=== PATIENT | female | born 1970 | race African-American/Black ===

== ENCOUNTER 2020-10-09 08:19 | Emergency (ER) | payer OTHER, BC, SELFPAY ==
[2020-10-09 08:25] VITALS: BP 114/84; PULSE 90; RESP 16; TEMP 35.8; O2SAT 100
--- NOTE | 2020-10-09 08:58 | ED.GENADULT ---
HPI - General Adult General Chief complaint: Upper Respiratory Infection Stated complaint: sore throat Time Seen by Provider: 10/09/20 08:37 Source: patient and RN notes reviewed Mode of arrival: ambulatory Limitations: no limitations History of Present Illness HPI narrative: Patient presents today complaining of a 2-week history of sore throat. Sore throat is significantly worse when she wakes up in the morning, but improves throughout the day, especially after taking Tylenol. She does report some congestion in the mornings as well. Rates her pain in the morning 05/30, but is currently pain-free. States she does sleep with a, fan in my face. States she is unsure if it is dry in her home, but does not use a humidifier. Recently finished courses of amoxicillin and clindamycin after root canal. 4 days ago she tested negative for COVID-19. Denies any additional symptoms. Denies history of GERD. MD complaint: Sore throat Related Data Home Medications Medication Instructions Recorded Confirmed calcium carbonate-vitamin D3 cap PO 10/09/20 [Calcium With Vitamin D3] docosahexaenoic acid [Algal mg PO 10/09/20 [place]-3 DHA] ferrous sulfate [Gentle Iron (iron mg 10/09/20 sulfate)] mecobalamin (vitamin B12) 1,000 mcg SUBLINGUAL DAILY 10/09/20 10/09/20 multivitamin [Daily Multivitamin] tablet 10/09/20 paroxetine HCl mg PO 10/09/20 topiramate 10/09/20 Allergies Allergy/AdvReac Type Severity Reaction Status Date / Time meperidine Allergy Unknown HIVES Verified 10/09/20 08:33 metoclopramide Allergy Unknown RESTLESS Verified 10/09/20 08:33 LEGS morphine Allergy Unknown HIVES Verified 10/09/20 08:33 naproxen Allergy Unknown rash Verified 10/09/20 08:33 Review of Systems Review of Systems: Narrative: CONSTITUTIONAL: Denies body aches, fever, chills, or sweats. EYES: Denies visual changes, redness, or discharge. ENT: Denies rhinorrhea, or otalgia. + Sore throat, congestion CARDIOVASCULAR: Denies chest pain, palpitations, or edema. RESPIRATORY: Denies cough or dyspnea. GASTROINTESTINAL: Denies abdominal pain, nausea, vomiting, or diarrhea. GENITOURINARY: Denies dysuria or hematuria. SKIN: Denies rash, itching, or wounds. MUSCULOSKELETAL: Denies back pain, joint pain, or myalgia. NEUROLOGIC: Denies headache, numbness, tingling, or weakness. PSYCH: Denies depression or anxiety. [facility] Past Medical History Medical History (Updated 10/09/20 @ 09:07 by Denise Anne, [facility], ) Anxiety Chiari malformation Migraine Surgical History Surgical History (Updated 10/09/20 @ 09:07 by Denise Anne, [facility], ) H/O gastric bypass H/O: hysterectomy Comments At time of signature, I have reviewed and agree with nursing past medical, surgical, social and family history unless otherwise noted. Please see nursing chart for further information. There is no relevant family history pertinent to the presenting complaint Exam Narrative: Exam Narrative: GENERAL: Well-appearing, well-nourished, and in no acute distress. HEAD: Normocephalic, atraumatic. EYES: EOMI. No redness or drainage. Conjunctivae normal. ENT: Mucous membranes pink and moist. Nares clear. No rhinorrhea. TMs normal bilaterally. Throat normal with scant amount of clear postnasal drainage. Uvula midline. NECK: Normal AROM. Supple. No lymphadenopathy. CHEST: No respiratory distress. Clear to auscultation. HEART: Regular rate and rhythm. No murmur appreciated. Normal peripheral pulses. EXTREMITIES: Normal range of motion. No edema. SKIN: Warm, dry, no rash. Capillary refill normal. Normal skin turgor. NEURO: No focal deficits. Alert and oriented x3. Gait steady. PSYCH: Normal affect. No signs of depression or anxiety. Course Vital Signs Vital signs: Vital Signs Temperature 96.4 F L 10/09/20 08:25 Pulse Rate 90 10/09/20 08:25 Respiratory Rate 16 10/09/20 08:25 Blood Pressure 114/84 10/09/20 08:25 Pulse Oximetry 100
== END 2020-10-09 09:05 | disposition home or self-care (01) ==
PROVIDERS: Emergency Provider Nurse Practitioner
DX: J02.9 Acute pharyngitis, unspecified (principal); Z98.84 Bariatric surgery status; F41.9 Anxiety disorder, unspecified; Q07.00 Arnold-Chiari syndrome without spina bifida or hydrocephalus
CPT/HCPCS: 87081; 87880; 99213; G0463

== ENCOUNTER 2023-05-10 16:30 | Emergency (ER) | payer BC, SELFPAY ==
--- NOTE | 2023-05-10 16:37 | ED.CHESTPAIN ---
HPI - Chest Pain General Stated Complaint: Chest Pain Mode of arrival: ambulatory Limitations: no limitations Related Data Home Medications Medication Instructions Recorded Confirmed calcium carbonate-vitamin D3 500 1 cap PO DAILY 10/09/20 10/09/20 mg (1,250 mg)-50 unit capsule docosahexaenoic acid 200 mg 200 mg PO DAILY 10/09/20 10/09/20 capsule (Algal [place]-3 DHA) ferrous sulfate 325 mg (65 mg 65 mg PO DAILY 10/09/20 10/09/20 iron) tablet mecobalamin (vitamin B12) 1,000 1,000 mcg sublingual DAILY 10/09/20 10/09/20 mcg disintegrating tablet,sublingual multivitamin 1 tablet PO DAILY 10/09/20 10/09/20 paroxetine HCl 20 mg tablet 20 mg PO DAILY 10/09/20 10/09/20 topiramate 50 mg tablet 50 mg PO DAILY 10/09/20 10/09/20 galcanezumab-gnlm 120 mg/mL 120 mg subcut MONTHLY 04/20/22 subcutaneous pen injector (Emgality Pen) spironolactone 100 mg tablet 100 mg PO DAILY 04/20/22 (Aldactone) alprazolam 0.5 mg tablet mg 05/10/23 indomethacin 25 mg capsule mg 05/10/23 paroxetine HCl 30 mg tablet mg PO 05/10/23 rimegepant 75 mg disintegrating mg 05/10/23 tablet (Nurtec ODT) zolpidem 5 mg tablet mg 05/10/23 Allergies Allergy/AdvReac Type Severity Reaction Status Date / Time meperidine Allergy Unknown HIVES Verified 05/10/23 16:36 metoclopramide Allergy Unknown RESTLESS Verified 05/10/23 16:36 LEGS morphine Allergy Unknown HIVES Verified 05/10/23 16:36 naproxen Allergy Unknown rash Verified 05/10/23 16:36 Review of Systems Review of Systems: CONSTITUTIONAL: Denies malaise, chills, sweats, or fever. EYES: Denies visual changes, redness, or discharge. ENT: Denies rhinorrhea, congestion, sinus pain, otalgia or sore throat. CARDIOVASCULAR: Denies chest pain, palpitations, or edema. RESPIRATORY: Denies cough or dyspnea. GASTROINTESTINAL: Denies abdominal pain, nausea, vomiting, diarrhea, bloody, or mucous stools. GENITOURINARY: Denies dysuria or hematuria. SKIN: Denies rash or itching. MUSCULOSKELETAL: Denies back pain, joint pain, or myalgia. NEUROLOGIC: Denies numbness, weakness, or headache. PSYCHIATRIC: Denies anxiety or depression. All systems reviewed & are unremarkable except as noted in HPI and below PMFSH Past Medical History Medical History Anxiety Chiari malformation removal History of x 2 History of LEEP (loop electrosurgical excision procedure) of cervix complicating History of lipoma History of vaginal delivery x1 Migraine Surgical History Surgical History H/O gastric bypass H/O: hysterectomy History of section x1 History of laparoscopic adjustable gastric banding Family History Family History (Updated 04/20/22 @ 13:28 by Vandana Dominguez MA) Father Cancer of nasal cavities Sibling Depression Grandparent Ovarian cancer Lung cancer Hypertension Other Asthma Social History Social History Smoking status: Never smoker Comments At time of signature, agree with nursing past medical, surgical, social and family history. There is no relevant family history pertinent to the presenting complaint Exam Narrative: GENERAL: Well-appearing, well-nourished, and in no acute distress. HEAD: Normocephalic, atraumatic. EYES: PERRLA, sclera clear, and EOMI. No nystagmus. ENT: Nares clear, turbinates pink, no rhinorrhea or epistaxis. Mucous membranes moist. TM pearly falk with sharp light reflex bilaterally; no tragal tenderness. Oropharynx without erythema or lesions. Tonsils not enlarged and without exudate. NECK: Supple. No lymphadenopathy. No jugular venous distension, thyromegaly, or carotid bruits. Carotids were easily palpable bilaterally. CHEST: No respiratory distress. Clear to auscultation. No bony deformities, no asymmetry. Speaks in full sentences. HEART: Regular rate and rhythm. No murmur heard. Normal per
[2023-05-10 16:41] VITALS: BP 113/76; PULSE 71; RESP 16; TEMP 36.8; O2SAT 100
== END 2023-05-10 16:40 | disposition left against medical advice (07) ==
LOC: EXPCOLL 16:35
PROVIDERS: Emergency Provider Nurse Practitioner
DX: Z53.21 Procedure and treatment not carried out due to patient leaving prior to being seen by health care provider (principal)
CPT/HCPCS: 99199

== ENCOUNTER 2023-05-10 17:04 | Emergency (ER) | payer BC, SELFPAY ==
--- NOTE | ~2023-05-10 | XR_ITS ---
EXAMINATION: XR chest 2V Exam Date/Time: 05/10/2023 20:04 CDT HISTORY: palpitations Comparison: None. RESULT: Lines, tubes, and devices: Surgical clips over the GE junction. Lungs and pleura: Clear. Cardiomediastinal silhouette: Normal. Other: No acute osseous or upper abdominal finding. IMPRESSION: No acute cardiopulmonary process. Reviewed, dictated and finalized at location K.
--- NOTE | 2023-05-10 17:06 | ECG_ITS ---
Measurements Intervals [place] Rate: 65 P: 59 WV: 153 QRS: 33 QRSD: 88 T: 43 QT: 368 QTc: 383 Interpretive Statements SINUS RHYTHM POSSIBLE LEFT ATRIAL ENLARGEMENT [-0.1mV P WAVE IN V1/V2] NO PREVIOUS ECG AVAILABLE FOR COMPARISON Electronically Signed On 05-10-2023 18:27:15 CDT by oRopa Aguilar M.D.
[2023-05-10 17:10] VITALS: BP 123/84; PULSE 65; RESP 16; TEMP 36.4; O2SAT 100
--- NOTE | 2023-05-10 19:23 | PC.NURSE ---
Pt reports frequent palpitations for the past week. She denies chest pain or SOB. She denies feeling palpitations at this time. Skin warm and dry. Respiratory rate regular and non-labored. Lung sounds clear throughout.
--- NOTE | 2023-05-10 19:38 | ED.ARRPALP ---
HPI - Arrhythmia/Palpitations General Chief Complaint: Arrhythmia/Palpitations Stated Complaint: palpitations x 1 wee Time Seen by Provider: 05/10/23 19:23 Source: patient Mode of arrival: ambulatory Limitations: no limitations History of Present Illness HPI narrative: Patient is a 53-year-old female with a history of anxiety presenting to the emergency department for evaluation of intermittent palpitations. Patient reports that she has a longstanding history of palpitations that have occurred on a weekly basis for many years. She has never been seen by sausage stringer, primary care provider at last visit offered reassurance for them. Patient states that this week, palpitations have been daily, at times lasting for 20 to 30 seconds before resolving. No associated chest pain, dizziness, jaw pain, neck pain, diaphoresis, shortness of breath. No syncopal events. Patient denies palpitations currently. She denies any pleuritic chest pain, cough, hemoptysis. No history of coagulopathy. She denies lower extremity pain or swelling. She does not smoke. Patient does consume 3 to 4 cups of coffee daily. Reports limited water intake. Denies lightheadedness. No history of thyroid disorder. Patient denies drug use, recent medication changes or new medication use. Related Data Home Medications Medication Instructions Recorded Confirmed calcium carbonate-vitamin D3 500 1 cap PO DAILY 10/09/20 10/09/20 mg (1,250 mg)-50 unit capsule docosahexaenoic acid 200 mg 200 mg PO DAILY 10/09/20 10/09/20 capsule (Algal [place]-3 DHA) ferrous sulfate 325 mg (65 mg 65 mg PO DAILY 10/09/20 10/09/20 iron) tablet mecobalamin (vitamin B12) 1,000 1,000 mcg sublingual DAILY 10/09/20 10/09/20 mcg disintegrating tablet,sublingual multivitamin 1 tablet PO DAILY 10/09/20 10/09/20 paroxetine HCl 20 mg tablet 20 mg PO DAILY 10/09/20 10/09/20 topiramate 50 mg tablet 50 mg PO DAILY 10/09/20 10/09/20 galcanezumab-gnlm 120 mg/mL 120 mg subcut MONTHLY 04/20/22 subcutaneous pen injector (Emgality Pen) spironolactone 100 mg tablet 100 mg PO DAILY 04/20/22 (Aldactone) alprazolam 0.5 mg tablet mg 05/10/23 indomethacin 25 mg capsule mg 05/10/23 paroxetine HCl 30 mg tablet mg PO 05/10/23 rimegepant 75 mg disintegrating mg 05/10/23 tablet ([facility] ODT) zolpidem 5 mg tablet mg 05/10/23 Allergies Allergy/AdvReac Type Severity Reaction Status Date / Time meperidine Allergy Unknown HIVES Verified 05/10/23 16:36 metoclopramide Allergy Unknown RESTLESS Verified 05/10/23 16:36 LEGS morphine Allergy Unknown HIVES Verified 05/10/23 16:36 naproxen Allergy Unknown rash Verified 05/10/23 16:36 Review of Systems Review of Systems: CONSTITUTIONAL: Denies fever, chills, or sweats. EYES: Denies visual changes, redness, or discharge. ENT: Denies rhinorrhea, congestion, sore throat, or otalgia. CARDIOVASCULAR: Denies chest pain, reports intermittent palpitations, denies edema RESPIRATORY: Denies cough or dyspnea. GASTROINTESTINAL: Denies abdominal pain, nausea, vomiting, or diarrhea. GENITOURINARY: Denies dysuria or hematuria. SKIN: Denies rash or itching. MUSCULOSKELETAL: Denies back pain, joint pain, or myalgia. NEUROLOGIC: Denies headache, numbness, or weakness. PSYCHIATRIC: Reports history of anxiety PMFSH Past Medical History Medical History (Updated 05/10/23 @ 20:54 by Dena Plasencia MD) Anxiety Chiari malformation removal History of x 2 History of LEEP (loop electrosurgical excision procedure) of cervix complicating History of lipoma History of vaginal delivery x1 Migraine Palpitations Surgical History Surgical History H/O gastric bypass H/O: hysterectomy History of section x1 History of laparoscopic adjustable gastric banding Family History Family History Father Cancer of nasal
[2023-05-10 19:49] VITALS: BP 111/70; PULSE 70; RESP 16; O2SAT 99
[2023-05-10 20:24] LABS: Basophils Percent Auto 0.6 % (0.2-1.2); Eosinophils Percent Auto 0.8 % (0-4.4); Hematocrit 39.6 % (37.0-47.0); Hemoglobin 12.3 g/dL (12.0-15.0); Immature Granulocyte Absolute 0.02 K/mm3 (0.00-0.031); Immature Granulocyte Percent A 0.4 % (0-0.5); Lymphocytes Absolute Auto 1.63 K/mm3 (0.9-3.2); Lymphocytes Percent Auto 31.8 % (18.3-44.2); Mean Corpuscular HGB Conc 31.1 g/dl (32-36); Mean Corpuscular Hemoglobin 28.5 pg (26-34); Mean Corpuscular Volume 91.7 fl (80-100); Mean Platelet Volume 8.8 fl (7.4-10.4); Monocytes Absolute Auto 0.4 K/mm3 (0.1-0.6); Monocytes Percent Auto 7.6 % (2.6-8.5); Neutrophils Percent Auto 58.8 % (45.5-73.1); Platelet Count Result 301 k/mm3 (150-375); Red Blood Count 4.32 M/mm3 (4.2-5.4); Red Cell Distribution Width 13.9 % (11.5-14.5); White Blood Count 5.1 K/mm3 (4.5-10.0)
[2023-05-10 20:34] LABS: Anion Gap 4 mmol/L (8-16); Blood Urea Nitrogen 12 mg/dL (7-17); Calcium 8.8 mg/dL (8.4-10.2); Carbon Dioxide 29 mmol/L (22-30); Chloride 108 mmol/L (98-107); Estimated Glomerular Filt Rate > 60; Glucose 68 mg/dL (65-110); Potassium 3.6 mmol/L (3.4-5.0); Sodium 141 mmol/L (137-145)
[2023-05-10 20:46] LABS: Troponin I < 0.012 ng/mL (0.000-0.034)
[2023-05-10 21:15] VITALS: BP 116/70; PULSE 70; RESP 18; O2SAT 98
== END 2023-05-10 21:16 | disposition home or self-care (01) ==
PROVIDERS: Emergency Provider Emergency Medicine
DX: R00.2 Palpitations (principal); F41.9 Anxiety disorder, unspecified; Z98.84 Bariatric surgery status; Z90.710 Acquired absence of both cervix and uterus; R94.31 Abnormal electrocardiogram [ECG] [EKG]
CPT/HCPCS: 36415; 71046; 80048; 84484; 85025; 93005; 99284

== ENCOUNTER 2024-02-01 11:53 | Emergency (ER) | payer BC, SELFPAY ==
[2024-02-01 12:03] VITALS: BP 144/92; PULSE 103; RESP 18; TEMP 37.1; O2SAT 100
--- NOTE | 2024-02-01 12:05 | ED.GENADULT ---
HPI - General Adult General Chief complaint: Anxiety Stated complaint: Bodyaches and Tremors Source: patient, RN notes reviewed and old records reviewed Mode of arrival: ambulatory Limitations: no limitations History of Present Illness HPI narrative: 53-year-old female presents to [facility] with complaints shaking all over and feeling cold for approximately 1 to 1-1/2 hours. Patient states symptom started while drinking coffee. Patient states his normal coffee drinker. Patient states has little myalgia at this time and feels she cannot get warm. Patient denies any other symptoms. Related Data Home Medications Medication Instructions Recorded Confirmed alprazolam 0.5 mg tablet 0.5 mg PO TID PRN Anxiety 02/01/24 02/01/24 estradiol 4 mcg vaginal insert 4 mcg vaginal DIRECTED 02/01/24 02/01/24 (Imvexxy Maintenance Pack) famotidine 40 mg tablet 40 mg PO DIRECTED 02/01/24 02/01/24 levocetirizine 5 mg tablet 5 mg PO DIRECTED 02/01/24 02/01/24 montelukast 10 mg tablet 10 mg PO DAILY 02/01/24 02/01/24 temazepam 15 mg capsule 15 mg PO DIRECTED 02/01/24 02/01/24 topiramate 50 mg tablet 50 mg PO DAILY 02/01/24 02/01/24 venlafaxine 75 mg capsule,extended 75 mg PO DAILY 02/01/24 02/01/24 release 24 hr Allergies Allergy/AdvReac Type Severity Reaction Status Date / Time meperidine Allergy Hives Verified 02/01/24 12:13 metoclopramide Allergy Other Verified 02/01/24 12:13 morphine Allergy Hives Verified 02/01/24 12:13 naproxen Allergy Rash Verified 02/01/24 12:13 Review of Systems Constitutional: Constitutional: Reports no additional constitutional complaints, Reports body ache(s), Reports chills, Denies fatigue, Denies fever(s) and Denies headache(s) Eyes: Eyes: Reports no additional eye complaints and Denies blurry vision ENT: Reports system reviewed and no additional complaints, except as documented, Denies vertigo, Denies dizziness, Denies ear discharge, Denies otalgia, Denies facial pain, Denies headache(s), Denies nasal congestion, Denies nasal discharge, Denies sinus pain, Denies sinus pressure and Denies sore throat Cardiovascular: Cardiovascular: Reports no additional cardiovascular complaints, Denies chest pain, Denies chest pain at rest, Denies rapid heart rate and Denies dyspnea Respiratory: Respiratory: Reports no additional respiratory complaints, Denies chest congestion, Denies cough, Denies pain on inspiration, Denies pain with cough and Denies dyspnea Gastrointestinal: Gastrointestinal: Denies abdominal pain, Denies diarrhea, Denies nausea and Denies vomiting Integumentary/Breasts: Skin/Breast: Denies rash Neurologic: Reports system reviewed and no additional complaints, except as documented, Denies vertigo, Denies dizziness and Denies headache(s) Endocrine: Endocrine: Denies fatigue PMFSH Comments At the time of my signature, I reviewed and agree with the nursing past medical, surgical, social, and family history. There is no relevant family history pertinent to the patient complaint. Exam Const: General: cooperative, healthy appearing, no acute distress and well nourished Nutritional Appearance: well nourished Orientation/consciousness: patient oriented x3 Limitations: no limitations HENMT: Head: normal to inspection and normocephalic Ears: external ears normal, TM's normal bilaterally, EAC's normal and mastoids normal Face/Nose/Sinus: Normal nasal mucous membranes and turbinates present and normal facial exam Face and sinus: normal facial exam Mouth: Yes Normal oral and palatal mucosa present, Yes oropharynx normal and Yes moist mucous membranes Throat: posterior oropharynx normal, tonsils normal, uvula midline, normal tonsils, no peritonsillar masses and no uvular edema Eyes: General: appearance normal, both eyes and all related structures Sclera: sclerae normal Pupils: Equal, round and reactive pupils present Resp: Effort & Inspection: normal respiratory effort, able to speak in c
== END 2024-02-01 12:33 | disposition home or self-care (01) ==
PROVIDERS: Emergency Provider Registered Nurse
DX: R68.83 Chills (without fever) (principal); R25.9 Unspecified abnormal involuntary movements; Z20.822 Contact with and (suspected) exposure to COVID-19; F41.9 Anxiety disorder, unspecified; Z98.84 Bariatric surgery status
CPT/HCPCS: 87426; 87804; 99213; G0463

== ENCOUNTER 2024-02-16 17:40 | Emergency (ER) | payer BC, SELFPAY ==
--- NOTE | ~2024-02-16 | XR_ITS ---
EXAMINATION: XR chest 2V Exam Date/Time: 02/16/2024 18:10 CDT HISTORY: CP, RIGHT arm heaviness, fatigue X 2 WEEKS Comparison: 05/10/2023. RESULT: Lines, tubes, and devices: Surgical clips over the GE junction. Lungs and pleura: Clear. Cardiomediastinal silhouette: Stable. Other: No acute osseous or upper abdominal finding. IMPRESSION: No acute cardiopulmonary process. Reviewed, dictated and finalized at location K.
[2024-02-16 17:43] VITALS: BP 139/81; PULSE 90; RESP 20; TEMP 36.7; O2SAT 100
--- NOTE | 2024-02-16 17:43 | ECG_ITS ---
Measurements Intervals [place] Rate: 79 P: 71 VT: 146 QRS: 48 QRSD: 84 T: 59 QT: 345 QTc: 397 Interpretive Statements SINUS RHYTHM POSSIBLE LEFT ATRIAL ENLARGEMENT RSR' IN V1 OR V2, PROBABLY NORMAL VARIANT BORDERLINE T WAVE ABNORMALITY- ANTERIOR LEADS BORDERLINE ECG COMPARED TO ECG 05/10/2023 17:09:19 NO SIGNIFICANT CHANGES Electronically Signed On 02-16-2024 20:18:30 CDT by Jake Hernandez D.O.
--- NOTE | 2024-02-16 18:04 | ED.CHESTPAIN ---
HPI - Chest Pain General Chief Complaint: Chest Pain <Sonia Jorge PA-C - Last Filed: 02/16/24 18:08> Stated Complaint: chest pain <Sonia Jorge PA-C - Last Filed: 02/16/24 18:08> Time Seen by Provider: 02/16/24 19:47 <Sonia Jorge PA-C - Last Filed: 02/16/24 18:08> Focused HPI: 53 y/o F with history of anxiety, Chiari malformation, reported hyperlipidemia presents to the Emergency department for pain to her right anterior chest wall that she describes as burning and needlestick like for 2 weeks. patient states this pain is intermittent. Denies aggravating or alleviating factors. She reports of feeling palpitations for while. States she is having pain in her left shoulder that she describes as heaviness. Patient states she does not feel like the left shoulder pain in the chest pain are related. She endorses lightheadedness out denies loss of consciousness. Denies dyspnea, fevers, body aches, cough. States she does not smoke. Reports maternal family hx of cardiac disease. GENERAL: Well-appearing, well-nourished, and in no acute distress. HEAD: Normocephalic, atraumatic. CHEST: Clear to auscultation. ?No respiratory distress. HEART: Regular rate and rhythm.? NEURO: ?Alert and oriented x3. Patient screened in triage and initial orders placed.? ?Additional care and disposition to be based upon?diagnostic testing and treatment. <Sonia Jorge PA-C - Last Filed: 02/16/24 18:08> History of Present Illness HPI narrative: A 53-year-old female presenting to the emergency department for evaluation of intermittent right-sided chest pain. Patient reports chest pain is very short lasting, only lasts just a few seconds and has been occurring a few times during the day over the last few days. Patient denies any prior history of coronary artery disease and denies any prior history of PE or DVT. Patient states the pain stays in her right chest but does not radiate. Patient denies any associated shortness of breath. Patient is on a vaginal hormone replacement. <Jairo Montalvo MD - Last Filed: 02/17/24 13:17> Related Data Home Medications: Home Medications Medication Instructions Recorded Confirmed calcium carbonate-vitamin D3 500 1 cap PO DAILY 10/09/20 12/05/23 mg (1,250 mg)-50 unit capsule docosahexaenoic acid 200 mg 200 mg PO DAILY 10/09/20 12/05/23 capsule (Algal [place]-3 DHA) ferrous sulfate 325 mg (65 mg 65 mg PO DAILY 10/09/20 12/05/23 iron) tablet multivitamin 1 tablet PO DAILY 10/09/20 12/05/23 topiramate 50 mg tablet 50 mg PO DAILY 10/09/20 12/05/23 alprazolam 0.5 mg tablet 0.5 mg PO DAILY 05/10/23 12/05/23 indomethacin 25 mg capsule 25 mg PO DAILY 05/10/23 12/05/23 rimegepant 75 mg disintegrating 75 mg PO DAILY 05/10/23 12/05/23 tablet (Nurtec ODT) zolpidem 5 mg tablet 5 mg PO HS 05/10/23 12/05/23 cetirizine 10 mg capsule (Zyrtec) 10 mg PO DAILY PRN Allergy Symptoms 10/06/23 12/05/23 famotidine 20 mg tablet (Pepcid) 20 mg PO DAILY 10/06/23 12/05/23 montelukast 4 mg chewable tablet 4 mg PO DAILY 10/06/23 12/05/23 (Singulair) venlafaxine 75 mg tablet 75 mg PO DAILY 10/06/23 12/05/23 alprazolam 0.5 mg tablet 0.5 mg PO TID PRN Anxiety 02/01/24 02/01/24 estradiol 4 mcg vaginal insert 4 mcg vaginal DIRECTED 02/01/24 02/01/24 (Imvexxy Maintenance Pack) famotidine 40 mg tablet 40 mg PO DIRECTED 02/01/24 02/01/24 levocetirizine 5 mg tablet 5 mg PO DIRECTED 02/01/24 02/01/24 montelukast 10 mg tablet 10 mg PO DAILY 02/01/24 02/01/24 temazepam 15 mg capsule 15 mg PO DIRECTED 02/01/24 02/01/24 topiramate 50 mg tablet 50 mg PO DAILY 02/01/24 02/01/24 venlafaxine 75 mg capsule,extended 75 mg PO DAILY 02/01/24 02/01/24 release 24 hr <Sonia Jorge PA-C - Last Filed: 02/16/24 18:08> Allergies/Adverse Reactions: Allergies Allergy/AdvReac Type Severity Reaction Status Date / Time meperidine Allergy Unknown HIVES Verified 02/16/24 19:43 metoclopra
[2024-02-16 18:13] LABS: Basophils Absolute Auto 0.1 K/mm3 (0.0-0.1); Basophils Percent Auto 0.7 % (0.2-1.2); Eosinophils Absolute Auto 0.1 K/mm3 (0-0.3); Eosinophils Percent Auto 0.8 % (0-4.4); Hematocrit 41.1 % (37.0-47.0); Immature Granulocyte Absolute 0.02 K/mm3 (0.00-0.031); Immature Granulocyte Percent A 0.3 % (0-0.5); Lymphocytes Percent Auto 23.7 % (18.3-44.2); Mean Corpuscular HGB Conc 31.6 g/dl (32-36); Mean Corpuscular Hemoglobin 28.5 pg (26-34); Mean Corpuscular Volume 90.1 fl (80-100); Mean Platelet Volume 9.2 fl (7.4-10.4); Monocytes Absolute Auto 0.4 K/mm3 (0.1-0.6); Monocytes Percent Auto 5.4 % (2.6-8.5); Neutrophils Absolute Auto 5.3 K/mm3 (1.3-6.7); Neutrophils Percent Auto 69.1 % (45.5-73.1); Platelet Count Result 345 k/mm3 (150-375); Red Blood Count 4.56 M/mm3 (4.2-5.4); White Blood Count 7.6 K/mm3 (4.5-10.0)
[2024-02-16 18:24] LABS: Alanine Aminotransferase 32 U/L (6-35); Albumin Level 4.2 g/dL (3.5-5.1); Alkaline Phosphatase 75 U/L (38-126); Anion Gap 4 mmol/L (4-12); Aspartate Amino Transferase 30 U/L (14-36); Bilirubin,Total 0.3 mg/dL (0.2-1.3); Blood Urea Nitrogen 11 mg/dL (7-17); Calcium 9.2 mg/dL (8.4-10.2); Carbon Dioxide 27 mmol/L (22-30); Chloride 110 mmol/L (98-107); Estimated Glomerular Filt Rate > 60; Glucose 62 mg/dL (65-110); Lipase 54 U/L (23-300); Potassium 3.8 mmol/L (3.4-5.0); Prothrombin Time 13.1 Seconds (11.1-14.7); Sodium 141 mmol/L (137-145)
[2024-02-16 18:25] LABS: Partial Thromboplastin Time 31.6 Seconds (22.3-36.8)
[2024-02-16 18:36] LABS: Troponin I < 0.012 ng/mL (0.000-0.034)
[2024-02-16 19:46] VITALS: BP 121/81; PULSE 72; RESP 16; O2SAT 100
[2024-02-16 19:47] VITALS: O2SAT 100
[2024-02-16 20:30] LABS: D Dimer < 0.27 ug/mL (<0.48)
--- NOTE | 2024-02-16 21:04 | ECG_ITS ---
Measurements Intervals [place] Rate: 68 P: 53 WV: 156 QRS: 24 QRSD: 85 T: 33 QT: 373 QTc: 398 Interpretive Statements SINUS RHYTHM NORMAL ECG COMPARED TO ECG 02/16/2024 17:48:08 NO SIGNIFICANT CHANGES Electronically Signed On 02-17-2024 6:24:15 CDT by Jake Hernandez D.O.
[2024-02-16 21:42] LABS: Troponin I < 0.012 ng/mL (0.000-0.034)
== END 2024-02-16 21:58 | disposition home or self-care (01) ==
PROVIDERS: Emergency Provider Emergency Medicine
DX: R07.89 Other chest pain (principal); F41.9 Anxiety disorder, unspecified; Z98.84 Bariatric surgery status; Z90.710 Acquired absence of both cervix and uterus; R94.31 Abnormal electrocardiogram [ECG] [EKG]
CPT/HCPCS: 36415; 71046; 80053; 83690; 84484; 85025; 85380; 85610; 85730; 93005; 99284

== ENCOUNTER 2025-03-02 15:14 | Emergency (ER) | payer BC, SELFPAY ==
[2025-03-02 15:16] VITALS: BP 129/69; PULSE 103; RESP 14; TEMP 36.5; O2SAT 100
--- OUTSIDE RECORDS SUMMARY | 2025-03-02 15:17 | XMS_ITS ---
Author Organization [facility] Address [address] [place] [address] Care Team Providers Care Program Technician Name Role Phone Hedy Calderon Primary Care Provider Fermin Sparks Unavailable [phone] REASON FOR VISIT Episdoes of hives and swelling in the setting of NSAIDs ingestion and exposure to opioids; Now withnew onset of hives staring August 24. On daily Xyzal, Pepcid, and Singulair with benefit. Still with persistent Medications Medication SIG (Take, Route, Frequency, Duration) Notes Start Date End Date Status MONTELUKAST 10 mg 1 tab(s) orally once a day for 90 days Active FAMOTIDINE 40 mg 1 tab(s) orally twice a day for 90 days Active CETIRIZINE 10 mg 1 tab(s) orally twice a day for 90 days Active FAMOTIDINE 40 mg 1 tab(s) orally twice a day for 90 days Active LEVOCETIRIZINE DIHYDROCHLORIDE 5 mg 1 tab(s) orally once a day (in the evening) for 90 days 03/05/2024 Active SPIRONOLACTONE 50 mg 1 tab(s) orally for 30 day(s) Not-Taking ZYRTEC 10mg 1 tablet PO QD Not -Taking MONTELUKAST 10 mg 1 tab(s) orally once a day for 30 days Active ALPRAZOLAM 0.5 mg TAKE 1 TABLET BY MOUTH THREE TIMES A DAY NEEDED for 20 Days Active PAXIL 30 mg 1 tab(s) orally once a day for 30 day(s) Not-Taking IMVEXXY MAINTENANCE PACK 4 mcg INSERT 1 TABLET VAGINALLY 2 TIMES PER WEEK for 28 Days Active TEMAZEPAM 15 mg for 30 Days Ac tive VENLAFAXINE HYDROCHLORIDE ER 75 mg 1 cap(s) orally once a day for 30 day(s) 11/28/2023 Active MONTELUKAST 10 mg 1 tab(s) orally once a day for 90 days Active TOPAMAX 50 mg 1 tab(s) orally 2 times a day for 30 day(s) Active VITAMIN D3 125 mcg 1 cap(s) orally once a day for 30 day(s) takes 1000IU daily Active MULTIVITAMIN Multiple Vitamins 1 cap(s) orally once a day for 30 day(s) Active CALCIUM/FERROUS FUMARATE/VITAMIN D 500/400mg one tablet daily Active MONTELUKAST 10 mg 1 tab(s) orally once a day for 90 days Active OMEGA-3 1000 mg 1 cap(s) orally once a day for 30 day(s) takes 500mg once a day Active FAMOTIDINE 40 mg 1 tab(s) orally twice a day for 90 days Active CETIRIZINE 10 mg 1 tab(s) orally twice a day for 90 days Active Encounters Encounter Location Date Provider Diagnosis [facility] [address] [address] 03/26/2024 Fermin García Other urticaria L50. 8 ; Adverse effect of other nonsteroidal anti-inflammatory drugs [NSAID], subsequent encounter T39.395D and Localized swelling, mass and lump, head R22.0 Assessments Encounter Date Diagnosis (ICD Code) Assessment Notes Treatment Notes Treatment Clinical Notes Section Notes 03/26/2024 Other urticaria (ICD-10 - L50.8) History, presentation, pictures, and timeframe of symptoms > 6 weeks c/w chronic idiopathic urticaria. Currently on daiy Xyzal, Pepcid and Singulair without breakthrough. Intructed to increase Zyrtec and Pepcid to BID has she continues to have persisit pruritis desite lack of neha hives. SHe did recently have bloodwork with PCP so will check her CBC and LFTs. Otherwise will undergo CIu work-up to asses for other aspects of this. Consdier trial of doxepin to asses for neurogenic aspect. If breakthrough continues despite this treatment, consider Xolair. Return in 1 month for E&M. Avoid NSAIDs 03/26/2024 Adverse effect of other nonsteroidal anti-inflammator y drugs [NSAID], subsequent encounter (ICD-10 - T39.395D) Noted hives and swelling in response to exposure to Demerol/Morphine as well as Aleve. Specifically with hives and facial swelling occurring after exposure. Seen in ED but denies treatment with epinephrine. No other sustemic symptoms. Since then has used Ibuprofen sporadically without issue. History and presentation is not c/w NSAID allergy given she has used since then without reaction. That said, both NSAIDs and opioids are known to cause direct mast cell degranulation, a phenomena where histamine is released without the need for an IgE-mediated process occurring leading to a pseudoallergic reaction. Regardless I would advise absolute avoidance of NSAIDS and opioids - preferring Ultran, Celebrex, or Acetaminophen 03/26/2024 Localized swelling, mass and lump, head (ICD-10 - R22.0) Noted swelling after ingestion on NSAIDS. No occurance since then 03/26/2024 Other Plan Of Treatment Medication Medication Name Sig Start Date Stop Date Notes MONTELUKAST 10 mg 1 tab(s) orally once a day for 90 days FAMOTIDINE 40 mg 1 tab(s) orally twice a day for 90 days CETIRIZINE 10 mg 1 tab(s) orally twice a day for 90 days Treatment Notes Assessment Notes Other urticaria History, presentatio n, pictures, and timeframe of symptoms > 6 weeks c/w chronic idiopathic urticaria. Currently on daiy Xyzal, Pepcid and Singulair without breakthrough. Intructed to increase Zyrtec and Pepcid to BID has she continues to have persisit pruritis desite lack of neha hives. SHe did recently have bloodwork with PCP so will check her CBC and LFTs. Otherwise will undergo CIu work-up to asses for other aspects of this. Consdier trial of doxepin to asses for neurogenic aspect. If breakthrough continues despite this treatment, consider Xolair. Return in 1 month for E&M. Avoid NSAIDs Adverse effect of other nons teroidal anti-inflammatory drugs [NSAID], subsequent encounter Noted hives and swelling in response to exposure to Demerol/Morphine as well as Aleve. Specifically with hives and facial swelling occurring after exposure. Seen in ED but denies treatment with epinephrine. No other sustemic symptoms. Since then has used Ibuprofen sporadically without issue. History and presentation is not c/w NSAID allergy given she has used since then without reaction. That said, both NSAIDs and opioids are known to cause direct mast cell degranulation, a phenomena where histamine is released without the need for an IgE-mediated process occurring leading to a pseudoallergic reaction. Regardless I would advise absolute avoidance of NSAIDS and opioids - preferring Ultran, Celebrex, or Acetaminophen Localized swelling, mass and lump, head Noted swelling after ingestion on NSAIDS. No occurance since then Next Appt Details Follow Up: 4 Months, Reason: Evaluation and Management,Laboratory Review Progress Notes * Amira KELSEYB:[birth year] (54 yo F)Acc No.[id number]:03/26/2024 Progress Notes Patient: Dawna ANTHONY Provider: Sb García PA-C :1970 A ge:54 Y S ex:Female Date:03/26/2024 Address:[address] [place], [place] [id number] Pcp:Hedy Calderon Subjective: * Chief Complaints: * 1 . Episdoes of hives and swelling in the setting of NSAIDs ingestion and exposure to opioids; Now with new onset of hives staring August 24. On daily Xyzal, Pepcid, and Singulair with benefit. Still with persistent. * HPI: * Introduction: I had the pleasure of seeing Brendan Kelsey, a 53 y/o AA female with history of anxiety and CIU r eturning for interval evaluation and management. She is alone for today's visit. She reports in 2000 she was drawing up Demerol and morphine. Noted a rash occurring to her hand and her eyelid. 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 Has taken ibuprofen in the past without issue. That said she did take Aleve in 2005 with increased itching diffusely about 20 minutes later. No other systemic symptoms. That evening she awoke with diffuse facial swelling and hives. Went to ED where she was swollen for a week or 2. No epinephrine given. Noted outbreak of hives since August 24. Took Benadryl with some benefit. The next morning she was still having hives. Started taking Benadryl regularly. Went to Urgent care where she was medrol dose pack with initial benefit for a couple of days. She went out of time with continued worsening of rash. Occuring to the arms and stomach. Talked to telemed provider and started on Montelukast along with AM Claritin and Zyrtec. Now on daily Xyzal, Pepcid, and Singulair w ith clear improvement though continues to have persistent itching. No neha hives occuring. No itnerval swelling. N o clear correlation with foods or medicaiton . No relation to heat or pressure. She has chronic neck and back pain. Has had Ibuprofen since then without issue. Today, she reports no fevers, chills, night sweats or other constitutional symptoms. * ROS: A LLERGY: Positive p er the HPI and history, otherwise unremarkable.? S PECIAL SENSES: Positve for n one. l oss of hearing Y es. r inging in ears Y es. d ry eyes Y es. C ONSTITUTIONAL: fatigue Y es. n ight sweats Y es. P ositive for?none. E NT: hearing loss Y es. r inging in ears Y es. P ositive p er the HPI and history, otherwise unremarkable. R ESPIRATORY: Positive p er the HPI and history, otherwise unremakable.? O PHTHALMOLOGY: diminished vision Y es. P ositive for p er the HPI and history, otherwise unremarkable. r edness Y es. E NDOCRINOLOGY: fatigue Y es. s leep disturbance Y es. c old intolerance Y es. P ositive for n one. C ARDIOLOGY: palpitations Y es. d izziness Y es. P ositive for n one. G ASTROENTEROLOGY: abdominal pain Y es. c onstipation Y es. i ndigestion Y es. h emorrhoids Y es. P ositive for n one. U ROLOGY: Positive for n one. D ERMATOLOGY: dry or sensitive skin Y es. a cne Y es. P ositive for p er the HPI and history, otherwise unremakable. N EUROLOGY: headache Y es. i nsomnia Y es. m griffin loss?Yes. P ositive for n one. H EMATOLOGY/LYMPH: Positive for n one. M USCULOSKELETAL: joint swelling Y es. j oint pain Y es. o steoporosis Y es. P ositive for n one. P SYCHOLOGY: sleep disturbances Y es. a nxiety Y es. P ositive for n one. F EMALE REPRODUCTIVE: Are you ? N o. A ll other review of systems per the HPI and history, otherwise unremarkable. * Medical History: * Medications: T aking CETIRIZINE 10 mg tablet 1 tab(s) orally twice a day , Taking FAMOTIDINE 40 mg tablet 1 tab(s) orally twice a day , Taking MONTELUKAST 10 mg tablet 1 tab(s) orally once a day , Taking CALCIUM/FERROUS FUMARATE/VITAMIN D , Notes to Pharmacist: 500/400mg one tablet daily, Taking MULTIVITAMIN Multiple Vitamins capsule 1 cap(s) orally once a day , Taking VITAMIN D3 125 mcg capsule 1 cap(s) orally once a day , Notes to Pharmacist: takes 1000IU daily, Taking OMEGA-3 1000 mg capsule 1 cap(s) orally once a day , Notes to Pharmacist: takes 500mg once a day, Taking TOPAMAX 50 mg tablet 1 tab(s) orally 2 times a day , Taking MONTELUKAST 10 mg tablet 1 tab(s) orally once a day , Taking VENLAFAXINE HYDROCHLORIDE ER 75 mg capsule, extended release 1 cap(s) orally once a day , Taking TEMAZEPAM 15 mg capsule , Taking IMVEXXY MAINTENANCE PACK 4 mcg insert INSERT 1 TABLET VAGINALLY 2 TIMES PER WEEK , Taking ALPRAZOLAM 0.5 mg tablet TAKE 1 TABLET BY MOUTH THREE TIMES A DAY NEEDED , Taking MONTELUKAST 10 mg tablet 1 tab(s) orally once a day , Taking LEVOCETIRIZINE DIHYDROCHLORIDE 5 mg tablet 1 tab(s) orally once a day (in the evening) , Taking FAMOTIDINE 40 mg tablet 1 tab(s) orally twice a day , Not-Taking/PRN ZYRTEC 10mg tablet 1 tablet PO QD , Not-Taking/PRN SPIRONOLACTONE 50 mg tablet 1 tab(s) orally , Not-Taking/PRN PAXIL 30 mg tablet 1 tab(s) orally once a day Objective: * Vitals: * Examination: G eneral examination: General appearance: p leasant, well-developed, well-nourished , female, in no apparent distress. HEENT: p upils equal, round, and reactive to light and accommodation, conjunctiva are normal bilaterally, no tenderness to palpation of the sinuses, TM's without evidence of acute infection, turbinates 2+ swollen and pale inferiorly bilaterally, clear rhinorrhea is present, no polyps noted, no septal perforation, posterior oropharynx is normal, no erythema on pharyngeal wall, no exudates, no tongue swelling, and uvula is midline. Oral cavity: n ormal, no lesions. Neck, thyroid : s upple, non-tender, no anterior cervical lymphadenopathy. Breasts : n ot performed. Heart: R RR, S1-S2, no murmurs, no rubs, no gallops. Lungs: c lear to auscultation and percussion in all lung singh, no wheezes or crackles. Abdomen: s oft, NT/ND, normal active bowel sounds. Neurologic exam: u nremarkable. Skin: n ormal, no rash, dermatographism, urticaria, angioedema. Peripheral pulses: n ormal (2+) bilaterally. Back: n ormal. Extremities: n ormal ROM, no clubbing, no cyanosis, no edema. Genitalia: n ot performed. Assessment: * Assessment: 1. O ther urticaria - L50.8 (Primary) 2 . A dverse effect of other nonsteroidal anti-inflammatory drugs [NSAID], subsequent encounter - T39.395D 3 . L ocalized swelling, mass and lump, head - R22.0 Plan: * Treatment: 2. A dverse effect of other nonsteroidal anti-inflammatory drugs [NSAID], subsequent encounter Notes: Noted hives and swelling in response to exposure to Demerol/Morphine as well as Aleve. Specifically with hives and facial swelling occurring after exposure. Seen in ED but denies treatment with epinephrine. No other sustemic symptoms. Since then has used Ibuprofen sporadically without issue. History and presentation is not c/w NSAID allergy given she has used since then without reaction. That said, both NSAIDs and opioids are known to cause direct mast cell degranulation, a phenomena where histamine is released without the need for an IgE-mediated process occurring leading to a pseudoallergic reaction. Regardless I would advise absolute avoidance of NSAIDS and opioids - preferring Ultran, Celebrex, or Acetaminophen 3. L ocalized swelling, mass and lump, head Notes: Noted swelling after ingestion on NSAIDS. No occurance since then * Procedure Codes: G 8427 DOC MEDS VERIFIED W/PT OR RE * Preventive Medicine: Counseling: M edication instruction: W atch for side effects of prescribed medications, Nasal steroid/antihistamine instruction: avoid septum. E ducation: G ENERAL EDUCATION: Our staff spent an additional 30 minutes in direct contact with the patient educating them on their current diagnoses and proper treatment and prevention of symptoms and the proper use of medications, Avoid opioid-containing analgesics, Avoid excessive alcohol use, Avoid NSAIDs (non-steroidal anti-inflammatories) - list provided. P atient education material sent to portal? Y es C are goal follow up plan Above Normal BMI Follow-up E xercise promotion: strength training * Follow Up: 4 Months (Reason: Evaluation and Management,Laboratory Review) * Billing Information: * Visit Code: 22782 Office Visit, Est Pt., Level 4. Modifiers: 25 * Procedure Codes: G8427 DOC MEDS VERIFIED W/PT OR RE. * Electronic signature of Castillo García PA-C on 03/02/2025 at 03:16 PM CDT Sign off status: Pending * Provider: Sb García PA-C Date: 0 03/26/2024 Generated for Ajit izaguirre/Emily/Vicki on: 0 03/02/2025 03:16 PM CDT History and Physical Notes * HPI (History of Present Illness) Category Sub-Category Detail Notes Category Not es *Introduction I had the pleasure o f seeing Dawna Kelsey, a 53 y/o AA female with history of anxiety and CIU returning for interval evaluation and management. She is alone for today's visit. She reports in 2000 she was drawing up Demerol and morphine. Noted a rash occurring to her hand and her eyelid. 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 Has taken ibuprofen in the past without issue. That said she did take Aleve in 2005 with increased itching diffusely about 20 minutes later. No other systemic symptoms. That evening she awoke with diffuse facial swelling and hives. Went to ED where she was swollen for a week or 2. No epinephrine given. Noted outbreak of hives since August 24. Took Benadryl with some benefit. The next morning she was still having hives. Started taking Benadryl regularly. Went to Urgent care where she was medrol dose pack with initial benefit for a couple of days. She went out of time with continued worsening of rash. Occuring to the arms and stomach. Talked to telemed provider and started on Montelukast along with AM Claritin and Zyrtec. Now on daily Xyzal, Pepcid, and Singulair with clear improvement though continues to have persistent itching. No neha hives occuring. No itnerval swelling. No clear correlation with foods or medicaiton . No relation to heat or pressure. She has chronic neck and back pain. Has had Ibuprofen since then without issue. Today, she reports no fevers, chills, night sweats or other constitutional symptoms Examination Category Sub-Category Detail Notes Category Not es General examination HEENT: pupils equal , round, and reactive to light and accommodation, conjunctiva are normal bilaterally, no tenderness to palpation of the sinuses, TM's without evidence of acute infection, turbinates 2+ swollen and pale inferiorly bilaterally, clear rhinorrhea is present, no polyps noted, no septal perforation, posterior oropharynx is normal, no erythema on pharyngeal wall, no exudates, no tongue swelling, and uvula is midline Neck, thyroid : supple, non-tender, no anterior cervical lymphadenopathy Heart: RRR, S1-S2, no murmu rs, no rubs, no gallops Lungs: clear to auscultatio n and percussion in all lung singh, no wheezes or crackles Abdomen: soft, NT/ND, normal active bowel sounds Extremities: normal ROM, no clubb ing, no cyanosis, no edema General appearance: pleasant, well-devel oped, well-nourished , female, in no apparent distress Skin: normal, no rash, liz matographism, urticaria, angioedema Neurologic exam: unremarkable Oral cavity: normal, no lesions Breasts : not performed Peripheral pulses: normal (2+) bilatera lly Back: normal Genitalia: not performed
--- OUTSIDE RECORDS SUMMARY | 2025-03-02 15:17 | XMS_ITS | Clinical Summary ---
Author Organization [facility] Address [address] [place] [address] Phone Care Team Providers Care Bullet Maker Name Role Phone Unavailable Unavailable Unavailable Reason for Visit and Chief Complaint gynecologic annual exam - The Chief Complaint is: Annual Problems Includes: Problems addressed during this encounter and other active Problems All Visits Onset Date Resolved Date Provider Condition S tatus Diabetes Mellitus 10/27/2015 ROSA QUINONES NP-BC Active Last Documented On 10/27/2015 3:03PM ; [facility] Note: Type II Hypertension Systemic 10/27/2015 ROSA BLACKBURN NP-BC Active Last Documented On 5 3:03PM ; [facility] Migraine Headache 06/19/2013 ARPIT SNEED MD A ctive Last Documented On 3 11:34AM ; [facility] 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 A ctive Last Documented On 0 8:26AM ; [facility] Plan of Treatment - Follow-up visit 1 year or as needed - Last Documented On 10/10/2019 1:05PM ; [facility] - Clinical summary provided to patient - Last Documented On 10/10/2019 1:05PM ; [facility] Instructions to patient Instructions for patient : B reast Self Exam discussed Last Documented On 9 12:52PM ; [facility] Education and Decision Aids were provided during visit for: Patient Education: Daily pradeep cium and vitamin D Last Documented On 9 12:52PM ; [facility] Patient Education: weight be aring exercise Last Documented On 9 12:52PM ; [facility] Assessments Includes: Assessments from this encounter Findings - NORMAL FEMALE EXAM - Last Documented On 10/10/2019 1:05PM ; [facility] - Screening Malig. Neoplasm Rectum - Last Documented On 10/10/2019 1:05PM ; [facility] Instructions Includes: Instructions from this encounter Instructions to patient Instructions for patient : B reast Self Exam discussed Last Documented On 9 12:52PM ; [facility] Education and Decision Aids were provided during visit for: Patient Education: Daily pradeep cium and vitamin D Last Documented On 9 12:52PM ; [facility] Patient Education: weight be aring exercise Last Documented On 9 12:52PM ; [facility] Medical Equipment - Implanted Devices Includes: Current Devices No Medical Equipment Recorded Medications Includes: Medications discussed during this encounter and other current Medications Discontinued / Stopped on this date ROSA BLACKBURN WHNP-BC on 08/30/2018 Diflucan 150MG Oral Tablet Provider: Liam BLACKBURN WHNP-BC Diagnosis: Last Documented On 9 12:53PM By DANICA SALGADO ; [facility] Current Medications (continue as prescribed) Biotin 1000MCG Oral Tablet 05/09/2017 Provider: Diagnosis: Last Documented On 05/09/2017 1:27PM By DANICA SALGADO ; [facility] Iron 325 (65 Fe)MG Oral Tablet 05/09/2017 Provid er: Diagnosis: Last Documented On 05/09/2017 1:27PM By DANICA SALGADO ; [facility] Fish Oil 1000MG Oral Capsule, conventional 017 Provider: Diagnosis: Last Documented On 05/09/2017 1:27PM By DANICA SALGADO ; [facility] Topiramate 50 MG Tablet 07/13/2016 Provider: Diagnosis: Last Documented On 07/13/2016 2:36PM By LANDON BOBBY ; [facility] B Complex-B12 Tablet 07/13/2016 Provider: Diagnosis: Last Documented On 07/13/2016 2:36PM By LANDON BOBBY ; [facility] Vitron-C 65-125 MG Tablet 07/13/2016 Provider: Diagnosis: Last Documented On 07/13/2016 2:36PM By LANDON BOBBY ; [facility] MiraLax Powder 07/04/2015 Provider: Diagnosis: 17 grams bid Last Documented On 07/04/2015 11:00AM By JAMES ROMERO RN ; [facility] Effexor XR 75 MG OR CP24 06/25/2014 Provider: Diagnosis: Last Documented On 4 11:31AM By YUE SALGADO ; [facility] Vitamin D3 400 UNIT OR CAPS 06/25/2014 Provider: Diagnosis: Last Documented On 4 11:32AM By YUE SALGADO ; [facility] Botox 100 UNIT IJ SOLR 06/25/2014 Provider: Diagnosis: for headaches Last Documented On 4 11:50AM By MALINI CORONA LPN ; [facility] Indomethacin 25 MG OR CAPS 06/19/2013 Provider: Diagnosis: Last Documented On 06/19/2013 11:33AM By ANDREEA IGLESIAS ; [facility] Past Medications on file Estrace 0.1MG/GM Vaginal Cream 06/06/2017 - 09/04/2017 Provider: ROSA ADAN NP-BC Diagnosis: as directed - /2 applicator full pv at hs 3x/we ek Last Documented On 7 9:42AM By ROSA CHRISTIAN-BC ; [facility] Medications Administered Includes: Administered Medications from this encounter No Administered Medications Recorded Vital Signs Includes: Vital Signs from this encounter Vital Name 10/10/2019 12:49P Blood Pressure Sitting L 120/68 BP Cuff Size Regular Height (in) 58 Weight (lb) 112 Body Mass Index (kg/m2) 23.4 Body Surface Area (m2) 1.4 Last Documented: On 10/10/2019 12:50P M ; [facility] Results Includes: Results discussed during this encounter No Results Recorded For Specified Dates History of Present Illness Includes: History of Present Illness from this encounter GITA KELSEY is a 49 year old female. - Allergy list reviewed - Medication list reviewed - PRIMARY CARE PROVIDER : Dr Calderon - Medication reconciliation performed Social History Description Last Updated Alcohol use occ 10/10/2019 Last Documented On 9 1:05PM ; [facility] In monogamous relationship 10/10/2019 Last Documented On 9 1:05PM ; [facility] Non-smoker 10/10/2019 Last Documented On 9 1:05PM ; [facility] Not using drugs 10/10/2019 Last Documented On 9 1:05PM ; [facility] Sexually active with 1 partners in the l ast year 10/10/2019 Last Documented On 9 1:05PM ; [facility] Smoking status : Never smoker 10/10/2019 Last Documented On 9 1:05PM ; [facility] Age of 1st intercourse was was 15 2010 Last Documented On 9 12:46PM ; [facility] Procedures and Surgical History Includes: Procedures from this encounter Procedures Code Diagnosis Performing Provider Service L ocation Service Date low fat diet Last Documented On 9 12:52PM ; [facility] fecal occult blood test was negative 57387 Last Documented On 9 12:52PM ; [facility] Surgical History Last Updated History of hysterectomy 07/19/2017 Last Documented On 9 12:46PM ; [facility] Surgical / procedural history 06/2015 lap gastric bypass 07/13/2016 Last Documented On 9 12:46PM ; [facility] History of tubal ligation 06/25/2014 Last Documented On 9 12:46PM ; [facility] History of vaginal hysterectomy 06/19/20 13 Last Documented On 9 12:46PM ; [facility] History of surgical laparosc opic gastric restrictive procedure by adjustable gastric band 03/11/2011 Last Documented On 9 12:46PM ; [facility] Medical History Includes: Medical History addressed during this encounter Description Last Updated Sexually active 10/10/2019 Last Documented On 9 1:05PM ; [facility] History of complete colonoscopy 2015 Dr Clara almontet in 10 years 10/10/2019 Last Documented On 9 1:05PM ; [facility] History of Pap smear done 05/09/201709/22 Last Documented On 9 1:05PM ; [facility] History of screening mammogram was perfo rmed 10/02/2018 10/10/2019 Last Documented On 9 1:05PM ; [facility] Result: normal 10/10/2019 Last Documented On 9 1:05PM ; [facility] Aborta 2 07/19/2017 Last Documented On 9 12:46PM ; [facility] 2 07/19/2017 Last Documented On 9 12:46PM ; [facility] Para 2 07/19/2017 Last Documented On 9 12:46PM ; [facility] Status post tubal ligation 07/19/2017 Last Documented On 9 12:46PM ; [facility] History of asthma outgrew 05/09/2017 Last Documented On 9 12:46PM ; [facility] History of type 2 diabetes mellitus pt n o longer takes rx for it 10/27/2015 Last Documented On 9 12:46PM ; [facility] TL 03/18/2010 Last Documented On 9 12:46PM ; [facility] 2 elective (s) 03/18/2010 Last Documented On 9 12:46PM ; [facility] Anemia 03/18/2010 Last Documented On 9 12:46PM ; [facility] Asthma 03/18/2010 Last Documented On 9 12:46PM ; [facility] High cholesterol 03/18/2010 Last Documented On 9 12:46PM ; [facility] Family History Includes: Family History addressed during this encounter Description Last Updated Maternal grandmother's history of family history of heart disease mgm 10/10/2019 Last Documented On 9 1:05PM ; [facility] Maternal grandmother's history of hypert ension mgm,father 10/10/2019 Last Documented On 9 1:05PM ; [facility] Maternal grandmother's history of pure h ypercholesterolemia mgm 10/10/2019 Last Documented On 9 1:05PM ; [facility] Spouse name: Scooter 06/25/2014 Last Documented On 9 12:46PM ; [facility] Family history of Cancer 03/18/2010 Last Documented On 9 12:46PM ; [facility] Family history of thyroid disease (GM) 0 03/18/2010 Last Documented On 9 12:46PM ; [facility] Family medical history of Anemia 010 Last Documented On 9 12:46PM ; [facility] Family medical history of high blood pre ssure (GM, F) 03/18/2010 Last Documented On 9 12:46PM ; [facility] Family medical history of High Cholester ol (GM) 03/18/2010 Last Documented On 9 12:46PM ; [facility] Review of Systems Includes: Review of Systems from this encounter Gastrointestinal: No pelvic pain. Genitourinary: No postmenopausal bleeding. No vaginal discharge. Mental Status Includes: Mental Status from this encounter No Mental Status Recorded Functional Status Includes: Functional Status from this encounter No Functional Status Recorded Physical Exam Includes: Physical Exam from this encounter Allergies Includes: Active Allergies Substance Type Reaction Onset Date Resolved Date Statu s Reglan Allergy 03/18/2010 Active Last Documented On 9 12:53PM ; [facility] Morphine Sulfate Allergy 03/18/2010 Ac tive Last Documented On 9 12:53PM ; [facility] metroNIDAZOLE Allergy 06/14/2012 Activ e Last Documented On 9 12:53PM ; [facility] Note: HEADACHE Demerol Allergy 03/18/2010 Active Last Documented On 9 12:53PM ; [facility] Aleve Allergy 03/18/2010 Active Last Documented On 9 12:53PM ; [facility] Encounters Encounter Provider Location Date Check-In Time Check-Out Time Diagnosis DISPLAY FABRICATOR EXAM ROSA BLACKBURN [facility] 9 12:42PM 1:07PM Screening [place]. Neoplasm Rectum,Normal Female Exam Clinical Notes Includes: Clinical Notes from this encounter No Clinical Notes Recorded
--- OUTSIDE RECORDS SUMMARY | 2025-03-02 15:17 | XMS_ITS | Clinical Summary ---
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 WOMAN EXAM Problems Includes: Problems addressed during this encounter and other active Problems All Visits Onset Date Resolved Date Provider Condition S tatus Diabetes Mellitus 10/27/2015 ROSA QUINONES NP-BC Active Last Documented On 10/27/2015 3:03PM ; [facility] Note: Type II Hypertension Systemic 10/27/2015 ROSA BLACKBURN NP-BC Active Last Documented On 5 3:03PM ; [facility] Migraine Headache 06/19/2013 ARPIT SNEED MD A ctive Last Documented On 3 11:34AM ; [facility] 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 A ctive Last Documented On 0 8:26AM ; [facility] Plan of Treatment No Plan of Treatment Recorded Assessments Includes: Assessments from this encounter No Assessments Recorded Medical Equipment - Implanted Devices Includes: Current Devices No Medical Equipment Recorded Medications Includes: Medications discussed during this encounter and other current Medications Current Medications (continue as prescribed) Biotin 1000MCG Oral Tablet 05/09/2017 Provider: Diagnosis: Last Documented On 05/09/2017 1:27PM By DANICA SALGADO ; [facility] Iron 325 (65 Fe)MG Oral Tablet 05/09/2017 Provid er: Diagnosis: Last Documented On 05/09/2017 1:27PM By DANICA SALGADO ; [facility] Fish Oil 1000MG Oral Capsule, conventional 017 Provider: Diagnosis: Last Documented On 05/09/2017 1:27PM By DANICA SALGADO ; [facility] Topiramate 50 MG Tablet 07/13/2016 Provider: Diagnosis: Last Documented On 07/13/2016 2:36PM By LANDON BOBBY ; [facility] B Complex-B12 Tablet 07/13/2016 Provider: Diagnosis: Last Documented On 07/13/2016 2:36PM By LANDON BOBBY ; [facility] Vitron-C 65-125 MG Tablet 07/13/2016 Provider: Diagnosis: Last Documented On 07/13/2016 2:36PM By LANDON BOBBY ; [facility] MiraLax Powder 07/04/2015 Provider: Diagnosis: 17 grams bid Last Documented On 07/04/2015 11:00AM By JAMES ROMERO RN ; [facility] Effexor XR 75 MG OR CP24 06/25/2014 Provider: Diagnosis: Last Documented On 4 11:31AM By YUE SALGADO ; [facility] Vitamin D3 400 UNIT OR CAPS 06/25/2014 Provider: Diagnosis: Last Documented On 4 11:32AM By YUE SALGADO ; [facility] Botox 100 UNIT IJ SOLR 06/25/2014 Provider: Diagnosis: for headaches Last Documented On 4 11:50AM By MALINI CORONA LPN ; [facility] Indomethacin 25 MG OR CAPS 06/19/2013 Provider: Diagnosis: Last Documented On 06/19/2013 11:33AM By ANDREEA IGLESIAS ; [facility] Medications Administered Includes: Administered Medications from this encounter No Administered Medications Recorded Results Includes: Results discussed during this encounter No Results Recorded For Specified Dates History of Present Illness Includes: History of Present Illness from this encounter No History of Present Illness Recorded Social History No Social History Recorded - Smoking Status Unknown Medical History Includes: Medical History addressed during this encounter No Medical History Recorded Family History Includes: Family History addressed during this encounter No Family History Recorded Review of Systems Includes: Review of Systems from this encounter No Review of Systems Recorded Mental Status Includes: Mental Status from this encounter No Mental Status Recorded Functional Status Includes: Functional Status from this encounter No Functional Status Recorded Physical Exam Includes: Physical Exam from this encounter No Physical Exam Recorded Allergies Includes: Active Allergies Substance Type Reaction Onset Date Resolved Date Statu s Reglan Allergy 03/18/2010 Active Last Documented On 9 12:53PM ; [facility] Morphine Sulfate Allergy 03/18/2010 Ac tive Last Documented On 9 12:53PM ; [facility] metroNIDAZOLE Allergy 06/14/2012 Activ e Last Documented On 9 12:53PM ; [facility] Note: HEADACHE Demerol Allergy 03/18/2010 Active Last Documented On 9 12:53PM ; [facility] Aleve Allergy 03/18/2010 Active Last Documented On 9 12:53PM ; [facility] Clinical Notes Includes: Clinical Notes from this encounter No Clinical Notes Recorded
--- OUTSIDE RECORDS SUMMARY | 2025-03-02 15:17 | XMS_ITS ---
Author Organization [facility] Address [address] [address] [place] [address] Care Team Providers Care Svp Group Director Name Role Phone Kvng TUCKER, Hedy Primary Care Provider Carmen Veras [phone] REASON FOR VISIT 4 month f/u pain Encounters Encounter Location Date Provider Diagnosis [facility] [address] [facility] [address] [place] [address] 10/31/2024 Carmen Chan Plan Of Treatment No Information Progress Notes * Jero KELSEY MDOB:1969 (54 yo F)Acc No.[id number]:10/31/2024 Progress Notes Patient: Jero ANTHONY Provider: Sully CHAN MD :1970 A ge:54 Y S ex:Female Date:10/31/2024 Address:[address] [place] [address] Pcp:Hedy Calderon MD Subjective: * Chief Complaints: * 1 . 4 month f/u pain. * Medical History: Objective: * Vitals: Assessment: Plan: * Treatment: * Procedure Codes: N OSHW No Show Charge * Billing Information: * Visit Code: * Procedure Codes: NOSHW No Show Charge. * CUTTER MACHINE Sign off status: Completed true * Provider: Sully CHAN MD Date: 1 01/01/2024 Generated for Printi ng/Faxing/eTransmitting on: 0 03/02/2025 03:17 PM CDT
--- OUTSIDE RECORDS SUMMARY | 2025-03-02 15:17 | XMS_ITS ---
Author Organization [facility] Address [address] [place] [address] Care Team Providers Care Rate Supervisor Name Role Phone Kvng TUCKER, Hedy Primary Care Provider Mann ChanDeeg Unavailable [phone] Allergies Allergen (clinical drug ingredient) Drug/Non Drug Allergy documented on EMR Reaction Allergy Type Onset Date Status meperidine Meperidine HCl Unknown Drug Allergy 11/02/2019 Active metoclopramide Metoclopramide HCl Unknown Drug Allergy Active naproxen Naproxen Unknown Drug Allergy 11/02/2019 Active morphine Morphine Unknown Drug Allergy 11/02/2019 Active REASON FOR VISIT yd,labs,cc, yd,f/u,cc, joint pain Medications Medication SIG (Take, Route, Frequency, Duration) Notes Start Date End Date Status Vitamin D3 1000 UNIT Oral *Pick strength-form from [employer] for eRX* Active [place]-3 1000 mg daily oral *[facility]* Active Ondansetron HCl 8 MG Oral Active MiraLax 17 GM take 1 packet (17 gram) mixed with 8 oz. water, juice, soda, coffee or tea by oral route once daily Oral 1 Active Singulair 10 MG 1 tablet Orally Once a day for 30 day(s) Active ZyrTEC 10 MG 1/2 tablet Orally Once a day for 30 day(s) Active Famotidine 40 MG as directed Orally Active Venlafaxine HCl 75 MG 1 tablet with food Orally Once a day for 30 day(s) Active Vitamin R92-Yznax Acid 500-400 MCG Oral Active Gabapentin 600 MG 1 tablet Orally twice a day for 30 days 06/25/2024 Active ALPRAZolam 0.5 MG Oral Ac tive Indomethacin 25 MG take 1 capsule (25 mg) by oral route 2 times per day with food Oral 2 Active Topamax 25 MG take 1 tablet (25 mg) by oral route once daily at bedtime Oral 1 Active Encounters Encounter Location Date Provider Diagnosis [facility] [address] [place] [address] 06/25/2024 Carmen Chan Multiple joint pain M25.50 ; Muscle cramps R25.2 and Elevated CK R74.8 Assessments Encounter Date Diagnosis (ICD Code) Assessment Notes Treatment Notes Treatment Clinical Notes Section Notes 06/25/2024 Multiple joint pain (ICD-10 - M25.50) labs normal, re-try gabapentin 600mg bid, return in 4 months 06/25/2024 Muscle cramps (ICD-10 - R25.2) labs normal, re-try gabapentin 600mg bid, return in 4 months 06/25/2024 Elevated CK (ICD-10 - R74.8) labs normal, re-try gabapentin 600mg bid, return in 4 months Plan Of Treatment Medication Medication Name Sig Start Date Stop Date Notes Gabapentin 600 MG 1 tablet Orally twice a day for 30 days 06/25/2024 Next Appt Details Follow Up: 4 Months, Reason: Progress Notes * Jero KELSEY MDOB:1969 (54 yo F)Acc No.[id number]:06/25/2024 Patient: Della Jero WOOD Analilia Provider: Sully CHAN MD :1970 A ge:54 Y S ex:Female Date:06/25/2024 Address:[address] [place] [address] Pcp:Hedy Calderon MD Subjective: * Chief Complaints: * Y d,labs,ccYd,f/u,ccJoint pain * HPI: G eneral Follow up: Synchronous video/audio telecommunication with [facility] Patient has agreed to telehealth visit and is aware insurance will be billed for this visit Location: patient at home, physician in office neck and thighs feel weak sometimes, has had cramps in the back, hips, shoulders, hands and toes hurting. back hurting, received PT, saw cook helper juice for hives, walks sometimes, takes indocin 25mg as needed for migraines 06/01/2024, CRP normal, ESR normal, CK 81, myomarker panel 3 (-) 02/27/2024, CMP nornmal, UA normal, CBC nornal, RF (-), RACHAEL (-), TSH normal 12/08/2022, CK 590, RF (-),ESR and CRP normal. CBC and CMP normal 11/15/2019 CK 84 baclofen caused brain fog, stopped taking it, on Topamax for headaches, neck and mid back hurting, uses TENS unit, certain activities make it worse. stopped Cymbalta, it had caused headaches, failed acupuncture, lidocaine patch and flector patches did not help much. She has a history of gastric bypass and cannot take NSAIDs. Flexeril, tizanidine, and gabapentin did not help. lyrica caused cognitive dysfunction, weight gain, confusion and headaches saw Dr. Alva and Dr. Trejo. Trigger point injections helped temporarily. serologies (-), HLA-B27 was negative per patient. On 08/23/2018, cervical spine MRI: minimal to mild disc bulging and mild facet arthritis. On 05/29/2019, MRI of thoracic spine: mild multi-level facet arthropathy, minimal to mild foraminal stenosis. On 12/20/2018, Xrays of cervical spine, thoracic spine, lumbar spine and SI joints: normal. hx of gastric bypass in 2014. * ROS: G eneral / Constitutional: Patient denies c hange in appetite, chills, fatigue, fever, weight loss, weakness. C omments S HPI for details. M usculoskeletal: Comments [facility] for details. S kin: Comments [facility] for details . N eurologic: Patient denies d izziness, gait abnormality, headache, tingling / numbness . * Medical History: * Surgical History: T ubal ligation; 8252-22-08Ddmo; 9342-20-80Hzbdcdtvirrx; 9285-87-02Khc band; 2019-11-02 section; 2019-11-02 * Hospitalization/Major Diagno stic Procedure: * Family History: M igrated Family History: Bone Cancer , Diabetes , Heart Disease , Hypertension , Ovarian cancer , Prostate Cancer . * Social History: M igrated Social History: M igrated Social History: :: 2 Children , Exercise :: Walks :: note : 08/11/2020 - walks 30mins daily, Marital Status :: , Substance Use :: Alcohol,socially :: note : 05/05/2020 - wine 2 times per month, Substance Use :: Tobacco :: Never. * Medications: T akingVenlafaxine HCl 75 MG Tablet 1 tablet with food Orally Once a day Famotidine 40 MG Tablet as directed Orally ZyrTEC 10 MG Tablet Chewable 1/2 tablet Orally Once a day Singulair 10 MG Tablet 1 tablet Orally Once a day MiraLax 17 GM Packet take 1 packet (17 gram) mixed with 8 oz. water, juice, soda, coffee or tea by oral route once daily Oral 1 Ondansetron HCl 8 MG Tablet Oral [place]-3 1000 mg capsule,delayed release(DR/EC) daily oral , Notes to Pharmacist: *Pick strength-form from [facility] for eRX*Vitamin D3 1000 UNIT Powder Oral , Notes to Pharmacist: *Pick strength- form from [facility] for eRX*Topamax 25 MG Tablet take 1 tablet (25 mg) by oral route once daily at bedtime Oral 1 Indomethacin 25 MG Capsule take 1 capsule (25 mg) by oral route 2 times per day with food Oral 2 ALPRAZolam 0.5 MG Tablet Oral Vitamin D71-Tqibz Acid 500-400 MCG Tablet Oral Taking Venlafaxine HCl 75 MG Tablet 1 tablet with food Orally Once a day Taking Famotidine 40 MG Tablet as directed Orally Taking ZyrTEC 10 MG Tablet Chewable 1/2 tablet Orally Once a day Taking Singulair 10 MG Tablet 1 tablet Orally Once a day Taking MiraLax 17 GM Packet take 1 packet (17 gram) mixed with 8 oz. water, juice, soda, coffee or tea by oral route once daily Oral 1 Taking Ondansetron HCl 8 MG Tablet Oral Taking [place]-3 1000 mg capsule,delayed release(DR/EC) daily oral , Notes to Pharmacist: *[facility]*Taking Vitamin D3 1000 UNIT Powder Oral , Notes to Pharmacist: *Pick strength-form from [facility] for eRX*Taking Topamax 25 MG Tablet take 1 tablet (25 mg) by oral route once daily at bedtime Oral 1 Taking Indomethacin 25 MG Capsule take 1 capsule (25 mg) by oral route 2 times per day with food Oral 2 Taking ALPRAZolam 0.5 MG Tablet Oral Taking Vitamin Y72-Nhlkj Acid 500-400 MCG Tablet Oral * Allergies: M eperidine HCl: Allergy - Onset Date 11/02/2019Metoclopramide HCl: Allergy - Onset Date 11/02/2019Naproxen: Allergy - Onset Date 11/02/2019Morphine: Allergy - Onset Date 11/02/2019no[Allergies Verified] Objective: * Vitals: * Examination: G eneral Examination: General appearance: a lert, well-nourished and in no acute distress. Head: n ormocephalic, atraumatic. Eyes: n ormal. Skin: n o rash. Lungs: r espiratory effort normal. P sychiatry: Affect / mood: n ormal affect, normal mood. ? N eurology: s peech normal. Assessment: * Assessment: 1. M ultiple joint pain - M25.50 (Primary) 2 . M uscle cramps - R25.2 ? 3 . E levated CK - R74.8 labs normal, re-try gabapent in 600mg bid, return in 4 months Plan: * Treatment: * Procedure Codes: * Follow Up: 4 Months * Billing Information: * Visit Code: 95993 Office Visit, Est Pt., Level 4. Modifiers: 95 * Procedure Codes: * Sign off status: Completed true * Provider: Sully CHAN MD Date: 0 06/25/2024 Generated for Ajit izaguirre/Emily/eTransmitting on: 0 03/02/2025 03:17 PM CDT History and Physical Notes * HPI (History of Present Illness) Category Sub-Category Detail Notes Category Not es General Follow up Synchronous video/audio telecommunication with [facility] Patient has agreed to telehealth visit and is aware insurance will be billed for this visit Location: patient at home, physician in office neck and thighs feel weak sometimes, has had cramps in the back, hips, shoulders, hands and toes hurting. back hurting, received PT, saw cook helper juice for hives, walks sometimes, takes indocin 25mg as needed for migraines 06/01/2024, CRP normal, ESR normal, CK 81, myomarker panel 3 (-) 02/27/2024, CMP nornmal, UA normal, CBC nornal, RF (-), RACHAEL (-), TSH normal 12/08/2022, CK 590, RF (-),ESR and CRP normal. CBC and CMP normal 11/15/2019 CK 84 baclofen caused brain fog, stopped taking it, on Topamax for headaches, neck and mid back hurting, uses TENS unit, certain activities make it worse. stopped Cymbalta, it had caused headaches, failed acupuncture, lidocaine patch and flector patches did not help much. She has a history of gastric bypass and cannot take NSAIDs. Flexeril, tizanidine, and gabapentin did not help. lyrica caused cognitive dysfunction, weight gain, confusion and headaches saw Dr. Alva and Dr. Trejo. Trigger point injections helped temporarily. serologies (-), HLA-B27 was negative per patient. On 08/23/2018, cervical spine MRI: minimal to mild disc bulging and mild facet arthritis. On 05/29/2019, MRI of thoracic spine: mild multi-level facet arthropathy, minimal to mild foraminal stenosis. On 12/20/2018, Xrays of cervical spine, thoracic spine, lumbar spine and SI joints: normal. hx of gastric bypass in 2014 Examination Category Sub-Category Detail Notes Category Not es Neurology speech normal Psychiatry Affect / mood: normal affect, normal mood General Examination General appearance: alert, w ell-nourished and in no acute distress Head: normocephalic, atrau matic Eyes: normal Lungs: respiratory effort n ormal Skin: no rash
--- OUTSIDE RECORDS SUMMARY | 2025-03-02 15:17 | XMS_ITS ---
Author Organization [facility] Address [address] [place] [address] Care Team Providers Care Histotechnologist Name Role Phone Hedy Calderon Primary Care Provider UnavailFermin Tovar Unavailable [phone] [employer]Z-Migration, Provider Unavailable Unavailab le Allergies Allergen (clinical drug ingredient) Drug/Non Drug Allergy documented on EMR Reaction Allergy Type Onset Date Status DEMORAL (uncoded) hives Allergy Ac tive naproxen Naproxen Hives Drug Allergy Active morphine Morphine hives Drug Allergy Active REASON FOR VISIT [facility] [place] Conversion Encounter Medications Medication SIG (Take, Route, Frequency, Duration) Notes Start Date End Date Status Cetirizine HCl 10 MG 1 tab(s) orally twice a day for 90 days Active Famotidine 40 MG 1 tab(s) orally twice a day for 90 days Active Montelukast Sodium 10 MG 1 tab(s) orally once a day for 90 days Active Famotidine 40 MG 1 tab(s) orally twice a day for 90 days Active Paxil 30 MG 1 tab(s) orally once a day for 30 day(s) Not-Taking Temazepam 15 MG for 30 Days Ac tive Venlafaxine HCl ER 75 MG 1 cap(s) orally once a day for 30 day(s) 11/28/2023 Active ALPRAZolam 0.5 MG TAKE 1 TABLET BY MOUTH THREE TIMES A DAY NEEDED for 20 Days Active Imvexxy Maintenance Pack 4 MCG INSERT 1 TABLET VAGINALLY 2 TIMES PER WEEK for 28 Days Active Spironolactone 50 MG 1 tab(s) orally for 30 day(s) Not-Taking [place]-3 1000 MG 1 cap(s) orally once a day for 30 day(s) takes 500mg once a day Active Vitamin D3 125 MCG 1 CAP(S) ORALLY ONCE A DAY for 30 DAY(S) takes 1000IU daily *Please review and pick correct strength-formulat ion from [employer] options. If intended option is not shown, discontinue and re-order from Quick Search* Active Montelukast Sodium 10 MG 1 tab(s) orally once a day for 90 days Active Topamax 50 MG 1 tab(s) orally 2 times a day for 30 day(s) Active ZyrTEC Allergy 10 MG 1 tablet PO QD Not-Taking Levocetirizine Dihydrochloride 5 MG 1 tab(s) orally once a day (in the evening) for 90 days 03/05/2024 Active CALCIUM/FERROUS FUMARATE/VITAMIN D 500/400mg one tablet daily *Please review for potential replacement for e-prescription and drug interaction check* Active Montelukast Sodium 10 MG 1 tab(s) orally once a day for 30 days Active Multivitamin MULTIPLE VITAMINS 1 CAP(S) ORALLY ONCE A DAY for 30 DAY(S) *Please review and pick correct strength-formulat ion from [employer] options. If intended option is not shown, discontinue and re-order from Quick Search* Active Encounters Encounter Location Date Provider Diagnosis [address] [address] 05/05/2024 Provider Janie Other urticaria L50.8 Assessments Encounter Date Diagnosis (ICD Code) Assessment Notes Treatment Notes Treatment Clinical Notes Section Notes 05/05/2024 Other urticaria (ICD-10 - L50.8) Plan Of Treatment Medication Medication Name Sig Start Date Stop Date Notes Cetirizine HCl 10 MG 1 tab(s) orally twi ce a day for 90 days Montelukast Sodium 10 MG 1 tab(s) orally once a day for 90 days Famotidine 40 MG 1 tab(s) orally twic e a day for 90 days Levocetirizine Dihydrochlori de 5 MG 1 tab(s) orally once a day (in the evening) for 90 days 03/05/2024 Progress Notes * Bettye KELSEY:[birth year] (54 yo F)Acc No.[id number]:05/05/2024 Patient: Dawna ANTHONY Provider: Katheryn Nevarez :1970 A ge:54 Y S ex:Female Date:05/05/2024 Address:[address] [place], [place] [id number] Pcp:Hedy Calderon Subjective: * Chief Complaints: * [facility] . [facility] * Medical History: * Medications: T aking Montelukast Sodium 10 MG Tablet 1 tab(s) orally once a day , Taking Cetirizine HCl 10 MG Tablet 1 tab(s) orally twice a day , Taking Famotidine 40 MG Tablet 1 tab(s) orally twice a day , Taking Montelukast Sodium 10 MG Tablet 1 tab(s) orally once a day , Taking CALCIUM/FERROUS FUMARATE/VITAMIN D , Notes to Pharmacist: 500/400mg one tablet daily *Please review for potential replacement for e-prescription and drug interaction check*, Taking Multivitamin MULTIPLE VITAMINS CAPSULE 1 CAP(S) ORALLY ONCE A DAY , Notes to Pharmacist: *Please review and pick correct strength-formulation from [facility] [employer] options. If intended option is not shown, discontinue and re-order from Quick Search*, Taking Vitamin D3 125 MCG CAPSULE 1 CAP(S) ORALLY ONCE A DAY , Notes to Pharmacist: takes 1000IU daily *Please review and pick correct strength-formulation from [facility] [employer] options. If intended option is not shown, discontinue and re-order from Quick Search*, Taking [place]-3 1000 MG Capsule 1 cap(s) orally once a day , Notes to Pharmacist: takes 500mg once a day, Taking Topamax 50 MG Tablet 1 tab(s) orally 2 times a day , Taking Montelukast Sodium 10 MG Tablet 1 tab(s) orally once a day , Taking Venlafaxine HCl ER 75 MG Capsule Extended Release 24 Hour 1 cap(s) orally once a day , Taking Temazepam 15 MG Capsule , Taking Imvexxy Maintenance Pack 4 MCG Insert INSERT 1 TABLET VAGINALLY 2 TIMES PER WEEK , Taking ALPRAZolam 0.5 MG Tablet TAKE 1 TABLET BY MOUTH THREE TIMES A DAY NEEDED , Taking Montelukast Sodium 10 MG Tablet 1 tab(s) orally once a day , Taking Famotidine 40 MG Tablet 1 tab(s) orally twice a day , Not-Taking/PRN ZyrTEC Allergy 10 MG Tablet 1 tablet PO QD , Not-Taking/PRN ZyrTEC Allergy 10 MG Tablet 1 tablet PO QD , Not-Taking/PRN Spironolactone 50 MG Tablet 1 tab(s) orally , Not-Taking/PRN Paxil 30 MG Tablet 1 tab(s) orally once a day * Allergies: M orphine: hives, DEMORAL: hives, Naproxen: Hives. Objective: * Vitals: Assessment: * Assessment: 1. O ther urticaria - L50.8 (Primary) Plan: * Treatment: 2. O thers Refill Levocetirizine Dihydrochloride Tablet, 5 MG, 1 tab(s), orally, once a day (in the evening), 90 days, 90, Refills 1. * Billing Information: * Visit Code: * Procedure Codes: * Electronic signature of Sachin KHANNA-Migration on 03/02/2025 at 03:17 PM CDT Sign off status: Pending * Provider: Katheryn dolan Migration Date: 0 05/05/2024 Generated for Ajit izaguirre/Emily/Vicki on: 03/02/2025 03:17 PM CDT
--- OUTSIDE RECORDS SUMMARY | 2025-03-02 15:17 | XMS_ITS | Referral Summary ---
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 Name Role Phone Hedy Calderon MD Primary Care Provid er LeviDestinee nguyen MD Unavailable [phone] Encounters Date Type Department Care Team Description 02/27/2025 4:00 PM CDT Telemedicine [facility] General Neurology [address] [facility] 6th Floor [address] [place] [address] Shanta Negro MD PhD Migraine without aura, intractable, without status migrainosus (Primary Dx); Chronic insomnia 01/15/2025 8:30 AM DEXTRINE MIXER Office Visit [facility] at [address] [phone] Radha Lynn NP Abrasion of left cornea, subsequent encounter (Primary Dx) 01/03/2025 1:30 PM DEXTRINE MIXER Office Visit [facility] Diabetes and Nutrition Services [address] [facility] Medical Office Building 4, [address] [place] [address] Barb Bae PA Encounter for weight management (Primary Dx); Gastroesophageal reflux disease without esophagitis; Primary hypertension; 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 35.9 in adult 12/31/2024 11:03 AM DEXTRINE MIXER - 12/31/2024 11:59 PM DEXTRINE MIXER Hospital Encounter [facility] Imaging and Radiology [address] [place] [address] Dense breast tissue; Family history of breast cancer Discharge Disposition: Discharge to home or self care 12/13/2024 9:41 AM DEXTRINE MIXER - 12/13/2024 11:59 PM DEXTRINE MIXER Hospital Encounter [facility] [address] [place] [phone] Discharge Disposition: Discharge to home or self care 12/13/2024 Telephone [facility] Diabetes and Nutrition Services [address] [place] [address] Medical Office Building [address], [address] [place] [phone] Keila Lao, INFANT CHILDCARE PROVIDER Side Effects 12/13/2024 9:45 AM DEXTRINE MIXER Office Visit [facility] Orthopedics and Sports Medicine at [address] [phone] Hugo Bishop MD Arthritis of left hip (Primary Dx); Trochanteric bursitis of left hip; BMI 29.0-29.9,adult 12/11/2024 Telephone [facility] at [address] [phone] Hedy Calderon MD Medical Question/Miscellaneou s 12/05/2024 11:15 AM DEXTRINE MIXER Lab [address] [address] Encounter for weight management; Metabolic syndrome; Dietary counseling; Exercise counseling; Overweight (BMI 25.0-29.9) 12/05/2024 10:20 AM DEXTRINE MIXER - 12/05/2024 11:59 PM DEXTRINE MIXER Hospital Encounter [facility] ` [address] [place] [phone] Encounter for weight management; Metabolic syndrome; Dietary counseling; Exercise counseling; Overweight (BMI 25.0-29.9) Discharge Disposition: Discharge to home or self care 12/04/2024 9:40 AM DEXTRINE MIXER Office Visit [facility] Diabetes and Nutrition Services [address] [place] [address] Medical Office Building [address], [address] [place] [phone] Flakita Mckeon MD Encounter for weight management (Primary Dx); Metabolic syndrome; Dietary counseling; Exercise counseling; Overweight (BMI 25.0-29.9); BMI 29.0-29.9,adult; Vitamin D deficiency; Gastroesophageal reflux disease without esophagitis; Mixed hyperlipidemia from Last 3 Months Allergies Active Allergy Reactions Criticality Noted Date Comments Meperidine Blisters Reaction: BLISTERS, , Metoclopramide Other (See comments) Reaction: OTHER REACTION, , Morphine Blisters,Palpitations Reaction: BLISTERS, Reaction: Altered Heart Rate, , Naproxen Hives,Other (See comments) Reaction: Hives, , , Reaction: Hives, , , Medications multivitamin tabletIndications: Vitamin Deficiency Prevention Take by mouth. Active cholecalciferol (VITAMIN D-3) 2000 unit capsule Active polyethylene glycol (MIRALAX) 17 gram/dose powder MIX 17GRAMS IN 8 OUNCES OF FLUID AND TAKE EVERY DAY 510 g 1 1 Active ondansetron ODT (ZOFRAN-ODT) 8 mg disintegrating tablet Dissolve one tab under tongue every 8 hours as needed for nausea 90 tablet 1 2 Active ferrous sulfate ER 324 mg (65 mg iron) EC tablet 5 Active levocetirizine (XYZAL) 5 mg tablet 3 Active famotidine (PEPCID) 40 mg tablet Take 1 tablet (40 mg total) by mouth 2 (two) times a day 4 Active cyanocobalamin/fol ic acid (vitamin S31-jzypa acid) 500-400 mcg tablet Oral A ctive omega 4-dhu-mjo-fish oil 1,000 mg (250 mg-750 mg)/5 mL liquid daily Active topiramate (TOPAMAX) 50 mg tablet TAKE 1 TABLET BY MOUTH TWICE A DAY 180 tablet 3 4 Active temazepam (RESTORIL) 15 mg capsule TAKE 1 CAPSULE BY MOUTH EVERY DAY AT BEDTIME NEEDED FOR INSOMNIA 30 capsule 2 4 Active metFORMIN XR (GLUCOPHAGE XR) 500 mg 24 hr tablet Take 1 tablet (500 mg total) by mouth daily with breakfast 90 tablet 1 4 09/27/20 25 Active ALPRAZolam (XANAX) 0.5 mg tablet TAKE 1 TABLET BY MOUTH THREE TIMES A DAY NEEDED 60 tablet 2 5 Active gabapentin (NEURONTIN) 600 mg tablet Take 1 tablet (600 mg total) by mouth 2 (two) times a day 180 tablet 1 5 Active venlafaxine XR (EFFEXOR-XR) 75 mg 24 hr capsule TAKE 1 CAPSULE BY MOUTH EVERY DAY 90 capsule 1 5 Active indomethacin (INDOCIN) 25 mg capsule TAKE 1 CAPSULE (25MG) BY MOUTH 3 TIMES DAILY WITH FOOD NEEDED 90 capsule 5 Active phentermine 15 mg capsule Take 1 capsule (15 mg total) by mouth 2 (two) times a day 60 capsule 2 5 Active rosuvastatin (CRESTOR) 5 mg tablet TAKE 1 TABLET BY MOUTH EVERY DAY 90 tablet 1 5 Active erythromycin (ILOTYCIN) ophthalmic ointment Apply to left eye 4 (four) times a day 5 Active Active Problems Problem Noted Date Diagnosed Date Idiopathic urticaria 02/27/2025 Encounter for weight management 01/03/2025 Assessment & Plan (01/03/2025 1:42 PM DEXTRINE MIXER): Rx INDIVIDUALIZED FIRST LINE THERAPY PHYSICAL ACTIVITY: AEROBIC: Cardio: 36 minutes daily, Goal: 250min/week. DEEP RELAXATION EXERCISES: 1) Imagine Clarity keshawn 2) Head Space keshawn SLEEP: Good sleep hygiene discussed WATER: 1) Water: 80ounces/day 2) No soft drinks 3) No Juice 4) No Milk 5) Avoid alcoholic beverages 6) May have : Flavored tea (no artificial sweeteners or sugar) 7) May have: Green tea 8) May have: Coffee (maximum 1-2 cups of caffeinated per day, the rest decaf) FOOD/ NUTRITION: 1) Intervention: Personalized low glycemic foods Smaller Portion size Stop eating before you get full 2) Avoid: Eating out Added Salt Added Sugar, Dessert Processed food Ultra- Processed food PHARMACOTHERAPY: STOP Lomaira START Phentermine 15 mg by mouth twice daily (around 9 am and 2 pm) 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 35.9 in adult 01/03/2025 Assessment & Plan (01/03/2025 12:35 PM DEXTRINE MIXER): Patient's initial BMI was 35; this has improved to 29 through medical and surgicale management Trochanteric bursitis of left hip 12/13/2024 Assessment & Plan (12/13/2024 10:32 AM DEXTRINE MIXER): The patient has [id number]-[id number] arthritis of the hip joint With trochanteric bursitis. She has more advanced arthritis of the SI joint in her hip joint itself and currently has a functional range of motion. Her primary problem with her symptom pattern is likely to be the associated bursitis. After reviewing the treatment options the patient elected undergo a cortisone injection today due the severity of her symptoms. She tolerated the procedure well. Metabolic syndrome 12/04/2024 BMI 29.0-29.9,adult 12/04/2024 Assessment & Plan (12/13/2024 10:33 AM DEXTRINE MIXER): The patient is current weight provides with a BMI over 29. The increasing weight may be a factor in the development of her symptomatology associated with her arthritis. Would recommend lifestyle changes to foster weight reduction such as a graduated low-impact exercise program in conjunction with proper dieting. Vitamin D deficiency 12/04/2024 Gastroesophageal reflux disease without esophagi tis 12/04/2024 Assessment & Plan (01/03/2025 12:35 PM DEXTRINE MIXER): Continue current weight loss plan as outlined in note. Discuss low acid diet and use of antacid medications if necessary. A weight reduction of 10-15% body weight can result in improved symptom severity and frequency. Simi COX, Allyson TA, Nicci C, et al. Nutritional considerations with antiobesity medications. Obesity ([place]). 2023; 1-19. doi:[email or web address] Mixed hyperlipidemia 12/04/2024 Chronic constipation 05/18/2024 Assessment & Plan (05/20/2024 7:12 AM CDT): Chronic constipation and external hemorrhoids, difficult to wipe clean. No hematochezia or melena. Takes miralax daily and every other day takes stool softener as well, has BM every day to every other day with straining and a dropping/falling pressure in her lower abdomen Tried fiber before had bad bloating Mother with bowel resection from possible cancer No smoking, ETOH or illicit drug use Colonoscopy from 2013 showed rectosigmoid polyp Labs reviewed from 06/2023 showed normal CMP, CBC, elevated total cholesterol and LDL, normal TSH Plan Schedule colonoscopy with 2 day prep Schedule anorectal manometry study to assess for pelvic floor dysfunction Continue daily Miralax and can add dulcolax as needed High fiber diet for a goal of 25-30 g of total daily fiber intake Increase daily hydration to maintain at least 64 oz of water intake Gentle massage of the abdomen Find a regular bowel routine that include: -Going to bathroom around same time every day, ideally after a meal -Keep your back straight, lean forward and rest your forearms on your knees. Keep knees higher than hips by using a stepstool to keep legs elevated and apart -Keep your mouth slightly open and breathe out. Do not hold your breath. Personal history of colonic polyps 05/18/2024 Arthritis of left hip 12/22/2023 Assessment & Plan (12/22/2023 1:41 PM DEXTRINE MIXER): Radiographically the patient has mild arthritis of both of her hips and clinically has a component of recurring trochanteric bursitis. She is already changed her mattress and would have therapy working on conditioning to help stabilize the hip girdle and improve her walking mechanics. This may reduce stress on her hips. If she has more consistent pain or radiating pains developed with sensory deficits bowel or bladder continence changes further workup the back would be indicated. Arthritis of right hip 12/22/2023 Assessment & Plan (12/22/2023 1:41 PM DEXTRINE MIXER): Patient has a component of trochanteric bursitis in both of her hips. Therapy was prescribed. She may find Voltaren gel helpful. Long-term she should avoid weight gain. She has a slight limb length inequality but not enough to warrant the use of she lifts. Exercise counseling 06/22/2023 Assessment & Plan (06/01/2024 8:51 AM CDT): -Will complete disability forms Assessment & Plan (06/22/2023 12:11 PM CDT): -Will complete disability forms COVID-19 10/28/2020 Cervical strain 12/24/2019 Assessment & Plan (12/24/2019 11:33 AM DEXTRINE MIXER): Assessment Cervical strain. Plan Recommended treatment is acceptance of her condition. I do not feel that any surgical treatment would significantly alter her outcome, nor do I feel any further conservative treatment would provide her any symptomatic relief. She has already had physical therapy and injections. She only has minimal cervical spine pathology. I would related her cervical and mid-back pain to having a temporary exacerbation of her pre-existing cervical and thoracic spine problems. I do not feel that she requires any further treatment as it relates to the July 05, 2019 injury. Strain of thoracic spine 12/24/2019 Assessment & Plan (12/24/2019 11:34 AM DEXTRINE MIXER): See plan for cervical spine. Panic disorder without agoraphobia 05/03/2017 HEIDI (generalized anxiety disorder) 05/03/2017 Assessment & Plan (06/01/2024 8:50 AM CDT): Chronic, Stable -Continue Xanax -Continue following with Psych Assessment & Plan (05/01/2024 10:27 AM CDT): Chronic, Stable -Continue Xanax -Continue following with Psych Assessment & Plan (06/22/2023 12:11 PM CDT): Chronic, Stable -Continue Xanax -Continue following with Psych Depressive disorder 05/03/2017 Assessment & Plan (06/01/2024 8:50 AM CDT): Chronic, Stable -Continue Effexor -Consider Therapy -Continue following with Psych Assessment & Plan (05/01/2024 10:28 AM CDT): Chronic, Stable -Continue Effexor -Consider Therapy(provided recommendation) -Continue following with Psych Assessment & Plan (06/22/2023 12:10 PM CDT): Chronic, Stable -Continue Effexor -Continue following with Psych Panic attack 09/28/2016 Overview (02/25/2017): Panic attacks Hypertension 04/23/2015 Overview (02/25/2017): Hypertension Assessment & Plan (01/03/2025 12:35 PM DEXTRINE MIXER): Continue current weight loss plan as outlined in note. Weight loss of 5-10% of total body weight can result in improved systolic and diastolic blood pressure. Simi BROOKE, Allyson TA, Nicci Wheeler, et al. Nutritional considerations with antiobesity medications. Obesity ([place]). 2023; 1-19. doi:[email or web address] Insomnia 04/06/2014 Overview (02/25/2017): Insomnia Assessment & Plan (06/22/2023 11:47 AM CDT): Chronic, Stable -Continue following with Psychiatry Migraine 04/06/2014 Overview (02/25/2017): Migraine Acquired absence of both cervix and uterus 06/19 Overview (07/18/2023): Note: S/P TVH Migraine headache 06/19/2013 Intractable chronic migraine without aura and without status migrainosus 03/07/2013 Assessment & Plan (05/01/2024 10:27 AM CDT): Chronic, Stable -Continue Topamax -Continue following with Neurology Assessment & Plan (06/22/2023 12:09 PM CDT): Chronic, Stable -Continue Topamax -Continue following with Neurology Tension headache 03/07/2013 Methicillin resistant Staphylococcus aureus infe ction 01/29/2013 Overview (02/25/2017): MRSA (methicillin resistant Staphylococcus aureus) Arthralgia 01/29/2013 Overview (02/25/2017): Joint pain Assessment & Plan (06/01/2024 8:51 AM CDT): Chronic, Worsening -Continue following with Rheumatology Assessment & Plan (05/01/2024 10:25 AM CDT): Chronic, Worsening -Follow up with Rheumatology Arnold-Chiari malformation, type I 10/24/2012 Anxiety 03/18/2010 Resolved Problems Problem Noted Date Diagnosed Date Resolved Date Cephalalgia 03/16/2017 06/21/2018 Diabetes mellitus type 2 in obese 09/28/2016 06/21/2018 Overview (02/25/2017): Diabetes mellitus type 2 in obese Diabetes mellitus 07/22/2015 06/21/2018 Headache 01/02/2013 06/21/2018 Overview (02/25/2017): Headache Immunizations Immunization Administration Dates Next Due Influenza, Quadrivalent, Spl it, Intramuscular 09/21/2016 Influenza, Quadrivalent, Spl it, Preservative Free, Intramuscular 09/04/2024,10/20/2021,09/17/2020,09/12 Influenza, Trivalent, IM (MDV) 11/24/2015,2012,08/19/2011 Influenza, Trivalent, Preser vative Free, Intramuscular 09/04/2024 Influenza, Unspecified 09/09/2023(Deferr ed: Patient Refused),09/05/2018 Tdap 09/21/2016,11/24/2015 ZOSTER Recombinant 04/22/2022 Social History Tobacco Use Types Packs/Day Years Used Date Smoking Tobacco: Never Smokeless Tobacco: Never Tobacco Cessation:Counseling Given: No Alcohol Use Standard Drinks/Week Comments Yes 0 (1 standard drink = 0.6 oz pur e alcohol) AUDIT-C Answer Date Recorded Q1: How often do you have a drink containing alcohol? Never 01/03/2025 Q2: How many drinks containi ng alcohol do you have on a typical day when you are drinking? Patient does not drink Frequency of Binge Drinking Not on file 12/22 PHQ-2 Answer Date Recorded PHQ-2 Total Score (If total score is 3 or more points, staff should administer the PHQ-9) 0 09/27/2024 Personal Safety Answer Date Recorded Have you ever been in or are you currently in a harmful physical or emotional relationship or is someone making you feel afraid or unsafe? 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 Not on file Not on file Last Filed Vital Signs Vital Sign Reading Time Taken Comments Blood Pressure 124/82 01/15/2025 8:35 AM DEXTRINE MIXER Pulse 85 01/15/2025 8:35 AM DEXTRINE MIXER Temperature 36.8 C (98.3 F) 01/15/2025 8:35 AM DEXTRINE MIXER Respiratory Rate 18 01/15/2025 8:35 AM DEXTRINE MIXER Oxygen Saturation 98% 01/15/2025 8:35 AM DEXTRINE MIXER Inhaled Oxygen Concentration - - Weight 62.7 kg (138 lb 4.8 oz) 01/15/2025 8:35 A M DEXTRINE MIXER Height 147.3 cm (4' 9.99 ) 01/15/2025 8:35 AM CS T Body Mass Index 28.91 01/15/2025 8:35 AM DEXTRINE MIXER Plan of Treatment Not on file Procedures Procedure Name Priority Date/Time Associated Diagnosis Comments MRI BREAST BILATERAL W WO CONTRAST Schedule Routine, Read Routine (OP Routine) 12/31/2024 12:32 PM DEXTRINE MIXER Dense breast tissue Family history of breast cancer XR HIP LEFT W PELVIS 2 OR 3 VIEWS Schedule Routine, Read Routine (OP Routine) 12/13/2024 9:58 AM DEXTRINE MIXER Arthritis of left hip [place] ARTHROCENTESIS ASPIR&/INJ MAJOR JT/BURSA W/O US Routine 12/13/2024 9:45 AM DEXTRINE MIXER Trochanteric bursitis of left hip BLOOD MISC TO CONVERSE Routine 12/05/2024 11 :45 AM DEXTRINE MIXER PROTIME-INR Routine 12/05/2024 11:45 AM DEXTRINE MIXER Encounter for weight management Metabolic syndrome Dietary counseling Exercise counseling Overweight (BMI 25.0-29.9) CBC WITHOUT DIFFERENTIAL Routine 12/05/2024 11:45 AM DEXTRINE MIXER Encounter for weight management Metabolic syndrome Dietary counseling Exercise counseling Overweight (BMI 25.0-29.9) EGFR Routine 12/05/2024 11:44 AM DEXTRINE MIXER Encounter for weight management Metabolic syndrome Dietary counseling Exercise counseling Overweight (BMI 25.0-29.9) GAMMA GT Routine 12/05/2024 11:44 AM DEXTRINE MIXER Encounter for weight management Metabolic syndrome Dietary counseling Exercise counseling Overweight (BMI 25.0-29.9) T3, FREE Routine 12/05/2024 11:44 AM DEXTRINE MIXER Encounter for weight management Metabolic syndrome Dietary counseling Exercise counseling Overweight (BMI 25.0-29.9) VITAMIN B12 Routine 12/05/2024 11:44 AM DEXTRINE MIXER Encounter for weight management Metabolic syndrome Dietary counseling Exercise counseling Overweight (BMI 25.0-29.9) LIPID PANEL Routine 12/05/2024 11:44 AM DEXTRINE MIXER Encounter for weight management Metabolic syndrome Dietary counseling Exercise counseling Overweight (BMI 25.0-29.9) IRON PROFILE W/ IBC Routine 12/05/2024 1 1:44 AM DEXTRINE MIXER Encounter for weight management Metabolic syndrome Dietary counseling Exercise counseling Overweight (BMI 25.0-29.9) FOLATE Routine 12/05/2024 11:44 AM DEXTRINE MIXER Encounter for weight management Metabolic syndrome Dietary counseling Exercise counseling Overweight (BMI 25.0-29.9) FERRITIN Routine 12/05/2024 11:44 AM DEXTRINE MIXER Encounter for weight management Metabolic syndrome Dietary counseling Exercise counseling Overweight (BMI 25.0-29.9) COMPREHENSIVE METABOLIC PANEL Routine 12/05/2024 11:44 AM DEXTRINE MIXER Encounter for weight management Metabolic syndrome Dietary counseling Exercise counseling Overweight (BMI 25.0-29.9) URIC ACID Routine 12/05/2024 11:44 AM DEXTRINE MIXER Encounter for weight management Metabolic syndrome Dietary counseling Exercise counseling Overweight (BMI 25.0-29.9) LIPASE Routine 12/05/2024 11:44 AM DEXTRINE MIXER Encounter for weight management Metabolic syndrome Dietary counseling Exercise counseling Overweight (BMI 25.0-29.9) AMYLASE Routine 12/05/2024 11:44 AM DEXTRINE MIXER Encounter for weight management Metabolic syndrome Dietary counseling Exercise counseling Overweight (BMI 25.0-29.9) TSH Routine 12/05/2024 11:44 AM DEXTRINE MIXER Encounter for weight management Metabolic syndrome Dietary counseling Exercise counseling Overweight (BMI 25.0-29.9) T4, FREE Routine 12/05/2024 11:44 AM DEXTRINE MIXER Encounter for weight management Metabolic syndrome Dietary counseling Exercise counseling Overweight (BMI 25.0-29.9) PHOSPHORUS Routine 12/05/2024 11:05 AM DEXTRINE MIXER Encounter for weight management Metabolic syndrome Dietary counseling Exercise counseling Overweight (BMI 25.0-29.9) MAGNESIUM Routine 12/05/2024 11:05 AM DEXTRINE MIXER Encounter for weight management Metabolic syndrome Dietary counseling Exercise counseling Overweight (BMI 25.0-29.9) CRP, HIGH SENSITIVITY Routine 12/05/2024 11:05 AM DEXTRINE MIXER Encounter for weight management Metabolic syndrome Dietary counseling Exercise counseling Overweight (BMI 25.0-29.9) INSULIN, TOTAL Routine 12/05/2024 11:05 AM DEXTRINE MIXER Encounter for weight management Metabolic syndrome Dietary counseling Exercise counseling Overweight (BMI 25.0-29.9) PTH Routine 12/05/2024 11:05 AM DEXTRINE MIXER Encounter for weight management Metabolic syndrome Dietary counseling Exercise counseling Overweight (BMI 25.0-29.9) VITAMIN D 25 HYDROXY Routine 12/05/2024 11:04 AM DEXTRINE MIXER Encounter for weight management Metabolic syndrome Dietary counseling Exercise counseling Overweight (BMI 25.0-29.9) HEMOGLOBIN A1C Routine 12/05/2024 11:04 AM DEXTRINE MIXER Encounter for weight management Metabolic syndrome Dietary counseling Exercise counseling Overweight (BMI 25.0-29.9) ALBUMIN CREATININE RATIO, URINE Routine 12/05/2024 11:04 AM DEXTRINE MIXER Encounter for weight management Metabolic syndrome Dietary counseling Exercise counseling Overweight (BMI 25.0-29.9) VITAMIN E Routine 12/05/2024 11:04 AM DEXTRINE MIXER Encounter for weight management Metabolic syndrome Dietary counseling Exercise counseling Overweight (BMI 25.0-29.9) VITAMIN A Routine 12/05/2024 11:04 AM DEXTRINE MIXER Encounter for weight management Metabolic syndrome Dietary counseling Exercise counseling Overweight (BMI 25.0-29.9) ZINC Routine 12/05/2024 11:04 AM DEXTRINE MIXER Encounter for weight management Metabolic syndrome Dietary counseling Exercise counseling Overweight (BMI 25.0-29.9) VITAMIN B6 Routine 12/05/2024 11:04 AM DEXTRINE MIXER Encounter for weight management Metabolic syndrome Dietary counseling Exercise counseling Overweight (BMI 25.0-29.9) COPPER, SERUM Routine 12/05/2024 11:04 AM DEXTRINE MIXER Encounter for weight management Metabolic syndrome Dietary counseling Exercise counseling Overweight (BMI 25.0-29.9) VITAMIN B1 Routine 12/05/2024 11:04 AM DEXTRINE MIXER Encounter for weight management Metabolic syndrome Dietary counseling Exercise counseling Overweight (BMI 25.0-29.9) URINALYSIS AND REFLEX TO MICROSCOPIC AND CULTURE Routine 12/05/2024 11:04 AM DEXTRINE MIXER Encounter for weight management Metabolic syndrome Dietary counseling Exercise counseling Overweight (BMI 25.0-29.9) US LIVER Schedule Routine, Read Routine (OP Routine) 12/05/2024 10:50 AM DEXTRINE MIXER Encounter for weight management Metabolic syndrome Dietary counseling Exercise counseling Overweight (BMI 25.0-29.9) ECG 12-LEAD Routine 12/04/2024 9:44 AM DEXTRINE MIXER Encounter for weight management SCREENING MAMMOGRAM BILATERAL W JAD Schedule Routine, Read Routine (OP Routine) 11/06/2024 10:01 AM DEXTRINE MIXER Encounter for screening for malignant neoplasm of breast, unspecified screening modality COLONOSCOPY 08/03/2024 9:31 AM CDT from Last 3 Months or Most Recently Relevant to Health Maintenance Results * MRI Breast Bilateral W WO Contrast (12/31/2024 12:32 PM DEXTRINE MIXER) Anatomical Region Laterality Modality Breast Bilateral Magnetic Resonan ce 12/31/2024 1:53 PM DEXTRINE MIXER Impressions 12/31/2024 2:58 PM DEXTRINE MIXER No MR evidence of malignancy in either breast. OVERALL FINAL ASSESSMENT: BI-RADS Category 1: Negative. RECOMMENDATION: Annual screening mammography, with screening breast MRI if clinically indicated, are recommended. Dictated by: Brad Love M.D. The radiology attending physician has personally reviewed this study, and had reviewed and/or edited this written report and agrees with it. Electronically signed by: Vazquez Gonzales MD Narrative 12/31/2024 2:58 PM DEXTRINE MIXER EXAMINATION: 1. MRI EXAMINATION OF THE BREASTS WITH AND WITHOUT CONTRAST 2. 3D POST PROCESSING ON A DEDICATED 3D WORKSTATION HISTORY: 54-year-old woman with dense breasts and family history of breast cancer. TECHNIQUE: MRI examination of the breasts per breast tumor protocol with and without gadolinium contrast. A dedicated breast imaging coil was used. The images were transferred to a breast CAD system for 3D post processing and contrast kinetics analysis. CONTRAST: Gadoterate meglumine, 12 ml COMPARISON: Prior exams which date back to 07/10/2012, the most recent on 11/06/2024. No prior breast MRI. BREAST COMPOSITION: Heterogeneous fibroglandular tissue BACKGROUND PARENCHYMAL ENHANCEMENT: Mild FINDINGS: There is no suspicious enhancing mass or non-mass enhancement in either breast. No abnormally enlarged lymph nodes are identified in the visualized portions of either axilla. us Alize Benito NP IMG MRI PROCEDURES Ana Maria iglesias Result * XR Hip Left W Pelvis Min 2 To 3 Views (12/13/2024 9:58 AM DEXTRINE MIXER) Anatomical Region Laterality Modality Lower Extremities, Hip, Pelvis Left C omputed Radiography Narrative 12/13/2024 10:35 AM DEXTRINE MIXER AP pelvis lateral views of the left hip reveal joint space narrowing with osteophyte formation of the left hip joint with more pronounced joint space narrowing sclerosis of the SI joint us Hugo Bishop MD IMG XR PROCEDURES Final Res ult * KS ARTHROCENTESIS ASPIR&/INJ MAJOR JT/BURSA W/O US (12/13/2024 9:45 AM DEXTRINE MIXER) Narrative Hugo Bishop MD - 12/13/2024 9:45 AM DEXTRINE MIXER Hugo Bishop MD 12/13/2024 10:36 AM Large Joint (Hip, Knee, Shoulder) Injection: L greater trochanteric bursa Performed by: Hugo Bishop MD Authorized by: Hugo Bishop MD Large Joint Injection/Aspiration: Consent Given by: Patient Site marked: the procedure site was marked Verbal consent obtained: Yes Supporting Documentation: Indications: Pain Procedure Details: Location: Hip Site: L greater trochanteric bursa Prep: patient was prepped and draped in usual sterile fashion Approach: Lateral Medications: 4 mL lidocaine 10 mg/mL (1 %); 40 mg methylPREDNISolone acetate 40 mg/mL Patient tolerance: Patient tolerated the procedure well with no immediate complications Hugo Bisohp MD IN CLINIC/BEDSIDE ORDERABLE S Final Result * BLOOD MISC TO CONVERSE (12/05/2024 11:45 AM DEXTRINE MIXER) Test name, chem [facility] [place] [facility] Misc See Footnote JEAN CLAUDE MAYO Comment: Test Result Flag Unit RefValue Selenium, B 185 ng/mL 150-241 ADDITIONAL INFORMATION This test was developed and its performance characteristics determined by [facility] in a manner consistent with CLIA requirements. This test has not been cleared or approved by the U.S. Food and Drug Administration. Test Performed by: [facility] - [facility] [address] [place] [address] Boiler Operator: Eb Bazzi Ph.D.; CLIA# [id number] Blood 12/05/2024 11:4 5 AM DEXTRINE MIXER 12/05/2024 1:53 PM DEXTRINE MIXER Narrative JEAN CLAUDE MAYO - 12/10/2024 12:32 PM DEXTRINE MIXER SELENIUM Hedy Calderon MD LAB BLOOD ORDERABLES Final Result Performing Organization Address [facility] de Phone Number JEAN CLAUDE [address] [address] [place] [address] [place] [facility] * Protime-INR (12/05/2024 11:45 AM DEXTRINE MIXER) PT 11.7 9.7 - 13.0 sec INR 1.08 0.90 - 1.20 JEAN CLAUDE Comment: Interpretive data Oral anticoagulant therapeutic ranges: Venous thromboembolism prophylaxis or treatment: 2.0-3.0 CARDIOLOGY Standard range: 2.0-3.0 High-intensity range: 2.5-3.5 Refer to indication-specific guidelines for appropriate target ranges for prosthetic heart valve replacement. Current interpretive data was last revised on 2019. Blood 12/05/2024 11:4 5 AM DEXTRINE MIXER 12/05/2024 11:45 AM DEXTRINE MIXER Flakita Mckeon MD LAB BLOOD ORDERABLES Final Res ult Performing Organization Address [facility] Co de Phone Number JEAN CLAUDE [address] [address] [place] [address] * (ABNORMAL) CBC without differential (12/05/2024 11:45 AM DEXTRINE MIXER) WBC 4.8 3.8 - 9.9 K/cumm Hgb 11.9 11.9 - 15.5 g/dL [facility] Hct 38.2 35.6 - 45.5 % [facility] Plt 315 150 - 400 K/cumm [facility] MPV 9.3 9.1 - 12.3 fL [facility] RBC 4.19 3.90 - 5.20 M/cumm [facility] MCV 91.2 81.3 - 96.4 fL [facility] MCH 28.4 27.1 - 33.3 pg [facility] MCHC 31.2(L) 32.3 - 35.7 g/dL [facility] RDW CV 14.6 11.1 - 14.9 % [facility] RDW SD 48.8(H) 35.7 - 48.1 fL [facility] NRBC abs 0.00 0.00 - 0.01 K/cumm [facility] Blood 12/05/2024 11:4 5 AM DEXTRINE MIXER 12/05/2024 11:45 AM DEXTRINE MIXER us Flakita Mckeon MD LAB BLOOD ORDERABLES Final Res ult [facility] [address] Department [place] [address] * eGFR (12/05/2024 11:44 AM DEXTRINE MIXER) eGFR >90 >=60 mL/min/1. 73 m2 Comment: Interpretive Data Reference Interval Normal >/= 90 mL/min/1.73m2 Mildly decreased* 60 - 89 mL/min/1.73m2 Mildly to moderately decreased 45 - 59 mL/min/1.73m2 Moderately to severely decreased 30 - 44 mL/min/1.73m2 Severely decreased 15 - 29 mL/min/1.73m2 Kidney Failure < 15 mL/min/1.73m2 *Relative to young adult level Estimated glomerular filtration rate is determined by the 2020 CKD-EPI equation recommended by the National Kidney Foundation (A Unifying Approach to GFR Estimation: Recommendations of the NKF-ASK Task Force on Reassessing the Inclusion of Race in Diagnosing Kidney Disease, JASN 2020). The CKD-EPI equation should not be used for patients with unstable renal function and has not been validated in children and those over 70. Current interpretive data was last reviewed 2021. Blood 12/05/2024 11:4 4 AM DEXTRINE MIXER 12/05/2024 11:44 AM DEXTRINE MIXER Flakita Mckeon MD LAB BLOOD ORDERABLES Final Res ult Performing Organization Address [facility] de Phone Number JEAN CLAUDE [address] [address] [facility] [employer] [place] [address] * (ABNORMAL) Iron profile w/ IBC (12/05/2024 11:44 AM DEXTRINE MIXER) Iron 65 35 - 145 mcg/dL Comment:Testing performed by : [place], [address] TIBC 248(L) 250 - 400 mcg/dL JEAN CLAUDE Comment:Testing performed by : [place], [address] Transferrin saturation 26 20 - 50 % [facility] Comment:Testing performed by : [place], [address] Blood 12/05/2024 11:4 4 AM DEXTRINE MIXER 12/05/2024 11:44 AM DEXTRINE MIXER Flakita Mckeon MD LAB BLOOD ORDERABLES Final Res ult Performing Organization Address [facility] de Phone Number JEAN CLAUDE MAYO [address] [address] [facility] [employer] [place] [address] * Uric acid (12/05/2024 11:44 AM DEXTRINE MIXER) Uric acid 3.0 2.5 - 7.0 mg/dL Blood 12/05/2024 11:4 4 AM DEXTRINE MIXER 12/05/2024 11:44 AM DEXTRINE MIXER Flakita Mckeon MD LAB BLOOD ORDERABLES Final Res ult Performing Organization Address [facility] de Phone Number JEAN CLAUDE MAYO [address] [address] [facility] [employer] [place] [address] * T3, free (12/05/2024 11:44 AM DEXTRINE MIXER) Free T3 3.0 2.0 - 4.4 pg/mL Comment:Testing performed by : [facility], [address] [facility], [place]., [address] Blood 12/05/2024 11:4 4 AM DEXTRINE MIXER 12/05/2024 4:35 PM DEXTRINE MIXER us Flakita Mckeon MD LAB BLOOD ORDERABLES Final Res ult Performing Organization Address City/[facility]/ZIP Co de Phone Number JEAN CLAUDE [address] [address] [facility] [employer] [place] [address] * TSH (12/05/2024 11:44 AM DEXTRINE MIXER) Thyroid Stimulating Hormone 0.73 0.30 - 4.20 mcIUnit/mL Blood 12/05/2024 11:4 4 AM DEXTRINE MIXER 12/05/2024 11:44 AM DEXTRINE MIXER us Flakita Mckeon MD LAB BLOOD ORDERABLES Final Res ult Performing Organization Address [facility] Co de Phone Number JEAN CLAUDE [address] [address] Department [employer] [place] [address] * (ABNORMAL) T4, free (12/05/2024 11:44 AM DEXTRINE MIXER) Free T4 0.86(L) 0.90 - 1.70 ng/dL Blood 12/05/2024 11:4 4 AM DEXTRINE MIXER 12/05/2024 11:44 AM DEXTRINE MIXER us Flakita Mkceon MD LAB BLOOD ORDERABLES Final Res ult Performing Organization Address City/[facility]/[place] [address] [address] Department of [employer] [place] [address] * Lipase (12/05/2024 11:44 AM DEXTRINE MIXER) Lipase 20 10 - 99 Units/L Blood 12/05/2024 11:4 4 AM DEXTRINE MIXER 12/05/2024 11:44 AM DEXTRINE MIXER Flakita Mckeon MD LAB BLOOD ORDERABLES Final Res ult STARR[facility] MAYO [address] [address] Department of [employer] [place] [address] * Gamma GT (12/05/2024 11:44 AM DEXTRINE MIXER) GGT 16 5 - 35 Units/L Comment:Testing performed by : [facility], [facility], [place], [address] Blood 12/05/2024 11:4 4 AM DEXTRINE MIXER 12/05/2024 11:44 AM DEXTRINE MIXER Flakita Mckeon MD LAB BLOOD ORDERABLES Final Res ult Performing Organization Address [facility] Co de Phone Number JEAN CLAUDE GAEL [address] [address] [place] [address] * Folate (12/05/2024 11:44 AM DEXTRINE MIXER) Folic acid 19.3 >=5.0 ng/mL Comment:Hemolysis present. R esults may be affected. Blood 12/05/2024 11:4 4 AM DEXTRINE MIXER 12/05/2024 11:44 AM DEXTRINE MIXER Flakita Mckeon MD LAB BLOOD ORDERABLES Final Res ult ST[facility] MAYO [address] [address] Department [employer] [place] [address] * Ferritin (12/05/2024 11:44 AM DEXTRINE MIXER) Ferritin 148 15 - 150 ng/mL Blood 12/05/2024 11:4 4 AM DEXTRINE MIXER 12/05/2024 11:44 AM DEXTRINE MIXER us Flakita Mckeon MD LAB BLOOD ORDERABLES Final Res ult Performing Organization Address [facility] Co de Phone Number [facility] [address] [address] [facility] [employer] [place] [address] * Vitamin B12 (12/05/2024 11:44 AM DEXTRINE MIXER) Vitamin B12 993 230 - 1,250 pg/mL Blood 12/05/2024 11:4 4 AM DEXTRINE MIXER 12/05/2024 11:44 AM DEXTRINE MIXER Flakita Mckeon MD LAB BLOOD ORDERABLES Final Res ult Performing Organization Address [facility] Phone Number [facility] [address] [address] [facility] [employer] [place] [address] * Amylase (12/05/2024 11:44 AM DEXTRINE MIXER) Amylase 45 30 - 99 Units/L Blood 12/05/2024 11:4 4 AM DEXTRINE MIXER 12/05/2024 11:44 AM DEXTRINE MIXER Flakita Mckeon MD LAB BLOOD ORDERABLES Final Res ult Performing Organization Address [facility] Phone Number [facility] [address] [address] [facility] [employer] [place] [address] * Lipid panel (12/05/2024 11:44 AM DEXTRINE MIXER) Cholesterol 174 30 - 199 mg/dL Comment: Interpretive Data Ages < or = 19 years Acceptable: <170 mg/dL Borderline high: 170-199 mg/dL High: >or= 200 mg/dL Ages > or = 20 years Desirable: <200 mg/dL Borderline high: 200-239 mg/dL High: >or= 240 mg/dL Literature References: 1. Expert Panel on Integrated Guidelines for Cardiovascular Health and Risk Reduction in Children and Adolescents. Pediatrics 2011;128:S213 2. NCEP Expert Panel. Circulation 2004;110:227 Current Interpretive Data was last revised on 2018. Triglycerides 54 <=149 mg/dL JEAN CLAUDE Comment: Interpretive Data Ages < or = 9 years Acceptable: <75 mg/dL Borderline high: 75-99 mg/dL High: >or= 100 mg/dL Ages 10 to 20 years Acceptable: <90 mg/dL Borderline high: 90-129 mg/dL High: >or= 130 mg/dL Ages > or = 20 years Desirable: <150 mg/dL Borderline high: 150-199 mg/dL High: 200-499 mg/dL Very high: >or= 499 mg/dL Literature References: 1. Expert Panel on Integrated Guidelines for Cardiovascular Health and Risk Reduction in Children and Adolescents. Pediatrics 2011;128:S213 2. NCEP Expert Panel. Circulation 2004;110:227 Current Interpretive Data was last revised on 2018. HDL 75 >=40 mg/dL JEAN CLAUDE Comment: Interpretive Data Ages < or = 19 years Acceptable: >45 mg/dL Borderline low: 40-45 mg/dL Low: <40 mg/dL Ages > or = 20 years Desirable: >or= 60 mg/dL Low: <40 mg/dL Literature References: 1. Expert Panel on Integrated Guidelines for Cardiovascular Health and Risk Reduction in Children and Adolescents. Pediatrics 2011;128:S213 2. NCEP Expert Panel. Circulation 2004;110:227 Current Interpretive Data was last revised on 2018. LDL, calculated 88 <=129 mg/dL JEAN CLAUDE Comment: Interpretive Data Ages < or = 19 years Acceptable: <110 mg/dL Borderline high: 110-129 mg/dL High: >or= 130 mg/dL Ages > or = 20 years Optimal: <100 mg/dL Near optimal: 100-129 mg/dL Borderline high: 130-159 mg/dL High: >160 mg/dL Calculated using the Nicolas LDL-C estimating equation. This equation was implemented on 2024. Prior to this date LDL-C was estimated using the Friedewald equation. Literature References: 1. Expert Panel on Integrated Guidelines for Cardiovascular Health and Risk Reduction in Children and Adolescents. Pediatrics 2011;128:S213 2. NCEP Expert Panel. Circulation 2004;110:227 3. Nicolas Billingsley et al. JACQUIE Cardiol. 2020 March 21;5(5):540-548. doi: 10.1001/jamacardio.2020.0013 Current Interpretive Data was last revised on 2024. Non-HDL Cholesterol 99 mg/dL [facility] Comment: Interpretive Data Ages < or = 19 years Acceptable: <120 mg/dL Borderline high: 120-144 mg/dL High: >145 mg/dL Ages > or = 20 years When triglycerides are >200 mg/dL, Non-HDL cholesterol is a secondary target of therapy with treatment goals that are 30 mg/dL greater than the LDL cholesterol target. Literature References: 1. Expert Panel on Integrated Guidelines for Cardiovascular Health and Risk Reduction in Children and Adolescents. Pediatrics 2011;128:S213 2. NCEP Expert Panel. Circulation 2004;110:227 Current Interpretive Data was last revised on 2018. Chol/HDL ratio 2 [facility] Blood 12/05/2024 11:4 4 AM DEXTRINE MIXER 12/05/2024 11:44 AM DEXTRINE MIXER us Flakita Mckeon MD LAB BLOOD ORDERABLES Final Res ult [facility] [address] [address] Department of Laboratories [place] [id number] * Comprehensive metabolic panel (12/05/2024 11:44 AM DEXTRINE MIXER) Sodium 140 135 - 145 mmol/L Potassium, pl 4.0 3.3 - 4.9 mmol/L [facility] Chloride 106 97 - 110 mmol/L [facility] CO2 23 22 - 32 mmol/L [facility] Anion gap 11 2 - 15 mmol/L [facility] BUN 9 6 - 25 mg/dL [facility] Creatinine 0.61 0.60 - 1.10 mg/dL [facility] Glucose 94 70 - 199 mg/dL [facility] Comment: Interpretive Data Fasting glucose >/= 126 mg/dl is diagnostic for diabetes. Fasting is defined as no caloric intake for at least 8 hours. Fasting glucose between 100 mg/dl to 125 mg/dl is diagnostic of prediabetes. In a patient with classic symptoms of hyperglycemia or hyperglycemic crisis, a random glucose >/= 200 mg/dl is diagnostic for diabetes. In the absence of unequivocal hyperglycemia, results should be confirmed by repeat testing. The classification and Diagnosis of Diabetes Diabetes Care 2021; 46: S19-S40. Current interpretive data was last revised 2022. Calcium 9.1 8.5 - 10.3 mg/dL [facility] Bilirubin, total 0.3 0.1 - 1.2 mg/dL [facility] Protein, pl 7.6 6.5 - 8.5 g/dL [facility] Albumin 4.2 3.5 - 5.0 g/dL [facility] Alk phos 79 40 - 130 Units/L [facility] ALT 33 7 - 45 Units/L [facility] AST 25 10 - 45 Units/L [facility] Blood 12/05/2024 11:4 4 AM DEXTRINE MIXER 12/05/2024 11:44 AM DEXTRINE MIXER Flakita Mckeon MD LAB BLOOD ORDERABLES Final Res ult Performing Organization Address [facility]/ZIP Co de Phone Number JEAN CLAUDE MAYO [address] [address] [place] [address] * Insulin, total (12/05/2024 11:05 AM DEXTRINE MIXER) Pathologist [facility] [place] Insulin 5.0 2.6 - 25.0 mcIUnit/mL Comment:Testing performed by : [facility], [address] [place]., [address] Blood 12/05/2024 11:0 5 AM DEXTRINE MIXER 12/05/2024 4:09 PM DEXTRINE MIXER Flakita Mckeon MD LAB BLOOD ORDERABLES Final Res ult [facility] [address] [address] [place] [address] * CRP (cardiac risk) (12/05/2024 11:05 AM DEXTRINE MIXER) hsCRP <0.50 mg/L Comment: Repeated and Verified Interpretive data Adult only - values greater than or equal to 10 mg/L are consistent with infection or inflammation. Individuals with evidence of active infection, systemic inflammatory processes, or trauma should not be tested until these conditions have abated. When using HS CRP to assess cardiovascular risk, two measurements should be taken, two weeks apart (averaging results). The CDC/AHA recommended the following HS CRP cut off points (tertiles) for CVD assessment. Adult low risk <1.0 mg/L Average risk 1.0 - 3.0 mg/L High Risk >3.0 mg/L Current interpretive data was last revised on 2018. Testing performed by: [facility], [address] [place]., [address] Blood 12/05/2024 11:0 5 AM DEXTRINE MIXER 12/05/2024 4:09 PM DEXTRINE MIXER Flakita Mckeon MD LAB BLOOD ORDERABLES Final Res ult Performing Organization Address [facility] Co de Phone Number JEAN CLAUDE GAEL [address] [address] [place] [address] * Phosphorus (12/05/2024 11:05 AM DEXTRINE MIXER) Phosphorus, pl 3.2 2.3 - 4.5 mg/dL Blood 12/05/2024 11:0 5 AM DEXTRINE MIXER 12/05/2024 11:38 AM DEXTRINE MIXER Flakita Mckeon MD LAB BLOOD ORDERABLES Final Res ult Performing Organization Address [facility] Co de Phone Number JEAN CLAUDE GAEL [address] [address] [place] [address] * PTH (12/05/2024 11:05 AM DEXTRINE MIXER) PTH 64 15 - 65 pg/mL Blood 12/05/2024 11:0 5 AM DEXTRINE MIXER 12/05/2024 11:38 AM DEXTRINE MIXER Flakita Mckeon MD LAB BLOOD ORDERABLES Final Res ult Performing Organization Address City/[facility]/ZIP Co de Phone Number JEAN CLAUDE MAYO [address] [address] Department of [employer] [place] [address] * Magnesium (12/05/2024 11:05 AM DEXTRINE MIXER) Magnesium 2.1 1.4 - 2.5 mg/dL Blood 12/05/2024 11:0 5 AM DEXTRINE MIXER 12/05/2024 11:38 AM DEXTRINE MIXER Flakita Mckeon MD LAB BLOOD ORDERABLES Final Res ult Performing Organization Address [facility] [place] [address] [address] Department [place] [address] * Urinalysis reflex to microscopic and culture Urine (12/05/2024 11:04 AM DEXTRINE MIXER) Color, ur Yellow Yellow Clarity, ur Clear Clear [facility] Specific gravity, ur 1.010 1.003 - 1.030 [facility] pH, urine 7.5 [facility] Comment: Interpretive Data U rine pH is affected by diet, medications, systemic acid-base disturbances, and renal tubular function. pH may affect urinary stone formation. For example, urine pH below 6.0 may help reduce the tendency for calcium phosphate stones and pH greater than 6.0 may reduce the tendency for uric acid stone formation. Source: [facility] [employer] Current Interpretive Data was last revised on 2017 Protein, ur ql Negative Negative [facility] Glucose, ur ql Negative Negative [facility] Ketones, ur Negative Negative [facility] Bilirubin, ur Negative Negative [facility] Blood, ur Negative Negative [facility] Urobilinogen, ur <2.0 <2.0 mg/dL [facility] Nitrite, ur Negative Negative [facility] Leukocyte esterase, ur Negative Negative [facility] UA reflex comment Reflex conditions for microscopic UA and culture not met. [facility] Urine 12/05/2024 11:0 4 AM DEXTRINE MIXER 12/05/2024 11:45 AM DEXTRINE MIXER Flakita Mckeon MD LAB MICROBIOLOGY - GENERAL ORD ERABLES Final Result Performing Organization Address City/[facility]/ZIP Co de Phone Number JEAN CLAUDE MAYO [address] [address] Department [place] [address] * Copper, serum (12/05/2024 11:04 AM DEXTRINE MIXER) Copper 107 77 - 206 mcg/dL [place] Comment: ADDITIONAL INFORMATION This test was developed and its performance characteristics determined by [facility] in a manner consistent with CLIA requirements. This test has not been cleared or approved by the U.S. Food and Drug Administration. Test Performed by: [facility] - [facility] [address] [place] [address] Boiler Operator: Eb Bazzi Ph.D.; CLIA# [id number] Blood 12/05/2024 11:0 4 AM DEXTRINE MIXER 12/05/2024 11:43 AM DEXTRINE MIXER Flakita Mckeon MD LAB BLOOD ORDERABLES Final Res ult Performing Organization Address [facility] de Phone Number JEAN CLAUDE GAEL [address] [address] [place] [address] [facility] * Albumin Creatinine Ratio, Urine (12/05/2024 11:04 AM DEXTRINE MIXER) Albumin Ur <12.0 mg/L Comment: Interpretive Data No reference range established. Current interpretive data was last revised 2019. Creatinine Ur 47.7 mg/dL [facility] Comment: Interpretive Data No reference range established. Current interpretive data was last revised 2019. Albumin Creatinine Ratio, Ur <25 1 - 29 mg/g JEAN CLAUDE Urine 12/05/2024 11:0 4 AM DEXTRINE MIXER 12/05/2024 11:45 AM DEXTRINE MIXER Flakita Mckeon MD LAB URINE ORDERABLES Final Res ult Performing Organization Address [facility] Co de Phone Number JEAN CLAUDE MAYO [address] [address] [facility] [place] [address] * Zinc (12/05/2024 11:04 AM DEXTRINE MIXER) Zinc 66 60 - 106 mcg/dL [facility] Comment: ADDITIONAL INFORMATION This test was developed and its performance characteristics determined by [facility] in a manner consistent with CLIA requirements. This test has not been cleared or approved by the U.S. Food and Drug Administration. Test Performed by: [facility] [place] [address] Boiler Operator: Eb Bazzi Ph.D.; CLIA# [id number] Blood 12/05/2024 11:0 4 AM DEXTRINE MIXER 12/05/2024 11:41 AM DEXTRINE MIXER Flakita Mckeon MD LAB BLOOD ORDERABLES Final Res ult Performing Organization Address [facility] Phone Number JEAN CLAUDE [address] [address] Department [place] [address] [facility] * Vitamin A (12/05/2024 11:04 AM DEXTRINE MIXER) Pathologist [facility] [place] Vitamin A 57.6 32.5 - 78.0 mcg/dL [facility] Comment: ADDITIONAL INFORMATION This test was developed and its performance characteristics determined by [facility] in a manner consistent with CLIA requirements. This test has not been cleared or approved by the U.S. Food and Drug Administration. Test Performed by: [facility] - [address] [address] Boiler Operator: Eb Bazzi Ph.D.; CLIA# [id number] Blood 12/05/2024 11:0 4 AM DEXTRINE MIXER 12/05/2024 11:41 AM DEXTRINE MIXER us Flakita Mckeon MD LAB BLOOD ORDERABLES Final Res ult Performing Organization Address [facility] Co de Phone Number JEAN CLAUDE MAYO [address] [address] [place] [address] [facility] * Vitamin D 25 hydroxy (12/05/2024 11:04 AM DEXTRINE MIXER) Vitamin D 25-OH 70 30 - 80 ng/mL Blood 12/05/2024 11:0 4 AM DEXTRINE MIXER 12/05/2024 11:41 AM DEXTRINE MIXER Flakita Mckeon MD LAB BLOOD ORDERABLES Final Res ult Performing Organization Address [facility] de Phone Number JEAN CLAUDE MAYO [address] [address] [facility] [employer] [place] [address] * Vitamin E (12/05/2024 11:04 AM DEXTRINE MIXER) Pathologist [facility] [place] Tocopherol (Vit E) 12.1 5.5 - 17.0 mg/L [facility] Comment: ADDITIONAL INFORMATION This test was developed and its performance characteristics determined by [facility] in a manner consistent with CLIA requirements. This test has not been cleared or approved by the U.S. Food and Drug Administration. Test Performed by: [facility] [place] [address] Boiler Operator: Eb Bazzi Ph.D.; CLIA# [id number] Blood 12/05/2024 11:0 4 AM DEXTRINE MIXER 12/05/2024 1:58 PM DEXTRINE MIXER Flakita Mckeon MD LAB BLOOD ORDERABLES Final Res ult Performing Organization Address [facility] Co de Phone Number JEAN CLAUDE MAYO [address] [address] [facility] [place] [address] [place] * Vitamin B1 (12/05/2024 11:04 AM DEXTRINE MIXER) Pathologist [facility] [place] Thiamine (Vit B1) 134 70 - 180 nmol/L [facility] Comment: ADDITIONAL INFORMATION This test was developed and its performance characteristics determined by [facility] in a manner consistent with CLIA requirements. This test has not been cleared or approved by the U.S. Food and Drug Administration. Test Performed by: [facility] [place] [address] Boiler Operator: Eb Bazzi Ph.D.; CLIA# [id number] Blood 12/05/2024 11:0 4 AM DEXTRINE MIXER 12/05/2024 11:41 AM DEXTRINE MIXER Flakita Mckeon MD LAB BLOOD ORDERABLES Final Res ult Performing Organization Address [facility] de Phone Number JEAN CLAUDE MAYO [address] [address] [place] [address] [facility] * Vitamin B6 (12/05/2024 11:04 AM DEXTRINE MIXER) Pyridoxal phosphate (Vit B6) 43 5 - 50 mcg/L [facility] Comment: ADDITIONAL INFORMATION This test was developed and its performance characteristics determined by [facility] in a manner consistent with CLIA requirements. This test has not been cleared or approved by the U.S. Food and Drug Administration. Test Performed by: [facility] [place] [address] Boiler Operator: Eb Bazzi Ph.D.; CLIA# [id number] Blood 12/05/2024 11:0 4 AM DEXTRINE MIXER 12/05/2024 11:40 AM DEXTRINE MIXER us Flakita Mckeon MD LAB BLOOD ORDERABLES Final Res ult Performing Organization Address [facility] de Phone Number JEAN CLAUDE MAYO [address] [address] [place] [address] [place] [facility] * (ABNORMAL) Hemoglobin A1c (12/05/2024 11:04 AM DEXTRINE MIXER) Hgb A1C 6.1(H) 4.0 - 5.6 % Comment:Testing performed by : [facility], [address] [place]., [address] Estimated Average Glucose 128 mg/dL JEAN CLAUDE MAYO Comment: The ADA recommends reporting an estimated Average Glucose (eAG) with all Hemoglobin A1c results using the equation derived from a study of 507 normal and diabetic adults. Minority populations were underrepresented and children were not included. (Diabetes Care 2020; 43(S1): S66-S76). The eAG is not equivalent to a fasting glucose. Testing performed by: [facility], [address] [place]., [address] Blood 12/05/2024 11:0 4 AM DEXTRINE MIXER 12/05/2024 11:39 AM DEXTRINE MIXER us Flakita Mckeon MD LAB BLOOD ORDERABLES Final Res ult JEAN CLAUDE MAYO [address] [address] [place] [address] * US Liver (12/05/2024 10:50 AM DEXTRINE MIXER) Anatomical Region Laterality Modality Abdomen N/A Ultrasound 12/05/2024 11:2 7 AM DEXTRINE MIXER Impressions 12/05/2024 11:27 AM DEXTRINE MIXER 1. Small amount of sludge in the gallbladder. 2. The liver and bile ducts appear normal. 3. No evidence of ascites. Electronically signed by: Jaya Hatch M.D. Narrative 12/05/2024 11:27 AM DEXTRINE MIXER EXAM: US LIVER DATE: 12/05/2024 10:30 AM CLINICAL HISTORY: Encounter for weight management. Fatty liver. COMPARISON: None FINDINGS: The gallbladder is well visualized. There is a small amount of sludge in the gallbladder. No evidence of gallstones or gallbladder wall thickening. The liver appears normal in size and echogenicity. No evidence of intrahepatic bile duct dilatation. The common bile duct is normal and measures 2 mm in diameter. Color Doppler imaging of the portal vein shows normal blood flow. The pancreas is not visualized due to overlying bowel gas. The right kidney is normal in size and echogenicity. The right kidney measures 9.3 cm in bipolar length. No evidence of hydronephrosis. The abdominal aorta and inferior vena cava are unremarkable. No evidence of ascites. Procedure Note Jaya Hatch MD - 12/05/2024 EXAM: US LIVER DATE: 12/05/2024 10:30 AM CLINICAL HISTORY: Encounter for weight management. Fatty liver. COMPARISON: None FINDINGS: The gallbladder is well visualized. There is a small amount of sludge in the gallbladder. No evidence of gallstones or gallbladder wall thickening. The liver appears normal in size and echogenicity. No evidence of intrahepatic bile duct dilatation. The common bile duct is normal and measures 2 mm in diameter. Color Doppler imaging of the portal vein shows normal blood flow. The pancreas is not visualized due to overlying bowel gas. The right kidney is normal in size and echogenicity. The right kidney measures 9.3 cm in bipolar length. No evidence of hydronephrosis. The abdominal aorta and inferior vena cava are unremarkable. No evidence of ascites. IMPRESSION: 1. Small amount of sludge in the gallbladder. 2. The liver and bile ducts appear normal. 3. No evidence of ascites. Electronically signed by: Jaya Hatch M.D. Flakita Mckeon MD IMG US PROCEDURES Final Result * ECG 12 lead (12/04/2024 9:44 AM DEXTRINE MIXER) Flakita Mckeon MD ECG ORDERABLES Final Result * Screening Mammogram Bilateral W Jad (11/06/2024 10:01 AM DEXTRINE MIXER) Anatomical Region Laterality Modality Breast Bilateral Mammography 11/06/2024 10:4 0 AM DEXTRINE MIXER Impressions 11/06/2024 10:40 AM DEXTRINE MIXER No evidence of malignancy in either breast. FINAL ASSESSMENT: BI-RADS Category 1: Negative. RECOMMENDATION: 1. Annual screening mammography is recommended. 2. Consider breast MRI for supplemental screening given reported strong family history of breast cancer. Electronically signed by: SEBASTIAN MCKINNEY MD Narrative 11/06/2024 10:40 AM DEXTRINE MIXER EXAMINATION: BILATERAL SCREENING MAMMOGRAM COMPARISON: All prior mammograms dating back to 2014. TECHNIQUE: Full-field 2D and digital breast tomosynthesis (DBT) images were obtained. CAD was utilized. BREAST PARENCHYMAL COMPOSITION: The breasts are heterogenously dense, which may obscure small masses. FINDINGS: There is no suspicious mass, calcification, or distortion in either breast. Hedy Calderon MD IMG MAMMO PROCEDURES Final Result * Colonoscopy (08/03/2024 9:31 AM CDT) Anatomical Region Laterality Modality Other Narrative Procedure Note Jerry Jones MD - 08/03/2024 9:31 AM CDT [facility] Patient Name: Dawna Kelsey Procedure Date: 08/03/2024 9:31 AM Date of : 1970 Admit Type: Outpatient Age: 54 Gender: Female Attending MD: Jerry Jones M.D. Room: [facility] 3 Note Status: Finalized Patient Profile: This is a 54 year old female history of gastric bypass, HTN, asthma, diabetes, and chronic constipation here for colonoscopy for colon polyp surveillance. Last colonoscopy from 2013 showed rectosigmoid polyp. Family history with mother with bowel obstruction from possible cancer. Procedure: Colonoscopy Indications: High risk colon cancer surveillance: Personalhistory of colonic polyps, Last colonoscopy: October2014 Referring MD: Hedy Calderon M.D. Providers: Jerry Jones M.D. Impression: - One 4 mm polyp in the cecum, removed with a cold snare. Resected and retrieved. - One 2 mm polyp at the ileocecal valve, removedwith a jumbo cold forceps. Resected and retrieved. - External and internal hemorrhoids. - Melanosis in the colon. Recommendation: - Patient has a contact number available for emergencies. The signs and symptoms of potential delayed complications were discussed with thepatient. Return to normal activities tomorrow. Written discharge instructions were provided to thepatient. - Discharge patient to home (with escort). - Resume previous diet. - Continue present medications. - Await pathology results. - Repeat colonoscopy for surveillance based on pathology results. - Return to GI clinic as previously scheduled. Medicines: Monitored Anesthesia Care Complications: No immediate complications. Estimated Blood Loss: Estimated blood loss was minimal. Procedure: Pre-Anesthesia Assessment: - Prior to the procedure, a History and Physicalwas performed, and patient medications and allergieswere reviewed. The patient is competent. The risks and benefits of the procedure and the sedation optionsand risks were discussed with the patient. Allquestions were answered and informed consent was obtained. Patient identification and proposed procedure were verified by the physician, the assistant elementary teacher and the assistant technician in the endoscopy suite. Mental Status Examination: alert and oriented. Prophylactic Antibiotics: The patient does not requireprophylactic antibiotics. Prior Anticoagulants: The patient has taken no anticoagulant or antiplatelet agents.After reviewing the risks and benefits, the patient was deemed in satisfactory condition to undergo the procedure. The anesthesia plan was to use monitored anesthesia care (MAC). Immediately prior to administration of medications, the patient was re-assessed for adequacy to receive sedatives. The heart rate, respiratory rate, oxygen saturations, blood pressure, adequacy of pulmonary ventilation,and response to care were monitored throughout the procedure. The physical status of the patient was re-assessed after the procedure. The benefits, risks and alternatives of theprocedure and sedation were discussed and informed consentwas obtained. All questions were answered. Please referto the signed informed consent document in the medical record. The bowel preparation used was Miralax via extended prep with split dose instruction. Thebowel preparation used was bisacodyl tablets via extended prep with split dose instruction. The scope waspassed under direct vision. The Pediatric Colonoscope PCF-[id number] was introduced through the anus and advanced to the the cecum, identified by appendiceal orifice and ileocecal valve. The colonoscopy was performed without difficulty. The patient tolerated the procedure well. The qualityof the bowel preparation was adequate. Bowel prep was administered using a split dose. Findings: The perianal and digital rectal examinations were normal. A 4 mm polyp was found in the cecum. The polyp was flat. The polypwas removed with a cold snare. Resection and retrieval were complete. A 2 mm polyp was found in the ileocecal valve. The polyp was flat.The polyp was removed with a jumbo cold forceps. Resection and retrieval were complete. External and internal hemorrhoids were found during retroflexion. A diffuse area of moderate melanosis was found from rectum totransverse colon. Jerry Jones M.D. 08/03/2024 11:48:29 AM Number of Addenda: 0 Note Initiated On: 08/03/2024 9:31 AM Procedure Code(s): --- Professional --- 02652, Colonoscopy, flexible; with removal of tumor(s), polyp(s), or other lesion(s) by snare technique 53518, 59, Colonoscopy, flexible; with biopsy, single or multiple --- Technical --- 21101, Colonoscopy, flexible; with removal of tumor(s), polyp(s), or other lesion(s) by snare technique 15528, 59, Colonoscopy, flexible; with biopsy, single or multiple Diagnosis Code(s): --- Professional --- Z86.010, Personal history of colonic polyps D12.0, Benign neoplasm of cecum K64.8, Other hemorrhoids --- Technical --- Z86.010, Personal history of colonic polyps D12.0, Benign neoplasm of cecum K64.8, Other hemorrhoids CPT copyright 2020 [employer]. All rights reserved. The codes documented in this report are preliminary and upon flatwork assembler reviewmay be revised to meet current compliance requirements. Recognized by the [employer] for promoting quality in endoscopy Jerry Jones MD ENDOSCOPY PROCEDURES Final Resul t from Last 3 Months or Most Recently Relevant to Health Maintenance [place]IC Advance Directives For more information, please contact: [phone] * Full Code (Latest Code Status on File) Date Activated Date Inactivated Comments 08/03/2024 9:56 AM 08/03/2024 4:29 PM * Full Code Date Activated Date Inactivated Comments 08/03/2024 9:56 AM 08/03/2024 9:56 AM Care Teams Sheep Farm Worker Relationship Specialty Start Date End Date Hedy Calderon MD [facility] [address] [address] PCP - General 02/18/17 Destinee Sims MD [address] [place] [address] Surgeon Medical Oncology 11/09/24
--- OUTSIDE RECORDS SUMMARY | 2025-03-02 15:17 | XMS_ITS | Clinical Summary ---
Author Organization [facility] Address [address] [place] [address] Care Team Providers Care Forensic Investigator Name Role Phone Hedy Calderon MD Primary Care Provid er LeviDestinee MD Unavailable [phone] Allergies Active Allergy Reactions Criticality Noted Date [...] day 4 Active cyanocobalamin/fol ic acid (vitamin [id number]-[id number] acid) 500-400 mcg tablet Oral A ctive omega 8-gbh-eui-fish oil 1,000 mg (250 mg-750 mg)/5 mL [...] 01/03/2025 Assessment & Plan (01/03/2025 1:42 PM DIRECTOR OF RESERVATIONS): Rx INDIVIDUALIZED FIRST LINE THERAPY PHYSICAL ACTIVITY: [...] 01/03/2025 Assessment & Plan (01/03/2025 12:35 PM DIRECTOR OF RESERVATIONS): Patient's initial BMI was 35; this has improved to 29 through medical and surgicale management Trochanteric bursitis of left hip 12/13/2024 Assessment & Plan (12/13/2024 10:32 AM DIRECTOR OF RESERVATIONS): The patient has bofr-tz-iajhotfx arthritis of the hip joint With trochanteric [...] 12/04/2024 Assessment & Plan (12/13/2024 10:33 AM DIRECTOR OF RESERVATIONS): The patient is current weight provides with [...] 12/04/2024 Assessment & Plan (01/03/2025 12:35 PM DIRECTOR OF RESERVATIONS): Continue current weight loss plan as outlined in note. Discuss low acid diet and use of antacid medications if necessary. A weight reduction of 10-15% body weight can result in improved symptom severity and frequency. Simi BROOKE, Allyson TA, Nicci C, et al. Nutritional considerations with antiobesity medications. Obesity ([place]). 2023; 1-19. doi:[email or web address] Mixed hyperlipidemia 12/04/2024 Chronic constipation 05/18/2024 Assessment [...] 12/22/2023 Assessment & Plan (12/22/2023 1:41 PM DIRECTOR OF RESERVATIONS): Radiographically the patient has mild arthritis of [...] 12/22/2023 Assessment & Plan (12/22/2023 1:41 PM DIRECTOR OF RESERVATIONS): Patient has a component of trochanteric bursitis [...] 12/24/2019 Assessment & Plan (12/24/2019 11:33 AM DIRECTOR OF RESERVATIONS): Assessment Cervical strain. Plan Recommended treatment is [...] 12/24/2019 Assessment & Plan (12/24/2019 11:34 AM DIRECTOR OF RESERVATIONS): See plan for cervical spine. Panic disorder [...] Hypertension Assessment & Plan (01/03/2025 12:35 PM DIRECTOR OF RESERVATIONS): Continue current weight loss plan as outlined in note. Weight loss of 5-10% of total body weight can result in improved systolic and diastolic blood pressure. Simi COX, Allyson TA, Nicci C, et al. Nutritional considerations with antiobesity medications. Obesity ([place]). 2023; 1-19. doi:[email or web address] Insomnia 04/06/2014 Overview (02/25/2017): Insomnia Assessment & [...] 06/21/2018 Headache 01/02/2013 06/21/2018 Overview (02/25/2017): Headache Encounters Date Type Department Care Team Description 02/27/2025 4:00 PM CDT Telemedicine [facility] General Neurology [address] [facility] 6th [address] [place] [address] Shanta Negro MD PhD Migraine without aura, intractable, without status migrainosus (Primary Dx); Chronic insomnia 01/15/2025 8:30 AM DIRECTOR OF RESERVATIONS Office Visit 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 Medical Group Orthopedics and Sports Medicine at [address] [address] Hugo Bishop MD Arthritis of left hip (Primary Dx); Trochanteric bursitis of left hip; BMI 29.0-29.9,adult 12/13/2024 9:41 AM DIRECTOR OF RESERVATIONS - 12/13/2024 11:59 PM DIRECTOR OF RESERVATIONS Hospital En[facility] [address] [place] [phone] Discharge Disposition: Discharge to home or self care 12/13/2024 Telephone [facility] Diabetes and Nutrition Services [address] [place] [address] Medical Office Building [address], [address] [place] [phone] Keila Lao, MANAGER OF TAX Side Effects 12/11/[address] [facility] Medical Group at [address] [place] [address] [place] [address] Hedy Calderon MD Medical Question/Miscellaneabel s 12/05/2024 11:15 AM DIRECTOR OF RESERVATIONS Lab [address] [address] Encounter for weight management; Metabolic syndrome; Dietary counseling; Exercise counseling; Overweight (BMI 25.0-29.9) 12/05/2024 10:20 AM DIRECTOR OF RESERVATIONS - 12/05/2024 11:59 PM DIRECTOR OF RESERVATIONS Hospital Encounter [facility] [address] [place] [address] Encounter for weight management; Metabolic syndrome; Dietary counseling; Exercise counseling; Overweight (BMI 25.0-29.9) Discharge Disposition: Discharge to home or self care 12/04/2024 9:40 AM DIRECTOR OF RESERVATIONS Office Visit [facility] Diabetes and Nutrition Services [address] [facility] Medical Office [address], [address] [place] [address] Flakita Mckeon MD Encounter for weight management (Primary Dx); Metabolic syndrome; Dietary counseling; Exercise counseling; Overweight (BMI 25.0-29.9); BMI 29.0-29.9,adult; Vitamin D deficiency; Gastroesophageal reflux disease without esophagitis; Mixed hyperlipidemia from Last 3 Months Immunizations Immunization Administration Dates Next Due Influenza, Quadrivalent, Spl it, Intramuscular 09/21/2016 Influenza, Quadrivalent, Spl it, Preservative Free, Intramuscular 09/04/2024,10/20/2021,09/17/2020,09/12 Influenza, Trivalent, IM (MDV) 11/24/2015,2012,08/19/2011 Influenza, Trivalent, Preser vative Free, Intramuscular 09/04/2024 Influenza, Unspecified 09/09/2023(Deferr ed: Patient Refused),09/05/2018 Tdap 09/21/2016,11/24/2015 ZOSTER Recombinant 04/22/2022 Surgical History Surgery Date Site/Laterality Comments TOTAL ABDOMINAL HYSTERECTOMY Hysterectomy, total LAPAROSCOPIC GASTRIC BANDING Lap Band OTHER SURGICAL HISTORY Excision of right lower quadrant abdominal wall mass 08/2014 SECTION OTHER SURGICAL HISTORY Lapband RADICAL HYSTERECTOMY Hysterectomy, radical OOPHORECTOMY BARIATRIC SURGERY SECTION 11/18/1990 COLONOSCOPY 10/21/2014 - 11/20/2014 First Medical History Medical History Date Comments Hx Other Medical HIGH Migraine Anxiety disorder Anxiety Constipation Constipation Hx Other Medical Lap band Hx Other Medical C section Hx Other Medical Bilateral tubal ligation Hx Other Medical LEEP Arthritis Arthritis Hx Other Medical Elise malformat ion type 1 Hx Other Medical psychological p roblems Anxiety Adiposity Obesity Hypertension Hypertension History of diabetes mellitus res olved with wt loss Diabetes mellitus (HCC) Migraines GERD (gastroesophageal reflux disease) Asthma Childhood Family History Medical History Relation Name Comments Prostate cancer Brother 1 Cancer, pros morales; Hypertension Brother 2 Dorynell Hypertension; Cancer Father Collin Hypertension Father Collin Hypertension; Prostate cancer Father Collin Cancer, pros morales; Breast cancer Father's Sister Bone cancer Maternal Grandfather Cancer, bone; Alzheimer's disease Maternal Grandmother Porsha Arthritis Maternal Grandmother Porsha Diabetes Maternal Grandmother Porsha Diabete s mellitus; Heart disease Maternal Grandmother Porsha Heart disease; Arthritis Mother Leslie Colon polyps Mother Leslie Hypertension Mother Leslie Cancer Other 1 Family history of Cancer -; Hypertension Other 2 Family history of Hypertension; Other Other 3 Family history of Mental Illness -anxiety; Ovarian cancer Neg Hx Pancreatic cancer Neg Hx Relation Name Status Comments Brother 1 Brother 2 Dorynell Father Collin Father's Sister Maternal Grandfather Maternal Grandmother Porsha Mother Leslie Other 1 Other 2 Other 3 Paternal Grandmother Social History Tobacco Use Types Packs/Day Years [...] on file Legal Sex Female 1:07 AM DIRECTOR OF RESERVATIONS Gender Identity Female 03/22/2020 1:35 PM CDT Sexual Orientation Straight 03/22/2020 1: 35 PM CDT 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 Not on file Not on file Obstetrics History Para Term AB IAB SAB Ectopic Multiple Livin g Live Births 3 2 2 Date Outcome GA Total Labor Labor/2nd/3rd Weight Sex Type Anes PTL Kaleigh A1 A5 Name Clin Term Term Last Filed Vital Signs Vital Sign Reading Time Taken Comments Blood Pressure 124/82 01/15/2025 8:35 AM DIRECTOR OF RESERVATIONS Pulse 85 01/15/2025 8:35 AM DIRECTOR OF RESERVATIONS Temperature 36.8 C (98.3 F) 01/15/2025 8:35 AM DIRECTOR OF RESERVATIONS Respiratory Rate 18 01/15/2025 8:35 AM DIRECTOR OF RESERVATIONS Oxygen Saturation 98% 01/15/2025 8:35 AM DIRECTOR OF RESERVATIONS Inhaled Oxygen Concentration - - Weight 62.7 kg (138 lb 4.8 oz) 01/15/2025 8:35 A M DIRECTOR OF RESERVATIONS Height 147.3 cm (4' 9.99 ) 01/15/2025 8:35 AM CS T Body Mass Index 28.91 01/15/2025 8:35 AM DIRECTOR OF RESERVATIONS Plan of Treatment Health Maintenance Due Date Last Done Comments Hepatitis C Screening 1972 Hepatitis B Screening 1990 Zoster Vaccine (2 of 2) 06/17/2022 04/22/2022 Regular Well Visit/Exam 18-64 09/04/2025 09/04/2024, 09/04/2024, 04/22/2022, Additional history exists Covid-19 Vaccine ( season) 2025 03/07/2021, 02/14/2021 Postponed from 07/22/2024 (Patient declined, but will receive in the future) Depression Screening 09/27/2025 09/27/2024, 09/04/2024, 06/22/2023, Additional history exists Breast Cancer Screening-Mammogram 11/06/2025 11/06/2024, 07/16/2023, 03/09/2022, Additional history exists DTaP/Tdap/Td Vaccine (3 - Td or Tdap) 09/21/2026 09/21/2016, 11/24/2015 Colon Cancer Screening-Colonoscopy 08/03/2034 08/03/2024, 11/06/2014, 11/06/2014 Influenza Vaccine Completed 09/04/2024, , 10/20/2021, Additional history exists Pneumococcal vaccine <65 Aged Out No longer eligible based on patient's age to complete this topic Procedures Procedure Name Priority Date/Time Associated Diagnosis Comments MRI BREAST BILATERAL W WO CONTRAST Schedule Routine, Read Routine (OP Routine) 12/31/2024 12:32 PM DIRECTOR OF RESERVATIONS Dense breast tissue Family history of breast cancer XR HIP LEFT W PELVIS 2 OR 3 VIEWS Schedule Routine, Read Routine (OP Routine) 12/13/2024 9:58 AM DIRECTOR OF RESERVATIONS Arthritis of left hip LA ARTHROCENTESIS ASPIR&/INJ MAJOR JT/BURSA W/O US Routine 12/13/2024 9:45 AM DIRECTOR OF RESERVATIONS Trochanteric bursitis of left hip BLOOD MISC TO SHERMAN Routine 12/05/2024 11 :45 AM DIRECTOR OF RESERVATIONS PROTIME-INR Routine 12/05/2024 11:45 AM DIRECTOR OF RESERVATIONS Encounter for weight management Metabolic syndrome Dietary counseling Exercise counseling Overweight (BMI 25.0-29.9) CBC WITHOUT DIFFERENTIAL Routine 12/05/2024 11:45 AM DIRECTOR OF RESERVATIONS Encounter for weight management Metabolic syndrome Dietary counseling Exercise counseling Overweight (BMI 25.0-29.9) EGFR Routine 12/05/2024 11:44 AM DIRECTOR OF RESERVATIONS Encounter for weight management Metabolic syndrome Dietary counseling Exercise counseling Overweight (BMI 25.0-29.9) GAMMA GT Routine 12/05/2024 11:44 AM DIRECTOR OF RESERVATIONS Encounter for weight management Metabolic syndrome Dietary counseling Exercise counseling Overweight (BMI 25.0-29.9) T3, FREE Routine 12/05/2024 11:44 AM DIRECTOR OF RESERVATIONS Encounter for weight management Metabolic syndrome Dietary counseling Exercise counseling Overweight (BMI 25.0-29.9) VITAMIN B12 Routine 12/05/2024 11:44 AM DIRECTOR OF RESERVATIONS Encounter for weight management Metabolic syndrome Dietary counseling Exercise counseling Overweight (BMI 25.0-29.9) LIPID PANEL Routine 12/05/2024 11:44 AM DIRECTOR OF RESERVATIONS Encounter for weight management Metabolic syndrome Dietary counseling Exercise counseling Overweight (BMI 25.0-29.9) IRON PROFILE W/ IBC Routine 12/05/2024 1 1:44 AM DIRECTOR OF RESERVATIONS Encounter for weight management Metabolic syndrome Dietary counseling Exercise counseling Overweight (BMI 25.0-29.9) FOLATE Routine 12/05/2024 11:44 AM DIRECTOR OF RESERVATIONS Encounter for weight management Metabolic syndrome Dietary counseling Exercise counseling Overweight (BMI 25.0-29.9) FERRITIN Routine 12/05/2024 11:44 AM DIRECTOR OF RESERVATIONS Encounter for weight management Metabolic syndrome Dietary counseling Exercise counseling Overweight (BMI 25.0-29.9) COMPREHENSIVE METABOLIC PANEL Routine 12/05/2024 11:44 AM DIRECTOR OF RESERVATIONS Encounter for weight management Metabolic syndrome Dietary counseling Exercise counseling Overweight (BMI 25.0-29.9) URIC ACID Routine 12/05/2024 11:44 AM DIRECTOR OF RESERVATIONS Encounter for weight management Metabolic syndrome Dietary counseling Exercise counseling Overweight (BMI 25.0-29.9) LIPASE Routine 12/05/2024 11:44 AM DIRECTOR OF RESERVATIONS Encounter for weight management Metabolic syndrome Dietary counseling Exercise counseling Overweight (BMI 25.0-29.9) AMYLASE Routine 12/05/2024 11:44 AM DIRECTOR OF RESERVATIONS Encounter for weight management Metabolic syndrome Dietary counseling Exercise counseling Overweight (BMI 25.0-29.9) TSH Routine 12/05/2024 11:44 AM DIRECTOR OF RESERVATIONS Encounter for weight management Metabolic syndrome Dietary counseling Exercise counseling Overweight (BMI 25.0-29.9) T4, FREE Routine 12/05/2024 11:44 AM DIRECTOR OF RESERVATIONS Encounter for weight management Metabolic syndrome Dietary counseling Exercise counseling Overweight (BMI 25.0-29.9) PHOSPHORUS Routine 12/05/2024 11:05 AM DIRECTOR OF RESERVATIONS Encounter for weight management Metabolic syndrome Dietary counseling Exercise counseling Overweight (BMI 25.0-29.9) MAGNESIUM Routine 12/05/2024 11:05 AM DIRECTOR OF RESERVATIONS Encounter for weight management Metabolic syndrome Dietary counseling Exercise counseling Overweight (BMI 25.0-29.9) CRP, HIGH SENSITIVITY Routine 12/05/2024 11:05 AM DIRECTOR OF RESERVATIONS Encounter for weight management Metabolic syndrome Dietary counseling Exercise counseling Overweight (BMI 25.0-29.9) INSULIN, TOTAL Routine 12/05/2024 11:05 AM DIRECTOR OF RESERVATIONS Encounter for weight management Metabolic syndrome Dietary counseling Exercise counseling Overweight (BMI 25.0-29.9) PTH Routine 12/05/2024 11:05 AM DIRECTOR OF RESERVATIONS Encounter for weight management Metabolic syndrome Dietary counseling Exercise counseling Overweight (BMI 25.0-29.9) VITAMIN D 25 HYDROXY Routine 12/05/2024 11:04 AM DIRECTOR OF RESERVATIONS Encounter for weight management Metabolic syndrome Dietary counseling Exercise counseling Overweight (BMI 25.0-29.9) HEMOGLOBIN A1C Routine 12/05/2024 11:04 AM DIRECTOR OF RESERVATIONS Encounter for weight management Metabolic syndrome Dietary counseling Exercise counseling Overweight (BMI 25.0-29.9) ALBUMIN CREATININE RATIO, URINE Routine 12/05/2024 11:04 AM DIRECTOR OF RESERVATIONS Encounter for weight management Metabolic syndrome Dietary counseling Exercise counseling Overweight (BMI 25.0-29.9) VITAMIN E Routine 12/05/2024 11:04 AM DIRECTOR OF RESERVATIONS Encounter for weight management Metabolic syndrome Dietary counseling Exercise counseling Overweight (BMI 25.0-29.9) VITAMIN A Routine 12/05/2024 11:04 AM DIRECTOR OF RESERVATIONS Encounter for weight management Metabolic syndrome Dietary counseling Exercise counseling Overweight (BMI 25.0-29.9) ZINC Routine 12/05/2024 11:04 AM DIRECTOR OF RESERVATIONS Encounter for weight management Metabolic syndrome Dietary counseling Exercise counseling Overweight (BMI 25.0-29.9) VITAMIN B6 Routine 12/05/2024 11:04 AM DIRECTOR OF RESERVATIONS Encounter for weight management Metabolic syndrome Dietary counseling Exercise counseling Overweight (BMI 25.0-29.9) COPPER, SERUM Routine 12/05/2024 11:04 AM DIRECTOR OF RESERVATIONS Encounter for weight management Metabolic syndrome Dietary counseling Exercise counseling Overweight (BMI 25.0-29.9) VITAMIN B1 Routine 12/05/2024 11:04 AM DIRECTOR OF RESERVATIONS Encounter for weight management Metabolic syndrome Dietary counseling Exercise counseling Overweight (BMI 25.0-29.9) URINALYSIS AND REFLEX TO MICROSCOPIC AND CULTURE Routine 12/05/2024 11:04 AM DIRECTOR OF RESERVATIONS Encounter for weight management Metabolic syndrome Dietary counseling Exercise counseling Overweight (BMI 25.0-29.9) US LIVER Schedule Routine, Read Routine (OP Routine) 12/05/2024 10:50 AM DIRECTOR OF RESERVATIONS Encounter for weight management Metabolic syndrome Dietary counseling Exercise counseling Overweight (BMI 25.0-29.9) ECG 12-LEAD Routine 12/04/2024 9:44 AM DIRECTOR OF RESERVATIONS Encounter for weight management SCREENING MAMMOGRAM BILATERAL W JAD Schedule Routine, Read Routine (OP Routine) 11/06/2024 10:01 AM DIRECTOR OF RESERVATIONS Encounter for screening for malignant neoplasm of breast, unspecified screening modality COLONOSCOPY 08/03/2024 9:31 AM CDT from Last 3 Months or Most Recently Relevant to Health Maintenance Results * MRI Breast Bilateral W WO Contrast (12/31/2024 12:32 PM DIRECTOR OF RESERVATIONS) Anatomical Region Laterality Modality Breast Bilateral Magnetic Resonan ce 12/31/2024 1:53 PM DIRECTOR OF RESERVATIONS Impressions 12/31/2024 2:58 PM DIRECTOR OF RESERVATIONS No MR evidence of malignancy in either [...] Vazquez Gonzales MD Narrative 12/31/2024 2:58 PM DIRECTOR OF RESERVATIONS EXAMINATION: 1. MRI EXAMINATION OF THE BREASTS [...] portions of either axilla. us Alize Benito EMPLOYMENT TRAINER IMG MRI PROCEDURES Ana Maria l Result * XR Hip Left W Pelvis Min 2 To 3 Views (12/13/2024 9:58 AM DIRECTOR OF RESERVATIONS) Anatomical Region Laterality Modality Lower Extremities, Hip, Pelvis Left C omputed Radiography Narrative 12/13/2024 10:35 AM DIRECTOR OF RESERVATIONS AP pelvis lateral views of the left hip reveal joint space narrowing with osteophyte formation of the left hip joint with more pronounced joint space narrowing sclerosis of the SI joint us Hugo Bishop MD IMG XR PROCEDURES Final Res ult * LA ARTHROCENTESIS ASPIR&/INJ MAJOR JT/BURSA W/O US (12/13/2024 9:45 AM DIRECTOR OF RESERVATIONS) Narrative Hugo Bishop MD - 12/13/2024 9:45 AM DIRECTOR OF RESERVATIONS Hugo Bishop MD 12/13/2024 10:36 AM Large [...] the procedure well with no immediate complications us Hugo Bishop MD IN CLINIC/BEDSIDE ORDERABLE S Final Result * BLOOD MISC TO SHERMAN (12/05/2024 11:45 AM DIRECTOR OF RESERVATIONS) Test name, chem SE[facility] ref Lab Misc See Footnote JEAN CLAUDE MAYO Comment: Test Result Flag Unit RefValue Selenium, B 185 ng/mL 150-241 ADDITIONAL INFORMATION This test was developed and its performance characteristics determined by [facility] in a manner consistent with CLIA requirements. This test has not been cleared or approved by the U.S. Food and Drug Administration. Test Performed by: [facility] [place] [address] [employer] Supervisor: Eb Bazzi Ph.D.; CLIA# [id number] Blood 12/05/2024 11:4 5 AM DIRECTOR OF RESERVATIONS 12/05/2024 1:53 PM DIRECTOR OF RESERVATIONS Narrative JEAN CLAUDE MAYO - 12/10/2024 12:32 PM DIRECTOR OF RESERVATIONS SELENIUM us Hedy Calderon MD LAB BLOOD ORDERABLES Final Result JEAN CLAUDE MAYO [address] Department [place] [address] [facility] ref Lab * Protime-INR (12/05/2024 11:45 AM DIRECTOR OF RESERVATIONS) PT 11.7 9.7 - 13.0 sec INR 1.08 0.90 - 1.20 JEAN CLAUDE MAYO Comment: Interpretive data Oral anticoagulant therapeutic ranges: Venous thromboembolism prophylaxis or treatment: 2.0-3.0 CARDIOLOGY Standard range: 2.0-3.0 High-intensity range: 2.5-3.5 Refer to indication-specific guidelines for appropriate target ranges for prosthetic heart valve replacement. Current interpretive data was last revised on 2019. Blood 12/05/2024 11:4 5 AM DIRECTOR OF RESERVATIONS 12/05/2024 11:45 AM DIRECTOR OF RESERVATIONS Flakita Mckeon MD LAB BLOOD ORDERABLES Final Res ult Performing Organization Address [facility] Co de Phone Number JEAN CLAUDE MAYO [address] [place] [address] * (ABNORMAL) CBC without differential (12/05/2024 11:45 AM DIRECTOR OF RESERVATIONS) WBC 4.8 3.8 - 9.9 K/cumm Hgb 11.9 11.9 - 15.5 g/dL [facility] Hct 38.2 35.6 - 45.5 % [facility] Plt 315 150 - 400 K/cumm [facility] MPV 9.3 9.1 - 12.3 fL [facility] RBC 4.19 3.90 - 5.20 M/cumm [facility] MCV 91.2 81.3 - 96.4 fL [facility] MCH 28.4 27.1 - 33.3 pg [facility] MCHC 31.2(L) 32.3 - 35.7 g/dL [facility] RDW CV 14.6 11.1 - 14.9 % [facility] RDW SD 48.8(H) 35.7 - 48.1 fL [facility] NRBC abs 0.00 0.00 - 0.01 K/cumm [facility] Blood 12/05/2024 11:4 5 AM DIRECTOR OF RESERVATIONS 12/05/2024 11:45 AM DIRECTOR OF RESERVATIONS Flakita Mckeon MD LAB BLOOD ORDERABLES Final Res ult Performing Organization Address City/[facility] Co de Phone Number JEAN CLAUDE MAYO [address] [place] [address] * eGFR (12/05/2024 11:44 AM DIRECTOR OF RESERVATIONS) eGFR >90 >=60 mL/min/1. 73 m2 Comment: [...] reviewed 2021. Blood 12/05/2024 11:4 4 AM DIRECTOR OF RESERVATIONS 12/05/2024 11:44 AM DIRECTOR OF RESERVATIONS us Flakita Mckeon MD LAB BLOOD ORDERABLES Final Res ult JEAN CLAUDE [address] [place] [address] * (ABNORMAL) Iron profile w/ IBC (12/05/2024 11:44 AM DIRECTOR OF RESERVATIONS) Iron 65 35 - 145 mcg/dL Comment:Testing performed by : [place], [address] TIBC 248(L) 250 - 400 mcg/dL JEAN CLAUDE Comment:Testing performed by : [place], [address] Transferrin saturation 26 20 - 50 % JEAN CLAUDE Comment:Testing performed by : [place], [address] Blood 12/05/2024 11:4 4 AM DIRECTOR OF RESERVATIONS 12/05/2024 11:44 AM DIRECTOR OF RESERVATIONS us Flakita Mckeon MD LAB BLOOD ORDERABLES Final Res ult Performing Organization Address [facility] Co de Phone Number JEAN CLAUDE MAYO [address] [address] [facility] [place] [address] * Uric acid (12/05/2024 11:44 AM DIRECTOR OF RESERVATIONS) Uric acid 3.0 2.5 - 7.0 mg/dL Blood 12/05/2024 11:4 4 AM DIRECTOR OF RESERVATIONS 12/05/2024 11:44 AM DIRECTOR OF RESERVATIONS us Flakita Mckeon MD LAB BLOOD ORDERABLES Final Res ult Performing Organization Address [facility] de Phone Number JEAN CLAUDE MAYO [address] [address] Department [employer] [place] [address] * T3, free (12/05/2024 11:44 AM DIRECTOR OF RESERVATIONS) Free T3 3.0 2.0 - 4.4 pg/mL Comment:Testing performed by : [facility], [address] [place]., [address] Blood 12/05/2024 11:4 4 AM DIRECTOR OF RESERVATIONS 12/05/2024 4:35 PM DIRECTOR OF RESERVATIONS us Flakita Mckeon MD LAB BLOOD ORDERABLES Final Res ult Performing Organization Address [facility] Co de Phone Number JEAN CLAUDE [address] [address] Department of [employer] [place] [address] * TSH (12/05/2024 11:44 AM DIRECTOR OF RESERVATIONS) Thyroid Stimulating Hormone 0.73 0.30 - 4.20 mcIUnit/mL Blood 12/05/2024 11:4 4 AM DIRECTOR OF RESERVATIONS 12/05/2024 11:44 AM DIRECTOR OF RESERVATIONS us Flakita Mckeon MD LAB BLOOD ORDERABLES Final Res ult Performing Organization Address [facility] Co de Phone Number JEAN CLAUDE MAYO [address] [address] [facility] [employer] [place] [address] * (ABNORMAL) T4, free (12/05/2024 11:44 AM DIRECTOR OF RESERVATIONS) Free T4 0.86(L) 0.90 - 1.70 ng/dL Blood 12/05/2024 11:4 4 AM DIRECTOR OF RESERVATIONS 12/05/2024 11:44 AM DIRECTOR OF RESERVATIONS Flakita cMkeon MD LAB BLOOD ORDERABLES Final Res ult Performing Organization Address [facility] Co de Phone Number JEAN CLAUDE MAYO [address] [address] [employer] [place] [address] * Lipase (12/05/2024 11:44 AM DIRECTOR OF RESERVATIONS) Lipase 20 10 - 99 Units/L Blood 12/05/2024 11:4 4 AM DIRECTOR OF RESERVATIONS 12/05/2024 11:44 AM DIRECTOR OF RESERVATIONS Flakita Mckeon MD LAB BLOOD ORDERABLES Final Res ult Performing Organization Address [facility] Co de Phone Number STARRMERYL MAYO [address] [address] Department [employer] [place] [address] * Gamma GT (12/05/2024 11:44 AM DIRECTOR OF RESERVATIONS) GGT 16 5 - 35 Units/L Comment:Testing performed by : [facility], [address] [facility], [place], [address] Blood 12/05/2024 11:4 4 AM DIRECTOR OF RESERVATIONS 12/05/2024 11:44 AM DIRECTOR OF RESERVATIONS us Flakita Mckeon MD LAB BLOOD ORDERABLES Final Res ult Performing Organization Address [facility] Co de Phone Number JEAN CLAUDE [address] [address] [employer] [place] [address] * Folate (12/05/2024 11:44 AM DIRECTOR OF RESERVATIONS) Folic acid 19.3 >=5.0 ng/mL Comment:Hemolysis present. R esults may be affected. Blood 12/05/2024 11:4 4 AM DIRECTOR OF RESERVATIONS 12/05/2024 11:44 AM DIRECTOR OF RESERVATIONS Flakita Mckeon MD LAB BLOOD ORDERABLES Final Res ult Performing Organization Address [facility] Co de Phone Number [facility] [address] [address] [facility] [place] [address] * Ferritin (12/05/2024 11:44 AM DIRECTOR OF RESERVATIONS) Pathologist [facility] Ferritin 148 15 - 150 ng/mL Blood 12/05/2024 11:4 4 AM DIRECTOR OF RESERVATIONS 12/05/2024 11:44 AM DIRECTOR OF RESERVATIONS Flakita Mckeon MD LAB BLOOD ORDERABLES Final Res ult Performing Organization Address [facility] de Phone Number [facility] [address] [address] [facility] [employer] [place] [address] * Vitamin B12 (12/05/2024 11:44 AM DIRECTOR OF RESERVATIONS) Pathologist [facility] Vitamin B12 993 230 - 1,250 pg/mL Blood 12/05/2024 11:4 4 AM DIRECTOR OF RESERVATIONS 12/05/2024 11:44 AM DIRECTOR OF RESERVATIONS Flakita Mckeon MD LAB BLOOD ORDERABLES Final Res ult Performing Organization Address [facility] de Phone Number [facility] [address] [address] [facility] [employer] [place] [address] * Amylase (12/05/2024 11:44 AM DIRECTOR OF RESERVATIONS) Amylase 45 30 - 99 Units/L Blood 12/05/2024 11:4 4 AM DIRECTOR OF RESERVATIONS 12/05/2024 11:44 AM DIRECTOR OF RESERVATIONS us Flakita Mckeon MD LAB BLOOD ORDERABLES Final Res ult JEAN CLAUDE [address] [address] [place] [address] * Lipid panel (12/05/2024 11:44 AM DIRECTOR OF RESERVATIONS) Cholesterol 174 30 - 199 mg/dL Comment: [...] 2018. Triglycerides 54 <=149 mg/dL JEAN CLAUDE MAYO Comment: Interpretive Data Ages < or = [...] 2018. HDL 75 >=40 mg/dL JEAN CLAUDE MAYO Comment: Interpretive Data Ages < or = [...] LDL, calculated 88 <=129 mg/dL JEAN CLAUDE MAYO Comment: Interpretive Data Ages < or = [...] 3. Nicolas Billingsley et al. JACQUIE Cardiol. 2019March 21;5(5):540-548. doi: 10.1001/[email or web address].2020.0013 Current Interpretive Data was last revised on 2024. Non-HDL Cholesterol 99 mg/dL JEAN CLAUDE MAYO Comment: Interpretive Data Ages < or = [...] last revised on 2018. Chol/HDL ratio 2 JEAN CLAUDE MAYO Blood 12/05/2024 11:4 4 AM DIRECTOR OF RESERVATIONS 12/05/2024 11:44 AM DIRECTOR OF RESERVATIONS us Flakita Mckeon MD LAB BLOOD ORDERABLES Final Res ult JEAN CLAUDE [address] [address] [place] [address] * Comprehensive metabolic panel (12/05/2024 11:44 AM DIRECTOR OF RESERVATIONS) Sodium 140 135 - 145 mmol/L Potassium, pl 4.0 3.3 - 4.9 mmol/L [facility] Chloride 106 97 - 110 mmol/L [facility] CO2 23 22 - 32 mmol/L [facility] Anion gap 11 2 - 15 mmol/L [facility] BUN 9 6 - 25 mg/dL [facility] Creatinine 0.61 0.60 - 1.10 mg/dL [facility] Glucose 94 70 - 199 mg/dL [facility] Comment: Interpretive Data Fasting glucose >/= 126 [...] [facility] Blood 12/05/2024 11:4 4 AM DIRECTOR OF RESERVATIONS 12/05/2024 11:44 AM DIRECTOR OF RESERVATIONS us Flakita Mckeon MD LAB BLOOD ORDERABLES Final Res ult JEAN CLAUDE MAYO [address] [address] [place] [address] * Insulin, total (12/05/2024 11:05 AM DIRECTOR OF RESERVATIONS) Insulin 5.0 2.6 - 25.0 mcIUnit/mL Comment:Testing performed by : [facility], [address] [facility], [place]., [address] Blood 12/05/2024 11:0 5 AM DIRECTOR OF RESERVATIONS 12/05/2024 4:09 PM DIRECTOR OF RESERVATIONS Flakita Mckeon MD LAB BLOOD ORDERABLES Final Res ult Performing Organization Address City/[facility] Co de Phone Number JEAN CLAUDE MAYO [address] [address] [address] * CRP (cardiac risk) (12/05/2024 11:05 AM DIRECTOR OF RESERVATIONS) hsCRP <0.50 mg/L Comment: Repeated and Verified [...] revised on 2018. Testing performed by: [facility], [address] [facility], [place]., [address] Blood 12/05/2024 11:0 5 AM DIRECTOR OF RESERVATIONS 12/05/2024 4:09 PM DIRECTOR OF RESERVATIONS us Flakita Mckeon MD LAB BLOOD ORDERABLES Final Res ult Performing Organization Address City/[facility]/ZIP Co de Phone Number JEAN CLAUDE MAYO [address] [address] [address] * Phosphorus (12/05/2024 11:05 AM DIRECTOR OF RESERVATIONS) Phosphorus, pl 3.2 2.3 - 4.5 mg/dL Blood 12/05/2024 11:0 5 AM DIRECTOR OF RESERVATIONS 12/05/2024 11:38 AM DIRECTOR OF RESERVATIONS Flakita Mckeon MD LAB BLOOD ORDERABLES Final Res ult Performing Organization Address [facility] Co de Phone Number JEAN CLAUDE MAYO [address] [address] [facility] [employer] [place] [address] * PTH (12/05/2024 11:05 AM DIRECTOR OF RESERVATIONS) PTH 64 15 - 65 pg/mL Blood 12/05/2024 11:0 5 AM DIRECTOR OF RESERVATIONS 12/05/2024 11:38 AM DIRECTOR OF RESERVATIONS Flakita Mckeon MD LAB BLOOD ORDERABLES Final Res ult Performing Organization Address [facility] de Phone Number STARRMERYL [address] [address] [facility] [employer] [place] [address] * Magnesium (12/05/2024 11:05 AM DIRECTOR OF RESERVATIONS) Magnesium 2.1 1.4 - 2.5 mg/dL Blood 12/05/2024 11:0 5 AM DIRECTOR OF RESERVATIONS 12/05/2024 11:38 AM DIRECTOR OF RESERVATIONS Flakita Mckeon MD LAB BLOOD ORDERABLES Final Res ult Performing Organization Address [facility] de Phone Number STARRMERYL [address] [address] [facility] [employer] [place] [address] * Urinalysis reflex to microscopic and culture Urine (12/05/2024 11:04 AM DIRECTOR OF RESERVATIONS) Color, ur Yellow Yellow Clarity, ur Clear Clear [facility] Specific gravity, ur 1.010 1.003 - 1.030 [facility] pH, urine 7.5 [facility] Comment: Interpretive Data U rine pH is affected by diet, medications, systemic acid-base disturbances, and renal tubular function. pH may affect urinary stone formation. For example, urine pH below 6.0 may help reduce the tendency for calcium phosphate stones and pH greater than 6.0 may reduce the tendency for uric acid stone formation. Source: [facility] Current Interpretive Data was last revised on [...] microscopic UA and culture not met. [facility]ER Urine 12/05/2024 11:0 4 AM DIRECTOR OF RESERVATIONS 12/05/2024 11:45 AM DIRECTOR OF RESERVATIONS Flakita Mckeon MD LAB MICROBIOLOGY - GENERAL ORD ERABLES Final Result Performing Organization Address [facility] Co de Phone Number JEAN CLAUDE GAEL [address] [address] [address] * Copper, serum (12/05/2024 11:04 AM DIRECTOR OF RESERVATIONS) Copper 107 77 - 206 mcg/dL [facility] Comment: ADDITIONAL INFORMATION This test was developed and its performance characteristics determined by [facility] in a manner consistent with CLIA requirements. This test has not been cleared or approved by the U.S. Food and Drug Administration. Test Performed by: [facility] - [address] [address] [employer] Supervisor: Eb Bazzi Ph.D.; CLIA# [id number] Blood 12/05/2024 11:0 4 AM DIRECTOR OF RESERVATIONS 12/05/2024 11:43 AM DIRECTOR OF RESERVATIONS Flakita Mckeon MD LAB BLOOD ORDERABLES Final Res ult Performing Organization Address [facility] Co de Phone Number STARRMERYL [address] [address] Department [employer] [place], [place] [id number] [facility] * Albumin Creatinine Ratio, Urine (12/05/2024 11:04 AM DIRECTOR OF RESERVATIONS) [facility] Albumin Ur <12.0 mg/L Comment: Interpretive Data No reference range established. Current interpretive data was last revised 2019. Creatinine Ur 47.7 mg/dL [facility] Comment: Interpretive Data No reference range established. Current interpretive data was last revised 2019. Albumin Creatinine Ratio, Ur <25 1 - 29 mg/g [facility] Urine 12/05/2024 11:0 4 AM DIRECTOR OF RESERVATIONS 12/05/2024 11:45 AM DIRECTOR OF RESERVATIONS Flakita Mckeon MD LAB URINE ORDERABLES Final Res ult Performing Organization Address [facility] de Phone Number [facility] [address] [address] [address] * Zinc (12/05/2024 11:04 AM DIRECTOR OF RESERVATIONS) [facility] Zinc 66 60 - 106 mcg/dL [facility] ref [facility] Comment: ADDITIONAL INFORMATION This test was developed and its performance characteristics determined by [facility] in a manner consistent with CLIA requirements. This test has not been cleared or approved by the U.S. Food and Drug Administration. Test Performed by: [facility] [place] [address] [employer] Supervisor: Eb Bazzi Ph.D.; CLIA# [id number] Blood 12/05/2024 11:0 4 AM DIRECTOR OF RESERVATIONS 12/05/2024 11:41 AM DIRECTOR OF RESERVATIONS Flakita Mckeon MD LAB BLOOD ORDERABLES Final Res ult Performing Organization Address [facility] de Phone Number JEAN CLAUDE [address] [address] [facility] [address] [facility] * Vitamin A (12/05/2024 11:04 AM DIRECTOR OF RESERVATIONS) Vitamin A 57.6 32.5 - 78.0 mcg/dL [facility] Comment: ADDITIONAL INFORMATION This test was developed and its performance characteristics determined by [facility] in a manner consistent with CLIA requirements. This test has not been cleared or approved by the U.S. Food and Drug Administration. Test Performed by: [facility] - [address] [address] [employer] Supervisor: Eb Bazzi Ph.D.; CLIA# [id number] Blood 12/05/2024 11:0 4 AM DIRECTOR OF RESERVATIONS 12/05/2024 11:41 AM DIRECTOR OF RESERVATIONS Flakita Mckeon MD LAB BLOOD ORDERABLES Final Res ult Performing Organization Address [facility] de Phone Number JEAN CLAUDE [address] [address] [employer] [place], [place] [id number] [facility] * Vitamin D 25 hydroxy (12/05/2024 11:04 AM DIRECTOR OF RESERVATIONS) Pathologist [facility] Vitamin D 25-OH 70 30 - 80 ng/mL Blood 12/05/2024 11:0 4 AM DIRECTOR OF RESERVATIONS 12/05/2024 11:41 AM DIRECTOR OF RESERVATIONS Flakita Mckeon MD LAB BLOOD ORDERABLES Final Res ult Performing Organization Address [facility] [place] [address] [address] [facility] [place] [address] * Vitamin E (12/05/2024 11:04 AM DIRECTOR OF RESERVATIONS) Pathologist [facility] Tocopherol (Vit E) 12.1 5.5 - 17.0 mg/L [facility] Comment: ADDITIONAL INFORMATION This test was developed and its performance characteristics determined by [facility] in a manner consistent with CLIA requirements. This test has not been cleared or approved by the U.S. Food and Drug Administration. Test Performed by: [facility] [place] [address] [employer] Supervisor: Eb Bazzi Ph.D.; CLIA# [id number] Blood 12/05/2024 11:0 4 AM DIRECTOR OF RESERVATIONS 12/05/2024 1:58 PM DIRECTOR OF RESERVATIONS Flakita Mckoen MD LAB BLOOD ORDERABLES Final Res ult Performing Organization Address [facility] Co de Phone Number JEAN CLAUDE MAYO [address] [address] [place] [address] [facility] ref [facility] * Vitamin B1 (12/05/2024 11:04 AM DIRECTOR OF RESERVATIONS) Thiamine (Vit B1) 134 70 - 180 nmol/L [facility] Comment: ADDITIONAL INFORMATION This test was developed and its performance characteristics determined by [facility] in a manner consistent with CLIA requirements. This test has not been cleared or approved by the U.S. Food and Drug Administration. Test Performed by: [facility] [place] [address] [employer] Supervisor: Eb Bazzi Ph.D.; CLIA# [id number] Blood 12/05/2024 11:0 4 AM DIRECTOR OF RESERVATIONS 12/05/2024 11:41 AM DIRECTOR OF RESERVATIONS Flakita Mckeon MD LAB BLOOD ORDERABLES Final Res ult Performing Organization Address [facility] Co de Phone Number STARRMERYL MAYO [address] [address] [place] [address] [facility] ref [facility] * Vitamin B6 (12/05/2024 11:04 AM DIRECTOR OF RESERVATIONS) Pyridoxal phosphate (Vit B6) 43 5 - 50 mcg/L [facility] Comment: ADDITIONAL INFORMATION This test was developed and its performance characteristics determined by [facility] in a manner consistent with CLIA requirements. This test has not been cleared or approved by the U.S. Food and Drug Administration. Test Performed by: [facility] [address] [place] [address] [employer] Supervisor: Eb Bazzi Ph.D.; CLIA# [id number] Blood 12/05/2024 11:0 4 AM DIRECTOR OF RESERVATIONS 12/05/2024 11:40 AM DIRECTOR OF RESERVATIONS Flakita Mckeon MD LAB BLOOD ORDERABLES Final Res ult Performing Organization Address City/[facility] Co de Phone Number JEAN CLAUDE MAYO [address] [place] [address] [facility] ref [facility] * (ABNORMAL) Hemoglobin A1c (12/05/2024 11:04 AM DIRECTOR OF RESERVATIONS) Pathologist [facility] Hgb A1C 6.1(H) 4.0 - 5.6 % Comment:Testing performed by : [facility], [address] [place]., [address] Estimated Average Glucose 128 mg/dL JEAN CLAUDE MAYO Comment: The ADA recommends reporting an estimated Average Glucose (eAG) with all Hemoglobin A1c results using the equation derived from a study of 507 normal and diabetic adults. Minority populations were underrepresented and children were not included. (Diabetes Care 2020; 43(S1): S66-S76). The eAG is not equivalent to a fasting glucose. Testing performed by: [facility], [address] [place]., [address] Blood 12/05/2024 11:0 4 AM DIRECTOR OF RESERVATIONS 12/05/2024 11:39 AM DIRECTOR OF RESERVATIONS Flakita Mckeon MD LAB BLOOD ORDERABLES Final Res ult Performing Organization Address City/[facility]/ZIP Co de Phone Number JEAN CLAUDE MAYO [address] [address] [place] [address] [phone] * US Liver (12/05/2024 10:50 AM DIRECTOR OF RESERVATIONS) Anatomical Region Laterality Modality Abdomen N/A Ultrasound 12/05/2024 11:2 7 AM DIRECTOR OF RESERVATIONS Impressions 12/05/2024 11:27 AM DIRECTOR OF RESERVATIONS 1. Small amount of sludge in the gallbladder. 2. The liver and bile ducts appear normal. 3. No evidence of ascites. Electronically signed by: Jaya Hatch M.D. Narrative 12/05/2024 11:27 AM DIRECTOR OF RESERVATIONS EXAM: US LIVER DATE: 12/05/2024 10:30 AM [...] ascites. Electronically signed by: Jaya Hatch M.D. Result [facility] Flakita Mckeon MD [facility] US PROCEDURES Final Result * ECG 12 lead (12/04/2024 9:44 AM DIRECTOR OF RESERVATIONS) Result [facility] Flakita Mckeon MD ECG ORDERABLES Final Result * Screening Mammogram Bilateral W Jad (11/06/2024 10:01 AM DIRECTOR OF RESERVATIONS) Anatomical Region Laterality Modality Breast Bilateral Mammography 11/06/2024 10:4 0 AM DIRECTOR OF RESERVATIONS Impressions 11/06/2024 10:40 AM DIRECTOR OF RESERVATIONS No evidence of malignancy in either breast. FINAL ASSESSMENT: BI-RADS Category 1: Negative. RECOMMENDATION: 1. Annual screening mammography is recommended. 2. Consider breast MRI for supplemental screening given reported strong family history of breast cancer. Electronically signed by: SEBASTIAN MCKINNEY MD Narrative 11/06/2024 10:40 AM DIRECTOR OF RESERVATIONS EXAMINATION: BILATERAL SCREENING MAMMOGRAM COMPARISON: All prior mammograms dating back to 2014. TECHNIQUE: Full-field 2D and digital breast tomosynthesis (DBT) images were obtained. CAD was utilized. BREAST PARENCHYMAL COMPOSITION: The breasts are heterogenously dense, which may obscure small masses. FINDINGS: There is no suspicious mass, calcification, or distortion in either breast. Result [facility] Hedy Calderon MD [facility] MAMMO PROCEDURES Final Result * Colonoscopy (08/03/2024 9:31 AM CDT) Anatomical Region Laterality Modality Other Narrative Procedure Note Jerry Jones MD - 08/03/2024 9:31 AM CDT [facility] Patient Name: Dawna Kelsey Procedure Date: 08/03/2024 9:31 AM Date of : 1970 Admit Type: Outpatient Age: 54 Gender: Female Attending MD: Jerry Jones M.D. Room: [facility] ENDOSCOPY ROOM 3 Note Status: Finalized Patient [...] procedure were verified by the physician, the stonehand and the scrub technician in the endoscopy suite. Mental Status [...] under direct vision. The Pediatric Colonoscope [id number] was introduced through the anus and advanced [...] 9:31 AM Procedure Code(s): --- Professional --- 17300, Colonoscopy, flexible; with removal of tumor(s), polyp(s), or other lesion(s) by snare technique 76264, 59, Colonoscopy, flexible; with biopsy, single or multiple --- Technical --- 29825, Colonoscopy, flexible; with removal of tumor(s), polyp(s), or other lesion(s) by snare technique 48637, 59, Colonoscopy, flexible; with biopsy, single or multiple Diagnosis Code(s): --- Professional --- Z86.010, Personal history of colonic polyps D12.0, Benign neoplasm of cecum K64.8, Other hemorrhoids --- Technical --- Z86.010, Personal history of colonic polyps D12.0, Benign neoplasm of cecum K64.8, Other hemorrhoids CPT copyright 2020 [employer]. All rights reserved. The codes documented in this report are preliminary and upon icd 9 coder reviewmay be revised to meet current compliance requirements. Recognized by the [employer] [employer] for promoting quality in endoscopy Jerry Jones MD ENDOSCOPY PROCEDURES Final Resul t from Last 3 Months or Most Recently Relevant to Health Maintenance Insurance [facility] BLUE [place]ESS [place] Member Subscriber Plan / Payer (Ef fective 2014-Present) Name:Dawna Kelsey Relation to Subscriber:Spouse Name:SCOOTER KELSEY Date of :1969 (Home) Address: [address] [place] [address] [place] [address] Payer ID:[id number] (NAIC) Type: OTHER Address: [place] [id number] [place] [facility] WORKERS COMPENSATION GENERIC Advance Directives For more information, please contact: [phone] * Full Code (Latest Code Status on File) Date Activated Date Inactivated Comments 08/03/2024 9:56 AM 08/03/2024 4:29 PM * Full Code Date Activated Date Inactivated Comments 08/03/2024 9:56 AM 08/03/2024 9:56 AM Care Teams Forensic Investigator Relationship Specialty Start Date End Date Hedy Calderon MD [address] [facility] [address] [place] [address] PCP - General 02/18/17 LeviDestinee nguyen MD [address] [place] [address] Surgeon Medical Oncology 11/09/24
--- OUTSIDE RECORDS SUMMARY | 2025-03-02 15:17 | XMS_ITS | Patient Health Record ---
Author Organization [facility] Address [address] [facility] [address] [place] [address] Care Team Providers Care Customer Care Team Coach Name Role Phone Kvng TUCKER, Hedy Primary Care Provider Mann AntunezDeeg Unavailable [phone] Allergies Allergen (clinical drug ingredient) Drug/Non Drug Allergy documented on EMR Reaction Allergy Type Onset Date Status meperidine Meperidine HCl Unknown Drug Allergy 11/02/2019 Active metoclopramide Metoclopramide HCl Unknown Drug Allergy Active naproxen Naproxen Unknown Drug Allergy 11/02/2019 Active morphine Morphine Unknown Drug Allergy 11/02/2019 Active Reason For Referral No Information Medications Medication SIG (Take, Route, Frequency, Duration) Notes Start Date End Date Status ALPRAZolam 0.5 MG Oral Ac tive Indomethacin 25 MG take 1 capsule (25 mg) by oral route 2 times per day with food Oral 2 Active Topamax 25 MG take 1 tablet (25 mg) by oral route once daily at bedtime Oral 1 Active Vitamin D3 1000 UNIT Oral *Pick strength-form from [employer] for eRX* Active ZyrTEC 10 MG 1/2 tablet Orally Once a day for 30 day(s) Active Famotidine 40 MG as directed Orally Active Venlafaxine HCl 75 MG 1 tablet with food Orally Once a day for 30 day(s) Active Vitamin W95-Bsehz Acid 500-400 MCG Oral Active [place]-3 1000 mg daily oral *Pick strength-form from [employer] for eRX* Active Gabapentin 600 MG 1 tablet Orally twice a day for 30 days 06/25/2024 Active Ondansetron HCl 8 MG Oral Active MiraLax 17 GM take 1 packet (17 gram) mixed with 8 oz. water, juice, soda, coffee or tea by oral route once daily Oral 1 Active Singulair 10 MG 1 tablet Orally Once a day for 30 day(s) Active Vital Signs Heart Rate 80 /min 05/31/2024 Temperature 98.0 degrees Fahrenheit 05/31/2024 Blood pressure diastolic 70 mm Hg 05/31/2024 Oximetry 96 % 05/31/2024 Height 58 in 05/31/2024 Blood pressure systolic 110 mm Hg 05/31/2024 Weight 125.3 lbs 05/31/2024 BMI 26.18 kg/m2 05/31/2024 Encounters Encounter Location Date Provider Diagnosis [facility] [address] [place] [address] 05/31/2024 Carmen Tulio Multiple joint pain M25.50 ; Muscle cramps R25.2 and Elevated CK R74.8 [facility] [address] [place] [address] 06/25/2024 Carmen Tulio Multiple joint pain M25.50 ; Muscle cramps R25.2 and Elevated CK R74.8 [facility] [address] [place] [address] 10/31/2024 Carmen Tulio [facility] [address] [facility] [address] [place] [address] 06/21/2024 Carmen Tulio Assessments Encounter Date Diagnosis (ICD Code) Assessment Notes Treatment Notes Treatment Clinical Notes Section Notes 05/31/2024 Multiple joint pain (ICD-10 - M25.50) joints still aching, has muscle cramps, no muscle weakness, order additional labs 05/31/2024 Muscle cramps (ICD-10 - R25.2) joints still aching, has muscle cramps, no muscle weakness, order additional labs 06/25/2024 Multiple joint pain (ICD-10 - M25.50) labs normal, re-try gabapentin 600mg bid, return in 4 months 05/31/2024 Elevated CK (ICD-10 - R74.8) joints still aching, has muscle cramps, no muscle weakness, order additional labs 06/25/2024 Muscle cramps (ICD-10 - R25.2) labs normal, re-try gabapentin 600mg bid, return in 4 months 06/25/2024 Elevated CK (ICD-10 - R74.8) labs normal, re-try gabapentin 600mg bid, return in 4 months Plan Of Treatment Pending Test Test Name Order Date Anti-CCP (Cyclic Citrullinated Peptide A b) 05/31/2024 C Reactive Protein 05/31/2024 Creatine Kinase 05/31/2024 MyoMarker Panel 3 05/31/2024 Sed Rate 05/31/2024 SSA Ab 05/31/2024 SSB Ab 05/31/2024 Insurance Providers Payer Name Payer Address Payer Phone Subscriber Number Group Number Insured Name Patient Relationship to Insured Coverage Start Date Coverage End Date [employer] [address] [place] [address] [id number] Jero Hankins Self - patient is the insured [employer] [address] [place] [address] [id number] Jero Hankins Self - patient is the insured 0 [employer] [place] [address] [place] [address] [id number] Jero Hankins Self - patient is the insured [employer] [address] [place], [place] [id number] Jero Hankins Self - patient is the insured 0 Medical (General) History Medical History History ICD Code Anxiety; Chiari I malformation; Diabetes; Hypertension; Migraine; Surgical History Surgery Date(Month/Year) Tubal ligation; 2019-11-02 Leep; 2019-11-02 Hysterectomy; 2019-11-02 Lap band; 2019-11-02 C section; 2019-11-02
--- OUTSIDE RECORDS SUMMARY | 2025-03-02 15:17 | XMS_ITS ---
Author Organization [facility] Address [address] [facility] [address] [place] [address] Care Team Providers Care Consulting Engineer Name Role Phone Kvng TUCKER, [facility] Primary Care Provider Carmen Veras [phone] REASON FOR VISIT tele Encounters Encounter Location Date Provider Diagnosis [facility] [address] [facility] [address] [place] [address] 06/21/2024 Carmen Antunez Plan Of Treatment No Information Progress Notes * Jero KELSEY MDOB:1969 (54 yo F)Acc No.[id number]:06/21/2024 Patient: Della Jero WOOD :1970 A ge:54 Y S ex:Female Address:[address] [place] [address] * true * Date: Generated for Roshnii dmitriy/Emily/eTransmitting on: 0 03/02/2025 03:17 PM CDT
--- OUTSIDE RECORDS SUMMARY | 2025-03-02 15:17 | XMS_ITS | Clinical Summary ---
Author Organization [facility] Address [address] [place] [address] Phone Care Team Providers Care Tower Equipment Repairer Name Role Phone Hedy Calderon MD Primary Care Provid er Allergies Active Allergy Reactions Criticality Noted Date Comments Naproxen Unknown 09/20/2016 Meperidine Unknown 09/20/2016 Morphine Unknown 09/20/2016 Metoclopramide Hcl Unknown 09/20/2016 Medications venlafaxine (EFFEXOR XR) 75 MG CAPSULE SR 24 HR Take 75 mg by mouth daily. Active cyanocobalamin 1000 MCG Tablet Take 1,000 mcg by mouth daily. Active Calcium Citrate-Vitamin D (CALCIUM + D PO) Take by mouth. Activ e BIOTIN FORTE PO Take by mouth. Active IRON PO Take by mouth. Activ e [place]-3 Fatty Acids (OMEGA 3 PO) Take by mouth. Activ e Probiotic Product (PROBIOTIC COLON SUPPORT PO) Take by mouth. Activ e Polyethylene Glycol 3350 (MIRALAX PO) Take by mouth. Ac tive Onabotulinumtox Isaac (BOTOX IJ) by Injection route. Active acetaminophen (TYLENOL) 325 MG Tablet Take by mouth. Activ e ALPRAZolam (XANAX) 0.5 MG Tablet 3 8 Active butalbital-acet aminophen-caffe ine (FIORICET, ESGIC) 50-325-40 MG Tablet Take by mouth. 2 Active escitalopram (LEXAPRO) 20 MG Tablet Take by mouth. Activ e ESTRACE VAGINAL 0.1 MG/GM Cream INSERT SS APL VAGINALLY HS 3 TIMES PER WK 2 7 Active gabapentin (NEURONTIN) 300 MG Capsule Take by mouth. Acti ve ibuprofen (MOTRIN) 800 MG Tablet take 1 tablet by oral route 2 times every day with food 6 Active Multiple Vitamin (MULTI-VITAMINS ) Tablet Take by mouth. Activ e ondansetron (ZOFRAN-ODT) 8 MG TABLET DISPERSIBLE 7 Active SUMAtriptan Succinate (SUMAVEL DOSEPRO) 6 MG/0.5ML Solution Jet-injector inject 0.5 milliliter by subcutaneous route once; may be repeated 1 hour after the first dose if headache pain returns or increases in severity; do not exceed 2 doses within 24 hours 4 Active Suvorexant 15 MG Tablet Take by mouth. Activ e tiZANidine (ZANAFLEX) 4 MG Tablet take 1 tablet by oral route everyday at bedtime 6 Active Topiramate 50 MG Tablet 8 Active Family History Medical History Relation Name Comments Prostate Cancer Brother Prostate Cancer Father Relation Name Status Comments Brother Father Social History Tobacco Use Types Packs/Day Years Used Date Smoking Tobacco: Never Smokeless Tobacco: Never Alcohol Use Standard Drinks/Week Comments No 0 (1 standard drink = 0.6 oz pur e alcohol) Sexually Active Control Partners Comments Yes Male Comments No Sex and Gender Information Value Date Recorded Sex Assigned at Not on file Legal Sex Female 12:22 AM CDT Gender Identity Not on file Sexual Orientation Not on file Last Filed Vital Signs Vital Sign Reading Time Taken Comments Blood Pressure 104/80 04/03/2018 8:40 AM CDT Pulse 86 04/03/2018 8:40 AM CDT Temperature 36.6 C (97.9 F) 04/22/2017 10:21 AM CDT Respiratory Rate 14 04/03/2018 8:40 AM CDT Oxygen Saturation 94% 04/03/2018 8:40 AM CDT Inhaled Oxygen Concentration - - Weight 53.1 kg (117 lb) 04/03/2018 8:40 AM CDT Height 147.3 cm (4' 10 ) 04/03/2018 8:40 AM CDT Body Mass Index 24.45 04/03/2018 8:40 AM CDT Plan of Treatment Health Maintenance Due Date Last Done Comments Hepatitis C Virus (HCV) Screening 1970 Hepatitis B Immunization (1 of 3 - 19+ 3-dose series) 1991 Colonoscopy 2017 Colorectal Cancer Screening 2017 Cologuard 2022 Immunochemical Fecal Occult Blood 2022 Pneumococcal Immunization (50+ years) (1 of 1 - PCV) 2022 Zoster Immunization (1 of 2) 2022 Influenza Immunization (#1) 07/22/202409/23, 09/17/2020, 09/12/2019, Additional history exists SARS-COV-2 Immunization ( season) 2024 03/07/2021, 02/14/2021 Respiratory Syncytial Virus (RSV) Immunization (Adult) (1 - 1-dose 75+ series) 2047 DTaP/Tdap/Td Immunization Discontinued 09/21/2016, 02/2016 TdaP Immunization Completed 09/21/2016, 11/24/2015 Discussion re Starting/Frequency of Mammograms Discontinued 03/09/2022, 02/23/2021, 01/07/2020 Mammogram Discontinued 03/09/2022, 03/2021, 01/07/2020 Meningococcal Immunization (ACWY) Aged Out No longer eligible based on patient's age to complete this topic Rotavirus Immunization Aged Out No lo nger eligible based on patient's age to complete this topic Procedures Procedure Name Priority Date/Time Associated Diagnosis Comments JODIE SCREENING BILATERAL DIGITAL W CAD W JULIANA Routine 03/09/2022 5:00 PM CDT Encounter for screening mammogram for malignant neoplasm of breast from Last 3 Months or Most Recently Relevant to Health Maintenance Results * JODIE SCREENING BILATERAL DIGITAL W CAD W JULIANA (03/09/2022 5:00 PM CDT) Anatomical Region Laterality Modality breast Bilateral Mammography 03/09/2022 5:04 PM CDT Narrative 03/11/2022 5:01 PM CDT - JODIE SCREENING BILATERAL DIGITAL W CAD W JULIANA BILATERAL DIGITAL SCREENING MAMMOGRAM 3D/2D WITH CAD WITH MEDIOLATERAL OBLIQUE CRANIOCAUDAL: 03/09/2022 The study was acquired using digital technology and interpreted from soft copy. Current study was also evaluated with ICAD version 7.2. 2D digital mammographic views, as well as 3D digital tomosynthesis were performed in the CC and MLO projections. CLINICAL: Routine screening. Patient has no complaints. No personal history of cancer. No family history of breast cancer. COMPARISONS: Comparison is made to exams dated: 02/23/2021, 01/07/2020 [facility], and 10/02/2018 [facility]. BREAST TISSUE:The tissue of both breasts is heterogeneously dense. This may lower the sensitivity of mammography. FINDINGS: No significant masses, calcifications, or other findings are seen in either breast. There has been no significant interval change. IMPRESSION: BI-RAD 1 NEGATIVE There is no mammographic evidence of malignancy. A 1 year screening mammogram is recommended. A letter will be sent to the patient with these results. The patient will be entered into a reminder system with a target due date of 1 year for her next screening exam. Electronically signed by: Gus kaplan/rachele:03/11/2022 15:09:30 Furnace Firer(s): RT Kodi(R)(M), [facility] letter sent: Normal Exam Reading location: [facility] BI-RADS: 1 Negative Procedure Note Gus Shane MD - 03/11/2022 - JODIE SCREENING BILATERAL DIGITAL W CAD W JULIANA BILATERAL DIGITAL SCREENING MAMMOGRAM 3D/2D WITH CAD WITH MEDIOLATERAL OBLIQUE CRANIOCAUDAL: 03/09/2022 The study was acquired using digital technology and interpreted from soft copy. Current study was also evaluated with ICAD version 7.2. 2D digital mammographic views, as well as 3D digital tomosynthesis were performed in the CC and MLO projections. CLINICAL: Routine screening. Patient has no complaints. No personal history of cancer. No family history of breast cancer. COMPARISONS: Comparison is made to exams dated: 02/23/2021, 01/07/2020 [facility], and 10/02/2018 [facility]. BREAST TISSUE:The tissue of both breasts is heterogeneously dense. This may lower the sensitivity of mammography. FINDINGS: No significant masses, calcifications, or other findings are seen in either breast. There has been no significant interval change. IMPRESSION: BI-RAD 1 NEGATIVE There is no mammographic evidence of malignancy. A 1 year screening mammogram is recommended. A letter will be sent to the patient with these results. The patient will be entered into a reminder system with a target due date of 1 year for her next screening exam. Electronically signed by: Gus kaplan/rachele:03/11/2022 15:09:30 Furnace Firer(s): RT Kodi(R)(M), [facility] letter sent: Normal Exam Reading location: [facility] BI-RADS: 1 Negative Hedy Calderon MD IMG MAMMO ORDERABLES Final Result from Last 3 Months or Most Recently Relevant to Health Maintenance Insurance [employer] * Guarantor: [id number] Account Type Relation to Patient Date of Phone Billing Address Workers Comp Self [address] [place] [address] [employer] Care Teams Tower Equipment Repairer Relationship Specialty Start Date End Date Hedy Calderon MD [address] [facility] [address] [place] [address] PCP - General 09/20/16
--- OUTSIDE RECORDS SUMMARY | 2025-03-02 15:17 | XMS_ITS | Patient Health Record ---
Author Organization [facility] Address [address] [place] [address] Care Team Providers Care Lead Instructor/Flight Attendant Name Role Phone Hedy Calderon Primary Care Provider Unavaila Fermin Sosa Unavailable [phone] ZZ-Migration, Provider Unavailable Unavailab le Allergies Allergen (clinical drug ingredient) Drug/Non Drug Allergy documented on EMR Reaction Allergy Type Onset Date Status DEMORAL (uncoded) hives Allergy Ac tive naproxen Naproxen Hives Drug Allergy Active morphine Morphine hives Drug Allergy Active Reason For Referral No Information Medications Medication SIG (Take, Route, Frequency, Duration) Notes Start Date End Date Status SPIRONOLACTONE 50 mg 1 tab(s) orally for 30 day(s) Not-Taking ZYRTEC 10mg 1 tablet PO QD Not -Taking Montelukast Sodium 10 MG 1 tab(s) orally once a day for 30 days Active MONTELUKAST 10 mg 1 tab(s) orally once a day for 30 days Active ALPRAZOLAM 0.5 mg TAKE 1 TABLET BY MOUTH THREE TIMES A DAY NEEDED for 20 Days Active IMVEXXY MAINTENANCE PACK 4 mcg INSERT 1 TABLET VAGINALLY 2 TIMES PER WEEK for 28 Days Active TEMAZEPAM 15 mg for 30 Days Ac tive VENLAFAXINE HYDROCHLORIDE ER 75 mg 1 cap(s) orally once a day for 30 day(s) 11/28/2023 Active Cetirizine HCl 10 MG 1 tab(s) orally twice a day for 90 days Active Famotidine 40 MG TAKE 1 TABLET BY MOUTH TWICE A DAY for 90 Active MONTELUKAST 10 mg 1 tab(s) orally once a day for 90 days Active TOPAMAX 50 mg 1 tab(s) orally 2 times a day for 30 day(s) Active [place]-3 1000 mg 1 cap(s) orally once a day for 30 day(s) takes 500mg once a day Active CALCIUM/FERROUS FUMARATE/VITAMIN D 500/400mg one tablet daily *Please review for potential replacement for e-prescription and drug interaction check* Active ZyrTEC Allergy 10 MG 1 tablet PO QD Not-Taking Paxil 30 MG 1 tab(s) orally once a day for 30 day(s) Not-Taking Multivitamin MULTIPLE VITAMINS 1 CAP(S) ORALLY ONCE A DAY for 30 DAY(S) *Please review and pick correct strength-formulat ion from [employer] options. If intended option is not shown, discontinue and re-order from Quick Search* Active Spironolactone 50 MG 1 tab(s) orally for 30 day(s) Not-Taking VITAMIN D3 125 mcg 1 cap(s) orally once a day for 30 day(s) takes 1000IU daily Active MULTIVITAMIN Multiple Vitamins 1 cap(s) orally once a day for 30 day(s) Active MONTELUKAST 10 mg 1 tab(s) orally once a day for 30 days Active MONTELUKAST 10 mg 1 tab(s) orally once a day for 90 days Active ZYRTEC 10mg 1 tablet PO QD Not -Taking FAMOTIDINE 40 mg 1 tab(s) orally twice a day for 90 days Active [place]-3 1000 MG 1 cap(s) orally once a day for 30 day(s) takes 500mg once a day Active CETIRIZINE 10 mg 1 tab(s) orally twice a day for 90 days Active Vitamin D3 125 MCG 1 CAP(S) ORALLY ONCE A DAY for 30 DAY(S) takes 1000IU daily *Please review and pick correct strength-formulat ion from [employer] options. If intended option is not shown, discontinue and re-order from Quick Search* Active MONTELUKAST 10 mg 1 tab(s) orally once a day for 90 days Active FAMOTIDINE 40 mg 1 tab(s) orally twice a day for 90 days Active Topamax 50 MG 1 tab(s) orally 2 times a day for 30 day(s) Active Levocetirizine Dihydrochloride 5 MG 1 tab(s) orally once a day (in the evening) for 90 days 03/05/2024 Active LEVOCETIRIZINE DIHYDROCHLORIDE 5 mg 1 tab(s) orally once a day (in the evening) for 90 days 03/05/2024 Active CETIRIZINE 10 mg 1 tab(s) orally twice a day for 90 days Active Temazepam 15 MG for 30 Days Ac tive FAMOTIDINE 40 mg 1 tab(s) orally twice a day for 90 days Active Venlafaxine HCl ER 75 MG 1 cap(s) orally once a day for 30 day(s) 11/28/2023 Active ALPRAZolam 0.5 MG TAKE 1 TABLET BY MOUTH THREE TIMES A DAY NEEDED for 20 Days Active PAXIL 30 mg 1 tab(s) orally once a day for 30 day(s) Not-Taking Imvexxy Maintenance Pack 4 MCG INSERT 1 TABLET VAGINALLY 2 TIMES PER WEEK for 28 Days Active Social History Tobacco Use: Social History Observation Description Date Details (start date - stop date) Never Smoker NA - NA Smoking Smart Form: Question Answer Notes Are you a: never smoker Problems Problem Type SNOMED Code ICD Code Onset Dates Problem Status W/U Status Risk Notes Problem Non-steroidal anti-inflammat ory drug adverse reaction (809656324) Adverse effect of other nonsteroidal anti-inflammatory drugs [NSAID], initial encounter (T39.395A) Active confirmed Problem Urticaria (838198974) Other urticaria (L50.8) Active confirmed Problem Swelling of head (915684067) Localized swelling, mass and lump, head (R22.0) Active confirmed Encounters Encounter Location Date Provider Diagnosis [facility] [place] [address] [place] [address] 05/05/2024 Provider ZRufus-Migration Other urticaria L50.8 [facility] [place] [address] [place] [address] 03/05/2024 Fermin O[place] [address] [place] [address] 04/30/2024 Fermin García Assessments Encounter Date Diagnosis (ICD Code) Assessment Notes Treatment Notes Treatment Clinical Notes Section Notes 05/05/2024 Other urticaria (ICD-10 - L50.8) 03/26/2024 Other Plan Of Treatment No Information Insurance Providers Payer Name Payer Address Payer Phone Subscriber Number Group Number Insured Name Patient Relationship to Insured Coverage Start Date Coverage End Date [facility] [address] [place] [address] [phone] [id number] sania Hankins Spouse - patient is the spouse of the insured Medical (General) History Medical History History ICD Code anxiety Acne Migraines Other urticaria L50.8 Localized swelling, mass and lump, head R22.0 Adverse effect of other nons teroidal anti-inflammatory drugs [NSAID], subsequent encounter T39.395D Adverse effect of other nons teroidal anti-inflammatory drugs [NSAID], initial encounter T39.395A Other Urticaria L50.8 Surgical History Surgery Date(Month/Year) Gastric bypass 07/26/2015 Hysterectomy 09/01/2015 Hospitalization History Reason Date(Month/Year) Hysterectomy 09/01/2015 Gastric Biopsy 07/26/2015
--- OUTSIDE RECORDS SUMMARY | 2025-03-02 15:18 | XMS_ITS ---
Author Organization [facility] Address [address] [place] [address] Care Team Providers Care Hot Tar Roofer Name Role Phone Hedy Calderon Primary Care Provider Fermin Sparks [phone] REASON FOR VISIT Refills Medications Medication SIG (Take, Route, Frequency, Duration) Notes Start Date End Date Status LEVOCETIRIZINE DIHYDROCHLORIDE 5 mg 1 tab(s) orally once a day (in the evening) for 90 days 03/05/2024 Active Encounters Encounter Location Date Provider Diagnosis [address] [address] 04/30/2024 Fermin García Plan Of Treatment Medication Medication Name Sig Start Date Stop Date Notes LEVOCETIRIZINE DIHYDROCHLORI DE 5 mg 1 tab(s) orally once a day (in the evening) for 90 days 03/05/2024 Progress Notes * Amira KELSEYB:[birth year] (54 yo F)Acc No.[id number]:04/30/2024 Patient: Della WOOD Dawna :1970 A ge:54 Y S ex:Female Address:[address], [place] [address] * Refills Refill Levocetirizine Dihydrochloride tablet, 5 mg, orally, 90, 1 tab(s), once a day (in the evening), 90 days, Refills=1 * true * Date: Generated for Ajit izaguirre/Emily/Vicki on: 0 03/02/2025 03:18 PM CDT
--- OUTSIDE RECORDS SUMMARY | 2025-03-02 15:18 | XMS_ITS ---
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 Name Role Phone Unavailable Unavailable Unavailable Problems Includes: Active, inactive, and resolved Problems All Visits Onset Date Resolved Date Provider Condition S tatus Diabetes Mellitus 10/27/2015 ROSA A RUBI QUINONES [facility]NP-BC Active Last Documented On 10/27/2015 3:03PM ; [facility] Note: Type II Hypertension Systemic 10/27/2015 ROSA A ALEXEY WHNP-BC Active Last Documented On 5 3:03PM ; [facility] Migraine Headache 06/19/2013 ARPIT SNEED MD A ctive Last Documented On 3 11:34AM ; [facility] 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 A ctive Last Documented On 0 8:26AM ; [facility] Plan of Treatment Findings Encounter Date Ordered Clinical summary pro vided to patient YOKE PRESSER EXAM with ROSA BLACKBURN [facility]NP-BC 10/10/2019 Last Documented On 9 1:05PM ; [facility] Ordered follow-up visit 1 ye ar or as needed YOKE PRESSER EXAM with ROSA BLACKBURN [facility]NP-[facility] 10/10/2019 Last Documented On 9 1:05PM ; [facility] Ordered follow-up visit 1 ye ar or as needed YOKE PRESSER EXAM with ROSA BLACKBURN [facility] 08/30/2018 Last Documented On 8 3:23PM ; [facility] Ordered Clinical summary pro vided to patient 2 WK CK-UP with ROSA BLACKBURN [facility] 05/26/2017 Last Documented On 7 2:26PM ; [facility] Ordered Clinical summary pro vided to patient PROBLEM VISIT with ROSA BLACKBURN [facility] 05/09/2017 Last Documented On 7 1:42PM ; [facility] affirm culture and u/s to ev aluate for posterior fibroid anteflexing uterus which can be causing her dypareunia. If patient has posterior large fibroid pt will consider UFE, vs. myomectomy vs. hysterectomy YOKE PRESSER EXAM with MARYBETH HOLLIDAY M.D. 03/07/2012 Last Documented On 2 3:02PM ; [facility] Instructions to patient Instructions for patient : B reast Self Exam discussed Last Documented On 9 12:52PM ; [facility] Instructions for patient : B reast Self Exam discussed Last Documented On 8 3:06PM ; [facility] Instructions for patient : K eep the area around the vulva dry. Allow the area to have exposure to air. Avoid irritants such as fabric softeners and perfumed soaps.~ Last Documented On 8 3:08PM ; [facility] Advised d/c scented bath pro ducts Last Documented On 8 3:08PM ; [facility] Instructions for patient : B reast Self Exam discussed Last Documented On 7 2:40PM ; [facility] Instructions for patient : t he patient was instructed in the use and possible side effects of the medication prescribed. She is to maintain good hydration via p.o. fluids. We also discussed possible triggers for UTI and preventive measures Last Documented On 7 2:13PM ; [facility] Patient to call if fever or back pain Last Documented On 7 2:13PM ; [facility] Instructed to decrease carbo nation and caffeine Last Documented On 7 2:13PM ; [facility] Increase water po Last Documented On 7 2:13PM ; [facility] Instructions For Patient: go od handwashing and perineal care Last Documented On 7 2:13PM ; [facility] Instructions for patient : t he patient was instructed in the use and possible side effects of the medication prescribed. She is to maintain good hydration via p.o. fluids. We also discussed possible triggers for UTI and preventive measures Last Documented On 7 1:22PM ; [facility] Patient to call if fever or back pain Last Documented On 7 1:22PM ; [facility] Instructed to decrease carbo nation and caffeine Last Documented On 7 1:22PM ; [facility] Increase water po Last Documented On 7 1:22PM ; [facility] Instructions For Patient: go od handwashing and perineal care Last Documented On 7 1:22PM ; [facility] Instructions for patient : B reast Self Exam discussed Last Documented On 6 2:38PM ; [facility] Instructions for patient : K eep the area around the vulva dry. Allow the area to have exposure to air. Avoid irritants such as fabric softeners and perfumed soaps.~ Last Documented On 5 2:59PM ; [facility] Advised d/c scented bath pro ducts Last Documented On 5 2:59PM ; [facility] Instructions for patient : B reast Self Exam discussed Last Documented On 5 10:56AM ; [facility] Instructions for patient : B reast Self Exam discussed Last Documented On 4 11:41AM ; [facility] Instructions for patient : B reast Self Exam discussed Last Documented On 3 11:38AM ; [facility] Instructions for patient : B reast Self Exam discussed. Reviewed monthly self breast examination and technique Last Documented On 2 9:28AM ; [facility] Recommend diet and exercise at least 30 min three times per week Last Documented On 2 9:28AM ; [facility] Recommend preventative vacci nation including but not limited to influenza/flu vaccine, DTP, Rubella, Hepatitis B vaccination series Last Documented On 2 9:28AM ; [facility] Recommend annual pap smear e xamination or every three year if high risk hpv negative and 3 consecutive normal pap examination during preceding three years Last Documented On 2 9:28AM ; [facility] Recommend TSH, fasting gluco se, fasting lipid panel, CBC, BMP Last Documented On 2 9:28AM ; [facility] Recommend Calcium supplement ation and weight bearing exercise Last Documented On 2 9:28AM ; [facility] Instructions for patient : B reast Self Exam discussed and technique reviewed Last Documented On 11:49AM ; [facility] If patient is taking belkys. Re commend annual K level. Pt understands risk of hyperkalemia and that if diagnosis of liver or kidney disease that the continuation of belkys is not recommended Last Documented On 11:49AM ; [facility] Recommend diet and exercise at least 30 min three times per week Last Documented On 1 11:49AM ; [facility] Recommend CBC, TSH, fasting glucose, fasting lipid panel if patient aged 25 or older Last Documented On 11:49AM ; [facility] Discussed Gardasil vaccinati on and recommend vaccination for HPV prevention. Handout given. Patient understands sexual transmission of high-risk HPV and the association with abnormal pap smear and cervical cancer. Recommend to decrease high risk behaviors such as: number or sexual partners, smoking, and contraception use Last Documented On 11:49AM ; [facility] Recommend preventative vacci nation including but not limited to influenza/flu vaccine, DTP, Rubella, Hepatitis B vaccination series Last Documented On 11:49AM ; [facility] Education and Decision Aids were provided during visit for: Patient Education: Daily pradeep cium and vitamin D Last Documented On 9 12:52PM ; [facility] Patient Education: weight be aring exercise Last Documented On 9 12:52PM ; [facility] Patient Education: Daily pradeep cium and vitamin D Last Documented On 8 3:06PM ; [facility] Patient Education: weight be aring exercise Last Documented On 8 3:06PM ; [facility] Candidiasis Vulvovaginitis I nformation Sheet Given Last Documented On 8 3:22PM ; [facility] Patient education : Last Documented On 7 2:40PM ; [facility] STD screening offered and de clined Last Documented On 7 2:40PM ; [facility] Patient education : Last Documented On 6 2:38PM ; [facility] STD screening offered and de clined Last Documented On 6 2:38PM ; [facility] Candidiasis Vulvovaginitis I nformation Sheet Given Last Documented On 5 3:15PM ; [facility] Patient education : Last Documented On 5 10:56AM ; [facility] STD screening offered and de clined Last Documented On 5 10:56AM ; [facility] Patient education : Last Documented On 4 11:41AM ; [facility] STD screening offered and de clined Last Documented On 4 11:41AM ; [facility] Patient education : Last Documented On 3 11:38AM ; [facility] STD screening offered and de clined Last Documented On 3 11:38AM ; [facility] Assessments Includes: Assessments for all patient encounters Findings Encounter Date NORMAL FEMALE EXAM YOKE PRESSER EXAM with ROSA [facility]- 10/10/2019 Last Documented On 9 1:05PM ; [facility] Screening Malig. Neoplasm Rectum YOKE PRESSER EXAM with Liam [facility]ACK[facility]URN [facility]- 10/10/2019 Last Documented On 9 1:05PM ; [facility] Kristyn albicans vulvovaginitis YOKE PRESSER EXAM with ABEL [facility]URN [facility]- 08/30/2018 Last Documented On 8 3:23PM ; [facility] NORMAL FEMALE EXAM YOKE PRESSER EXAM with ROSA [facility] 08/30/2018 Last Documented On 8 3:23PM ; [facility] Screening Malig. Neoplasm Rectum YOKE PRESSER EXAM with Liam BLACKBURN [facility] 08/30/2018 Last Documented On 8 3:23PM ; [facility] Routine pelvic exam YOKE PRESSER EXAM with ARPIT SNEED MD 07/19/2017 Last Documented On 7 2:53PM ; [facility] Essential hematuria 2 WK CK-UP with ROSA VENEGASAN Benitez [facility] 05/26/2017 Last Documented On 7 2:26PM ; [facility] Routine pelvic exam YOKE PRESSER EXAM with ARPIT SNEED MD 07/13/2016 Last Documented On 6 4:38PM ; [facility] Kristyn albicans vulvovaginitis PROBLEM VISIT wi ROSA BLACKBURN [facility] 10/27/2015 Last Documented On 5 3:16PM ; [facility] Routine pelvic exam YOKE PRESSER EXAM with ARPIT SNEED MD 07/04/2015 Last Documented On 5 1:03PM ; [facility] Routine pelvic exam YOKE PRESSER EXAM with ARPIT SNEED MD 06/25/2014 Last Documented On 4 11:51AM ; [facility] Routine pelvic exam YOKE PRESSER EXAM with ARPIT SNEED MD 06/19/2013 Last Documented On 3 11:53AM ; [facility] Kristyn albicans vaginitis : budding yeast and hyphae visible on wet prep, no clue cells or trichomonas POST OP VISIT with ARPIT SNEED MD 10/05/2012 Last Documented On 2 3:25PM ; [facility] POST OP VISIT POST OP VISIT with ARPIT SNEED MD 10/05/2012 Last Documented On 2 3:25PM ; [facility] POST OP VISIT TVH POST OP VISIT with MARYBETH MANTILLA M.D. 08/29/2012 Last Documented On 2 12:20PM ; [facility] Dyspareunia PREOP EXAM with MARYBETH SCHERER M.Faviola 08/15/2012 Last Documented On 2 9:39AM ; [facility] Female pelvic pain PREOP EXAM with MARYBETH RASHEED M.D. 08/15/2012 Last Documented On 2 9:39AM ; [facility] Dyspareunia YOKE PRESSER EXAM with MARYBETH HOLLIDAY M.D. 06/14/2012 Last Documented On 2 9:52AM ; [facility] Leiomyoma of the uterus YOKE PRESSER EXAM with MARYBETH HOLLIDAY M.D. 06/14/2012 Last Documented On 2 9:52AM ; [facility] MAMMOGRAM SCREENING YOKE PRESSER EXAM with MARYBETH HOOKER M.D. 06/14/2012 Last Documented On 2 9:52AM ; [facility] NORMAL FEMALE EXAM YOKE PRESSER EXAM with MARYBETH COOK M.D. 06/14/2012 Last Documented On 2 9:52AM ; [facility] Dyspareunia YOKE PRESSER EXAM with MARYBETH HOLLIDAY M.D. 03/07/2012 Last Documented On 2 3:02PM ; [facility] Leiomyoma of the uterus YOKE PRESSER EXAM with MARYBETH HOLLIDAY M.D. 03/07/2012 Last Documented On 2 3:02PM ; [facility] Vaginitis YOKE PRESSER EXAM with MARYBETH HOLLIDAY M.D. 03/07/2012 Last Documented On 2 3:02PM ; [facility] NORMAL FEMALE EXAM YOKE PRESSER EXAM with MARYBETH COOK M.D. 03/11/2011 Last Documented On 1 12:18PM ; [facility] Instructions Includes: Instructions for all patient encounters Instructions to patient Instructions for patient : B reast Self Exam discussed Last Documented On 9 12:52PM ; [facility] Instructions for patient : B reast Self Exam discussed Last Documented On 8 3:06PM ; [facility] Instructions for patient : K eep the area around the vulva dry. Allow the area to have exposure to air. Avoid irritants such as fabric softeners and perfumed soaps.~ Last Documented On 8 3:08PM ; [facility] Advised d/c scented bath pro ducts Last Documented On 8 3:08PM ; [facility] Instructions for patient : B reast Self Exam discussed Last Documented On 7 2:40PM ; [facility] Instructions for patient : t he patient was instructed in the use and possible side effects of the medication prescribed. She is to maintain good hydration via p.o. fluids. We also discussed possible triggers for UTI and preventive measures Last Documented On 7 2:13PM ; [facility] Patient to call if fever or back pain Last Documented On 7 2:13PM ; [facility] Instructed to decrease carbo nation and caffeine Last Documented On 7 2:13PM ; [facility] Increase water po Last Documented On 7 2:13PM ; [facility] Instructions For Patient: go od handwashing and perineal care Last Documented On 7 2:13PM ; [facility] Instructions for patient : t he patient was instructed in the use and possible side effects of the medication prescribed. She is to maintain good hydration via p.o. fluids. We also discussed possible triggers for UTI and preventive measures Last Documented On 7 1:22PM ; [facility] Patient to call if fever or back pain Last Documented On 7 1:22PM ; [facility] Instructed to decrease carbo nation and caffeine Last Documented On 7 1:22PM ; [facility] Increase water po Last Documented On 7 1:22PM ; [facility] Instructions For Patient: go od handwashing and perineal care Last Documented On 7 1:22PM ; [facility] Instructions for patient : B reast Self Exam discussed Last Documented On 6 2:38PM ; [facility] Instructions for patient : K eep the area around the vulva dry. Allow the area to have exposure to air. Avoid irritants such as fabric softeners and perfumed soaps.~ Last Documented On 5 2:59PM ; [facility] Advised d/c scented bath pro ducts Last Documented On 5 2:59PM ; [facility] Instructions for patient : B reast Self Exam discussed Last Documented On 5 10:56AM ; [facility] Instructions for patient : B reast Self Exam discussed Last Documented On 4 11:41AM ; [facility] Instructions for patient : B reast Self Exam discussed Last Documented On 3 11:38AM ; [facility] Instructions for patient : B reast Self Exam discussed. Reviewed monthly self breast examination and technique Last Documented On 2 9:28AM ; [facility] Recommend diet and exercise at least 30 min three times per week Last Documented On 2 9:28AM ; [facility] Recommend preventative vacci nation including but not limited to influenza/flu vaccine, DTP, Rubella, Hepatitis B vaccination series Last Documented On 2 9:28AM ; [facility] Recommend annual pap smear e xamination or every three year if high risk hpv negative and 3 consecutive normal pap examination during preceding three years Last Documented On 2 9:28AM ; [facility] Recommend TSH, fasting gluco se, fasting lipid panel, CBC, BMP Last Documented On 2 9:28AM ; [facility] Recommend Calcium supplement ation and weight bearing exercise Last Documented On 2 9:28AM ; [facility] Instructions for patient : B reast Self Exam discussed and technique reviewed Last Documented On 1 11:49AM ; [facility] If patient is taking belkys. Re commend annual K level. Pt understands risk of hyperkalemia and that if diagnosis of liver or kidney disease that the continuation of belkys is not recommended Last Documented On 1 11:49AM ; [facility] Recommend diet and exercise at least 30 min three times per week Last Documented On 1 11:49AM ; [facility] Recommend CBC, TSH, fasting glucose, fasting lipid panel if patient aged 25 or older Last Documented On 1 11:49AM ; [facility] Discussed Gardasil vaccinati on and recommend vaccination for HPV prevention. Handout given. Patient understands sexual transmission of high-risk HPV and the association with abnormal pap smear and cervical cancer. Recommend to decrease high risk behaviors such as: number or sexual partners, smoking, and contraception use Last Documented On 1 11:49AM ; [facility] Recommend preventative vacci nation including but not limited to influenza/flu vaccine, DTP, Rubella, Hepatitis B vaccination series Last Documented On 1 11:49AM ; [facility] Education and Decision Aids were provided during visit for: Patient Education: Daily pradeep cium and vitamin D Last Documented On 9 12:52PM ; [facility] Patient Education: weight be aring exercise Last Documented On 9 12:52PM ; [facility] Patient Education: Daily pradeep cium and vitamin D Last Documented On 8 3:06PM ; [facility] Patient Education: weight be aring exercise Last Documented On 8 3:06PM ; [facility] Candidiasis Vulvovaginitis I nformation Sheet Given Last Documented On 8 3:22PM ; [facility] Patient education : Last Documented On 7 2:40PM ; [facility] STD screening offered and de clined Last Documented On 7 2:40PM ; [facility] Patient education : Last Documented On 6 2:38PM ; [facility] STD screening offered and de clined Last Documented On 6 2:38PM ; [facility] Candidiasis Vulvovaginitis I nformation Sheet Given Last Documented On 5 3:15PM ; [facility] Patient education : Last Documented On 5 10:56AM ; [facility] STD screening offered and de clined Last Documented On 5 10:56AM ; [facility] Patient education : Last Documented On 4 11:41AM ; [facility] STD screening offered and de clined Last Documented On 4 11:41AM ; [facility] Patient education : Last Documented On 3 11:38AM ; [facility] STD screening offered and de clined Last Documented On 3 11:38AM ; [facility] Medical Equipment - Implanted Devices Includes: Current and historical Devices No Medical Equipment Recorded Medications Includes: Current and historical Medications Current Medications (continue as prescribed) Biotin 1000MCG Oral Tablet 05/09/2017 Provider: Diagnosis: Last Documented On 05/09/2017 1:27PM By DANICA SALGADO ; [facility] Iron 325 (65 Fe)MG Oral Tablet 05/09/2017 Provid er: Diagnosis: Last Documented On 05/09/2017 1:27PM By DANICA SALGADO ; [facility] Fish Oil 1000MG Oral Capsule, conventional 017 Provider: Diagnosis: Last Documented On 05/09/2017 1:27PM By DANICA SALGADO ; [facility] Topiramate 50 MG Tablet 07/13/2016 Provider: Diagnosis: Last Documented On 07/13/2016 2:36PM By LANDON BOBBY ; [facility] B Complex-B12 Tablet 07/13/2016 Provider: Diagnosis: Last Documented On 07/13/2016 2:36PM By LANDON BOBBY ; [facility] Vitron-C 65-125 MG Tablet 07/13/2016 Provider: Diagnosis: Last Documented On 07/13/2016 2:36PM By LANDON BOBBY ; [facility] MiraLax Powder 07/04/2015 Provider: Diagnosis: 17 grams bid Last Documented On 07/04/2015 11:00AM By JAMES ROMERO RN ; [facility] Effexor XR 75 MG OR CP24 06/25/2014 Provider: Diagnosis: Last Documented On 4 11:31AM By YUE SALGADO ; [facility] Vitamin D3 400 UNIT OR CAPS 06/25/2014 Provider: Diagnosis: Last Documented On 4 11:32AM By YUE SALGADO ; [facility] Botox 100 UNIT IJ SOLR 06/25/2014 Provider: Diagnosis: for headaches Last Documented On 4 11:50AM By MALINI CORONA LPN ; [facility] [facility] Indomethacin 25 MG OR CAPS 06/19/2013 Provider: Diagnosis: Last Documented On 06/19/2013 11:33AM By ANDREEA IGLESIAS ; [facility] Past Medications on file Diflucan 150MG Oral Tablet 08/30/2018 - 10/10/2019 Pro vider: ROSA BLACKBURN WHNP-BC Diagnosis: as directed -one po x 1 dose and may rpt. in 3 days if needed Last Documented On 9 12:53PM By DANICA SALGADO ; [facility] Estrace 0.1MG/GM Vaginal Cream 06/06/2017 - 09/04/2017 Provider: ROSA ADAN VP PRODUCT-BC Diagnosis: as directed - 1/2 applicator full pv at hs 3x/we ek Last Documented On 7 9:42AM By ROSA MATTSON ; [facility] Estrace 0.1MG/GM Vaginal Cream 05/26/2017 - 06/06/2017 Provider: ROSA ADAN VP PRODUCT-BC Diagnosis: as directed - 1/2 applicator full pv at hs 3x/we ek Last Documented On 7 9:34AM By ROSA MATTSON ; [facility] Acidophilus Probiotic Oral Tablet 05/09/2017 - 018 Provider: Diagnosis: Last Documented On 08/30/2018 3:08PM By DANICA SALGADO ; [facility] Diflucan 150 MG Tablet 10/27/2015 - 07/13/2016 Provider: ROSA MATTSON Diagnosis: Candidiasis of v ulva and vagina as directed - one po x 1 and repeat in 3 days Last Documented On 07/13/2016 2:34PM By LANDON BOBBY ; [facility] Lisinopril 5 MG Tablet 07/04/2015 - 05/09/2017 Provide r: Diagnosis: Last Documented On 05/09/2017 1:26PM By DANICA SALGADO ; [facility] Lisinopril 2.5 MG Tablet 07/04/2015 - 07/04/2015 Provi liz: Diagnosis: Last Documented On 07/04/2015 10:59AM By JAMES ROMERO RN ; [facility] Januvia 100 MG Tablet 07/04/2015 - 10/27/2015 Provider : Diagnosis: Last Documented On 10/27/2015 3:04PM By DANICA SALGADO ; [facility] Diflucan 150 MG Tablet 03/18/2015 - 07/04/2015 Provide r: Diagnosis: Last Documented On 07/04/2015 10:51AM By JAMES ROMERO RN ; [facility] Diflucan 150 MG OR TABS 11/08/2014 - 07/04/2015 Provid er: ARPIT SNEED MD Diagnosis: one tab to be taken po; phoned to [facility]. Last Documented On 07/04/2015 10:51AM By JAMES ROMERO RN ; [facility] Sumavel DosePro 6 MG/0.5ML SC KAVYA 06/25/2014 - 2017 Provider: Diagnosis: prn Last Documented On 08/30/2018 3:09PM By DANICA SALGADO ; [facility] Cambia 50 MG OR PACK 06/25/2014 - 07/04/2015 Provider: Diagnosis: prn Last Documented On 07/04/2015 10:51AM By JAMES ROMERO RN ; [facility] Depo-Provera 150 MG/ML IM SUSP 06/25/2014 - 06/25/2014 Provider: Diagnosis: for migraine Last Documented On 4 11:50AM By MALINI CORONA LPN ; [facility] Caltrate 600+D Plus Minerals 600-800 MG-UNIT OR TABS 06/25/2014 - 07/04/2015 Provider: Diagnosis: Last Documented On 07/04/2015 10:52AM By JAMES ROMERO RN ; [facility] EQ Stool Softener/Laxative 8.6-50 MG OR TABS 4 - 07/13/2016 Provider: Diagnosis: Last Documented On 07/13/2016 2:35PM By LANDON BOBBY ; [facility] Diflucan 150 MG OR TABS 12/03/2013 - 06/25/2014 Provid er: Diagnosis: Called into [facility]. Last Documented On 4 11:31AM By YUE SALGADO ; [facility] Diflucan 150 MG OR TABS 06/19/2013 - 07/13/2016 Provid er: ARPIT SNEED MD Diagnosis: Last Documented On 07/13/2016 2:35PM By LANDON BOBBY ; [facility] Propranolol HCl 40 MG OR TABS 06/19/2013 - 06/25/2014 Provider: Diagnosis: Last Documented On 4 11:31AM By YUE SALGADO ; [facility] Diflucan 150 MG OR TABS 03/28/2013 - 06/19/2013 Provid er: Diagnosis: [facility] protocol. Last Documented On 06/19/2013 11:52AM By ARPIT SNEED MD ; [facility] Diflucan 150 MG OR TABS 01/12/2013 - 06/19/2013 Provid er: Diagnosis: 1 po nowCalled to Marcial Dumont per protocol . Last Documented On 3 11:30AM By DANIEL RAMÍREZ LPN ; [facility] Diflucan 150 MG OR TABS 10/05/2012 - 07/13/2016 Provid er: RAPIT SNEED MD Diagnosis: SARA KHANNA Last Documented On 07/13/2016 2:35PM By LANDON BOBBY ; [facility] Gummi Bear Multivitamin/Min OR CHEW 10/05/2012 - 07/04 Provider: Diagnosis: Last Documented On 07/04/2015 10:51AM By JAMES ROMERO RN ; [facility] MonoNessa 0.25-35 MG-MCG OR TABS 06/14/2012 - 08/15/2012 Provider: MARYBETH SCHERER M.D. Diagnosis: Last Documented On 2 9:16AM By CINTHIA MARSHALL MA ; [facility] MonoNessa 0.25-35 MG-MCG OR TABS 06/14/2012 - 06/14/20 12 Provider: Diagnosis: Last Documented On 2 9:33AM By DR. MARYBETH HOLLIDAY ; [facility] Diflucan 150 MG OR TABS 05/25/2012 - 10/05/2012 Provid er: Diagnosis: SARA KHANNA Last Documented On 10/05/2012 3:24PM By ARPIT SNEED MD ; [facility] Flagyl 500 MG OR TABS 03/08/2012 - 07/13/2016 Provider : MARYBETH HOLLIDAY M.D. Diagnosis: VAGINITIS NOS Last Documented On 07/13/2016 2:35PM By LANDON BOBBY ; [facility] Sprintec 28 0.25-35 MG-MCG OR TABS 03/07/2012 - 10/05/2012 Provider: MARYBETH SCHERER M.D. Diagnosis: DYSMENORRHEA Last Documented On 10/05/2012 3:03PM By ANDREEA IGLESIAS ; [facility] Opti-Free RepleniSH SOLN 03/07/2012 - 06/25/2014 Provi liz: Diagnosis: FOR CLEAR VAGINAL DISCHARGE Last Documented On 4 11:31AM By YUE SALGADO ; [facility] Ryvregikce-Ntsaiog-Nntmsjao 50-325-40 MG OR TABS 03/07/2012 - 07/04/2015 Provider: Diagnosis: Last Documented On 07/04/2015 10:51AM By JAMES ROMERO RN ; [facility] Cipro 500 MG OR TABS 10/28/2011 - 03/07/2012 Provider: Diagnosis: Last Documented On 2 2:08PM By CINTHIA MARSHALL MA ; [facility] Gabapentin POWD 03/04/2011 - 06/19/2013 Provider: Lenny BRAR MD Diagnosis: Last Documented On 06/19/2013 11:32AM By ANDREEA IGLESIAS ; [facility] Topiramate POWD 03/04/2011 - 06/25/2014 Provider: Lenny BRAR MD Diagnosis: Last Documented On 4 11:31AM By YUE SALGADO ; [facility] Medications Administered Includes: Administered Medications in patient's chart No Administered Medications Recorded Results Includes: Results from 03/02/2024 through 03/02/2025 No Results Recorded For Specified Dates History of Present Illness History of Present Illness not supported for this document type No History of Present Illness Recorded Social History Description Last Updated Alcohol use occ 10/10/2019 Last Documented On 9 1:05PM ; [facility] In monogamous relationship 10/10/2019 Last Documented On 9 1:05PM ; [facility] Non-smoker 10/10/2019 Last Documented On 9 1:05PM ; [facility] Not using drugs 10/10/2019 Last Documented On 9 1:05PM ; [facility] Sexually active with 1 partners in the l ast year 10/10/2019 Last Documented On 9 1:05PM ; [facility] Smoking status : Never smoker 10/10/2019 Last Documented On 9 1:05PM ; [facility] Age of 1st intercourse was was 15 2010 Last Documented On 1 12:18PM ; [facility] Procedures and Surgical History Surgical History Last Updated History of hysterectomy 07/19/2017 Last Documented On 7 2:53PM ; [facility] Surgical / procedural history 06/2015 lap gastric bypass 07/13/2016 Last Documented On 6 4:38PM ; [facility] History of tubal ligation 06/25/2014 Last Documented On 4 11:51AM ; [facility] History of vaginal hysterectomy 06/19/20 13 Last Documented On 3 11:53AM ; [facility] History of surgical laparosc opic gastric restrictive procedure by adjustable gastric band 03/11/2011 Last Documented On 1 12:18PM ; [facility] Medical History Includes: Medical History in patient's chart Description Last Updated Sexually active 10/10/2019 Last Documented On 9 1:05PM ; [facility] History of complete colonoscopy 2015 Dr Clara peres[peat in 10 years 10/10/2019 Last Documented On 9 1:05PM ; [facility] History of Pap smear done 05/09/201709/22 Last Documented On 9 1:05PM ; [facility] History of screening mammogram was perfo rmed 10/02/2018 10/10/2019 Last Documented On 9 1:05PM ; [facility] Result: normal 10/10/2019 Last Documented On 9 1:05PM ; [facility] Aborta 2 07/19/2017 Last Documented On 7 2:53PM ; [facility] 2 07/19/2017 Last Documented On 7 2:53PM ; [facility] Para 2 07/19/2017 Last Documented On 7 2:53PM ; [facility] Status post tubal ligation 07/19/2017 Last Documented On 7 2:53PM ; [facility] History of asthma outgrew 05/09/2017 Last Documented On 7 1:42PM ; [facility] History of benign essential hypertension 10/27/2015 Last Documented On 5 3:16PM ; [facility] History of type 2 diabetes mellitus pt n o longer takes rx for it 10/27/2015 Last Documented On 5 3:16PM ; [facility] TL 03/18/2010 Last Documented On 0 8:32AM ; [facility] 2 elective (s) 03/18/2010 Last Documented On 0 8:32AM ; [facility] Anemia 03/18/2010 Last Documented On 0 8:32AM ; [facility] Asthma 03/18/2010 Last Documented On 0 8:32AM ; [facility] High cholesterol 03/18/2010 Last Documented On 0 8:32AM ; [facility] Family History Includes: Family History in patient's chart Description Last Updated Maternal grandmother's history of family history of heart disease mgm 10/10/2019 Last Documented On 9 1:05PM ; [facility] Maternal grandmother's history of hypert ension mgm,father 10/10/2019 Last Documented On 9 1:05PM ; [facility] Maternal grandmother's history of pure h ypercholesterolemia mgm 10/10/2019 Last Documented On 9 1:05PM ; [facility] Spouse name: Scooter 06/25/2014 Last Documented On 4 11:51AM ; [facility] Family history of Cancer 03/18/2010 Last Documented On 0 8:32AM ; [facility] Family history of thyroid disease (GM) 0 03/18/2010 Last Documented On 0 8:32AM ; [facility] Family medical history of Anemia 010 Last Documented On 0 8:32AM ; [facility] Family medical history of high blood pre ssure (GM, F) 03/18/2010 Last Documented On 0 8:32AM ; [facility] Family medical history of High Cholester ol (GM) 03/18/2010 Last Documented On 0 8:32AM ; [facility] Heart disease 03/18/2010 Last Documented On 0 8:32AM ; [facility] Review of Systems Review of Systems not supported for this document type No Review of Systems Recorded Mental Status No Mental Status Recorded Functional Status No Functional Status Recorded Physical Exam Physical Exam not supported for this document type No Physical Exam Recorded Immunizations Includes: Immunizations in patient's chart Vaccine Dose # Date Site Reaction(s) Status Source Influenza (Quadrivalent)36 mo.& older PF 0.5ml (SD) 1 Complete (Repor steve) Patient Last Documented On 2 9:32AM ; [facility] Td 1 Complete (Reported) [place] ent Last Documented On 1 11:51AM ; [facility] Allergies Includes: Active, inactive, and resolved Allergies Substance Type Reaction Onset Date Resolved Date Statu s Reglan Allergy 03/18/2010 Active Last Documented On 9 12:53PM ; [facility] Morphine Sulfate Allergy 03/18/2010 Ac tive Last Documented On 9 12:53PM ; [facility] metroNIDAZOLE Allergy 06/14/2012 Activ e Last Documented On 9 12:53PM ; [facility] Note: HEADACHE Demerol Allergy 03/18/2010 Active Last Documented On 9 12:53PM ; [facility] Aleve Allergy 03/18/2010 Active Last Documented On 9 12:53PM ; [facility] Clinical Notes Includes: Signed Clinical Notes starting from 12/10/2022 No Clinical Notes Recorded
--- OUTSIDE RECORDS SUMMARY | 2025-03-02 15:18 | XMS_ITS | Clinical Summary ---
Author Organization [facility] Address [address] [place] [address] Phone Care Team Providers Care Geospatial Image Analyst Name Role Phone Unavailable Unavailable Unavailable Reason for Visit and Chief Complaint NO SHOW Problems Includes: Problems addressed during this encounter and other active Problems All Visits Onset Date Resolved Date Provider Condition S tatus Diabetes Mellitus 10/27/2015 ROSA QUINONES NP-BC Active Last Documented On 10/27/2015 3:03PM ; [facility] Note: Type II Hypertension Systemic 10/27/2015 ROSA BLACKBURN NP-BC Active Last Documented On 5 3:03PM ; [facility] Migraine Headache 06/19/2013 ARPIT SNEED MD A ctive Last Documented On 3 11:34AM ; [facility] 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 A ctive Last Documented On 0 8:26AM ; [facility] Plan of Treatment No [...] On 05/09/2017 1:27PM By DANICA SALGADO ; [facility] Iron 325 (65 Fe)MG Oral Tablet 05/09/2017 Provid er: Diagnosis: Last Documented On 05/09/2017 1:27PM By DANICA SALGADO ; [facility] Fish Oil 1000MG Oral Capsule, conventional 017 Provider: Diagnosis: Last Documented On 05/09/2017 1:27PM By DANICA SALGADO ; [facility] Topiramate 50 MG Tablet 07/13/2016 Provider: Diagnosis: Last Documented On 07/13/2016 2:36PM By LANDON BOBBY ; [facility] B Complex-B12 Tablet 07/13/2016 Provider: Diagnosis: Last Documented On 07/13/2016 2:36PM By LANDON BOBBY ; [facility] Vitron-C 65-125 MG Tablet 07/13/2016 Provider: Diagnosis: Last Documented On 07/13/2016 2:36PM By LANDON BOBBY ; [facility] MiraLax Powder 07/04/2015 Provider: Diagnosis: 17 grams bid Last Documented On 07/04/2015 11:00AM By JAMES ROMERO RN ; [facility] Effexor XR 75 MG OR CP24 06/25/2014 Provider: Diagnosis: Last Documented On 4 11:31AM By YUE SALGADO ; [facility] Vitamin D3 400 UNIT OR CAPS 06/25/2014 Provider: Diagnosis: Last Documented On 4 11:32AM By YUE SALGADO ; [facility] Botox 100 UNIT IJ SOLR 06/25/2014 Provider: Diagnosis: for headaches Last Documented On 4 11:50AM By MALINI CORONA LPN ; [facility] Indomethacin 25 MG OR CAPS 06/19/2013 Provider: Diagnosis: Last Documented On 06/19/2013 11:33AM By ANDREEA IGLESIAS ; [facility] Medications Administered Includes: Administered Medications from [...] Active Last Documented On 9 12:53PM ; [facility] Morphine Sulfate Allergy 03/18/2010 Ac tive Last Documented On 9 12:53PM ; [facility] metroNIDAZOLE Allergy 06/14/2012 Activ e Last Documented On 9 12:53PM ; [facility] Note: HEADACHE Demerol Allergy 03/18/2010 Active Last Documented On 9 12:53PM ; [facility] Aleve Allergy 03/18/2010 Active Last Documented On 9 12:53PM ; [facility] Encounters Encounter Provider Location Date Check-In Time Check-Out Time Diagnosis NO SHOW [facility] 01/21/2021 10:39AM 11:59PM Clinical Notes Includes: Clinical Notes from this encounter No Clinical Notes Recorded
--- OUTSIDE RECORDS SUMMARY | 2025-03-02 15:18 | XMS_ITS | Clinical Summary ---
Author Organization [facility] Address [address] [place] [address] Care Team Providers Care Electrician Apprentice Powerhouse Name Role Phone Rainer Cornelius MD Unavailable [phone] Hedy Calderon MD Primary Care Provid er Source Comments [facility],non-owned Affiliates and Associated Physician Practices is amultiple site organization consisting of ambulatory clinics and hospital sitesin [place], [place], [place] and [place]. This disclosure is being madepursuant to the Care Everywhere program and may not contain all information available regarding this patient. Last updated 18.[facility] Allergies Active Allergy Reactions Criticality Noted Date Comments Meperidine Unknown 05/27/2011 Hydromorphone 09/14/2012 Morphine Unknown 05/27/2011 Naproxen Unknown 05/27/2011 Metoclopramide Unknown 05/27/2011 Medications * Be aware that medications may not be up to date on this document. Alwaysverify current medications with the patient. acetaminophen (TYLENOL) 325 MG tablet Take 325 mg by mouth every 4 hours as needed. Maximum allowable Acetaminophen amount = 4 Grams (4000 mg) / 24 hours. Active IBUPROFEN PO Take by mouth as needed. Active Cyanocobalamin (VITAMIN B 12 PO) Take by mouth as needed. sublingual Active multivitamins (ONE A DAY) tablet Take 1 Tab by mouth once daily. Active gabapentin (NEURONTIN) 300 MG capsule Take 1 Cap by mouth 2 times daily. Active topiramate (TOPAMAX) 100 MG tablet Take 1 Tab by mouth 2 times daily. Active butalbital-lewis taminophen-caf feine (FIORICET) 50-325-40 MG tablet Take 1 Tab by mouth every 4 hours as needed for Headache or Migraine. 30 Tab 3 2 Active Bonanza-3 Fatty Acids (OMEGA 3 PO) Take 1 Tab by mouth once daily. Active topiramate (TOPAMAX) 100 MG tablet TAKE 1 TABLET BY MOUTH THREE TIMES DAILY 90 Tab 11 3 Active Active Problems Problem Noted Date Diagnosed Date Migraine 02/03/2012 Generalized headaches 05/27/2011 Chiari malformation type I 05/27/2011 Encounters Date Type Department Care Team Description 02/01/2025 Travel from Last 3 Months Family History Medical History Relation Name Comments Arthritis - Rheumatoid Father Cancer Father prostate Migraine Father Rashes/Skin Problems Mother Relation Name Status Comments Brother 1 Alive Brother 2 Alive Brother 3 Alive Father Alive Mother Alive Sister Alive Social History Tobacco Use Types Packs/Day Years Used Date Smoking Tobacco: Never Alcohol Use Standard Drinks/Week Comments Yes 0 (1 standard drink = 0.6 oz pur e alcohol) Comments Unknown Sex and Gender Information Value Date Recorded Sex Assigned at Not on file Legal Sex Female 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 Gender Identity Not on file Sexual Orientation Not on file 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 file Not on file Not on file Not on file Not on file Not on file Not on file Last Filed Vital Signs Vital Sign Reading Time Taken Comments Blood Pressure 138/96 08/08/2012 9:43 AM CDT Pulse 70 08/08/2012 9:43 AM CDT Temperature - - Respiratory Rate - - Oxygen Saturation - - Inhaled Oxygen Concentration - - Weight 68 kg (150 lb) 08/08/2012 9:43 AM CDT Height 147.3 cm (4' 10 ) 08/08/2012 9:43 AM CDT Body Mass Index 31.35 08/08/2012 9:43 AM CDT Plan of Treatment Upcoming Encounters Date Type Department Care Team (Late st Contact Info) Description 05/10/2025 1:10 PM CDT Office Visit [facility] - Dermatology [address] [place] [address], [place] [address] Paola Peoples MD [address] [place] [address] [place] [address] Health Maintenance Due Date Last Done Comments COLOGUARD (AGES 45-75) - COL ON CA SCREENING 1972 COLON MONITORING 1972 COLONOSCOPY - COLON CA SCREENING 1972 CT COLONOGRAPHY - COLON CA SCREENING 1972 Colorectal Cancer Screening 1972 FIT - COLON CA SCREENING 1972 FLEX SIG - COLON CA SCREENING 1972 LIPID TESTING 1972 MAMMOGRAM 1972 PAP SMEAR 1972 HIV SCREENING 1987 HEPATITIS C SCREENING 03/20/1990 DTAP/TDAP/TD VACCINES (1 - Tdap) 1991 HEPATITIS B VACCINE (1 of 3 - 19+ 3-dose series) 1991 PNEUMOCOCCAL VACCINE 50+ (1 of 1 - PCV) 2022 ZOSTER VACCINE (1 of 2) 2022 COVID-19 VACCINE (1 - 2023-2 5 season) 2024 DEPRESSION SCREENING 11/21/2024 INFLUENZA VACCINE (Season Ended) 2025 HIB VACCINE Aged Out No longer eligi ble based on patient's age to complete this topic HPV VACCINE Aged Out No longer eligi ble based on patient's age to complete this topic MENINGOCOCCAL (Group B) VACC INE SHARED DECISION-MAKING Aged Out No longer eligibl e based on patient's age to complete this topic MENINGOCOCCAL GROUPS A/C/Y/W VACCINE Aged Out No longer eligible b ased on patient's age to complete this topic Insurance * Guarantor: Dawna Kelsey Account Type Relation to Patient Date of Phone Billing Address Personal/Family Self 1970 [address] [place] [address] [place] [employer] Care Teams Electrician Apprentice Powerhouse Relationship Specialty Start Date End Date Hedy Calderon MD PCP - General Internal Medicine 05/27/11 Rainer Cornelius MD Neurology 05/27/11
--- OUTSIDE RECORDS SUMMARY | 2025-03-02 15:18 | XMS_ITS | Clinical Summary ---
Author Organization [facility] Address [address] [place] [address] Phone Care Team Providers Care Fine Artist Name Role Phone Unavailable Unavailable Unavailable Reason for Visit and Chief Complaint WELL WOMAN - ESTABLISHED PT Problems Includes: Problems addressed during this encounter and other active Problems All Visits Onset Date Resolved Date Provider Condition S tatus Diabetes Mellitus 10/27/2015 ROSA QUINONES NP-BC Active Last Documented On 10/27/2015 3:03PM ; [facility] Note: Type II Hypertension Systemic 10/27/2015 ROSA BLACKBURN NP-BC Active Last Documented On 5 3:03PM ; [facility] Migraine Headache 06/19/2013 ARPIT SNEED MD A ctive Last Documented On 3 11:34AM ; [facility] 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 A ctive Last Documented On 0 8:26AM ; [facility] Plan of Treatment [...] On 05/09/2017 1:27PM By DANICA SALGADO ; [facility] Iron 325 (65 Fe)MG Oral Tablet 05/09/2017 Provid er: Diagnosis: Last Documented On 05/09/2017 1:27PM By DANICA SALGADO ; [facility] Fish Oil 1000MG Oral Capsule, conventional 017 Provider: Diagnosis: Last Documented On 05/09/2017 1:27PM By DANICA SALGADO ; [facility] Topiramate 50 MG Tablet 07/13/2016 Provider: Diagnosis: Last Documented On 07/13/2016 2:36PM By LANDON BOBBY ; [facility] B Complex-B12 Tablet 07/13/2016 Provider: Diagnosis: Last Documented On 07/13/2016 2:36PM By LANDON BOBBY ; [facility] Vitron-C 65-125 MG Tablet 07/13/2016 Provider: Diagnosis: Last Documented On 07/13/2016 2:36PM By LANDON BOBBY ; [facility] MiraLax Powder 07/04/2015 Provider: Diagnosis: 17 grams bid Last Documented On 07/04/2015 11:00AM By JAMES ROMERO RN ; [facility] Effexor XR 75 MG OR CP24 06/25/2014 Provider: Diagnosis: Last Documented On 4 11:31AM By YUE SALGADO ; [facility] Vitamin D3 400 UNIT OR CAPS 06/25/2014 Provider: Diagnosis: Last Documented On 4 11:32AM By YUE SALGADO ; [facility] Botox 100 UNIT IJ SOLR 06/25/2014 Provider: Diagnosis: for headaches Last Documented On 4 11:50AM By MALINI CORONA LPN ; [facility] Indomethacin 25 MG OR CAPS 06/19/2013 Provider: Diagnosis: Last Documented On 06/19/2013 11:33AM By ANDREEA IGLESIAS ; [facility] Medications Administered Includes: [...] Active Last Documented On 9 12:53PM ; [facility] Morphine Sulfate Allergy 03/18/2010 Ac tive Last Documented On 9 12:53PM ; [facility] metroNIDAZOLE Allergy 06/14/2012 Activ e Last Documented On 9 12:53PM ; [facility] Note: HEADACHE Demerol Allergy 03/18/2010 Active Last Documented On 9 12:53PM ; [facility] Aleve Allergy 03/18/2010 Active Last Documented On 9 12:53PM ; [facility] Clinical Notes Includes: Clinical Notes from this encounter No Clinical Notes Recorded
--- OUTSIDE RECORDS SUMMARY | 2025-03-02 15:18 | XMS_ITS ---
Care Plan - [facility] Created on: March 02, 2025 TERRANCE KELSEY : 1970 Sex: Female Author Organization [facility] Address [address] [place] [address] Phone Care Team Providers Care Geometrician Name Role Phone Unavailable Unavailable Unavailable
--- OUTSIDE RECORDS SUMMARY | 2025-03-02 15:18 | XMS_ITS | Clinical Summary ---
Author Organization [facility] Address [address] [place] [address] Phone Care Team Providers Care Sheep And Wheat Farmer Name Role Phone Unavailable Unavailable Unavailable Reason for Visit and Chief Complaint [Patient Encounter] Problems Includes: Problems addressed during this encounter and other active Problems All Visits Onset Date Resolved Date Provider Condition S tatus Diabetes Mellitus 10/27/2015 ROSA QUINONES NP-BC Active Last Documented On 10/27/2015 3:03PM ; [facility] Note: Type II Hypertension Systemic 10/27/2015 ROSA BLACKBURN NP-BC Active Last Documented On 5 3:03PM ; [facility] Migraine Headache 06/19/2013 ARPIT SNEED MD A ctive Last Documented On 3 11:34AM ; [facility] 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 A ctive Last Documented On 0 8:26AM ; [facility] Plan of Treatment No Plan of Treatment Recorded Assessments Includes: Assessments from this encounter No Assessments Recorded Medical Equipment - Implanted Devices Includes: Current Devices No Medical Equipment Recorded Medications Includes: Medications discussed during this encounter and other current Medications Current Medications (continue as prescribed) Biotin 1000MCG Oral Tablet 05/09/2017 Provider: Diagnosis: Last Documented On 05/09/2017 1:27PM By DANICA SALGADO ; [facility] Iron 325 (65 Fe)MG Oral Tablet 05/09/2017 Provid er: Diagnosis: Last Documented On 05/09/2017 1:27PM By DANICA SALGADO ; [facility] Fish Oil 1000MG Oral Capsule, conventional 017 Provider: Diagnosis: Last Documented On 05/09/2017 1:27PM By DANICA SALGADO ; [facility] Topiramate 50 MG Tablet 07/13/2016 Provider: Diagnosis: Last Documented On 07/13/2016 2:36PM By LANDON BOBBY ; [facility] B Complex-B12 Tablet 07/13/2016 Provider: Diagnosis: Last Documented On 07/13/2016 2:36PM By LANDON BOBBY ; [facility] Vitron-C 65-125 MG Tablet 07/13/2016 Provider: Diagnosis: Last Documented On 07/13/2016 2:36PM By LANDON BOBBY ; [facility] MiraLax Powder 07/04/2015 Provider: Diagnosis: 17 grams bid Last Documented On 07/04/2015 11:00AM By JAMES ROMERO RN ; [facility] Effexor XR 75 MG OR CP24 06/25/2014 Provider: Diagnosis: Last Documented On 4 11:31AM By YUE SALGADO ; [facility] Vitamin D3 400 UNIT OR CAPS 06/25/2014 Provider: Diagnosis: Last Documented On 4 11:32AM By YUE SALGADO ; [facility] Botox 100 UNIT IJ SOLR 06/25/2014 Provider: Diagnosis: for headaches Last Documented On 4 11:50AM By MALINI CORONA LPN ; [facility] Indomethacin 25 MG OR CAPS 06/19/2013 Provider: Diagnosis: Last Documented On 06/19/2013 11:33AM By ANDREEA IGLESIAS ; [facility] Medications Administered Includes: Administered Medications from [...] Active Last Documented On 9 12:53PM ; [facility] Morphine Sulfate Allergy 03/18/2010 Ac tive Last Documented On 9 12:53PM ; [facility] metroNIDAZOLE Allergy 06/14/2012 Activ e Last Documented On 9 12:53PM ; [facility] Note: HEADACHE Demerol Allergy 03/18/2010 Active Last Documented On 9 12:53PM ; [facility] Aleve Allergy 03/18/2010 Active Last Documented On 9 12:53PM ; [facility] Encounters Encounter Provider Location Date Check-In Time Check-Out Time Diagnosis [Patient Encounter] ROSA BLACKBURN LUZMARIA- 10/03/2018 12:29PM 11:59PM Clinical Notes Includes: Clinical Notes from this encounter No Clinical Notes Recorded
--- OUTSIDE RECORDS SUMMARY | 2025-03-02 15:52 | XMS_ITS | Clinical Summary ---
Author Organization [facility] Address [address] [place] [address] Phone Care Team Providers Care Manager Lsw Name Role Phone Unavailable Unavailable Unavailable Reason for Visit and Chief Complaint WELL WOMAN - ESTABLISHED PT Problems Includes: Problems addressed during this encounter and other active Problems All Visits Onset Date Resolved Date Provider Condition S tatus Diabetes Mellitus 10/27/2015 ROSA QUINONES NP-BC Active Last Documented On 10/27/2015 3:03PM ; [facility] Note: Type II Hypertension Systemic 10/27/2015 ROSA BLACKBURN NP-BC Active Last Documented On 5 3:03PM ; [facility] Migraine Headache 06/19/2013 ARPIT SNEED MD A ctive Last Documented On 3 11:34AM ; [facility] 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 A ctive Last Documented On 0 8:26AM ; [facility] Plan of Treatment [...] On 05/09/2017 1:27PM By DANICA SALGADO ; [facility] Iron 325 (65 Fe)MG Oral Tablet 05/09/2017 Provid er: Diagnosis: Last Documented On 05/09/2017 1:27PM By DANICA SALGADO ; [facility] Fish Oil 1000MG Oral Capsule, conventional 017 Provider: Diagnosis: Last Documented On 05/09/2017 1:27PM By DANICA SALGADO ; [facility] Topiramate 50 MG Tablet 07/13/2016 Provider: Diagnosis: Last Documented On 07/13/2016 2:36PM By LANDON BOBBY ; [facility] B Complex-B12 Tablet 07/13/2016 Provider: Diagnosis: Last Documented On 07/13/2016 2:36PM By LANDON BOBBY ; [facility] Vitron-C 65-125 MG Tablet 07/13/2016 Provider: Diagnosis: Last Documented On 07/13/2016 2:36PM By LANDON BOBBY ; [facility] MiraLax Powder 07/04/2015 Provider: Diagnosis: 17 grams bid Last Documented On 07/04/2015 11:00AM By JAMES ROMERO RN ; [facility] Effexor XR 75 MG OR CP24 06/25/2014 Provider: Diagnosis: Last Documented On 4 11:31AM By YUE SALGADO ; [facility] Vitamin D3 400 UNIT OR CAPS 06/25/2014 Provider: Diagnosis: Last Documented On 4 11:32AM By YUE SALGADO ; [facility] Botox 100 UNIT IJ SOLR 06/25/2014 Provider: Diagnosis: for headaches Last Documented On 4 11:50AM By MALINI CORONA LPN ; [facility] Indomethacin 25 MG OR CAPS 06/19/2013 Provider: Diagnosis: Last Documented On 06/19/2013 11:33AM By ANDREEA IGLESIAS ; [facility] Medications Administered Includes: [...] Active Last Documented On 9 12:53PM ; [facility] Morphine Sulfate Allergy 03/18/2010 Ac tive Last Documented On 9 12:53PM ; [facility] metroNIDAZOLE Allergy 06/14/2012 Activ e Last Documented On 9 12:53PM ; [facility] Note: HEADACHE Demerol Allergy 03/18/2010 Active Last Documented On 9 12:53PM ; [facility] Aleve Allergy 03/18/2010 Active Last Documented On 9 12:53PM ; [facility] Clinical Notes Includes: Clinical Notes from this encounter No Clinical Notes Recorded
--- OUTSIDE RECORDS SUMMARY | 2025-03-02 15:52 | XMS_ITS | Clinical Summary ---
Author Organization [facility] Address [address] [place] [address] Care Team Providers Care Hospice Executive Director Name Role Phone Rainer Cornelius MD Unavailable [phone] Hedy Calderon MD Primary Care Provid er Source Comments [facility],non-owned Affiliates and Associated Physician Practices is amultiple site organization consisting of ambulatory clinics and hospital sitesin [place], [place], [place] and [place]. This disclosure is being madepursuant to the Care Everywhere program and may not contain all information available regarding this patient. Last updated 18.[facility] Allergies Active Allergy Reactions Criticality Noted Date [...] or Migraine. 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 - Dermatology [address] [place] [address], [place] [address] Paola Peoples MD [address] [place] [address] [place] [address] Health Maintenance Due Date Last Done Comments [...] Billing Address Personal/Family Self 1970 [address] [place] [address] [employer] Care Teams Hospice Executive Director Relationship Specialty Start Date End Date Hedy Calderon MD PCP - General Internal Medicine 05/27/11 Rainer Cornelius MD Neurology 05/27/11
--- OUTSIDE RECORDS SUMMARY | 2025-03-02 15:52 | XMS_ITS | Clinical Summary ---
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 Problems Includes: Problems addressed during this encounter and other active Problems All Visits Onset Date Resolved Date Provider Condition S tatus Diabetes Mellitus 10/27/2015 ROSA QUINONES NP-BC Active Last Documented On 10/27/2015 3:03PM ; [facility] Note: Type II Hypertension Systemic 10/27/2015 ROSA BLACKBURN NP-BC Active Last Documented On 5 3:03PM ; [facility] Migraine Headache 06/19/2013 ARPIT SNEED MD A ctive Last Documented On 3 11:34AM ; [facility] 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 A ctive Last Documented On 0 8:26AM ; [facility] Plan of Treatment No [...] On 05/09/2017 1:27PM By DANICA SALGADO ; [facility] Iron 325 (65 Fe)MG Oral Tablet 05/09/2017 Provid er: Diagnosis: Last Documented On 05/09/2017 1:27PM By DANICA SALGADO ; [facility] Fish Oil 1000MG Oral Capsule, conventional 017 Provider: Diagnosis: Last Documented On 05/09/2017 1:27PM By DANICA SALGADO ; [facility] Topiramate 50 MG Tablet 07/13/2016 Provider: Diagnosis: Last Documented On 07/13/2016 2:36PM By LANDON BOBBY ; [facility] B Complex-B12 Tablet 07/13/2016 Provider: Diagnosis: Last Documented On 07/13/2016 2:36PM By LANDON BOBBY ; [facility] Vitron-C 65-125 MG Tablet 07/13/2016 Provider: Diagnosis: Last Documented On 07/13/2016 2:36PM By LANDON BOBBY ; [facility] MiraLax Powder 07/04/2015 Provider: Diagnosis: 17 grams bid Last Documented On 07/04/2015 11:00AM By JAMES ROMERO RN ; [facility] Effexor XR 75 MG OR CP24 06/25/2014 Provider: Diagnosis: Last Documented On 4 11:31AM By YUE SALGADO ; [facility] Vitamin D3 400 UNIT OR CAPS 06/25/2014 Provider: Diagnosis: Last Documented On 4 11:32AM By YUE SALGADO ; [facility] Botox 100 UNIT IJ SOLR 06/25/2014 Provider: Diagnosis: for headaches Last Documented On 4 11:50AM By MALINI CORONA LPN ; [facility] Indomethacin 25 MG OR CAPS 06/19/2013 Provider: Diagnosis: Last Documented On 06/19/2013 11:33AM By ANDREEA IGLESIAS ; [facility] Medications Administered Includes: Administered [...] Active Last Documented On 9 12:53PM ; [facility] Morphine Sulfate Allergy 03/18/2010 Ac tive Last Documented On 9 12:53PM ; [facility] metroNIDAZOLE Allergy 06/14/2012 Activ e Last Documented On 9 12:53PM ; [facility] Note: HEADACHE Demerol Allergy 03/18/2010 Active Last Documented On 9 12:53PM ; [facility] Aleve Allergy 03/18/2010 Active Last Documented On 9 12:53PM ; [facility] Clinical Notes Includes: Clinical Notes from this encounter No Clinical Notes Recorded
--- OUTSIDE RECORDS SUMMARY | 2025-03-02 15:52 | XMS_ITS | Referral Summary ---
Author Organization [facility] Address [address] [place] [address] Care Team Providers Care Floor Inspector Name Role Phone Hedy Calderon MD Primary Care Provid er LeviDestinee nguyen MD Unavailable [phone] Encounters Date Type Department Care Team Description 02/27/2025 4:00 PM CDT Telemedicine [facility] General Neurology [address] [facility] 6th Floor [address] [place] [address] Shanta Negro MD PhD Migraine without aura, intractable, without status migrainosus (Primary Dx); Chronic insomnia 01/15/2025 8:30 AM PROJECT FINANCIAL ANALYST Office Visit [facility] at [address] [phone] Radha Lynn NP Abrasion of left cornea, subsequent encounter (Primary Dx) 01/03/2025 1:30 PM PROJECT FINANCIAL ANALYST Office Visit [facility] Diabetes and Nutrition Services [address] [facility] Medical Office Building 4, [address] [place] [address] Barb Bae PA Encounter for weight management (Primary Dx); Gastroesophageal reflux disease without esophagitis; Primary hypertension; 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 35.9 in adult 12/31/2024 11:03 AM PROJECT FINANCIAL ANALYST - 12/31/2024 11:59 PM PROJECT FINANCIAL ANALYST Hospital Encounter [facility] Imaging and Radiology [address] [place] [address] Dense breast tissue; Family history of breast cancer Discharge Disposition: Discharge to home or self care 12/13/2024 9:41 AM PROJECT FINANCIAL ANALYST - 12/13/2024 11:59 PM PROJECT FINANCIAL ANALYST Hospital Encounter [facility] [address] [place] [phone] Discharge Disposition: Discharge to home or self care 12/13/2024 Telephone [facility] Diabetes and Nutrition Services [address] [place] [address] Medical Office Building [address], [address] [place] [phone] Keila Lao, AUXILIARY PLANT OPERATOR Side Effects 12/13/2024 9:45 AM PROJECT FINANCIAL ANALYST Office Visit [facility] Medical Group Orthopedics and Sports Medicine at [address] [phone] Hugo Bishop MD Arthritis of left hip (Primary Dx); Trochanteric bursitis of left hip; BMI 29.0-29.9,adult 12/11/2024 Telephone [facility] at [address] [phone] Hedy Calderon MD Medical Question/Miscellaneou s 12/05/2024 11:15 AM PROJECT FINANCIAL ANALYST Lab [address] [address] Encounter for weight management; Metabolic syndrome; Dietary counseling; Exercise counseling; Overweight (BMI 25.0-29.9) 12/05/2024 10:20 AM PROJECT FINANCIAL ANALYST - 12/05/2024 11:59 PM PROJECT FINANCIAL ANALYST Hospital Encounter [facility] ` [address] [place] [phone] Encounter for weight management; Metabolic syndrome; Dietary counseling; Exercise counseling; Overweight (BMI 25.0-29.9) Discharge Disposition: Discharge to home or self care 12/04/2024 9:40 AM PROJECT FINANCIAL ANALYST Office Visit [facility] Diabetes and Nutrition Services [address] [place] [address] Medical Office Building [address], [address] [place] [phone] Flakita Mckeon MD Encounter for weight [...] day 4 Active cyanocobalamin/fol ic acid (vitamin K57-flhhm acid) 500-400 mcg tablet Oral A ctive omega 2-dix-mny-fish oil 1,000 mg (250 mg-750 mg)/5 mL [...] 01/03/2025 Assessment & Plan (01/03/2025 1:42 PM PROJECT FINANCIAL ANALYST): Rx INDIVIDUALIZED FIRST LINE THERAPY PHYSICAL ACTIVITY: [...] 01/03/2025 Assessment & Plan (01/03/2025 12:35 PM PROJECT FINANCIAL ANALYST): Patient's initial BMI was 35; this has improved to 29 through medical and surgicale management Trochanteric bursitis of left hip 12/13/2024 Assessment & Plan (12/13/2024 10:32 AM PROJECT FINANCIAL ANALYST): The patient has wkyt-ne-rsargtta arthritis of the hip joint With trochanteric [...] 12/04/2024 Assessment & Plan (12/13/2024 10:33 AM PROJECT FINANCIAL ANALYST): The patient is current weight provides with [...] 12/04/2024 Assessment & Plan (01/03/2025 12:35 PM PROJECT FINANCIAL ANALYST): Continue current weight loss plan as outlined in note. Discuss low acid diet and use of antacid medications if necessary. A weight reduction of 10-15% body weight can result in improved symptom severity and frequency. Simi COX, Allyson TA, Nicci C, et al. Nutritional considerations with antiobesity medications. Obesity ([place]). 2023; 1-19. doi:[email or web address] Mixed hyperlipidemia 12/04/2024 Chronic constipation 05/18/2024 Assessment [...] 12/22/2023 Assessment & Plan (12/22/2023 1:41 PM PROJECT FINANCIAL ANALYST): Radiographically the patient has mild arthritis of [...] 12/22/2023 Assessment & Plan (12/22/2023 1:41 PM PROJECT FINANCIAL ANALYST): Patient has a component of trochanteric bursitis [...] 12/24/2019 Assessment & Plan (12/24/2019 11:33 AM PROJECT FINANCIAL ANALYST): Assessment Cervical strain. Plan Recommended treatment is [...] 12/24/2019 Assessment & Plan (12/24/2019 11:34 AM PROJECT FINANCIAL ANALYST): See plan for cervical spine. Panic disorder [...] Hypertension Assessment & Plan (01/03/2025 12:35 PM PROJECT FINANCIAL ANALYST): Continue current weight loss plan as outlined in note. Weight loss of 5-10% of total body weight can result in improved systolic and diastolic blood pressure. Simi BROOKE, Allyson TA, Nicci Wheeler, et al. Nutritional considerations with antiobesity medications. Obesity ([place]). 2023; 1-19. 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 Not on file Not on file Last Filed Vital Signs Vital Sign Reading Time Taken Comments Blood Pressure 124/82 01/15/2025 8:35 AM PROJECT FINANCIAL ANALYST Pulse 85 01/15/2025 8:35 AM PROJECT FINANCIAL ANALYST Temperature 36.8 C (98.3 F) 01/15/2025 8:35 AM PROJECT FINANCIAL ANALYST Respiratory Rate 18 01/15/2025 8:35 AM PROJECT FINANCIAL ANALYST Oxygen Saturation 98% 01/15/2025 8:35 AM PROJECT FINANCIAL ANALYST Inhaled Oxygen Concentration - - Weight 62.7 kg (138 lb 4.8 oz) 01/15/2025 8:35 A M PROJECT FINANCIAL ANALYST Height 147.3 cm (4' 9.99 ) 01/15/2025 8:35 AM CS T Body Mass Index 28.91 01/15/2025 8:35 AM PROJECT FINANCIAL ANALYST Plan of Treatment Not on file Procedures Procedure Name Priority Date/Time Associated Diagnosis Comments MRI BREAST BILATERAL W WO CONTRAST Schedule Routine, Read Routine (OP Routine) 12/31/2024 12:32 PM PROJECT FINANCIAL ANALYST Dense breast tissue Family history of breast cancer XR HIP LEFT W PELVIS 2 OR 3 VIEWS Schedule Routine, Read Routine (OP Routine) 12/13/2024 9:58 AM PROJECT FINANCIAL ANALYST Arthritis of left hip OR ARTHROCENTESIS ASPIR&/INJ MAJOR JT/BURSA W/O US Routine 12/13/2024 9:45 AM PROJECT FINANCIAL ANALYST Trochanteric bursitis of left hip BLOOD MISC TO [facility] Routine 12/05/2024 11 :45 AM PROJECT FINANCIAL ANALYST PROTIME-INR Routine 12/05/2024 11:45 AM PROJECT FINANCIAL ANALYST Encounter for weight management Metabolic syndrome Dietary counseling Exercise counseling Overweight (BMI 25.0-29.9) CBC WITHOUT DIFFERENTIAL Routine 12/05/2024 11:45 AM PROJECT FINANCIAL ANALYST Encounter for weight management Metabolic syndrome Dietary counseling Exercise counseling Overweight (BMI 25.0-29.9) EGFR Routine 12/05/2024 11:44 AM PROJECT FINANCIAL ANALYST Encounter for weight management Metabolic syndrome Dietary counseling Exercise counseling Overweight (BMI 25.0-29.9) GAMMA GT Routine 12/05/2024 11:44 AM PROJECT FINANCIAL ANALYST Encounter for weight management Metabolic syndrome Dietary counseling Exercise counseling Overweight (BMI 25.0-29.9) T3, FREE Routine 12/05/2024 11:44 AM PROJECT FINANCIAL ANALYST Encounter for weight management Metabolic syndrome Dietary counseling Exercise counseling Overweight (BMI 25.0-29.9) VITAMIN B12 Routine 12/05/2024 11:44 AM PROJECT FINANCIAL ANALYST Encounter for weight management Metabolic syndrome Dietary counseling Exercise counseling Overweight (BMI 25.0-29.9) LIPID PANEL Routine 12/05/2024 11:44 AM PROJECT FINANCIAL ANALYST Encounter for weight management Metabolic syndrome Dietary counseling Exercise counseling Overweight (BMI 25.0-29.9) IRON PROFILE W/ IBC Routine 12/05/2024 1 1:44 AM PROJECT FINANCIAL ANALYST Encounter for weight management Metabolic syndrome Dietary counseling Exercise counseling Overweight (BMI 25.0-29.9) FOLATE Routine 12/05/2024 11:44 AM PROJECT FINANCIAL ANALYST Encounter for weight management Metabolic syndrome Dietary counseling Exercise counseling Overweight (BMI 25.0-29.9) FERRITIN Routine 12/05/2024 11:44 AM PROJECT FINANCIAL ANALYST Encounter for weight management Metabolic syndrome Dietary counseling Exercise counseling Overweight (BMI 25.0-29.9) COMPREHENSIVE METABOLIC PANEL Routine 12/05/2024 11:44 AM PROJECT FINANCIAL ANALYST Encounter for weight management Metabolic syndrome Dietary counseling Exercise counseling Overweight (BMI 25.0-29.9) URIC ACID Routine 12/05/2024 11:44 AM PROJECT FINANCIAL ANALYST Encounter for weight management Metabolic syndrome Dietary counseling Exercise counseling Overweight (BMI 25.0-29.9) LIPASE Routine 12/05/2024 11:44 AM PROJECT FINANCIAL ANALYST Encounter for weight management Metabolic syndrome Dietary counseling Exercise counseling Overweight (BMI 25.0-29.9) AMYLASE Routine 12/05/2024 11:44 AM PROJECT FINANCIAL ANALYST Encounter for weight management Metabolic syndrome Dietary counseling Exercise counseling Overweight (BMI 25.0-29.9) TSH Routine 12/05/2024 11:44 AM PROJECT FINANCIAL ANALYST Encounter for weight management Metabolic syndrome Dietary counseling Exercise counseling Overweight (BMI 25.0-29.9) T4, FREE Routine 12/05/2024 11:44 AM PROJECT FINANCIAL ANALYST Encounter for weight management Metabolic syndrome Dietary counseling Exercise counseling Overweight (BMI 25.0-29.9) PHOSPHORUS Routine 12/05/2024 11:05 AM PROJECT FINANCIAL ANALYST Encounter for weight management Metabolic syndrome Dietary counseling Exercise counseling Overweight (BMI 25.0-29.9) MAGNESIUM Routine 12/05/2024 11:05 AM PROJECT FINANCIAL ANALYST Encounter for weight management Metabolic syndrome Dietary counseling Exercise counseling Overweight (BMI 25.0-29.9) CRP, HIGH SENSITIVITY Routine 12/05/2024 11:05 AM PROJECT FINANCIAL ANALYST Encounter for weight management Metabolic syndrome Dietary counseling Exercise counseling Overweight (BMI 25.0-29.9) INSULIN, TOTAL Routine 12/05/2024 11:05 AM PROJECT FINANCIAL ANALYST Encounter for weight management Metabolic syndrome Dietary counseling Exercise counseling Overweight (BMI 25.0-29.9) PTH Routine 12/05/2024 11:05 AM PROJECT FINANCIAL ANALYST Encounter for weight management Metabolic syndrome Dietary counseling Exercise counseling Overweight (BMI 25.0-29.9) VITAMIN D 25 HYDROXY Routine 12/05/2024 11:04 AM PROJECT FINANCIAL ANALYST Encounter for weight management Metabolic syndrome Dietary counseling Exercise counseling Overweight (BMI 25.0-29.9) HEMOGLOBIN A1C Routine 12/05/2024 11:04 AM PROJECT FINANCIAL ANALYST Encounter for weight management Metabolic syndrome Dietary counseling Exercise counseling Overweight (BMI 25.0-29.9) ALBUMIN CREATININE RATIO, URINE Routine 12/05/2024 11:04 AM PROJECT FINANCIAL ANALYST Encounter for weight management Metabolic syndrome Dietary counseling Exercise counseling Overweight (BMI 25.0-29.9) VITAMIN E Routine 12/05/2024 11:04 AM PROJECT FINANCIAL ANALYST Encounter for weight management Metabolic syndrome Dietary counseling Exercise counseling Overweight (BMI 25.0-29.9) VITAMIN A Routine 12/05/2024 11:04 AM PROJECT FINANCIAL ANALYST Encounter for weight management Metabolic syndrome Dietary counseling Exercise counseling Overweight (BMI 25.0-29.9) ZINC Routine 12/05/2024 11:04 AM PROJECT FINANCIAL ANALYST Encounter for weight management Metabolic syndrome Dietary counseling Exercise counseling Overweight (BMI 25.0-29.9) VITAMIN B6 Routine 12/05/2024 11:04 AM PROJECT FINANCIAL ANALYST Encounter for weight management Metabolic syndrome Dietary counseling Exercise counseling Overweight (BMI 25.0-29.9) COPPER, SERUM Routine 12/05/2024 11:04 AM PROJECT FINANCIAL ANALYST Encounter for weight management Metabolic syndrome Dietary counseling Exercise counseling Overweight (BMI 25.0-29.9) VITAMIN B1 Routine 12/05/2024 11:04 AM PROJECT FINANCIAL ANALYST Encounter for weight management Metabolic syndrome Dietary counseling Exercise counseling Overweight (BMI 25.0-29.9) URINALYSIS AND REFLEX TO MICROSCOPIC AND CULTURE Routine 12/05/2024 11:04 AM PROJECT FINANCIAL ANALYST Encounter for weight management Metabolic syndrome Dietary counseling Exercise counseling Overweight (BMI 25.0-29.9) US LIVER Schedule Routine, Read Routine (OP Routine) 12/05/2024 10:50 AM PROJECT FINANCIAL ANALYST Encounter for weight management Metabolic syndrome Dietary counseling Exercise counseling Overweight (BMI 25.0-29.9) ECG 12-LEAD Routine 12/04/2024 9:44 AM PROJECT FINANCIAL ANALYST Encounter for weight management SCREENING MAMMOGRAM BILATERAL W JAD Schedule Routine, Read Routine (OP Routine) 11/06/2024 10:01 AM PROJECT FINANCIAL ANALYST Encounter for screening for malignant neoplasm of breast, unspecified screening modality COLONOSCOPY 08/03/2024 9:31 AM CDT from Last 3 Months or Most Recently Relevant to Health Maintenance Results * MRI Breast Bilateral W WO Contrast (12/31/2024 12:32 PM PROJECT FINANCIAL ANALYST) Anatomical Region Laterality Modality Breast Bilateral Magnetic Resonan ce 12/31/2024 1:53 PM PROJECT FINANCIAL ANALYST Impressions 12/31/2024 2:58 PM PROJECT FINANCIAL ANALYST No MR evidence of malignancy in either [...] Vazquez Gonzales MD Narrative 12/31/2024 2:58 PM PROJECT FINANCIAL ANALYST EXAMINATION: 1. MRI EXAMINATION OF THE BREASTS [...] 2 To 3 Views (12/13/2024 9:58 AM PROJECT FINANCIAL ANALYST) Anatomical Region Laterality Modality Lower Extremities, Hip, Pelvis Left C omputed Radiography Narrative 12/13/2024 10:35 AM PROJECT FINANCIAL ANALYST AP pelvis lateral views of the left hip reveal joint space narrowing with osteophyte formation of the left hip joint with more pronounced joint space narrowing sclerosis of the SI joint us Hugo Bishop MD IMG XR PROCEDURES Final Res ult * OR ARTHROCENTESIS ASPIR&/INJ MAJOR JT/BURSA W/O US (12/13/2024 9:45 AM PROJECT FINANCIAL ANALYST) Narrative Hugo Bishop MD - 12/13/2024 9:45 AM PROJECT FINANCIAL ANALYST Hugo Bishop MD 12/13/2024 10:36 AM Large [...] procedure well with no immediate complications Hugo Bishop MD IN CLINIC/BEDSIDE ORDERABLE S Final Result * BLOOD MISC TO [place] (12/05/2024 11:45 AM PROJECT FINANCIAL ANALYST) Test name, chem [facility] Misc See Footnote JEAN CLAUDE MAYO Comment: Test Result Flag Unit RefValue Selenium, B 185 ng/mL 150-241 ADDITIONAL INFORMATION This test was developed and its performance characteristics determined by [facility] in a manner consistent with CLIA requirements. This test has not been cleared or approved by the U.S. Food and Drug Administration. Test Performed by: [facility] [address] [place] [address] Journalism Internship: Eb Bazzi Ph.D.; CLIA# [id number] Blood 12/05/2024 11:4 5 AM PROJECT FINANCIAL ANALYST 12/05/2024 1:53 PM PROJECT FINANCIAL ANALYST Narrative JEAN CLAUDE MAYO - 12/10/2024 12:32 PM PROJECT FINANCIAL ANALYST SELENIUM Hedy Calderon MD LAB BLOOD ORDERABLES Final Result Performing Organization Address [facility] de Phone Number JEAN CLAUDE [id number] [place] [address] [facility] * Protime-INR (12/05/2024 11:45 AM PROJECT FINANCIAL ANALYST) PT 11.7 9.7 - 13.0 sec INR 1.08 0.90 - 1.20 JEAN CLAUDE Comment: Interpretive data Oral anticoagulant therapeutic ranges: Venous thromboembolism prophylaxis or treatment: 2.0-3.0 CARDIOLOGY Standard range: 2.0-3.0 High-intensity range: 2.5-3.5 Refer to indication-specific guidelines for appropriate target ranges for prosthetic heart valve replacement. Current interpretive data was last revised on 2019. Blood 12/05/2024 11:4 5 AM PROJECT FINANCIAL ANALYST 12/05/2024 11:45 AM PROJECT FINANCIAL ANALYST Flakita Mckeon MD LAB BLOOD ORDERABLES Final Res ult Performing Organization Address [facility] Co de Phone Number JEAN CLAUDE [id number] [place] [address] * (ABNORMAL) CBC without differential (12/05/2024 11:45 AM PROJECT FINANCIAL ANALYST) WBC 4.8 3.8 - 9.9 K/cumm Hgb 11.9 11.9 - 15.5 g/dL [facility] Hct 38.2 35.6 - 45.5 % [facility] Plt 315 150 - 400 K/cumm [facility] MPV 9.3 9.1 - 12.3 fL [facility] RBC 4.19 3.90 - 5.20 M/cumm [facility] MCV 91.2 81.3 - 96.4 fL [facility] MCH 28.4 27.1 - 33.3 pg [facility] MCHC 31.2(L) 32.3 - 35.7 g/dL [facility] RDW CV 14.6 11.1 - 14.9 % [facility] RDW SD 48.8(H) 35.7 - 48.1 fL [facility] NRBC abs 0.00 0.00 - 0.01 K/cumm [facility] Blood 12/05/2024 11:4 5 AM PROJECT FINANCIAL ANALYST 12/05/2024 11:45 AM PROJECT FINANCIAL ANALYST us Flakita Mckeon MD LAB BLOOD ORDERABLES Final Res ult [facility] [address] Department [place] [address] * eGFR (12/05/2024 11:44 AM PROJECT FINANCIAL ANALYST) eGFR >90 >=60 mL/min/1. 73 m2 Comment: [...] reviewed 2021. Blood 12/05/2024 11:4 4 AM PROJECT FINANCIAL ANALYST 12/05/2024 11:44 AM PROJECT FINANCIAL ANALYST Flakita Mckeon MD LAB BLOOD ORDERABLES Final Res ult Performing Organization Address [facility] de Phone Number JEAN CLAUDE [phone] [facility] [place] [place] [address] * (ABNORMAL) Iron profile w/ IBC (12/05/2024 11:44 AM PROJECT FINANCIAL ANALYST) Iron 65 35 - 145 mcg/dL Comment:Testing performed by : [place], [address] TIBC 248(L) 250 - 400 mcg/dL JEAN CLAUDE Comment:Testing performed by : [place], [address] Transferrin saturation 26 20 - 50 % [facility] Comment:Testing performed by : [place], [address] Blood 12/05/2024 11:4 4 AM PROJECT FINANCIAL ANALYST 12/05/2024 11:44 AM PROJECT FINANCIAL ANALYST Flakita Mckeon MD LAB BLOOD ORDERABLES Final Res ult Performing Organization Address [facility] de Phone Number JEAN CLAUDE MAYO [phone] [facility] [place] [place] [address] * Uric acid (12/05/2024 11:44 AM PROJECT FINANCIAL ANALYST) Uric acid 3.0 2.5 - 7.0 mg/dL Blood 12/05/2024 11:4 4 AM PROJECT FINANCIAL ANALYST 12/05/2024 11:44 AM PROJECT FINANCIAL ANALYST Flakita Mckeon MD LAB BLOOD ORDERABLES Final Res ult Performing Organization Address [facility] de Phone Number JEAN CLAUDE MAYO [phone] [facility] [place] [place] [address] * T3, free (12/05/2024 11:44 AM PROJECT FINANCIAL ANALYST) Free T3 3.0 2.0 - 4.4 pg/mL Comment:Testing performed by : [facility], [address] [facility], [place]., [address] Blood 12/05/2024 11:4 4 AM PROJECT FINANCIAL ANALYST 12/05/2024 4:35 PM PROJECT FINANCIAL ANALYST us Flakita Mckeon MD LAB BLOOD ORDERABLES Final Res ult Performing Organization Address City/[facility]/ZIP Co de Phone Number JEAN CLAUDE [address] [facility] [place] [place] [address] * TSH (12/05/2024 11:44 AM PROJECT FINANCIAL ANALYST) Thyroid Stimulating Hormone 0.73 0.30 - 4.20 mcIUnit/mL Blood 12/05/2024 11:4 4 AM PROJECT FINANCIAL ANALYST 12/05/2024 11:44 AM PROJECT FINANCIAL ANALYST us Flakita Mckeon MD LAB BLOOD ORDERABLES Final Res ult Performing Organization Address [facility] Co de Phone Number JEAN CLAUDE [phone] [place] [place] [address] * (ABNORMAL) T4, free (12/05/2024 11:44 AM PROJECT FINANCIAL ANALYST) Free T4 0.86(L) 0.90 - 1.70 ng/dL Blood 12/05/2024 11:4 4 AM PROJECT FINANCIAL ANALYST 12/05/2024 11:44 AM PROJECT FINANCIAL ANALYST us Flakita Mckeon MD LAB BLOOD ORDERABLES Final Res ult Performing Organization Address City/[facility]/[place] [address] [address] [place] [place] [address] * Lipase (12/05/2024 11:44 AM PROJECT FINANCIAL ANALYST) Lipase 20 10 - 99 Units/L Blood 12/05/2024 11:4 4 AM PROJECT FINANCIAL ANALYST 12/05/2024 11:44 AM PROJECT FINANCIAL ANALYST Flakita Mckeon MD LAB BLOOD ORDERABLES Final Res ult STARRMERYL MAYO [address] [address] [place] [place] [address] * Gamma GT (12/05/2024 11:44 AM PROJECT FINANCIAL ANALYST) GGT 16 5 - 35 Units/L Comment:Testing performed by : [facility], [facility], [place], [address] Blood 12/05/2024 11:4 4 AM PROJECT FINANCIAL ANALYST 12/05/2024 11:44 AM PROJECT FINANCIAL ANALYST Flakita Mckeon MD LAB BLOOD ORDERABLES Final Res ult Performing Organization Address [facility] Co de Phone Number JEAN CLAUDE GAEL [address] [address] [place] [address] * Folate (12/05/2024 11:44 AM PROJECT FINANCIAL ANALYST) Folic acid 19.3 >=5.0 ng/mL Comment:Hemolysis present. R esults may be affected. Blood 12/05/2024 11:4 4 AM PROJECT FINANCIAL ANALYST 12/05/2024 11:44 AM PROJECT FINANCIAL ANALYST Flakita Mckeon MD LAB BLOOD ORDERABLES Final Res ult STARR[facility]ERY[facility] [address] [address] [place] [address] * Ferritin (12/05/2024 11:44 AM PROJECT FINANCIAL ANALYST) Ferritin 148 15 - 150 ng/mL Blood 12/05/2024 11:4 4 AM PROJECT FINANCIAL ANALYST 12/05/2024 11:44 AM PROJECT FINANCIAL ANALYST us Flakita Mckeon MD LAB BLOOD ORDERABLES Final Res ult Performing Organization Address [facility] Co de Phone Number [facility] [address] [facility] [place] [address] * Vitamin B12 (12/05/2024 11:44 AM PROJECT FINANCIAL ANALYST) Vitamin B12 993 230 - 1,250 pg/mL Blood 12/05/2024 11:4 4 AM PROJECT FINANCIAL ANALYST 12/05/2024 11:44 AM PROJECT FINANCIAL ANALYST Flakita Mckeon MD LAB BLOOD ORDERABLES Final Res ult Performing Organization Address [facility] Phone Number [facility] [address] [address] [facility] [place] [place] [address] * Amylase (12/05/2024 11:44 AM PROJECT FINANCIAL ANALYST) Amylase 45 30 - 99 Units/L Blood 12/05/2024 11:4 4 AM PROJECT FINANCIAL ANALYST 12/05/2024 11:44 AM PROJECT FINANCIAL ANALYST Flakita Mckeon MD LAB BLOOD ORDERABLES Final Res ult Performing Organization Address [facility] Phone Number [facility] [address] [facility] [place] [address] * Lipid panel (12/05/2024 11:44 AM PROJECT FINANCIAL ANALYST) Cholesterol 174 30 - 199 mg/dL Comment: [...] revised on 2024. Non-HDL Cholesterol 99 mg/dL [facility] [facility] Comment: Interpretive Data Ages < [...] last revised on 2018. Chol/HDL ratio 2 [facility] Blood 12/05/2024 11:4 4 AM PROJECT FINANCIAL ANALYST 12/05/2024 11:44 AM PROJECT FINANCIAL ANALYST us Flakita Mckeon MD LAB BLOOD ORDERABLES Final Res ult [facility] [address] [address] Department of Laboratories [place] [id number] * Comprehensive metabolic panel (12/05/2024 11:44 AM PROJECT FINANCIAL ANALYST) Sodium 140 135 - 145 mmol/L Potassium, pl 4.0 3.3 - 4.9 mmol/L [facility] Chloride 106 97 - 110 mmol/L [facility] CO2 23 22 - 32 mmol/L [facility] Anion gap 11 2 - 15 mmol/L [facility] BUN 9 6 - 25 mg/dL [facility] Creatinine 0.61 0.60 - 1.10 mg/dL [facility] Glucose 94 70 - 199 mg/dL [facility] Comment: Interpretive Data Fasting glucose [...] [facility] Blood 12/05/2024 11:4 4 AM PROJECT FINANCIAL ANALYST 12/05/2024 11:44 AM PROJECT FINANCIAL ANALYST Flakita Mckeon MD LAB BLOOD ORDERABLES Final Res ult Performing Organization Address [facility]/ZIP Co de Phone Number JEAN CLAUDE MAYO [phone] [address] [place] [address] * Insulin, total (12/05/2024 11:05 AM PROJECT FINANCIAL ANALYST) Pathologist [facility] Insulin 5.0 2.6 - 25.0 mcIUnit/mL Comment:Testing performed by : [facility], [address] [place]., [address] Blood 12/05/2024 11:0 5 AM PROJECT FINANCIAL ANALYST 12/05/2024 4:09 PM PROJECT FINANCIAL ANALYST Flakita Mckeon MD LAB BLOOD ORDERABLES Final Res ult [facility] [address] [address] [place] [address] * CRP (cardiac risk) (12/05/2024 11:05 AM PROJECT FINANCIAL ANALYST) hsCRP <0.50 mg/L Comment: Repeated and Verified [...] last revised on 2018. Testing performed by: [facility], [address] [place]., [address] Blood 12/05/2024 11:0 5 AM PROJECT FINANCIAL ANALYST 12/05/2024 4:09 PM PROJECT FINANCIAL ANALYST Flakita Mckeon MD LAB BLOOD ORDERABLES Final Res ult Performing Organization Address [facility] Co de Phone Number JEAN CLAUDE GAEL [address] [address] [place] [address] * Phosphorus (12/05/2024 11:05 AM PROJECT FINANCIAL ANALYST) Phosphorus, pl 3.2 2.3 - 4.5 mg/dL Blood 12/05/2024 11:0 5 AM PROJECT FINANCIAL ANALYST 12/05/2024 11:38 AM PROJECT FINANCIAL ANALYST Flakita Mckeon MD LAB BLOOD ORDERABLES Final Res ult Performing Organization Address [facility] Co de Phone Number JEAN CLAUDE GAEL [address] [address] [place] [address] * PTH (12/05/2024 11:05 AM PROJECT FINANCIAL ANALYST) PTH 64 15 - 65 pg/mL Blood 12/05/2024 11:0 5 AM PROJECT FINANCIAL ANALYST 12/05/2024 11:38 AM PROJECT FINANCIAL ANALYST Flakita Mckeon MD LAB BLOOD ORDERABLES Final Res ult Performing Organization Address City/[facility]/ZIP Co de Phone Number JEAN CLAUDE MAYO [address] [address] [place] [place] [address] * Magnesium (12/05/2024 11:05 AM PROJECT FINANCIAL ANALYST) Magnesium 2.1 1.4 - 2.5 mg/dL Blood 12/05/2024 11:0 5 AM PROJECT FINANCIAL ANALYST 12/05/2024 11:38 AM PROJECT FINANCIAL ANALYST Flakita Mckeon MD LAB BLOOD ORDERABLES Final Res ult Performing Organization Address [facility] [place] [address] [address] Department [place] [address] * Urinalysis reflex to microscopic and culture Urine (12/05/2024 11:04 AM PROJECT FINANCIAL ANALYST) Color, ur Yellow Yellow Clarity, ur Clear [...] tendency for uric acid stone formation. Source: [facility] [employer] Current Interpretive Data was last revised on [...] CERNER CH Urine 12/05/2024 11:0 4 AM PROJECT FINANCIAL ANALYST 12/05/2024 11:45 AM PROJECT FINANCIAL ANALYST Flakita Mckeon MD LAB MICROBIOLOGY - GENERAL ORD ERABLES Final Result Performing Organization Address City/[facility]/ZIP Co de Phone Number JEAN CLAUDE MAYO [address] [address] Department [place] [address] * Copper, serum (12/05/2024 11:04 AM PROJECT FINANCIAL ANALYST) Copper 107 77 - 206 mcg/dL [facility] Comment: ADDITIONAL INFORMATION This test was developed and its performance characteristics determined by [facility] in a manner consistent with CLIA requirements. This test has not been cleared or approved by the U.S. Food and Drug Administration. Test Performed by: [facility] [address] [place] [address] Journalism Internship: Eb Bazzi Ph.D.; CLIA# [id number] Blood 12/05/2024 11:0 4 AM PROJECT FINANCIAL ANALYST 12/05/2024 11:43 AM PROJECT FINANCIAL ANALYST Flakita Mckeon MD LAB BLOOD ORDERABLES Final Res ult Performing Organization Address [facility] de Phone Number JEAN CLAUDE GAEL [address] [address] [place] [address] [facility] * Albumin Creatinine Ratio, Urine (12/05/2024 11:04 AM PROJECT FINANCIAL ANALYST) Albumin Ur <12.0 mg/L Comment: Interpretive Data No reference range established. Current interpretive data was last revised 2019. Creatinine Ur 47.7 mg/dL [facility] Comment: Interpretive Data No reference range established. Current interpretive data was last revised 2019. Albumin Creatinine Ratio, Ur <25 1 - 29 mg/g JEAN CLAUDE Urine 12/05/2024 11:0 4 AM PROJECT FINANCIAL ANALYST 12/05/2024 11:45 AM PROJECT FINANCIAL ANALYST Flakita Mckeon MD LAB URINE ORDERABLES Final Res ult Performing Organization Address [facility] Co de Phone Number JEAN CLAUDE MAYO [address] [address] [facility] [place] [address] * Zinc (12/05/2024 11:04 AM PROJECT FINANCIAL ANALYST) Zinc 66 60 - 106 mcg/dL [facility] Comment: ADDITIONAL INFORMATION This test was developed and its performance characteristics determined by [facility] in a manner consistent with CLIA requirements. This test has not been cleared or approved by the U.S. Food and Drug Administration. Test Performed by: [facility] [place] [address] Journalism Internship: Eb Baziz Ph.D.; CLIA# [id number] Blood 12/05/2024 11:0 4 AM PROJECT FINANCIAL ANALYST 12/05/2024 11:41 AM PROJECT FINANCIAL ANALYST Flakita Mckeon MD LAB BLOOD ORDERABLES Final Res ult Performing Organization Address [facility] Phone Number JEAN CLAUDE [address] [address] Department [place] [address] [facility] * Vitamin A (12/05/2024 11:04 AM PROJECT FINANCIAL ANALYST) Pathologist [facility] Vitamin A 57.6 32.5 - 78.0 mcg/dL [facility] Comment: ADDITIONAL INFORMATION This test was developed and its performance characteristics determined by [facility] in a manner consistent with CLIA requirements. This test has not been cleared or approved by the U.S. Food and Drug Administration. Test Performed by: [facility] - [address] [address] Journalism Internship: Eb Bazzi Ph.D.; CLIA# [id number] Blood 12/05/2024 11:0 4 AM PROJECT FINANCIAL ANALYST 12/05/2024 11:41 AM PROJECT FINANCIAL ANALYST us Flakita Mckeon MD LAB BLOOD ORDERABLES Final Res ult Performing Organization Address [facility] Co de Phone Number JEAN CLAUDE MAYO [address] [address] [place] [address] [facility] * Vitamin D 25 hydroxy (12/05/2024 11:04 AM PROJECT FINANCIAL ANALYST) Vitamin D 25-OH 70 30 - 80 ng/mL Blood 12/05/2024 11:0 4 AM PROJECT FINANCIAL ANALYST 12/05/2024 11:41 AM PROJECT FINANCIAL ANALYST Flakita Mckeon MD LAB BLOOD ORDERABLES Final Res ult Performing Organization Address [facility] de Phone Number JEAN CLAUDE MAYO [address] [facility] [place] [address] * Vitamin E (12/05/2024 11:04 AM PROJECT FINANCIAL ANALYST) Pathologist [facility] Tocopherol (Vit E) 12.1 5.5 - 17.0 mg/L [facility] Comment: ADDITIONAL INFORMATION This test was developed and its performance characteristics determined by [facility] in a manner consistent with CLIA requirements. This test has not been cleared or approved by the U.S. Food and Drug Administration. Test Performed by: [facility] [place] [address] Journalism Internship: Eb Bazzi Ph.D.; CLIA# [id number] Blood 12/05/2024 11:0 4 AM PROJECT FINANCIAL ANALYST 12/05/2024 1:58 PM PROJECT FINANCIAL ANALYST Flakita Mckeon MD LAB BLOOD ORDERABLES Final Res ult Performing Organization Address [facility] Co de Phone Number JEAN CLAUDE MAYO [address] [address] [facility] [place] [place] [address] [facility] * Vitamin B1 (12/05/2024 11:04 AM PROJECT FINANCIAL ANALYST) Pathologist [facility] Thiamine (Vit B1) 134 70 - 180 nmol/L [facility] Comment: ADDITIONAL INFORMATION This test was developed and its performance characteristics determined by [facility] in a manner consistent with CLIA requirements. This test has not been cleared or approved by the U.S. Food and Drug Administration. Test Performed by: [facility] [place] [address] Journalism Internship: Eb Bazzi Ph.D.; CLIA# [id number] Blood 12/05/2024 11:0 4 AM PROJECT FINANCIAL ANALYST 12/05/2024 11:41 AM PROJECT FINANCIAL ANALYST Flakita Mckeon MD LAB BLOOD ORDERABLES Final Res ult Performing Organization Address [facility] de Phone Number JEAN CLAUDE MAYO [address] [address] [place] [address] [facility] * Vitamin B6 (12/05/2024 11:04 AM PROJECT FINANCIAL ANALYST) Pyridoxal phosphate (Vit B6) 43 5 - 50 mcg/L [facility] Comment: ADDITIONAL INFORMATION This test was developed and its performance characteristics determined by [facility] in a manner consistent with CLIA requirements. This test has not been cleared or approved by the U.S. Food and Drug Administration. Test Performed by: [facility] [place] [address] Journalism Internship: Eb Bazzi Ph.D.; CLIA# [id number] Blood 12/05/2024 11:0 4 AM PROJECT FINANCIAL ANALYST 12/05/2024 11:40 AM PROJECT FINANCIAL ANALYST us Flakita Mckeon MD LAB BLOOD ORDERABLES Final Res ult Performing Organization Address [facility] de Phone Number JEAN CLAUDE MAYO [address] [address] [place] [address] [facility] * (ABNORMAL) Hemoglobin A1c (12/05/2024 11:04 AM PROJECT FINANCIAL ANALYST) Hgb A1C 6.1(H) 4.0 - 5.6 % Comment:Testing performed by : [facility], [address] [place]., [address] Estimated Average Glucose 128 mg/dL JEAN CLAUDE MYAO Comment: The ADA recommends reporting an estimated Average Glucose (eAG) with all Hemoglobin A1c results using the equation derived from a study of 507 normal and diabetic adults. Minority populations were underrepresented and children were not included. (Diabetes Care 2020; 43(S1): S66-S76). The eAG is not equivalent to a fasting glucose. Testing performed by: [facility], [address] [place]., [address] Blood 12/05/2024 11:0 4 AM PROJECT FINANCIAL ANALYST 12/05/2024 11:39 AM PROJECT FINANCIAL ANALYST us Flakita Mckeon MD LAB BLOOD ORDERABLES Final Res ult JEAN CLAUDE MAYO [address] [address] Department [place] [address] * US Liver (12/05/2024 10:50 AM PROJECT FINANCIAL ANALYST) Anatomical Region Laterality Modality Abdomen N/A Ultrasound 12/05/2024 11:2 7 AM PROJECT FINANCIAL ANALYST Impressions 12/05/2024 11:27 AM PROJECT FINANCIAL ANALYST 1. Small amount of sludge in the gallbladder. 2. The liver and bile ducts appear normal. 3. No evidence of ascites. Electronically signed by: Jaya Hatch M.D. Narrative 12/05/2024 11:27 AM PROJECT FINANCIAL ANALYST EXAM: US LIVER DATE: 12/05/2024 10:30 AM [...] * ECG 12 lead (12/04/2024 9:44 AM PROJECT FINANCIAL ANALYST) Flakita Mckeon MD ECG ORDERABLES Final Result * Screening Mammogram Bilateral W Jad (11/06/2024 10:01 AM PROJECT FINANCIAL ANALYST) Anatomical Region Laterality Modality Breast Bilateral Mammography 11/06/2024 10:4 0 AM PROJECT FINANCIAL ANALYST Impressions 11/06/2024 10:40 AM PROJECT FINANCIAL ANALYST No evidence of malignancy in either breast. FINAL ASSESSMENT: BI-RADS Category 1: Negative. RECOMMENDATION: 1. Annual screening mammography is recommended. 2. Consider breast MRI for supplemental screening given reported strong family history of breast cancer. Electronically signed by: SEBASTIAN MCKINNEY MD Narrative 11/06/2024 10:40 AM PROJECT FINANCIAL ANALYST EXAMINATION: BILATERAL SCREENING MAMMOGRAM COMPARISON: All prior [...] Jones MD - 08/03/2024 9:[address] [facility] Patient Name: aDwna Kelsey Procedure Date: 08/03/2024 9:31 AM Date of : 1970 Admit Type: Outpatient Age: 54 Gender: Female Attending MD: Jerry Jones M.D. Room: [facility] ENDOSCOPY ROOM 3 Note Status: Finalized Patient [...] procedure were verified by the physician, the washing and screening plant supervisor and the cathodic protection technician in the endoscopy suite. Mental Status [...] under direct vision. The Pediatric Colonoscope [id number] was introduced through the anus and advanced [...] 9:31 AM Procedure Code(s): --- Professional --- 77097, Colonoscopy, flexible; with removal of tumor(s), polyp(s), or other lesion(s) by snare technique 73311, 59, Colonoscopy, flexible; with biopsy, single or multiple --- Technical --- 85319, Colonoscopy, flexible; with removal of tumor(s), polyp(s), or other lesion(s) by snare technique 72806, 59, Colonoscopy, flexible; with biopsy, single or multiple Diagnosis Code(s): --- Professional --- Z86.010, Personal history of colonic polyps D12.0, Benign neoplasm of cecum K64.8, Other hemorrhoids --- Technical --- Z86.010, Personal history of colonic polyps D12.0, Benign neoplasm of cecum K64.8, Other hemorrhoids CPT copyright 2020 [employer]. All rights reserved. The codes documented in this report are preliminary and upon medical insurance coder reviewmay be revised to meet current compliance requirements. Recognized by the [employer] for promoting quality in endoscopy Jerry Jones MD ENDOSCOPY PROCEDURES Final Resul t from Last 3 Months or Most Recently Relevant to Health Maintenance Insurance Apen[employer]MED ME Apen[employer]MED ME BLUE ACCESS ME BLUE ACCESS ME BLUE ACCESS ME WORKERS COMPENSATION GENERIC Advance Directives For more information, please contact: [phone] * Full Code (Latest Code Status on File) Date Activated Date Inactivated Comments 08/03/2024 9:56 AM 08/03/2024 4:29 PM * Full Code Date Activated Date Inactivated Comments 08/03/2024 9:56 AM 08/03/2024 9:56 AM Care Teams Floor Inspector Relationship Specialty Start Date End Date Hedy Calderon MD [facility] [address] [address] PCP - General 02/18/17 Destinee Sims MD [address] [place] [address] Surgeon Medical Oncology 11/09/24
--- OUTSIDE RECORDS SUMMARY | 2025-03-02 15:52 | XMS_ITS ---
Author Organization [facility] Address [address] [place] [address] Phone Care Team Providers Care Asset Management Analyst Name Role Phone Unavailable Unavailable Unavailable Problems Includes: Active, inactive, and resolved Problems All Visits Onset Date Resolved Date Provider Condition S tatus Diabetes Mellitus 10/27/2015 ROSA A RUBI QUINONES WHNP-BC Active Last Documented On 10/27/2015 3:03PM ; [facility] Note: Type II Hypertension Systemic 10/27/2015 ROSA A ALEXEY WHNP-BC Active Last Documented On 5 3:03PM ; [facility] Migraine Headache 06/19/2013 ARPIT SNEED MD A ctive Last Documented On 3 11:34AM ; [facility] 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 A ctive Last Documented On 0 8:26AM ; [facility] Plan of Treatment Findings Encounter Date Ordered Clinical summary pro vided to patient SUPERINTENDENT METER TESTS EXAM with ROSA BLACKBURN [facility]NP-BC 10/10/2019 Last Documented On 9 1:05PM ; [facility] Ordered follow-up visit 1 ye ar or as needed SUPERINTENDENT METER TESTS EXAM with ROSA BLACKBURN [facility]NP-BC 10/10/2019 Last Documented On 9 1:05PM ; [facility] Ordered follow-up visit 1 ye ar or as needed SUPERINTENDENT METER TESTS EXAM with ROSA BLACKBURN [facility] 08/30/2018 Last Documented On 8 3:23PM ; [facility] Ordered Clinical summary pro vided to patient 2 WK CK-UP with ROSA BLACKBURN [facility] 05/26/2017 Last Documented On 7 2:26PM ; [facility] Ordered Clinical summary pro vided to patient PROBLEM VISIT with ROAS BLACKBURN [facility] 05/09/2017 Last Documented On 7 1:42PM ; [facility] affirm culture and u/s to ev aluate for posterior fibroid anteflexing uterus which can be causing her dypareunia. If patient has posterior large fibroid pt will consider UFE, vs. myomectomy vs. hysterectomy SUPERINTENDENT METER TESTS EXAM with MARYBETH HOLLIDAY M.D. 03/07/2012 Last Documented On 2 3:02PM ; [facility] Instructions to patient Instructions for patient : B reast Self Exam discussed Last Documented On 9 12:52PM ; [facility] Instructions for patient : B reast Self Exam discussed Last Documented On 8 3:06PM ; [facility] Instructions for patient : K eep the area around the vulva dry. Allow the area to have exposure to air. Avoid irritants such as fabric softeners and perfumed soaps.~ Last Documented On 8 3:08PM ; [facility] Advised d/c scented bath pro ducts Last Documented On 8 3:08PM ; [facility] Instructions for patient : B reast Self Exam discussed Last Documented On 7 2:40PM ; [facility] Instructions for patient : t he patient was instructed in the use and possible side effects of the medication prescribed. She is to maintain good hydration via p.o. fluids. We also discussed possible triggers for UTI and preventive measures Last Documented On 7 2:13PM ; [facility] Patient to call if fever or back pain Last Documented On 7 2:13PM ; [facility] Instructed to decrease carbo nation and caffeine Last Documented On 7 2:13PM ; [facility] Increase water po Last Documented On 7 2:13PM ; [facility] Instructions For Patient: go od handwashing and perineal care Last Documented On 7 2:13PM ; [facility] Instructions for patient : t he patient was instructed in the use and possible side effects of the medication prescribed. She is to maintain good hydration via p.o. fluids. We also discussed possible triggers for UTI and preventive measures Last Documented On 7 1:22PM ; [facility] Patient to call if fever or back pain Last Documented On 7 1:22PM ; [facility] Instructed to decrease carbo nation and caffeine Last Documented On 7 1:22PM ; [facility] Increase water po Last Documented On 7 1:22PM ; [facility] Instructions For Patient: go od handwashing and perineal care Last Documented On 7 1:22PM ; [facility] Instructions for patient : B reast Self Exam discussed Last Documented On 6 2:38PM ; [facility] Instructions for patient : K eep the area around the vulva dry. Allow the area to have exposure to air. Avoid irritants such as fabric softeners and perfumed soaps.~ Last Documented On 5 2:59PM ; [facility] Advised d/c scented bath pro ducts Last Documented On 5 2:59PM ; [facility] Instructions for patient : B reast Self Exam discussed Last Documented On 5 10:56AM ; [facility] Instructions for patient : B reast Self Exam discussed Last Documented On 4 11:41AM ; [facility] Instructions for patient : B reast Self Exam discussed Last Documented On 3 11:38AM ; [facility] Instructions for patient : B reast Self Exam discussed. Reviewed monthly self breast examination and technique Last Documented On 2 9:28AM ; [facility] Recommend diet and exercise at least 30 min three times per week Last Documented On 2 9:28AM ; [facility] Recommend preventative vacci nation including but not limited to influenza/flu vaccine, DTP, Rubella, Hepatitis B vaccination series Last Documented On 2 9:28AM ; [facility] Recommend annual pap smear e xamination or every three year if high risk hpv negative and 3 consecutive normal pap examination during preceding three years Last Documented On 2 9:28AM ; [facility] Recommend TSH, fasting gluco se, fasting lipid panel, CBC, BMP Last Documented On 2 9:28AM ; [facility] Recommend Calcium supplement ation and weight bearing exercise Last Documented On 2 9:28AM ; [facility] Instructions for patient : B reast Self Exam discussed and technique reviewed Last Documented On 11:49AM ; [facility] If patient is taking belkys. Re commend annual K level. Pt understands risk of hyperkalemia and that if diagnosis of liver or kidney disease that the continuation of belkys is not recommended Last Documented On 11:49AM ; [facility] Recommend diet and exercise at least 30 min three times per week Last Documented On 1 11:49AM ; [facility] Recommend CBC, TSH, fasting glucose, fasting lipid panel if patient aged 25 or older Last Documented On 11:49AM ; [facility] Discussed Gardasil vaccinati on and recommend vaccination for HPV prevention. Handout given. Patient understands sexual transmission of high-risk HPV and the association with abnormal pap smear and cervical cancer. Recommend to decrease high risk behaviors such as: number or sexual partners, smoking, and contraception use Last Documented On 11:49AM ; [facility] Recommend preventative vacci nation including but not limited to influenza/flu vaccine, DTP, Rubella, Hepatitis B vaccination series Last Documented On 11:49AM ; [facility] Education and Decision Aids were provided during visit for: Patient Education: Daily pradeep cium and vitamin D Last Documented On 9 12:52PM ; [facility] Patient Education: weight be aring exercise Last Documented On 9 12:52PM ; [facility] Patient Education: Daily pradeep cium and vitamin D Last Documented On 8 3:06PM ; [facility] Patient Education: weight be aring exercise Last Documented On 8 3:06PM ; [facility] Candidiasis Vulvovaginitis I nformation Sheet Given Last Documented On 8 3:22PM ; [facility] Patient education : Last Documented On 7 2:40PM ; [facility] STD screening offered and de clined Last Documented On 7 2:40PM ; [facility] Patient education : Last Documented On 6 2:38PM ; [facility] STD screening offered and de clined Last Documented On 6 2:38PM ; [facility] Candidiasis Vulvovaginitis I nformation Sheet Given Last Documented On 5 3:15PM ; [facility] Patient education : Last Documented On 5 10:56AM ; [facility] STD screening offered and de clined Last Documented On 5 10:56AM ; [facility] Patient education : Last Documented On 4 11:41AM ; [facility] STD screening offered and de clined Last Documented On 4 11:41AM ; [facility] Patient education : Last Documented On 3 11:38AM ; [facility] STD screening offered and de clined Last Documented On 3 11:38AM ; [facility] Assessments Includes: Assessments for all patient encounters Findings Encounter Date NORMAL FEMALE EXAM SUPERINTENDENT METER TESTS EXAM with ROSA [facility]- 10/10/2019 Last Documented On 9 1:05PM ; [facility] Screening Malig. Neoplasm Rectum SUPERINTENDENT METER TESTS EXAM with Liam BLACKBURN [facility]- 10/10/2019 Last Documented On 9 1:05PM ; [facility] Kristyn albicans vulvovaginitis SUPERINTENDENT METER TESTS EXAM with ABEL [facility]ACK[facility]URN [facility]- 08/30/2018 Last Documented On 8 3:23PM ; [facility] NORMAL FEMALE EXAM SUPERINTENDENT METER TESTS EXAM with ROSA [facility] 08/30/2018 Last Documented On 8 3:23PM ; [facility] Screening Malig. Neoplasm Rectum SUPERINTENDENT METER TESTS EXAM with Liam BLACKBURN [facility] 08/30/2018 Last Documented On 8 3:23PM ; [facility] Routine pelvic exam SUPERINTENDENT METER TESTS EXAM with ARPIT SNEED MD 07/19/2017 Last Documented On 7 2:53PM ; [facility] Essential hematuria 2 WK CK-UP with ROSA VENEGASAN Benitez [facility] 05/26/2017 Last Documented On 7 2:26PM ; [facility] Routine pelvic exam SUPERINTENDENT METER TESTS EXAM with ARPIT SNEED MD 07/13/2016 Last Documented On 6 4:38PM ; [facility] Kristyn albicans vulvovaginitis PROBLEM VISIT wi ROSA BLACKBURN [facility] 10/27/2015 Last Documented On 5 3:16PM ; [facility] Routine pelvic exam SUPERINTENDENT METER TESTS EXAM with ARPIT SNEED MD 07/04/2015 Last Documented On 5 1:03PM ; [facility] Routine pelvic exam SUPERINTENDENT METER TESTS EXAM with ARPIT SNEED MD 06/25/2014 Last Documented On 4 11:51AM ; [facility] Routine pelvic exam SUPERINTENDENT METER TESTS EXAM with ARPIT SNEED MD 06/19/2013 Last Documented On 3 11:53AM ; [facility] Kristyn albicans vaginitis : budding yeast and hyphae visible on wet prep, no clue cells or trichomonas POST OP VISIT with ARPIT SNEED MD 10/05/2012 Last Documented On 2 3:25PM ; [facility] POST OP VISIT POST OP VISIT with ARPIT SNEED MD 10/05/2012 Last Documented On 2 3:25PM ; [facility] POST OP VISIT TVH POST OP VISIT with MARYBETH MANTILLA M.D. 08/29/2012 Last Documented On 2 12:20PM ; [facility] Dyspareunia PREOP EXAM with MARYBETH SCHERER M.Faviola 08/15/2012 Last Documented On 2 9:39AM ; [facility] Female pelvic pain PREOP EXAM with MARYBETH RASHEED M.D. 08/15/2012 Last Documented On 2 9:39AM ; [facility] Dyspareunia SUPERINTENDENT METER TESTS EXAM with MARYBETH HOLLIDAY M.D. 06/14/2012 Last Documented On 2 9:52AM ; [facility] Leiomyoma of the uterus SUPERINTENDENT METER TESTS EXAM with MARYBETH HOLLIDAY M.D. 06/14/2012 Last Documented On 2 9:52AM ; [facility] MAMMOGRAM SCREENING SUPERINTENDENT METER TESTS EXAM with MARYBETH HOOKER M.D. 06/14/2012 Last Documented On 2 9:52AM ; [facility] NORMAL FEMALE EXAM SUPERINTENDENT METER TESTS EXAM with MARYBETH COOK M.D. 06/14/2012 Last Documented On 2 9:52AM ; [facility] Dyspareunia SUPERINTENDENT METER TESTS EXAM with MARYBETH HOLLIDAY M.D. 03/07/2012 Last Documented On 2 3:02PM ; [facility] Leiomyoma of the uterus SUPERINTENDENT METER TESTS EXAM with MARYBETH HOLLIDAY M.D. 03/07/2012 Last Documented On 2 3:02PM ; [facility] Vaginitis SUPERINTENDENT METER TESTS EXAM with MARYBETH HOLLIDAY M.D. 03/07/2012 Last Documented On 2 3:02PM ; [facility] NORMAL FEMALE EXAM SUPERINTENDENT METER TESTS EXAM with MARYBETH COOK M.D. 03/11/2011 Last Documented On 1 12:18PM ; [facility] Instructions Includes: Instructions for all patient encounters Instructions to patient Instructions for patient : B reast Self Exam discussed Last Documented On 9 12:52PM ; [facility] Instructions for patient : B reast Self Exam discussed Last Documented On 8 3:06PM ; [facility] Instructions for patient : K eep the area around the vulva dry. Allow the area to have exposure to air. Avoid irritants such as fabric softeners and perfumed soaps.~ Last Documented On 8 3:08PM ; [facility] Advised d/c scented bath pro ducts Last Documented On 8 3:08PM ; [facility] Instructions for patient : B reast Self Exam discussed Last Documented On 7 2:40PM ; [facility] Instructions for patient : t he patient was instructed in the use and possible side effects of the medication prescribed. She is to maintain good hydration via p.o. fluids. We also discussed possible triggers for UTI and preventive measures Last Documented On 7 2:13PM ; [facility] Patient to call if fever or back pain Last Documented On 7 2:13PM ; [facility] Instructed to decrease carbo nation and caffeine Last Documented On 7 2:13PM ; [facility] Increase water po Last Documented On 7 2:13PM ; [facility] Instructions For Patient: go od handwashing and perineal care Last Documented On 7 2:13PM ; [facility] Instructions for patient : t he patient was instructed in the use and possible side effects of the medication prescribed. She is to maintain good hydration via p.o. fluids. We also discussed possible triggers for UTI and preventive measures Last Documented On 7 1:22PM ; [facility] Patient to call if fever or back pain Last Documented On 7 1:22PM ; [facility] Instructed to decrease carbo nation and caffeine Last Documented On 7 1:22PM ; [facility] Increase water po Last Documented On 7 1:22PM ; [facility] Instructions For Patient: go od handwashing and perineal care Last Documented On 7 1:22PM ; [facility] Instructions for patient : B reast Self Exam discussed Last Documented On 6 2:38PM ; [facility] Instructions for patient : K eep the area around the vulva dry. Allow the area to have exposure to air. Avoid irritants such as fabric softeners and perfumed soaps.~ Last Documented On 5 2:59PM ; [facility] Advised d/c scented bath pro ducts Last Documented On 5 2:59PM ; [facility] Instructions for patient : B reast Self Exam discussed Last Documented On 5 10:56AM ; [facility] Instructions for patient : B reast Self Exam discussed Last Documented On 4 11:41AM ; [facility] Instructions for patient : B reast Self Exam discussed Last Documented On 3 11:38AM ; [facility] Instructions for patient : B reast Self Exam discussed. Reviewed monthly self breast examination and technique Last Documented On 2 9:28AM ; [facility] Recommend diet and exercise at least 30 min three times per week Last Documented On 2 9:28AM ; [facility] Recommend preventative vacci nation including but not limited to influenza/flu vaccine, DTP, Rubella, Hepatitis B vaccination series Last Documented On 2 9:28AM ; [facility] Recommend annual pap smear e xamination or every three year if high risk hpv negative and 3 consecutive normal pap examination during preceding three years Last Documented On 2 9:28AM ; [facility] Recommend TSH, fasting gluco se, fasting lipid panel, CBC, BMP Last Documented On 2 9:28AM ; [facility] Recommend Calcium supplement ation and weight bearing exercise Last Documented On 2 9:28AM ; [facility] Instructions for patient : B reast Self Exam discussed and technique reviewed Last Documented On 1 11:49AM ; [facility] If patient is taking belkys. Re commend annual K level. Pt understands risk of hyperkalemia and that if diagnosis of liver or kidney disease that the continuation of belkys is not recommended Last Documented On 1 11:49AM ; [facility] Recommend diet and exercise at least 30 min three times per week Last Documented On 1 11:49AM ; [facility] Recommend CBC, TSH, fasting glucose, fasting lipid panel if patient aged 25 or older Last Documented On 1 11:49AM ; [facility] Discussed Gardasil vaccinati on and recommend vaccination for HPV prevention. Handout given. Patient understands sexual transmission of high-risk HPV and the association with abnormal pap smear and cervical cancer. Recommend to decrease high risk behaviors such as: number or sexual partners, smoking, and contraception use Last Documented On 1 11:49AM ; [facility] Recommend preventative vacci nation including but not limited to influenza/flu vaccine, DTP, Rubella, Hepatitis B vaccination series Last Documented On 1 11:49AM ; [facility] Education and Decision Aids were provided during visit for: Patient Education: Daily pradeep cium and vitamin D Last Documented On 9 12:52PM ; [facility] Patient Education: weight be aring exercise Last Documented On 9 12:52PM ; [facility] Patient Education: Daily pradeep cium and vitamin D Last Documented On 8 3:06PM ; [facility] Patient Education: weight be aring exercise Last Documented On 8 3:06PM ; [facility] Candidiasis Vulvovaginitis I nformation Sheet Given Last Documented On 8 3:22PM ; [facility] Patient education : Last Documented On 7 2:40PM ; [facility] STD screening offered and de clined Last Documented On 7 2:40PM ; [facility] Patient education : Last Documented On 6 2:38PM ; [facility] STD screening offered and de clined Last Documented On 6 2:38PM ; [facility] Candidiasis Vulvovaginitis I nformation Sheet Given Last Documented On 5 3:15PM ; [facility] Patient education : Last Documented On 5 10:56AM ; [facility] STD screening offered and de clined Last Documented On 5 10:56AM ; [facility] Patient education : Last Documented On 4 11:41AM ; [facility] STD screening offered and de clined Last Documented On 4 11:41AM ; [facility] Patient education : Last Documented On 3 11:38AM ; [facility] STD screening offered and de clined Last Documented On 3 11:38AM ; [facility] Medical Equipment - Implanted Devices Includes: Current and historical Devices No Medical Equipment Recorded Medications Includes: Current and historical Medications Current Medications (continue as prescribed) Biotin 1000MCG Oral Tablet 05/09/2017 Provider: Diagnosis: Last Documented On 05/09/2017 1:27PM By DANICA SALGADO ; [facility] [employer] Iron 325 (65 Fe)MG Oral Tablet 05/09/2017 Provid er: Diagnosis: Last Documented On 05/09/2017 1:27PM By DANICA SALGADO ; [facility] Fish Oil 1000MG Oral Capsule, conventional 017 Provider: Diagnosis: Last Documented On 05/09/2017 1:27PM By DANICA SALGADO ; [facility] Topiramate 50 MG Tablet 07/13/2016 Provider: Diagnosis: Last Documented On 07/13/2016 2:36PM By LANDON BOBBY ; [facility] B Complex-B12 Tablet 07/13/2016 Provider: Diagnosis: Last Documented On 07/13/2016 2:36PM By LANDON BOBBY ; [facility] Vitron-C 65-125 MG Tablet 07/13/2016 Provider: Diagnosis: Last Documented On 07/13/2016 2:36PM By LANDON BOBBY ; [facility] MiraLax Powder 07/04/2015 Provider: Diagnosis: 17 grams bid Last Documented On 07/04/2015 11:00AM By JAMES ROMERO RN ; [facility] Effexor XR 75 MG OR CP24 06/25/2014 Provider: Diagnosis: Last Documented On 4 11:31AM By YUE SALGADO ; [facility] Vitamin D3 400 UNIT OR CAPS 06/25/2014 Provider: Diagnosis: Last Documented On 4 11:32AM By YUE SALGADO ; [facility] Botox 100 UNIT IJ SOLR 06/25/2014 Provider: Diagnosis: for headaches Last Documented On 4 11:50AM By MALINI CORONA LPN ; [facility] Indomethacin 25 MG OR CAPS 06/19/2013 Provider: Diagnosis: Last Documented On 06/19/2013 11:33AM By ANDREEA IGLESIAS ; [facility] Past Medications on file Diflucan 150MG Oral Tablet 08/30/2018 - 10/10/2019 Pro vider: ROSA BLACKBURN [facility] Diagnosis: as directed -one po x 1 dose and may rpt. in 3 days if needed Last Documented On 9 12:53PM By DANICA SALGADO ; [facility] Estrace 0.1MG/GM Vaginal Cream 06/06/2017 - 09/04/2017 Provider: ROSA ADAN PSYCHIATRIC SECURITY NURSE-BC Diagnosis: as directed - 1/2 applicator full pv at hs 3x/we ek Last Documented On 7 9:42AM By ROSA MATTSON ; [facility] Estrace 0.1MG/GM Vaginal Cream 05/26/2017 - 06/06/2017 Provider: ROSA ADAN PSYCHIATRIC SECURITY NURSE-BC Diagnosis: as directed - 1/2 applicator full pv at hs 3x/we ek Last Documented On 7 9:34AM By ROSA MATTSON ; [facility] Acidophilus Probiotic Oral Tablet 05/09/2017 - 018 Provider: Diagnosis: Last Documented On 08/30/2018 3:08PM By DANICA SALGADO ; [facility] Diflucan 150 MG Tablet 10/27/2015 - 07/13/2016 Provider: ROSA AMTTSON Diagnosis: Candidiasis of v ulva and vagina as directed - one po x 1 and repeat in 3 days Last Documented On 07/13/2016 2:34PM By LANDON BOBBY ; [facility] Lisinopril 5 MG Tablet 07/04/2015 - 05/09/2017 Provide r: Diagnosis: Last Documented On 05/09/2017 1:26PM By DANICA SALGADO ; [facility] Lisinopril 2.5 MG Tablet 07/04/2015 - 07/04/2015 Provi liz: Diagnosis: Last Documented On 07/04/2015 10:59AM By JAMES ROMERO RN ; [facility] Januvia 100 MG Tablet 07/04/2015 - 10/27/2015 Provider : Diagnosis: Last Documented On 10/27/2015 3:04PM By DANICA SALGDAO ; [facility] Diflucan 150 MG Tablet 03/18/2015 - 07/04/2015 Provide r: Diagnosis: Last Documented On 07/04/2015 10:51AM By JAMES ROMERO RN ; [facility] Diflucan 150 MG OR TABS 11/08/2014 - 07/04/2015 Provid er: ARPIT SNEED MD Diagnosis: one tab to be taken po; phoned to [facility]. Last Documented On 07/04/2015 10:51AM By JAMES ROMERO RN ; [facility] Sumavel DosePro 6 MG/0.5ML SC KAVYA 06/25/2014 - 2017 Provider: Diagnosis: prn Last Documented On 08/30/2018 3:09PM By DANICA SALGADO ; [facility] Cambia 50 MG OR PACK 06/25/2014 - 07/04/2015 Provider: Diagnosis: prn Last Documented On 07/04/2015 10:51AM By JAMES ROMERO RN ; [facility] Depo-Provera 150 MG/ML IM SUSP 06/25/2014 - 06/25/2014 Provider: Diagnosis: for migraine Last Documented On 4 11:50AM By MALINI CORONA LPN ; [facility] Caltrate 600+D Plus Minerals 600-800 MG-UNIT OR TABS 06/25/2014 - 07/04/2015 Provider: Diagnosis: Last Documented On 07/04/2015 10:52AM By JAMES ROMERO RN ; [facility] EQ Stool Softener/Laxative 8.6-50 MG OR TABS 4 - 07/13/2016 Provider: Diagnosis: Last Documented On 07/13/2016 2:35PM By LANDON BOBBY ; [facility] Diflucan 150 MG OR TABS 12/03/2013 - 06/25/2014 Provid er: Diagnosis: Called into [facility]. Last Documented On 4 11:31AM By YUE SALGADO ; [facility] Diflucan 150 MG OR TABS 06/19/2013 - 07/13/2016 Provid er: ARPIT SNEED MD Diagnosis: Last Documented On 07/13/2016 2:35PM By LANDON BOBBY ; [facility] Propranolol HCl 40 MG OR TABS 06/19/2013 - 06/25/2014 Provider: Diagnosis: Last Documented On 4 11:31AM By YUE SALGADO ; [facility] Diflucan 150 MG OR TABS 03/28/2013 - 06/19/2013 Provid er: Diagnosis: [facility] protocol. Last Documented On 06/19/2013 11:52AM By ARPIT SNEED MD ; [facility] Diflucan 150 MG OR TABS 01/12/2013 - 06/19/2013 Provid er: Diagnosis: 1 po nowCalled to Marcial Dumont per protocol . Last Documented On 3 11:30AM By DANIEL RAMÍREZ LPN ; [facility] Diflucan 150 MG OR TABS 10/05/2012 - 07/13/2016 Provid er: ARPIT SNEED MD Diagnosis: [place] Last Documented On 07/13/2016 2:35PM By LANDON BOBBY ; [facility] Gummi Bear Multivitamin/Min OR CHEW 10/05/2012 - 07/04 Provider: Diagnosis: Last Documented On 07/04/2015 10:51AM By JAMES ROMERO RN ; [facility] MonoNessa 0.25-35 MG-MCG OR TABS 06/14/2012 - 08/15/2012 Provider: MARYBETH SCHERER M.D. Diagnosis: Last Documented On 2 9:16AM By CINTHIA MARSHALL MA ; [facility] MonoNessa 0.25-35 MG-MCG OR TABS 06/14/2012 - 06/14/20 12 Provider: Diagnosis: Last Documented On 2 9:33AM By DR. MARYBETH HOLLIDAY ; [facility] Diflucan 150 MG OR TABS 05/25/2012 - 10/05/2012 Provid er: Diagnosis: [place] Last Documented On 10/05/2012 3:24PM By ARPIT SNEED MD ; [facility] Flagyl 500 MG OR TABS 03/08/2012 - 07/13/2016 Provider : MARYBETH HOLLIDAY M.D. Diagnosis: VAGINITIS NOS Last Documented On 07/13/2016 2:35PM By LANDON BOBBY ; [facility] Sprintec 28 0.25-35 MG-MCG OR TABS 03/07/2012 - 10/05/2012 Provider: MARYBETH SCHERER M.D. Diagnosis: DYSMENORRHEA Last Documented On 10/05/2012 3:03PM By ANDREEA IGLESIAS ; [facility] Opti-Free RepleniSH SOLN 03/07/2012 - 06/25/2014 Provi liz: Diagnosis: FOR CLEAR VAGINAL DISCHARGE Last Documented On 4 11:31AM By YUE SALGADO ; [facility] Cbifnovvps-Kusiite-Eedipczb 50-325-40 MG OR TABS 03/07/2012 - 07/04/2015 Provider: Diagnosis: Last Documented On 07/04/2015 10:51AM By JAMES ROMERO RN ; [facility] Cipro 500 MG OR TABS 10/28/2011 - 03/07/2012 Provider: Diagnosis: Last Documented On 2 2:08PM By CINTHIA MARSHALL MA ; [facility] Gabapentin POWD 03/04/2011 - 06/19/2013 Provider: Lenny BRAR MD Diagnosis: Last Documented On 06/19/2013 11:32AM By ANDREEA IGLESIAS ; [facility] Topiramate POWD 03/04/2011 - 06/25/2014 Provider: Lenny BRAR MD Diagnosis: Last Documented On 4 11:31AM By YUE SALGADO ; [facility] Medications Administered Includes: Administered Medications in patient's chart No Administered Medications Recorded Results Includes: Results from 03/02/2024 through 03/02/2025 No Results Recorded For Specified Dates History of Present Illness History of Present Illness not supported for this document type No History of Present Illness Recorded Social History Description Last Updated Alcohol use occ 10/10/2019 Last Documented On 9 1:05PM ; [facility] In monogamous relationship 10/10/2019 Last Documented On 9 1:05PM ; [facility] Non-smoker 10/10/2019 Last Documented On 9 1:05PM ; [facility] Not using drugs 10/10/2019 Last Documented On 9 1:05PM ; [facility] Sexually active with 1 partners in the l ast year 10/10/2019 Last Documented On 9 1:05PM ; [facility] Smoking status : Never smoker 10/10/2019 Last Documented On 9 1:05PM ; [facility] Age of 1st intercourse was was 15 2010 Last Documented On 1 12:18PM ; [facility] Procedures and Surgical History Surgical History Last Updated History of hysterectomy 07/19/2017 Last Documented On 7 2:53PM ; [facility] Surgical / procedural history 06/2015 lap gastric bypass 07/13/2016 Last Documented On 6 4:38PM ; [facility] History of tubal ligation 06/25/2014 Last Documented On 4 11:51AM ; [facility] History of vaginal hysterectomy 06/19/20 13 Last Documented On 3 11:53AM ; [facility] History of surgical laparosc opic gastric restrictive procedure by adjustable gastric band 03/11/2011 Last Documented On 1 12:18PM ; [facility] Medical History Includes: Medical History in patient's chart Description Last Updated Sexually active 10/10/2019 Last Documented On 9 1:05PM ; [facility] History of complete colonoscopy 2015 Dr Clara peres[peat in 10 years 10/10/2019 Last Documented On 9 1:05PM ; [facility] History of Pap smear done 05/09/201709/22 Last Documented On 9 1:05PM ; [facility] History of screening mammogram was perfo rmed 10/02/2018 10/10/2019 Last Documented On 9 1:05PM ; [facility] Result: normal 10/10/2019 Last Documented On 9 1:05PM ; [facility] Aborta 2 07/19/2017 Last Documented On 7 2:53PM ; [facility] 2 07/19/2017 Last Documented On 7 2:53PM ; [facility] Para 2 07/19/2017 Last Documented On 7 2:53PM ; [facility] Status post tubal ligation 07/19/2017 Last Documented On 7 2:53PM ; [facility] History of asthma outgrew 05/09/2017 Last Documented On 7 1:42PM ; [facility] History of benign essential hypertension 10/27/2015 Last Documented On 5 3:16PM ; [facility] History of type 2 diabetes mellitus pt n o longer takes rx for it 10/27/2015 Last Documented On 5 3:16PM ; [facility] TL 03/18/2010 Last Documented On 0 8:32AM ; [facility] 2 elective (s) 03/18/2010 Last Documented On 0 8:32AM ; [facility] Anemia 03/18/2010 Last Documented On 0 8:32AM ; [facility] Asthma 03/18/2010 Last Documented On 0 8:32AM ; [facility] High cholesterol 03/18/2010 Last Documented On 0 8:32AM ; [facility] Family History Includes: Family History in patient's chart Description Last Updated Maternal grandmother's history of family history of heart disease mgm 10/10/2019 Last Documented On 9 1:05PM ; [facility] Maternal grandmother's history of hypert ension mgm,father 10/10/2019 Last Documented On 9 1:05PM ; [facility] Maternal grandmother's history of pure h ypercholesterolemia mgm 10/10/2019 Last Documented On 9 1:05PM ; [facility] Spouse name: Scooter 06/25/2014 Last Documented On 4 11:51AM ; [facility] Family history of Cancer 03/18/2010 Last Documented On 0 8:32AM ; [facility] Family history of thyroid disease (GM) 0 03/18/2010 Last Documented On 0 8:32AM ; [facility] Family medical history of Anemia 010 Last Documented On 0 8:32AM ; [facility] Family medical history of high blood pre ssure (GM, F) 03/18/2010 Last Documented On 0 8:32AM ; [facility] Family medical history of High Cholester ol (GM) 03/18/2010 Last Documented On 0 8:32AM ; [facility] Heart disease 03/18/2010 Last Documented On [...] Patient Last Documented On 2 9:32AM ; [facility] Td 1 Complete (Reported) [place] ent Last Documented On 1 11:51AM ; [facility] Allergies Includes: Active, inactive, and resolved Allergies Substance Type Reaction Onset Date Resolved Date Statu s Reglan Allergy 03/18/2010 Active Last Documented On 9 12:53PM ; [facility] Morphine Sulfate Allergy 03/18/2010 Ac tive Last Documented On 9 12:53PM ; [facility] metroNIDAZOLE Allergy 06/14/2012 Activ e Last Documented On 9 12:53PM ; [facility] Note: HEADACHE Demerol Allergy 03/18/2010 Active Last Documented On 9 12:53PM ; [facility] Aleve Allergy 03/18/2010 Active Last Documented On 9 12:53PM ; [facility] Clinical Notes Includes: Signed Clinical Notes starting from 12/10/2022 No Clinical Notes Recorded
--- OUTSIDE RECORDS SUMMARY | 2025-03-02 15:52 | XMS_ITS | Clinical Summary ---
Author Organization [facility] Address [address] [place] [address] Phone Care Team Providers Care Campaign Specialist Name Role Phone Hedy Calderon MD Primary [...] IRON PO Take by mouth. Activ e Danese-3 Fatty Acids (OMEGA 3 PO) Take by [...] is made to exams dated: 02/23/2021, 01/07/2020 [facility], and 10/02/2018 [facility]. BREAST TISSUE:The tissue of both breasts [...] exam. Electronically signed by: Gus kaplan/rachele:03/11/2022 15:09:30 Flute Grinder(s): RT Kodi(R)(M), [facility] letter sent: Normal Exam Reading location: [facility] BI-RADS: 1 Negative Procedure Note Gus [...] is made to exams dated: 02/23/2021, 01/07/2020 [facility], and 10/02/2018 [facility]. BREAST TISSUE:The tissue of both breasts [...] exam. Electronically signed by: Gus kaplan/rachele:03/11/2022 15:09:30 Flute Grinder(s): RT Kodi(R)(M), [facility] letter sent: Normal Exam Reading location: [facility] BI-RADS: 1 Negative Hedy Calderon MD IMG MAMMO ORDERABLES Final Result from Last 3 Months or Most Recently Relevant to Health Maintenance [facility] * Guarantor: [id number] Account Type Relation to Patient Date of Phone Billing Address Workers Comp Self [address] [place] [address] [id number] Care Teams Campaign Specialist Relationship Specialty Start Date End Date Hedy Calderon MD [address] [facility] [id number] [place] [id number] PCP - General 09/20/16
--- OUTSIDE RECORDS SUMMARY | 2025-03-02 15:52 | XMS_ITS | Clinical Summary ---
Author Organization [facility] Address [address] [place] [address] Care Team Providers Care Fagot Maker Name Role Phone Hedy Calderon MD Primary Care Provid er LeviDestinee MD Unavailable [phone] Allergies Active Allergy Reactions Criticality Noted Date [...] day 4 Active cyanocobalamin/fol ic acid (vitamin D06-mcrgj acid) 500-400 mcg tablet Oral A ctive omega 5-gla-xrl-fish oil 1,000 mg (250 mg-750 mg)/5 mL [...] 01/03/2025 Assessment & Plan (01/03/2025 1:42 PM SPANISH TRANSLATOR): Rx INDIVIDUALIZED FIRST LINE THERAPY PHYSICAL ACTIVITY: [...] 01/03/2025 Assessment & Plan (01/03/2025 12:35 PM SPANISH TRANSLATOR): Patient's initial BMI was 35; this has improved to 29 through medical and surgicale management Trochanteric bursitis of left hip 12/13/2024 Assessment & Plan (12/13/2024 10:32 AM SPANISH TRANSLATOR): The patient has aqzt-tq-ustxpdtj arthritis of the hip joint With trochanteric [...] 12/04/2024 Assessment & Plan (12/13/2024 10:33 AM SPANISH TRANSLATOR): The patient is current weight provides with [...] 12/04/2024 Assessment & Plan (01/03/2025 12:35 PM SPANISH TRANSLATOR): Continue current weight loss plan as outlined in note. Discuss low acid diet and use of antacid medications if necessary. A weight reduction of 10-15% body weight can result in improved symptom severity and frequency. Simi BROOKE, Allyson TA, Nicci C, et al. Nutritional considerations with antiobesity medications. Obesity ([place]). 2023; 1-19. doi:[email or web address] Mixed hyperlipidemia 12/04/2024 Chronic constipation 05/18/2024 Assessment [...] 12/22/2023 Assessment & Plan (12/22/2023 1:41 PM SPANISH TRANSLATOR): Radiographically the patient has mild arthritis of [...] 12/22/2023 Assessment & Plan (12/22/2023 1:41 PM SPANISH TRANSLATOR): Patient has a component of trochanteric bursitis [...] 12/24/2019 Assessment & Plan (12/24/2019 11:33 AM SPANISH TRANSLATOR): Assessment Cervical strain. Plan Recommended treatment is [...] 12/24/2019 Assessment & Plan (12/24/2019 11:34 AM SPANISH TRANSLATOR): See plan for cervical spine. Panic disorder [...] Hypertension Assessment & Plan (01/03/2025 12:35 PM SPANISH TRANSLATOR): Continue current weight loss plan as outlined in note. Weight loss of 5-10% of total body weight can result in improved systolic and diastolic blood pressure. Simi COX, Allyson TA, Nicci C, et al. Nutritional considerations with antiobesity medications. Obesity ([place]). 2023; 1-19. doi:[email or web address] Insomnia 04/06/2014 Overview (02/25/2017): Insomnia Assessment & [...] Team Description 02/27/2025 4:00 PM CDT Telemedicine [facility] General Neurology [address] 6th [address] [place] [address] Shanta Negro MD PhD Migraine without aura, intractable, without status migrainosus (Primary Dx); Chronic insomnia 01/15/2025 8:30 AM SPANISH TRANSLATOR Office Visit [facility] Care at [address] [address] Radha Lynn NP Abrasion of left cornea, subsequent encounter (Primary Dx) 01/03/2025 1:30 PM SPANISH TRANSLATOR Office Visit [facility] Diabetes and Nutrition Services [address], [address] [place] [address] Barb Bae PA Encounter for weight management (Primary Dx); Gastroesophageal reflux disease without esophagitis; Primary hypertension; 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 35.9 in adult 12/31/2024 11:03 AM SPANISH TRANSLATOR - 12/31/2024 11:59 PM SPANISH TRANSLATOR Hospital Encounter [facility] Imaging and Radiology [address] [place] [address] Dense breast tissue; Family history of breast cancer Discharge Disposition: Discharge to home or self care 12/13/2024 9:45 AM SPANISH TRANSLATOR Office Visit [facility] Orthopedics and Sports Medicine at [address] [address] Hugo Bishop MD Arthritis of left hip (Primary Dx); Trochanteric bursitis of left hip; BMI 29.0-29.9,adult 12/13/2024 9:41 AM SPANISH TRANSLATOR - 12/13/2024 11:59 PM SPANISH TRANSLATOR Hospital Encounter [facility] [address] [place] [phone] Discharge Disposition: Discharge to home or self care 12/13/2024 Telephone [facility] Diabetes and Nutrition Services [address] [place] [address] Medical Office [address], [address] [place] [phone] Keila Lao, DETONATOR MAKER Side Effects 12/11/2024 Telephone [facility] at [address] [place] [address] [place] [address] Hedy Calderon MD Medical Question/Miscellaneabel s 12/05/2024 11:15 AM SPANISH TRANSLATOR Lab [address] [address] Encounter for weight management; Metabolic syndrome; Dietary counseling; Exercise counseling; Overweight (BMI 25.0-29.9) 12/05/2024 10:20 AM SPANISH TRANSLATOR - 12/05/2024 11:59 PM SPANISH TRANSLATOR Hospital Encounter [facility] [address] [place] [address] Encounter for weight management; Metabolic syndrome; Dietary counseling; Exercise counseling; Overweight (BMI 25.0-29.9) Discharge Disposition: Discharge to home or self care 12/04/2024 9:40 AM SPANISH TRANSLATOR Office Visit [facility] Diabetes and Nutrition Services [address] [place] [address] Flakita Mckeon MD Encounter for [...] on file Legal Sex Female 1:07 AM SPANISH TRANSLATOR Gender Identity Female 03/22/2020 1:35 PM CDT [...] Comments Blood Pressure 124/82 01/15/2025 8:35 AM SPANISH TRANSLATOR Pulse 85 01/15/2025 8:35 AM SPANISH TRANSLATOR Temperature 36.8 C (98.3 F) 01/15/2025 8:35 AM SPANISH TRANSLATOR Respiratory Rate 18 01/15/2025 8:35 AM SPANISH TRANSLATOR Oxygen Saturation 98% 01/15/2025 8:35 AM SPANISH TRANSLATOR Inhaled Oxygen Concentration - - Weight 62.7 kg (138 lb 4.8 oz) 01/15/2025 8:35 A M SPANISH TRANSLATOR Height 147.3 cm (4' 9.99 ) 01/15/2025 8:35 AM CS T Body Mass Index 28.91 01/15/2025 8:35 AM SPANISH TRANSLATOR Plan of Treatment Health Maintenance Due Date [...] Read Routine (OP Routine) 12/31/2024 12:32 PM SPANISH TRANSLATOR Dense breast tissue Family history of breast cancer XR HIP LEFT W PELVIS 2 OR 3 VIEWS Schedule Routine, Read Routine (OP Routine) 12/13/2024 9:58 AM SPANISH TRANSLATOR Arthritis of left hip UT ARTHROCENTESIS ASPIR&/INJ MAJOR JT/BURSA W/O US Routine 12/13/2024 9:45 AM SPANISH TRANSLATOR Trochanteric bursitis of left hip BLOOD MISC TO [place] Routine 12/05/2024 11 :45 AM SPANISH TRANSLATOR PROTIME-INR Routine 12/05/2024 11:45 AM SPANISH TRANSLATOR Encounter for weight management Metabolic syndrome Dietary counseling Exercise counseling Overweight (BMI 25.0-29.9) CBC WITHOUT DIFFERENTIAL Routine 12/05/2024 11:45 AM SPANISH TRANSLATOR Encounter for weight management Metabolic syndrome Dietary counseling Exercise counseling Overweight (BMI 25.0-29.9) EGFR Routine 12/05/2024 11:44 AM SPANISH TRANSLATOR Encounter for weight management Metabolic syndrome Dietary counseling Exercise counseling Overweight (BMI 25.0-29.9) GAMMA GT Routine 12/05/2024 11:44 AM SPANISH TRANSLATOR Encounter for weight management Metabolic syndrome Dietary counseling Exercise counseling Overweight (BMI 25.0-29.9) T3, FREE Routine 12/05/2024 11:44 AM SPANISH TRANSLATOR Encounter for weight management Metabolic syndrome Dietary counseling Exercise counseling Overweight (BMI 25.0-29.9) VITAMIN B12 Routine 12/05/2024 11:44 AM SPANISH TRANSLATOR Encounter for weight management Metabolic syndrome Dietary counseling Exercise counseling Overweight (BMI 25.0-29.9) LIPID PANEL Routine 12/05/2024 11:44 AM SPANISH TRANSLATOR Encounter for weight management Metabolic syndrome Dietary counseling Exercise counseling Overweight (BMI 25.0-29.9) IRON PROFILE W/ IBC Routine 12/05/2024 1 1:44 AM SPANISH TRANSLATOR Encounter for weight management Metabolic syndrome Dietary counseling Exercise counseling Overweight (BMI 25.0-29.9) FOLATE Routine 12/05/2024 11:44 AM SPANISH TRANSLATOR Encounter for weight management Metabolic syndrome Dietary counseling Exercise counseling Overweight (BMI 25.0-29.9) FERRITIN Routine 12/05/2024 11:44 AM SPANISH TRANSLATOR Encounter for weight management Metabolic syndrome Dietary counseling Exercise counseling Overweight (BMI 25.0-29.9) COMPREHENSIVE METABOLIC PANEL Routine 12/05/2024 11:44 AM SPANISH TRANSLATOR Encounter for weight management Metabolic syndrome Dietary counseling Exercise counseling Overweight (BMI 25.0-29.9) URIC ACID Routine 12/05/2024 11:44 AM SPANISH TRANSLATOR Encounter for weight management Metabolic syndrome Dietary counseling Exercise counseling Overweight (BMI 25.0-29.9) LIPASE Routine 12/05/2024 11:44 AM SPANISH TRANSLATOR Encounter for weight management Metabolic syndrome Dietary counseling Exercise counseling Overweight (BMI 25.0-29.9) AMYLASE Routine 12/05/2024 11:44 AM SPANISH TRANSLATOR Encounter for weight management Metabolic syndrome Dietary counseling Exercise counseling Overweight (BMI 25.0-29.9) TSH Routine 12/05/2024 11:44 AM SPANISH TRANSLATOR Encounter for weight management Metabolic syndrome Dietary counseling Exercise counseling Overweight (BMI 25.0-29.9) T4, FREE Routine 12/05/2024 11:44 AM SPANISH TRANSLATOR Encounter for weight management Metabolic syndrome Dietary counseling Exercise counseling Overweight (BMI 25.0-29.9) PHOSPHORUS Routine 12/05/2024 11:05 AM SPANISH TRANSLATOR Encounter for weight management Metabolic syndrome Dietary counseling Exercise counseling Overweight (BMI 25.0-29.9) MAGNESIUM Routine 12/05/2024 11:05 AM SPANISH TRANSLATOR Encounter for weight management Metabolic syndrome Dietary counseling Exercise counseling Overweight (BMI 25.0-29.9) CRP, HIGH SENSITIVITY Routine 12/05/2024 11:05 AM SPANISH TRANSLATOR Encounter for weight management Metabolic syndrome Dietary counseling Exercise counseling Overweight (BMI 25.0-29.9) INSULIN, TOTAL Routine 12/05/2024 11:05 AM SPANISH TRANSLATOR Encounter for weight management Metabolic syndrome Dietary counseling Exercise counseling Overweight (BMI 25.0-29.9) PTH Routine 12/05/2024 11:05 AM SPANISH TRANSLATOR Encounter for weight management Metabolic syndrome Dietary counseling Exercise counseling Overweight (BMI 25.0-29.9) VITAMIN D 25 HYDROXY Routine 12/05/2024 11:04 AM SPANISH TRANSLATOR Encounter for weight management Metabolic syndrome Dietary counseling Exercise counseling Overweight (BMI 25.0-29.9) HEMOGLOBIN A1C Routine 12/05/2024 11:04 AM SPANISH TRANSLATOR Encounter for weight management Metabolic syndrome Dietary counseling Exercise counseling Overweight (BMI 25.0-29.9) ALBUMIN CREATININE RATIO, URINE Routine 12/05/2024 11:04 AM SPANISH TRANSLATOR Encounter for weight management Metabolic syndrome Dietary counseling Exercise counseling Overweight (BMI 25.0-29.9) VITAMIN E Routine 12/05/2024 11:04 AM SPANISH TRANSLATOR Encounter for weight management Metabolic syndrome Dietary counseling Exercise counseling Overweight (BMI 25.0-29.9) VITAMIN A Routine 12/05/2024 11:04 AM SPANISH TRANSLATOR Encounter for weight management Metabolic syndrome Dietary counseling Exercise counseling Overweight (BMI 25.0-29.9) ZINC Routine 12/05/2024 11:04 AM SPANISH TRANSLATOR Encounter for weight management Metabolic syndrome Dietary counseling Exercise counseling Overweight (BMI 25.0-29.9) VITAMIN B6 Routine 12/05/2024 11:04 AM SPANISH TRANSLATOR Encounter for weight management Metabolic syndrome Dietary counseling Exercise counseling Overweight (BMI 25.0-29.9) COPPER, SERUM Routine 12/05/2024 11:04 AM SPANISH TRANSLATOR Encounter for weight management Metabolic syndrome Dietary counseling Exercise counseling Overweight (BMI 25.0-29.9) VITAMIN B1 Routine 12/05/2024 11:04 AM SPANISH TRANSLATOR Encounter for weight management Metabolic syndrome Dietary counseling Exercise counseling Overweight (BMI 25.0-29.9) URINALYSIS AND REFLEX TO MICROSCOPIC AND CULTURE Routine 12/05/2024 11:04 AM SPANISH TRANSLATOR Encounter for weight management Metabolic syndrome Dietary counseling Exercise counseling Overweight (BMI 25.0-29.9) US LIVER Schedule Routine, Read Routine (OP Routine) 12/05/2024 10:50 AM SPANISH TRANSLATOR Encounter for weight management Metabolic syndrome Dietary counseling Exercise counseling Overweight (BMI 25.0-29.9) ECG 12-LEAD Routine 12/04/2024 9:44 AM SPANISH TRANSLATOR Encounter for weight management SCREENING MAMMOGRAM BILATERAL W JAD Schedule Routine, Read Routine (OP Routine) 11/06/2024 10:01 AM SPANISH TRANSLATOR Encounter for screening for malignant neoplasm of breast, unspecified screening modality COLONOSCOPY 08/03/2024 9:31 AM CDT from Last 3 Months or Most Recently Relevant to Health Maintenance Results * MRI Breast Bilateral W WO Contrast (12/31/2024 12:32 PM SPANISH TRANSLATOR) Anatomical Region Laterality Modality Breast Bilateral Magnetic Resonan ce 12/31/2024 1:53 PM SPANISH TRANSLATOR Impressions 12/31/2024 2:58 PM SPANISH TRANSLATOR No MR evidence of malignancy in either [...] Vazquez Gonzales MD Narrative 12/31/2024 2:58 PM SPANISH TRANSLATOR EXAMINATION: 1. MRI EXAMINATION OF THE BREASTS [...] portions of either axilla. us Alize Benito AUXILIARY POWERPLANT OPERATOR IMG MRI PROCEDURES Ana Maria l Result * XR Hip Left W Pelvis Min 2 To 3 Views (12/13/2024 9:58 AM SPANISH TRANSLATOR) Anatomical Region Laterality Modality Lower Extremities, Hip, Pelvis Left C omputed Radiography Narrative 12/13/2024 10:35 AM SPANISH TRANSLATOR AP pelvis lateral views of the left hip reveal joint space narrowing with osteophyte formation of the left hip joint with more pronounced joint space narrowing sclerosis of the SI joint us Hugo Bishop MD IMG XR PROCEDURES Final Res ult * UT ARTHROCENTESIS ASPIR&/INJ MAJOR JT/BURSA W/O US (12/13/2024 9:45 AM SPANISH TRANSLATOR) Narrative Hugo Bishop MD - 12/13/2024 9:45 AM SPANISH TRANSLATOR Hugo Bishop MD 12/13/2024 10:36 AM Large [...] S Final Result * BLOOD MISC TO [place] (12/05/2024 11:45 AM SPANISH TRANSLATOR) Test name, chem [facility] ref Lab Misc See Footnote JEAN CLAUDE MAYO Comment: Test Result Flag Unit RefValue Selenium, B 185 ng/mL 150-241 ADDITIONAL INFORMATION This test was developed and its performance characteristics determined by [facility] in a manner consistent with CLIA requirements. This test has not been cleared or approved by the U.S. Food and Drug Administration. Test Performed by: [facility] [place] [address] Pie Maker Machine: Eb Bazzi Ph.D.; CLIA# [id number] Blood 12/05/2024 11:4 5 AM SPANISH TRANSLATOR 12/05/2024 1:53 PM SPANISH TRANSLATOR Narrative JEAN CLAUDE MAYO - 12/10/2024 12:32 PM SPANISH TRANSLATOR SELENIUM us Hedy Calderon MD LAB BLOOD ORDERABLES Final Result JEAN CLAUDE MAYO [address] Department [place] [address] [facility] ref Lab * Protime-INR (12/05/2024 11:45 AM SPANISH TRANSLATOR) PT 11.7 9.7 - 13.0 sec INR 1.08 0.90 - 1.20 JEAN CLAUDE MAYO Comment: Interpretive data Oral anticoagulant therapeutic ranges: Venous thromboembolism prophylaxis or treatment: 2.0-3.0 CARDIOLOGY Standard range: 2.0-3.0 High-intensity range: 2.5-3.5 Refer to indication-specific guidelines for appropriate target ranges for prosthetic heart valve replacement. Current interpretive data was last revised on 2019. Blood 12/05/2024 11:4 5 AM SPANISH TRANSLATOR 12/05/2024 11:45 AM SPANISH TRANSLATOR Flakita Mckeon MD LAB BLOOD ORDERABLES Final Res ult Performing Organization Address [facility] Co de Phone Number JEAN CLAUDE MAYO [address] [place] [address] * (ABNORMAL) CBC without differential (12/05/2024 11:45 AM SPANISH TRANSLATOR) WBC 4.8 3.8 - 9.9 K/cumm Hgb 11.9 11.9 - 15.5 g/dL [facility] Hct 38.2 35.6 - 45.5 % [facility] Plt 315 150 - 400 K/cumm [facility] MPV 9.3 9.1 - 12.3 fL [facility] RBC 4.19 3.90 - 5.20 M/cumm [facility] MCV 91.2 81.3 - 96.4 fL [facility] MCH 28.4 27.1 - 33.3 pg [facility] MCHC 31.2(L) 32.3 - 35.7 g/dL [facility] RDW CV 14.6 11.1 - 14.9 % [facility] RDW SD 48.8(H) 35.7 - 48.1 fL [facility] NRBC abs 0.00 0.00 - 0.01 K/cumm [facility] Blood 12/05/2024 11:4 5 AM SPANISH TRANSLATOR 12/05/2024 11:45 AM SPANISH TRANSLATOR Flakita Mckeon MD LAB BLOOD ORDERABLES Final Res ult Performing Organization Address [facility] Co de Phone Number JEAN CLAUDE MAYO [address] [place] [address] * eGFR (12/05/2024 11:44 AM SPANISH TRANSLATOR) eGFR >90 >=60 mL/min/1. 73 m2 Comment: [...] reviewed 2021. Blood 12/05/2024 11:4 4 AM SPANISH TRANSLATOR 12/05/2024 11:44 AM SPANISH TRANSLATOR us Flakita Mckeon MD LAB BLOOD ORDERABLES Final Res ult JEAN CLAUDE [address] Department [place] [address] * (ABNORMAL) Iron profile w/ IBC (12/05/2024 11:44 AM SPANISH TRANSLATOR) Iron 65 35 - 145 mcg/dL Comment:Testing performed by : [place], [address] TIBC 248(L) 250 - 400 mcg/dL JEAN CLAUDE Comment:Testing performed by : [place], [address] Transferrin saturation 26 20 - 50 % JEAN CLAUDE Comment:Testing performed by : [place], [address] Blood 12/05/2024 11:4 4 AM SPANISH TRANSLATOR 12/05/2024 11:44 AM SPANISH TRANSLATOR us Flakita Mckeon MD LAB BLOOD ORDERABLES Final Res ult Performing Organization Address [facility] Co de Phone Number JEAN CLAUDE MAYO [address] [facility] [place] [address] * Uric acid (12/05/2024 11:44 AM SPANISH TRANSLATOR) Uric acid 3.0 2.5 - 7.0 mg/dL Blood 12/05/2024 11:4 4 AM SPANISH TRANSLATOR 12/05/2024 11:44 AM SPANISH TRANSLATOR us Flakita Mckeon MD LAB BLOOD ORDERABLES Final Res ult Performing Organization Address [facility] de Phone Number JEAN CLAUDE MAYO [address] [place] [address] * T3, free (12/05/2024 11:44 AM SPANISH TRANSLATOR) Free T3 3.0 2.0 - 4.4 pg/mL Comment:Testing performed by : [facility], [address] [place]., [address] Blood 12/05/2024 11:4 4 AM SPANISH TRANSLATOR 12/05/2024 4:35 PM SPANISH TRANSLATOR us Flakita Mckeon MD LAB BLOOD ORDERABLES Final Res ult Performing Organization Address [facility] Co de Phone Number JEAN CLAUDE [address] Department [place] [address] * TSH (12/05/2024 11:44 AM SPANISH TRANSLATOR) Thyroid Stimulating Hormone 0.73 0.30 - 4.20 mcIUnit/mL Blood 12/05/2024 11:4 4 AM SPANISH TRANSLATOR 12/05/2024 11:44 AM SPANISH TRANSLATOR us Flakita Mckeon MD LAB BLOOD ORDERABLES Final Res ult Performing Organization Address [facility] Co de Phone Number JEAN CLAUDE MAYO [address] [facility] [place] [address] * (ABNORMAL) T4, free (12/05/2024 11:44 AM SPANISH TRANSLATOR) Free T4 0.86(L) 0.90 - 1.70 ng/dL Blood 12/05/2024 11:4 4 AM SPANISH TRANSLATOR 12/05/2024 11:44 AM SPANISH TRANSLATOR Flakita Mckeon MD LAB BLOOD ORDERABLES Final Res ult Performing Organization Address [facility] Co de Phone Number JEAN CLAUDE MAYO [address] [place] [address] * Lipase (12/05/2024 11:44 AM SPANISH TRANSLATOR) Lipase 20 10 - 99 Units/L Blood 12/05/2024 11:4 4 AM SPANISH TRANSLATOR 12/05/2024 11:44 AM SPANISH TRANSLATOR Flakita Mckeon MD LAB BLOOD ORDERABLES Final Res ult Performing Organization Address [facility] Co de Phone Number STARRMERYL MAYO [phone] [place] [address] * Gamma GT (12/05/2024 11:44 AM SPANISH TRANSLATOR) GGT 16 5 - 35 Units/L Comment:Testing performed by : [facility], [address] [facility], [place], [address] Blood 12/05/2024 11:4 4 AM SPANISH TRANSLATOR 12/05/2024 11:44 AM SPANISH TRANSLATOR us Flakita Mckeon MD LAB BLOOD ORDERABLES Final Res ult Performing Organization Address [facility] Co de Phone Number JEAN CLAUDE [address] [place] [address] * Folate (12/05/2024 11:44 AM SPANISH TRANSLATOR) Folic acid 19.3 >=5.0 ng/mL Comment:Hemolysis present. R esults may be affected. Blood 12/05/2024 11:4 4 AM SPANISH TRANSLATOR 12/05/2024 11:44 AM SPANISH TRANSLATOR Flakita Mckeon MD LAB BLOOD ORDERABLES Final Res ult Performing Organization Address [facility] Co de Phone Number [facility] [address] [facility] [place] [address] * Ferritin (12/05/2024 11:44 AM SPANISH TRANSLATOR) Pathologist [facility] Ferritin 148 15 - 150 ng/mL Blood 12/05/2024 11:4 4 AM SPANISH TRANSLATOR 12/05/2024 11:44 AM SPANISH TRANSLATOR Flakita Mckeon MD LAB BLOOD ORDERABLES Final Res ult Performing Organization Address [facility] de Phone Number [facility] [address] [facility] [place] [address] * Vitamin B12 (12/05/2024 11:44 AM SPANISH TRANSLATOR) Pathologist [facility] Vitamin B12 993 230 - 1,250 pg/mL Blood 12/05/2024 11:4 4 AM SPANISH TRANSLATOR 12/05/2024 11:44 AM SPANISH TRANSLATOR Flakita Mckeon MD LAB BLOOD ORDERABLES Final Res ult Performing Organization Address [facility] de Phone Number [facility] [address] [facility] [place] [address] * Amylase (12/05/2024 11:44 AM SPANISH TRANSLATOR) Amylase 45 30 - 99 Units/L Blood 12/05/2024 11:4 4 AM SPANISH TRANSLATOR 12/05/2024 11:44 AM SPANISH TRANSLATOR us Flakita Mckeon MD LAB BLOOD ORDERABLES Final Res ult JEAN CLAUDE [address] Department [place] [address] * Lipid panel (12/05/2024 11:44 AM SPANISH TRANSLATOR) Cholesterol 174 30 - 199 mg/dL Comment: [...] CLAUDE MAYO Blood 12/05/2024 11:4 4 AM SPANISH TRANSLATOR 12/05/2024 11:44 AM SPANISH TRANSLATOR us Flakita Mckeon MD LAB BLOOD ORDERABLES Final Res ult JEAN CLAUDE [address] Department [place] [address] * Comprehensive metabolic panel (12/05/2024 11:44 AM SPANISH TRANSLATOR) Sodium 140 135 - 145 mmol/L Potassium, [...] CERNER CH Blood 12/05/2024 11:4 4 AM SPANISH TRANSLATOR 12/05/2024 11:44 AM SPANISH TRANSLATOR us Flakita Mckeon MD LAB BLOOD ORDERABLES Final Res ult JEAN CLAUDE MAYO [address] Department [place] [address] * Insulin, total (12/05/2024 11:05 AM SPANISH TRANSLATOR) Insulin 5.0 2.6 - 25.0 mcIUnit/mL Comment:Testing performed by : [facility], [address] [facility], [place]., [address] Blood 12/05/2024 11:0 5 AM SPANISH TRANSLATOR 12/05/2024 4:09 PM SPANISH TRANSLATOR Flakita Mckeon MD LAB BLOOD ORDERABLES Final Res ult Performing Organization Address City/[facility] Co de Phone Number JEAN CLAUDE MAYO [address] [place] [address] * CRP (cardiac risk) (12/05/2024 11:05 AM SPANISH TRANSLATOR) hsCRP <0.50 mg/L Comment: Repeated and Verified [...] last revised on 2018. Testing performed by: [facility], [address] [facility], [place]., [address] Blood 12/05/2024 11:0 5 AM SPANISH TRANSLATOR 12/05/2024 4:09 PM SPANISH TRANSLATOR us Flakita Mckeon MD LAB BLOOD ORDERABLES Final Res ult Performing Organization Address City/[facility]/ZIP Co de Phone Number JEAN CLAUDE MAYO [phone] [address] [place] [address] * Phosphorus (12/05/2024 11:05 AM SPANISH TRANSLATOR) Phosphorus, pl 3.2 2.3 - 4.5 mg/dL Blood 12/05/2024 11:0 5 AM SPANISH TRANSLATOR 12/05/2024 11:38 AM SPANISH TRANSLATOR Flakita Mckeon MD LAB BLOOD ORDERABLES Final Res ult Performing Organization Address [facility] Co de Phone Number JEAN CLAUDE MAYO [address] [facility] [place] [address] * PTH (12/05/2024 11:05 AM SPANISH TRANSLATOR) PTH 64 15 - 65 pg/mL Blood 12/05/2024 11:0 5 AM SPANISH TRANSLATOR 12/05/2024 11:38 AM SPANISH TRANSLATOR Flakita Mckeon MD LAB BLOOD ORDERABLES Final Res ult Performing Organization Address [facility] de Phone Number STARRMERYL [address] [facility] [place] [address] * Magnesium (12/05/2024 11:05 AM SPANISH TRANSLATOR) Magnesium 2.1 1.4 - 2.5 mg/dL Blood 12/05/2024 11:0 5 AM SPANISH TRANSLATOR 12/05/2024 11:38 AM SPANISH TRANSLATOR Flakita Mckeon MD LAB BLOOD ORDERABLES Final Res ult Performing Organization Address [facility] de Phone Number STARRMERYL [address] [facility] [place] [address] * Urinalysis reflex to microscopic and culture Urine (12/05/2024 11:04 AM SPANISH TRANSLATOR) Color, ur Yellow Yellow Clarity, ur Clear Clear [facility] Specific gravity, ur 1.010 1.003 - 1.030 [facility] pH, urine 7.5 [facility] Comment: Interpretive Data U rine pH is affected by diet, medications, systemic acid-base disturbances, and renal tubular function. pH may affect urinary stone formation. For example, urine pH below 6.0 may help reduce the tendency for calcium phosphate stones and pH greater than 6.0 may reduce the tendency for uric acid stone formation. Source: [facility] Current Interpretive Data was last revised on [...] met. CERNER Urine 12/05/2024 11:0 4 AM SPANISH TRANSLATOR 12/05/2024 11:45 AM SPANISH TRANSLATOR Flakita Mckeon MD LAB MICROBIOLOGY - GENERAL ORD ERABLES Final Result Performing Organization Address [facility] Co de Phone Number JEAN CLAUDE GAEL [address] [address] [place] [address] * Copper, serum (12/05/2024 11:04 AM SPANISH TRANSLATOR) Copper 107 77 - 206 mcg/dL [facility] Comment: ADDITIONAL INFORMATION This test was developed and its performance characteristics determined by [facility] in a manner consistent with CLIA requirements. This test has not been cleared or approved by the U.S. Food and Drug Administration. Test Performed by: [facility] - [address] [address] [employer]: Eb Bazzi Ph.D.; CLIA# [id number] Blood 12/05/2024 11:0 4 AM SPANISH TRANSLATOR 12/05/2024 11:43 AM SPANISH TRANSLATOR Flakita Mckeon MD LAB BLOOD ORDERABLES Final Res ult Performing Organization Address [facility] Co de Phone Number STARRMERYL [address] [address] Department [employer] [place], [place] [id number] [facility] * Albumin Creatinine Ratio, Urine (12/05/2024 11:04 AM SPANISH TRANSLATOR) [facility] Albumin Ur <12.0 mg/L Comment: Interpretive Data No reference range established. Current interpretive data was last revised 2019. Creatinine Ur 47.7 mg/dL [facility] Comment: Interpretive Data No reference range established. Current interpretive data was last revised 2019. Albumin Creatinine Ratio, Ur <25 1 - 29 mg/g [facility] Urine 12/05/2024 11:0 4 AM SPANISH TRANSLATOR 12/05/2024 11:45 AM SPANISH TRANSLATOR Flakita Mckeon MD LAB URINE ORDERABLES Final Res ult Performing Organization Address [facility] de Phone Number [facility] [address] [address] [place] [address] * Zinc (12/05/2024 11:04 AM SPANISH TRANSLATOR) [facility] Zinc 66 60 - 106 mcg/dL [facility] Comment: ADDITIONAL INFORMATION This test was developed and its performance characteristics determined by [facility] in a manner consistent with CLIA requirements. This test has not been cleared or approved by the U.S. Food and Drug Administration. Test Performed by: [facility] [place] [address] [employer]: Eb Bazzi Ph.D.; CLIA# [id number] Blood 12/05/2024 11:0 4 AM SPANISH TRANSLATOR 12/05/2024 11:41 AM SPANISH TRANSLATOR Flakita Mckeon MD LAB BLOOD ORDERABLES Final Res ult Performing Organization Address [facility] de Phone Number JEAN CLAUDE [address] [address] [facility] [place] [address] [facility] * Vitamin A (12/05/2024 11:04 AM SPANISH TRANSLATOR) Vitamin A 57.6 32.5 - 78.0 mcg/dL [facility] Comment: ADDITIONAL INFORMATION This test was developed and its performance characteristics determined by [facility] in a manner consistent with CLIA requirements. This test has not been cleared or approved by the U.S. Food and Drug Administration. Test Performed by: [facility] - [address] [address] [employer] Machine: Eb Bazzi Ph.D.; CLIA# [id number] Blood 12/05/2024 11:0 4 AM SPANISH TRANSLATOR 12/05/2024 11:41 AM SPANISH TRANSLATOR Flakita Mckeon MD LAB BLOOD ORDERABLES Final Res ult Performing Organization Address [facility] de Phone Number JEAN CLAUDE [address] [address] [employer] [place], [place] [phone] [facility] * Vitamin D 25 hydroxy (12/05/2024 11:04 AM SPANISH TRANSLATOR) Pathologist [facility] Vitamin D 25-OH 70 30 - 80 ng/mL Blood 12/05/2024 11:0 4 AM SPANISH TRANSLATOR 12/05/2024 11:41 AM SPANISH TRANSLATOR Flakita Mckeon MD LAB BLOOD ORDERABLES Final Res ult Performing Organization Address [facility] [place] [address] [facility] [place] [address] * Vitamin E (12/05/2024 11:04 AM SPANISH TRANSLATOR) Pathologist [facility] Tocopherol (Vit E) 12.1 5.5 - 17.0 mg/L [facility] Comment: ADDITIONAL INFORMATION This test was developed and its performance characteristics determined by [facility] in a manner consistent with CLIA requirements. This test has not been cleared or approved by the U.S. Food and Drug Administration. Test Performed by: [facility] [place] [address] [employer] Machine: Eb Bazzi Ph.D.; CLIA# [id number] Blood 12/05/2024 11:0 4 AM SPANISH TRANSLATOR 12/05/2024 1:58 PM SPANISH TRANSLATOR Flakita Mckeon MD LAB BLOOD ORDERABLES Final Res ult Performing Organization Address [facility] Co de Phone Number JEAN CLAUDE MAYO [address] [address] [place] [address] [facility] * Vitamin B1 (12/05/2024 11:04 AM SPANISH TRANSLATOR) Thiamine (Vit B1) 134 70 - 180 nmol/L [facility] Comment: ADDITIONAL INFORMATION This test was developed and its performance characteristics determined by [facility] in a manner consistent with CLIA requirements. This test has not been cleared or approved by the U.S. Food and Drug Administration. Test Performed by: [facility] [place] [address] [employer] Maker Machine: Eb Bazzi Ph.D.; CLIA# [id number] Blood 12/05/2024 11:0 4 AM SPANISH TRANSLATOR 12/05/2024 11:41 AM SPANISH TRANSLATOR Flakita Mckeon MD LAB BLOOD ORDERABLES Final Res ult Performing Organization Address [facility] Co de Phone Number STARRMERYL MAYO [address] [address] [place] [address] [facility] * Vitamin B6 (12/05/2024 11:04 AM SPANISH TRANSLATOR) Pyridoxal phosphate (Vit B6) 43 5 - 50 mcg/L [facility] Comment: ADDITIONAL INFORMATION This test was developed and its performance characteristics determined by [facility] in a manner consistent with CLIA requirements. This test has not been cleared or approved by the U.S. Food and Drug Administration. Test Performed by: [facility] [address] [place] [address] [employer] Maker Machine: Eb Bazzi Ph.D.; CLIA# [id number] Blood 12/05/2024 11:0 4 AM SPANISH TRANSLATOR 12/05/2024 11:40 AM SPANISH TRANSLATOR Flakita Mckeon MD LAB BLOOD ORDERABLES Final Res ult Performing Organization Address City/[facility] Co de Phone Number JEAN CLAUDE MAYO [address] [place] [address] [facility] * (ABNORMAL) Hemoglobin A1c (12/05/2024 11:04 AM SPANISH TRANSLATOR) Pathologist [facility] Hgb A1C 6.1(H) 4.0 - 5.6 % Comment:Testing performed by : [facility], [address] [place]., [address] Estimated Average Glucose 128 mg/dL JEAN CLAUDE MAYO Comment: The ADA recommends reporting an estimated Average Glucose (eAG) with all Hemoglobin A1c results using the equation derived from a study of 507 normal and diabetic adults. Minority populations were underrepresented and children were not included. (Diabetes Care 2020; 43(S1): S66-S76). The eAG is not equivalent to a fasting glucose. Testing performed by: [facility], [address] [place]., [address] Blood 12/05/2024 11:0 4 AM SPANISH TRANSLATOR 12/05/2024 11:39 AM SPANISH TRANSLATOR Flakita Mckeon MD LAB BLOOD ORDERABLES Final Res ult Performing Organization Address City/[facility]/ZIP Co de Phone Number JEAN CLAUDE MAYO [address] [place] [address] [phone] * US Liver (12/05/2024 10:50 AM SPANISH TRANSLATOR) Anatomical Region Laterality Modality Abdomen N/A Ultrasound 12/05/2024 11:2 7 AM SPANISH TRANSLATOR Impressions 12/05/2024 11:27 AM SPANISH TRANSLATOR 1. Small amount of sludge in the gallbladder. 2. The liver and bile ducts appear normal. 3. No evidence of ascites. Electronically signed by: Jaya Hatch M.D. Narrative 12/05/2024 11:27 AM SPANISH TRANSLATOR EXAM: US LIVER DATE: 12/05/2024 10:30 AM [...] Electronically signed by: Jaya Hatch M.D. Result [facility] Flakita Mckeon [place] [facility] [place]ED[place] Final Result * ECG 12 lead (12/04/2024 9:44 AM SPANISH TRANSLATOR) Result [facility] Flakita Mckeon MD ECG ORDERABLES Final Result * Screening Mammogram Bilateral W Jad (11/06/2024 10:01 AM SPANISH TRANSLATOR) Anatomical Region Laterality Modality Breast Bilateral Mammography 11/06/2024 10:4 0 AM SPANISH TRANSLATOR Impressions 11/06/2024 10:40 AM SPANISH TRANSLATOR No evidence of malignancy in either breast. FINAL ASSESSMENT: BI-RADS Category 1: Negative. RECOMMENDATION: 1. Annual screening mammography is recommended. 2. Consider breast MRI for supplemental screening given reported strong family history of breast cancer. Electronically signed by: SEBASTIAN MCKINNEY MD Narrative 11/06/2024 10:40 AM SPANISH TRANSLATOR EXAMINATION: BILATERAL SCREENING MAMMOGRAM COMPARISON: All prior mammograms dating back to 2014. TECHNIQUE: Full-field 2D and digital breast tomosynthesis (DBT) images were obtained. CAD was utilized. BREAST PARENCHYMAL COMPOSITION: The breasts are heterogenously dense, which may obscure small masses. FINDINGS: There is no suspicious mass, calcification, or distortion in either breast. Result [facility] Hedy Calderon MD [facility] [place]ED[place] Final Result * Colonoscopy (08/03/2024 9:31 AM CDT) Anatomical Region Laterality Modality Other Narrative Procedure Note Jerry Jones MD - 08/03/2024 9:31 AM CDT [facility] Patient Name: Dawna Kelsey Procedure Date: 08/03/2024 9:31 AM Date of : 1970 Admit Type: Outpatient Age: 54 Gender: Female Attending MD: Jerry Jones M.D. Room: [facility] ENDOSCOPY ROOM 3 Note Status: Finalized [...] procedure were verified by the physician, the nitriles lab technician and the home theatre technician in the endoscopy suite. Mental Status [...] under direct vision. The Pediatric Colonoscope [id number] was introduced through the anus and advanced [...] 9:31 AM Procedure Code(s): --- Professional --- 02471, Colonoscopy, flexible; with removal of tumor(s), polyp(s), or other lesion(s) by snare technique 41163, 59, Colonoscopy, flexible; with biopsy, single or multiple --- Technical --- 10818, Colonoscopy, flexible; with removal of tumor(s), polyp(s), or other lesion(s) by snare technique 09119, 59, Colonoscopy, flexible; with biopsy, single or multiple Diagnosis Code(s): --- Professional --- Z86.010, Personal history of colonic polyps D12.0, Benign neoplasm of cecum K64.8, Other hemorrhoids --- Technical --- Z86.010, Personal history of colonic polyps D12.0, Benign neoplasm of cecum K64.8, Other hemorrhoids CPT copyright 2020 [employer]. All rights reserved. The codes documented in this report are preliminary and upon certified professional coder reviewmay be revised to meet current compliance requirements. Recognized by the [employer] for promoting quality in endoscopy Jerry Jones MD ENDOSCOPY PROCEDURES Final Resul t from Last 3 Months or Most Recently Relevant to Health Maintenance Insurance PENDING SALE TO [facility] [place] Member Subscriber Plan / Payer (Ef fective 2014-Present) Name:Dawna Kelsey Relation to Subscriber:Spouse Name:SCOOTER KELSEY Date of :1969 (Home) Address: [address] [place] [address] [place] [address] Payer ID:[id number] (NAIC) Type: OTHER Address: [place] [id number] [place] PENDING S[place] TO [employer] [facility] WORKERS COMPENSATION GENERIC Advance Directives For more information, please contact: [phone] * Full Code (Latest Code Status on File) Date Activated Date Inactivated Comments 08/03/2024 9:56 AM 08/03/2024 4:29 PM * Full Code Date Activated Date Inactivated Comments 08/03/2024 9:56 AM 08/03/2024 9:56 AM Care Teams Fagot Maker Relationship Specialty Start Date End Date Hedy Calderon MD [address] [facility] [address] [place] [address] PCP - General 02/18/17 LeviDestinee nguyen MD [address] [place] [address] Surgeon Medical Oncology 11/09/24
--- OUTSIDE RECORDS SUMMARY | 2025-03-02 15:52 | XMS_ITS | Clinical Summary ---
Author Organization [facility] Address [address] [place] [address] Phone Care Team Providers Care Auto Driver Name Role Phone Unavailable Unavailable Unavailable Reason for Visit and Chief Complaint gynecologic annual exam - The Chief Complaint is: Annual Problems Includes: Problems addressed during this encounter and other active Problems All Visits Onset Date Resolved Date Provider Condition S tatus Diabetes Mellitus 10/27/2015 ROSA QUINONES NP-BC Active Last Documented On 10/27/2015 3:03PM ; [facility] Note: Type II Hypertension Systemic 10/27/2015 ROSA BLACKBURN NP-BC Active Last Documented On 5 3:03PM ; [facility] Migraine Headache 06/19/2013 ARPIT SNEED MD A ctive Last Documented On 3 11:34AM ; [facility] 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 A ctive Last Documented On 0 8:26AM ; [facility] Plan of Treatment - Follow-up visit 1 year or as needed - Last Documented On 10/10/2019 1:05PM ; [facility] - Clinical summary provided to patient - Last Documented On 10/10/2019 1:05PM ; [facility] Instructions to patient Instructions for patient : B reast Self Exam discussed Last Documented On 9 12:52PM ; [facility] Education and Decision Aids were provided during visit for: Patient Education: Daily pradeep cium and vitamin D Last Documented On 9 12:52PM ; [facility] Patient Education: weight be aring exercise Last Documented On 9 12:52PM ; [facility] Assessments Includes: Assessments from this encounter Findings - NORMAL FEMALE EXAM - Last Documented On 10/10/2019 1:05PM ; [facility] - Screening Malig. Neoplasm Rectum - Last Documented On 10/10/2019 1:05PM ; [facility] Instructions Includes: Instructions from this encounter Instructions to patient Instructions for patient : B reast Self Exam discussed Last Documented On 9 12:52PM ; [facility] Education and Decision Aids were provided during visit for: Patient Education: Daily pradeep cium and vitamin D Last Documented On 9 12:52PM ; [facility] Patient Education: weight be aring exercise Last Documented On 9 12:52PM ; [facility] Medical Equipment - Implanted Devices Includes: Current Devices No Medical Equipment Recorded Medications Includes: Medications discussed during this encounter and other current Medications Discontinued / Stopped on this date ROSA BLACKBURN WHNP-BC on 08/30/2018 Diflucan 150MG Oral Tablet Provider: Liam BLACKBURN WHNP-BC Diagnosis: Last Documented On 9 12:53PM By DANICA SALGADO ; [facility] Current Medications (continue as prescribed) Biotin 1000MCG Oral Tablet 05/09/2017 Provider: Diagnosis: Last Documented On 05/09/2017 1:27PM By DANICA SALGADO ; [facility] Iron 325 (65 Fe)MG Oral Tablet 05/09/2017 Provid er: Diagnosis: Last Documented On 05/09/2017 1:27PM By DANICA SALGADO ; [facility] Fish Oil 1000MG Oral Capsule, conventional 017 Provider: Diagnosis: Last Documented On 05/09/2017 1:27PM By DANICA SALGADO ; [facility] Topiramate 50 MG Tablet 07/13/2016 Provider: Diagnosis: Last Documented On 07/13/2016 2:36PM By LANDON BOBBY ; [facility] B Complex-B12 Tablet 07/13/2016 Provider: Diagnosis: Last Documented On 07/13/2016 2:36PM By LANDON BOBBY ; [facility] Vitron-C 65-125 MG Tablet 07/13/2016 Provider: Diagnosis: Last Documented On 07/13/2016 2:36PM By LANDON BOBBY ; [facility] MiraLax Powder 07/04/2015 Provider: Diagnosis: 17 grams bid Last Documented On 07/04/2015 11:00AM By JAMES ROMERO RN ; [facility] Effexor XR 75 MG OR CP24 06/25/2014 Provider: Diagnosis: Last Documented On 4 11:31AM By YUE SALGADO ; [facility] Vitamin D3 400 UNIT OR CAPS 06/25/2014 Provider: Diagnosis: Last Documented On 4 11:32AM By YUE SALGADO ; [facility] Botox 100 UNIT IJ SOLR 06/25/2014 Provider: Diagnosis: for headaches Last Documented On 4 11:50AM By MALINI CORONA LPN ; [facility] Indomethacin 25 MG OR CAPS 06/19/2013 Provider: Diagnosis: Last Documented On 06/19/2013 11:33AM By ANDREEA IGLESIAS ; [facility] Past Medications on file Estrace 0.1MG/GM Vaginal Cream 06/06/2017 - 09/04/2017 Provider: ROSA ADAN NP-BC Diagnosis: as directed - /2 applicator full pv at hs 3x/we ek Last Documented On 7 9:42AM By ROSA CHRISTIAN-BC ; [facility] Medications Administered Includes: Administered Medications from this encounter No Administered Medications Recorded Vital Signs Includes: Vital Signs from this encounter Vital Name 10/10/2019 12:49P Blood Pressure Sitting L 120/68 BP Cuff Size Regular Height (in) 58 Weight (lb) 112 Body Mass Index (kg/m2) 23.4 Body Surface Area (m2) 1.4 Last Documented: On 10/10/2019 12:50P M ; [facility] Results Includes: Results discussed during this encounter [...] 10/10/2019 Last Documented On 9 1:05PM ; [facility] In monogamous relationship 10/10/2019 Last Documented On 9 1:05PM ; [facility] Non-smoker 10/10/2019 Last Documented On 9 1:05PM ; [facility] Not using drugs 10/10/2019 Last Documented On 9 1:05PM ; [facility] Sexually active with 1 partners in the l ast year 10/10/2019 Last Documented On 9 1:05PM ; [facility] Smoking status : Never smoker 10/10/2019 Last Documented On 9 1:05PM ; [facility] Age of 1st intercourse was was 15 2010 Last Documented On 9 12:46PM ; [facility] Procedures and Surgical History Includes: Procedures from this encounter Procedures Code Diagnosis Performing Provider Service L ocation Service Date low fat diet Last Documented On 9 12:52PM ; [facility] fecal occult blood test was negative 89741 Last Documented On 9 12:52PM ; [facility] Surgical History Last Updated History of hysterectomy 07/19/2017 Last Documented On 9 12:46PM ; [facility] Surgical / procedural history 06/2015 lap gastric bypass 07/13/2016 Last Documented On 9 12:46PM ; [facility] History of tubal ligation 06/25/2014 Last Documented On 9 12:46PM ; [facility] History of vaginal hysterectomy 06/19/20 13 Last Documented On 9 12:46PM ; [facility] History of surgical laparosc opic gastric restrictive procedure by adjustable gastric band 03/11/2011 Last Documented On 9 12:46PM ; [facility] Medical History Includes: Medical History addressed during this encounter Description Last Updated Sexually active 10/10/2019 Last Documented On 9 1:05PM ; [facility] History of complete colonoscopy 2015 Dr Clara almontet in 10 years 10/10/2019 Last Documented On 9 1:05PM ; [facility] History of Pap smear done 05/09/201709/22 Last Documented On 9 1:05PM ; [facility] History of screening mammogram was perfo rmed 10/02/2018 10/10/2019 Last Documented On 9 1:05PM ; [facility] Result: normal 10/10/2019 Last Documented On 9 1:05PM ; [facility] Aborta 2 07/19/2017 Last Documented On 9 12:46PM ; [facility] 2 07/19/2017 Last Documented On 9 12:46PM ; [facility] Para 2 07/19/2017 Last Documented On 9 12:46PM ; [facility] Status post tubal ligation 07/19/2017 Last Documented On 9 12:46PM ; [facility] History of asthma outgrew 05/09/2017 Last Documented On 9 12:46PM ; [facility] History of type 2 diabetes mellitus pt n o longer takes rx for it 10/27/2015 Last Documented On 9 12:46PM ; [facility] TL 03/18/2010 Last Documented On 9 12:46PM ; [facility] 2 elective (s) 03/18/2010 Last Documented On 9 12:46PM ; [facility] Anemia 03/18/2010 Last Documented On 9 12:46PM ; [facility] Asthma 03/18/2010 Last Documented On 9 12:46PM ; [facility] High cholesterol 03/18/2010 Last Documented On 9 12:46PM ; [facility] Family History Includes: Family History addressed during this encounter Description Last Updated Maternal grandmother's history of family history of heart disease mgm 10/10/2019 Last Documented On 9 1:05PM ; [facility] Maternal grandmother's history of hypert ension mgm,father 10/10/2019 Last Documented On 9 1:05PM ; [facility] Maternal grandmother's history of pure h ypercholesterolemia mgm 10/10/2019 Last Documented On 9 1:05PM ; [facility] Spouse name: Scooter 06/25/2014 Last Documented On 9 12:46PM ; [facility] Family history of Cancer 03/18/2010 Last Documented On 9 12:46PM ; [facility] Family history of thyroid disease (GM) 0 03/18/2010 Last Documented On 9 12:46PM ; [facility] Family medical history of Anemia 010 Last Documented On 9 12:46PM ; [facility] Family medical history of high blood pre ssure (GM, F) 03/18/2010 Last Documented On 9 12:46PM ; [facility] Family medical history of High Cholester ol (GM) 03/18/2010 Last Documented On 9 12:46PM ; [facility] Review of Systems Includes: Review of Systems [...] Active Last Documented On 9 12:53PM ; [facility] Morphine Sulfate Allergy 03/18/2010 Ac tive Last Documented On 9 12:53PM ; [facility] metroNIDAZOLE Allergy 06/14/2012 Activ e Last Documented On 9 12:53PM ; [facility] Note: HEADACHE Demerol Allergy 03/18/2010 Active Last Documented On 9 12:53PM ; [facility] Aleve Allergy 03/18/2010 Active Last Documented On 9 12:53PM ; [facility] Encounters Encounter Provider Location Date Check-In Time Check-Out Time Diagnosis SUBSYSTEMS ENGINEER EXAM ROSA BLACKBURN [facility] COLOR PASTE MIXER 9 12:42PM 1:07PM Screening [place]. Neoplasm Rectum,Normal Female Exam Clinical Notes Includes: Clinical Notes from this encounter No Clinical Notes Recorded
--- OUTSIDE RECORDS SUMMARY | 2025-03-02 15:52 | XMS_ITS | Clinical Summary ---
Author Organization [facility] Address [address] [place] [address] Phone Care Team Providers Care Group President Name Role Phone Unavailable Unavailable Unavailable Reason for Visit and Chief Complaint NO SHOW Problems Includes: Problems addressed during this encounter and other active Problems All Visits Onset Date Resolved Date Provider Condition S tatus Diabetes Mellitus 10/27/2015 ROSA QUINONES NP-BC Active Last Documented On 10/27/2015 3:03PM ; [facility] Note: Type II Hypertension Systemic 10/27/2015 ROSA BLACKBURN NP-BC Active Last Documented On 5 3:03PM ; [facility] Migraine Headache 06/19/2013 ARPIT SNEED MD A ctive Last Documented On 3 11:34AM ; [facility] 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 A ctive Last Documented On 0 8:26AM ; [facility] Plan of Treatment [...] On 05/09/2017 1:27PM By DANICA SALGADO ; [facility] Iron 325 (65 Fe)MG Oral Tablet 05/09/2017 Provid er: Diagnosis: Last Documented On 05/09/2017 1:27PM By DANICA SALGADO ; [facility] Fish Oil 1000MG Oral Capsule, conventional 017 Provider: Diagnosis: Last Documented On 05/09/2017 1:27PM By DANICA SALGADO ; [facility] Topiramate 50 MG Tablet 07/13/2016 Provider: Diagnosis: Last Documented On 07/13/2016 2:36PM By LANDON BOBBY ; [facility] B Complex-B12 Tablet 07/13/2016 Provider: Diagnosis: Last Documented On 07/13/2016 2:36PM By LANDON BOBBY ; [facility] Vitron-C 65-125 MG Tablet 07/13/2016 Provider: Diagnosis: Last Documented On 07/13/2016 2:36PM By LANDON BOBBY ; [facility] MiraLax Powder 07/04/2015 Provider: Diagnosis: 17 grams bid Last Documented On 07/04/2015 11:00AM By JAMES ROMERO RN ; [facility] Effexor XR 75 MG OR CP24 06/25/2014 Provider: Diagnosis: Last Documented On 4 11:31AM By YUE SALGADO ; [facility] Vitamin D3 400 UNIT OR CAPS 06/25/2014 Provider: Diagnosis: Last Documented On 4 11:32AM By YUE SALGADO ; [facility] Botox 100 UNIT IJ SOLR 06/25/2014 Provider: Diagnosis: for headaches Last Documented On 4 11:50AM By MALINI CORONA LPN ; [facility] Indomethacin 25 MG OR CAPS 06/19/2013 Provider: Diagnosis: Last Documented On 06/19/2013 11:33AM By ANDREEA IGLESIAS ; [facility] Medications Administered Includes: Administered Medications [...] Active Last Documented On 9 12:53PM ; [facility] Morphine Sulfate Allergy 03/18/2010 Ac tive Last Documented On 9 12:53PM ; [facility] metroNIDAZOLE Allergy 06/14/2012 Activ e Last Documented On 9 12:53PM ; [facility] Note: HEADACHE Demerol Allergy 03/18/2010 Active Last Documented On 9 12:53PM ; [facility] Aleve Allergy 03/18/2010 Active Last Documented On 9 12:53PM ; [facility] Encounters Encounter Provider Location Date Check-In Time Check-Out Time Diagnosis NO SHOW ROSA CHRISTIAN-[facility] 01/21/2021 10:39AM 11:59PM Clinical Notes Includes: Clinical Notes from this encounter No Clinical Notes Recorded
--- NOTE | 2025-03-02 15:53 | ED.GENADULT ---
HPI - General Adult General Chief complaint: Eye Problems Stated complaint: L eye pain xtd Time Seen by Provider: 03/02/25 15:34 History of Present Illness HPI narrative: This is a 54-year-old female presenting with with left eye pain. Symptoms started overnight. She has irritation and foreign body sensation. 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 No fevers or purulent discharge. No trauma. Related Data Home Medications ?Medication ?Instructions ?Recorded ?Confirmed ?Last Taken ?Type calcium carbonate-vitamin D3 500 1 cap PO DAILY 10/09/20 10/12/24 Unknown History mg (1,250 mg)-50 unit capsule docosahexaenoic acid 200 mg 200 mg PO DAILY 10/09/20 10/12/24 Unknown History capsule (Algal [place]-3 DHA) ferrous sulfate 325 mg (65 mg 65 mg PO DAILY 10/09/20 10/12/24 Unknown History iron) tablet multivitamin 1 tablet PO DAILY 10/09/20 10/12/24 Unknown History indomethacin 25 mg capsule 25 mg PO DAILY 05/10/23 10/12/24 Unknown History zolpidem 5 mg tablet 5 mg PO HS 05/10/23 10/12/24 Unknown History cetirizine 10 mg capsule (Zyrtec) 10 mg PO DAILY PRN Allergy Symptoms 10/06/23 10/12/24 Unknown History montelukast 4 mg chewable tablet 4 mg PO DAILY 10/06/23 10/12/24 Unknown History (Singulair) alprazolam 0.5 mg tablet 0.5 mg PO TID PRN Anxiety 02/01/24 10/12/24 Unknown History famotidine 40 mg tablet 40 mg PO DIRECTED 02/01/24 10/12/24 Unknown History levocetirizine 5 mg tablet 5 mg PO DIRECTED 02/01/24 10/12/24 Unknown History temazepam 15 mg capsule 15 mg PO DIRECTED 02/01/24 10/12/24 Unknown History topiramate 50 mg tablet 50 mg PO DAILY 02/01/24 10/12/24 Unknown History venlafaxine 75 mg capsule,extended 75 mg PO DAILY 02/01/24 10/12/24 Unknown History release 24 hr metformin 500 mg tablet 500 mg PO DAILY 10/12/24 10/12/24 Unknown History Allergies Allergy/AdvReac Type Severity Reaction Status Date / Time meperidine Allergy Unknown HIVES Verified 03/02/25 15:15 metoclopramide Allergy Unknown RESTLESS Verified 03/02/25 15:15 LEGS morphine Allergy Unknown HIVES Verified 03/02/25 15:15 naproxen Allergy Unknown rash Verified 03/02/25 15:15 [facility] Past Medical History Medical History Anxiety Chiari malformation removal History of x 2 History of LEEP (loop electrosurgical excision procedure) of cervix complicating History of lipoma History of vaginal delivery x1 Migraine Palpitations Pre-diabetes Surgical History Surgical History H/O gastric bypass H/O LEEP H/O: hysterectomy History of section x1 History of laparoscopic adjustable gastric banding Family History Family History Father Cancer of nasal cavities Sibling Depression Grandparent Ovarian cancer Lung cancer Hypertension Other Asthma Social History Social History Smoking status: Never smoker Alcohol intake: never Substance use: never Substance use type: does not use Lack of Transportation: No Lack of Food: Never True Current Housing: I Have Housing Concerned About Future Housing: No Difficulty Paying Gas/Electric Bills: No Difficulty Paying for Meds: No Currently Unemployed: No Education: Bachelor's Degree Difficulty w/ Childcare or Family Care: No Exam Narrative: APPEARANCE: No apparent distress. Head: atraumatic. EYES: EOMI, NOSE: Atraumatic NECK: Trachea midline RESPIRATORY: No increased rate of breathing CARDIOVASCULAR: RRR, ABDOMINAL: Non-distended MUSCULOSKELETAl: No obvious deformities NEURO: Alert. Moving 4/4 extremities SKIN:: Warm, dry. Normal color PSYCHIATRIC: Normal affect Eye exam: Visual acuity 2025 bilaterally, IOP 11 bilaterally, fluorescein stain of the left eye showed a corneal abrasion at 6:00 oclock. No foreign bodies noted Course Vital Signs Vital signs: Vital Signs Temperature 97.7 F 03/02/25 15:16 Pulse Rate 103 H 03/02/25 15:16 Respiratory Rate 14 03/02/25 15:16 Blood Pressure 129/69 03/02/25 15:16 Pulse Oximetry 100 03/02/25 15:16 Oxygen Delivery Room Air 03/02/25 15:16 Temperature 97.7 F 03/02/25 15:16 Pulse Rate 103 H 03/02/25 15:16 Respiratory Rate 14 03/02/25 15:16 Blood Pressure 129/69 03/02/25 15:16 Pulse Oximetry 100 03/02/25 15:16 Oxygen Delivery Room Air 03/02/25 15:16 Medical Decision Making MDM Narrative Medical decision making narrative: -Course: 54-year-old female presenting with eye pain. Found have a corneal abrasion. Placed on Ocuflox and given Ophthalmology follow-up. Discharge. Given return precautions. -DDX includes but is not limited to: Corneal abrasion, foreign body, conjunctivitis Vital Signs Vital Signs: Vital Signs Temperature 97.7 F 03/02/25 15:16 Pulse Rate 103 H 03/02/25 15:16 Respiratory Rate 14 03/02/25 15:16 Blood Pressure 129/69 03/02/25 15:16 Pulse Oximetry 100 03/02/25 15:16 Oxygen Delivery Room Air 03/02/25 15:16 Temperature 97.7 F 03/02/25 15:16 Pulse Rate 103 H 03/02/25 15:16 Respiratory Rate 14 03/02/25 15:16 Blood Pressure 129/69 03/02/25 15:16 Pulse Oximetry 100 03/02/25 15:16 Oxygen Delivery Room Air 03/02/25 15:16 Discharge Plan Discharge Clinical Impression: Abrasion, corneal Patient Disposition: Home Condition: Stable Instructions: Antibiotic Form Additional Instructions: Please use the eyedrops as instructed. You can use Motrin and Tylenol for pain control. Please follow-up with your honing machine try out setter in 48-72 hours. Return if you develop severe eye pain or loss of vision. Patient Language: [place] Island[place] Prescriptions: New ofloxacin [Ocuflox] 0.3 % drops See Rx Instructions .ROUTE .COMPLEX Qty: 5 0RF Rx Instructions: put 1-2 drps into affected eye(s) every 2-4 h x 2 days, then 1-2 drps 4 times/day days 3-7 No Action multivitamin [Daily Multivitamin] Tablet 1 tablet PO DAILY ferrous sulfate [Gentle Iron (iron sulfate)] 325 mg (65 mg iron) Tablet 65 mg PO DAILY Algal [place]-3 DHA 200 mg Capsule 200 mg PO DAILY Calcium With Vitamin D3 500 mg(1,250mg) -50 unit Capsule 1 cap PO DAILY venlafaxine 75 mg capsule,extended release 24hr 75 mg PO DAILY famotidine 40 mg tablet 40 mg PO DIRECTED alprazolam 0.5 mg tablet 0.5 mg PO TID PRN (Reason: Anxiety) temazepam 15 mg capsule 15 mg PO DIRECTED topiramate 50 mg tablet 50 mg PO DAILY levocetirizine 5 mg tablet 5 mg PO DIRECTED indomethacin 25 mg capsule 25 mg PO DAILY zolpidem 5 mg tablet 5 mg PO HS montelukast [Singulair] 4 mg tablet,chewable 4 mg PO DAILY Zyrtec 10 mg capsule 10 mg PO DAILY PRN (Reason: Allergy Symptoms) metformin 500 mg tablet 500 mg PO DAILY Follow-up/Referrals: Kvng,MD Hedy [Primary Care Provider] -
--- OUTSIDE RECORDS SUMMARY | 2025-03-02 15:53 | XMS_ITS ---
Care Plan - [facility] Created on: March 02, 2025 TERRANCE KELSEY : 1970 Sex: Female Author Organization [facility] Address [address] [address] Phone Care Team Providers Care Clipper Operator Name Role Phone Unavailable Unavailable Unavailable
--- OUTSIDE RECORDS SUMMARY | 2025-03-02 15:53 | XMS_ITS | Clinical Summary ---
Author Organization [facility] Address [address] [place] [address] Phone Care Team Providers Care Master Yacht Name Role Phone Unavailable Unavailable Unavailable Reason for Visit and Chief Complaint [Patient Encounter] Problems Includes: Problems addressed during this encounter and other active Problems All Visits Onset Date Resolved Date Provider Condition S tatus Diabetes Mellitus 10/27/2015 ROSA QUINONES NP-BC Active Last Documented On 10/27/2015 3:03PM ; [facility] Note: Type II Hypertension Systemic 10/27/2015 ROSA BLACKBURN NP-BC Active Last Documented On 5 3:03PM ; [facility] Migraine Headache 06/19/2013 ARPIT SNEED MD A ctive Last Documented On 3 11:34AM ; [facility] 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 A ctive Last Documented On 0 8:26AM ; [facility] Plan of Treatment No Plan of Treatment Recorded Assessments Includes: Assessments from this encounter No Assessments Recorded Medical Equipment - Implanted Devices Includes: Current Devices No Medical Equipment Recorded Medications Includes: Medications discussed during this encounter and other current Medications Current Medications (continue as prescribed) Biotin 1000MCG Oral Tablet 05/09/2017 Provider: Diagnosis: Last Documented On 05/09/2017 1:27PM By DANICA SALGADO ; [facility] Iron 325 (65 Fe)MG Oral Tablet 05/09/2017 Provid er: Diagnosis: Last Documented On 05/09/2017 1:27PM By DANICA SALGADO ; [facility] Fish Oil 1000MG Oral Capsule, conventional 017 Provider: Diagnosis: Last Documented On 05/09/2017 1:27PM By DANICA SALGADO ; [facility] Topiramate 50 MG Tablet 07/13/2016 Provider: Diagnosis: Last Documented On 07/13/2016 2:36PM By LANDON BOBBY ; [facility] B Complex-B12 Tablet 07/13/2016 Provider: Diagnosis: Last Documented On 07/13/2016 2:36PM By LANDON BOBBY ; [facility] Vitron-C 65-125 MG Tablet 07/13/2016 Provider: Diagnosis: Last Documented On 07/13/2016 2:36PM By LANDON BOBBY ; [facility] MiraLax Powder 07/04/2015 Provider: Diagnosis: 17 grams bid Last Documented On 07/04/2015 11:00AM By JAMES ROMERO RN ; [facility] Effexor XR 75 MG OR CP24 06/25/2014 Provider: Diagnosis: Last Documented On 4 11:31AM By YUE SALGADO ; [facility] Vitamin D3 400 UNIT OR CAPS 06/25/2014 Provider: Diagnosis: Last Documented On 4 11:32AM By YUE SALGADO ; [facility] Botox 100 UNIT IJ SOLR 06/25/2014 Provider: Diagnosis: for headaches Last Documented On 4 11:50AM By MALINI CORONA LPN ; [facility] Indomethacin 25 MG OR CAPS 06/19/2013 Provider: Diagnosis: Last Documented On 06/19/2013 11:33AM By ANDREEA IGLESIAS ; [facility] Medications Administered Includes: Administered Medications from [...] Active Last Documented On 9 12:53PM ; [facility] Morphine Sulfate Allergy 03/18/2010 Ac tive Last Documented On 9 12:53PM ; [facility] metroNIDAZOLE Allergy 06/14/2012 Activ e Last Documented On 9 12:53PM ; [facility] Note: HEADACHE Demerol Allergy 03/18/2010 Active Last Documented On 9 12:53PM ; [facility] Aleve Allergy 03/18/2010 Active Last Documented On 9 12:53PM ; [facility] Encounters Encounter Provider Location Date Check-In Time Check-Out Time Diagnosis [Patient Encounter] ROSA BLACKBURN LUZMARIA- 10/03/2018 12:29PM 11:59PM Clinical Notes Includes: Clinical Notes from this encounter No Clinical Notes Recorded
== END 2025-03-02 16:17 | disposition home or self-care (01) ==
PROVIDERS: Emergency Provider Emergency Medicine; PCP Internal Medicine
DX: S05.02XA Injury of conjunctiva and corneal abrasion without foreign body, left eye, initial encounter (principal); R73.03 Prediabetes; F41.9 Anxiety disorder, unspecified; Z98.84 Bariatric surgery status; Z90.710 Acquired absence of both cervix and uterus; Z79.84 Long term (current) use of oral hypoglycemic drugs; Z79.899 Other long term (current) drug therapy; X58.XXXA Exposure to other specified factors, initial encounter
CPT/HCPCS: 99283